=== PATIENT | male | born 1955 | race Caucasian/White ===

== ENCOUNTER → 2017-08-04 | Outpatient (CLI) | payer OTHER ==
--- NOTE | 2017-08-04 17:39 | MR ---
EXAMINATION TYPE: MR hip RT wo con DATE OF EXAM: 08/04/2017 COMPARISON: CT 10/25/2015 HISTORY: History prostate cancer with hip pain. TECHNIQUE: Multiplanar, multisequence images were acquired. A large FOV for pelvic/bilateral hip imag ing was used to obtain coronal spin-echo T1 and T2 STIR sequences and axial spin-echo T1 and fat-supp ressed T2 weighted sequences. Small [id number] ipsilateral right hip sequences included oblique sa gittal fat-suppressed proton density imaging and coronal fat-suppressed T2-weighted imaging. FINDINGS: The prior CT shows multifocal sclerotic bone lesions, likely treated/healed metastatic foci . On the present study there is [id number] end-stage osteoarthritis changes associated with mild late ral subluxation of the femoral head with respect to the acetabulum and there is associated marginal o steophytosis. There is prominent subchondral marrow edema involving the weightbearing surface of the femoral head and, to a lesser extent, the superior acetabulum. The femoral head marrow T2 hyperintens e edema involves approximately 75% of the articulating surface, and this is associated with heterogen eous subchondral T2 hyperintense serpentine lines, yet the right femoral head remains rounded and pre dominantly intact. The contralateral left hip and visualized skeletal structures are otherwise unremarkable. The soft tissues are unremarkable. IMPRESSION: [id number] OSTEOARTHRITIS, WITH OSTEONECROSIS SUSPECTED.
== END | disposition home or self-care (01) ==
LOC: RADMRIMAIN 16:12
PROVIDERS: ATTEND Internal Medicine Hematology & Oncology
DX: C61 Malignant neoplasm of prostate (principal); M16.11 Unilateral primary osteoarthritis, right hip

== ENCOUNTER → 2017-08-25 | Outpatient (CLI) | payer OTHER ==
--- NOTE | 2017-08-25 17:32 | CT ---
EXAMINATION TYPE: CT chest wo con DATE OF EXAM: 08/25/2017 COMPARISON: 04/05/2016 HISTORY: Abnormal cxr. CT DLP: 471.4 mGycm. Automated Exposure Control for Dose Reduction was Utilized. TECHNIQUE: CT scan of the thorax is performed without IV contrast. FINDINGS: There is a mild reticular infiltrate at the inferior right pulmonary hilum. There is similar reticula r infiltrate posterior to the left pulmonary hilum in the superior segment left lower lobe. There is no evidence of a pulmonary mass. There is a 2.5 cm cyst in the right lobe of the liver. There is no p leural effusion. There is no pericardial effusion. There is no mediastinal adenopathy. There are no h ilar masses. IMPRESSION: There are chronic bilateral perihilar posterior reticular infiltrates that are improved c ompared to old CT scan. no evidence of any new pulmonary density. There is clearing of minimal nodul ar subpleural infiltrate at the lung bases compared to old CT scan.
== END | disposition home or self-care (01) ==
LOC: RADCTMAIN 16:53
PROVIDERS: ATTEND Nurse Practitioner Adult Health
DX: R91.8 Other nonspecific abnormal finding of lung field (principal)
CPT/HCPCS: 71250

== ENCOUNTER → 2018-01-26 | Outpatient (CLI) | payer OTHER ==
--- NOTE | 2018-01-26 15:53 | XR ---
EXAMINATION TYPE: XR chest 2V DATE OF EXAM: 01/26/2018 COMPARISON: Correlation CT 08/25/2017 HISTORY: 63 year-old male right hip pain, preoperative assessment TECHNIQUE: Frontal and lateral views FINDINGS: Heart normal size. Aorta and pulmonary vasculature within normal limits. There is very subtle nodular ity peripheral right upper and midlung likely summation artifact given the lack of any findings on th e patient's recent 08/25/2014 CT. No consolidation or pleural effusion. IMPRESSION: No acute cardiopulmonary process.
== END | disposition home or self-care (01) ==
LOC: RADXRMAIN 14:39
PROVIDERS: ATTEND Nurse Practitioner Adult Health
DX: M25.551 Pain in right hip (principal); C61 Malignant neoplasm of prostate; G89.3 Neoplasm related pain (acute) (chronic); G62.0 Drug-induced polyneuropathy
CPT/HCPCS: 71046

== ENCOUNTER → 2018-04-17 | Outpatient (CLI) | payer OTHER ==
--- NOTE | 2018-04-18 02:28 | MR ---
EXAMINATION TYPE: MR lumbar spine wo/w con DATE OF EXAM: 04/17/2018 COMPARISON: None HISTORY: LBP, BLE radic x 1 year, hx prostate ca 2015. TECHNIQUE: Multiplanar, multisequence images of the lumbar spine were acquired utilizing 10 mL intravenous Gadav ist gadolinium contrast. The lumbar vertebra have normal alignment. There is slight narrowing of L5-S1 disc space. There is ab normal decreased signal in multiple areas of the lumbar spine on the T1 and T2-weighted images consis tent with osteosclerosis. There is no compression fracture. There is no lumbar paraspinal mass. The p osterior elements are intact. I see no lumbar spinal stenosis. The neural foramina are fairly well-ma intained. I see no pathologic enhancement. IMPRESSION: Numerous low signal lesions in the lumbar and sacral vertebral bodies consistent with osteoblastic me tastatic disease. This is also evident on the chest CT scan of 08/25/2017. No spinal stenosis. Small p osterior lumbar disc herniation at L5-S1 centrally without significant impingement on the neural [place] ents. No compression fracture.
== END | disposition home or self-care (01) ==
LOC: RADMRIMAIN 18:11
PROVIDERS: ATTEND Internal Medicine Hematology & Oncology
DX: M51.27 Other intervertebral disc displacement, lumbosacral region (principal); M89.9 Disorder of bone, unspecified; C61 Malignant neoplasm of prostate
CPT/HCPCS: 82565; 72158; 36415; A9581

== ENCOUNTER 2018-07-30 11:31 | Emergency (ER) | payer OTHER ==
[2018-07-30 11:43] VITALS: RESP 18; TEMP 98.5
--- NOTE | 2018-07-30 13:01 | XR ---
EXAMINATION TYPE: XR ankle complete RT DATE OF EXAM: 07/30/2018 CLINICAL HISTORY: Right ankle pain after a fall TECHNIQUE: Frontal, lateral and oblique images of the right ankle are obtained. COMPARISON: None. FINDINGS: There is no acute fracture/dislocation evident in the right ankle. Well-corticated osseou s fragments from sequela prior injury are seen in the region of the deltoid ligament distal to the me dial malleolus. The ankle mortise appears within normal limits. The overlying soft tissue appears un remarkable. IMPRESSION: There is no acute fracture or dislocation in the right ankle.
--- NOTE | 2018-07-30 13:04 | XR ---
EXAMINATION TYPE: XR Hip Complete RT DATE OF EXAM: 07/30/2018 CLINICAL HISTORY: Right hip pain after a fall TECHNIQUE: AP and frogleg views of the right hip are obtained. COMPARISON: None. FINDINGS: There is no acute fracture/dislocation evident in the right hip arthroplasty or surroundin g [place] bone. Somewhat patchy sclerosis is throughout the right inferior pubic ramus and ischium. T he overlying soft tissue appears unremarkable. IMPRESSION: Right hip arthroplasty appears in satisfactory alignment without immediate bone nor hardw are fracture within the right hip. There is somewhat patchy bone marrow within the right ischium and inferior pubic ramus that is nonspecific although correlation with PSA and bone scan could be utilize d for further evaluation.
--- NOTE | 2018-07-30 13:05 | XR ---
EXAMINATION TYPE: XR knee complete RT DATE OF EXAM: 07/30/2018 CLINICAL HISTORY: Right knee pain after a fall TECHNIQUE: Three views of the right knee are obtained. COMPARISON: None. FINDINGS: There is no acute fracture/dislocation evident in right knee. The there a mild marginal o steophytes are seen in the tricompartmental spaces. There is minimal medial compartment joint space n arrowing and tibial plateau sclerosis. No suprapatellar joint effusion is seen. Incidental noted fabe lla. The overlying soft tissue appears unremarkable. IMPRESSION: There is no acute fracture or dislocation in the right knee. Mild tricompartmental arthr opathy of the right knee.
--- NOTE | 2018-07-30 13:28 | ED ---
Fall HPI - General Chief Complaint: Fall Stated Complaint: Ankle injury Time Seen by Provider: 07/30/18 12:00 Source: patient, RN notes reviewed Mode of arrival: ambulatory Limitations: no limitations - History of Present Illness Initial Comments: 63-year-old male presented from for complaint of fall, right leg pain. Patient states he has a bad ankle and states that he fell on Friday in the ground is a continuation of pain to the right hip, knee and ankle region. Patient denies any head injury no loss conscious. Patient states that her prior hip replacement is concerned about this. Denies any abdominal pain including nausea vomiting diarrhea constipation. He does take Percocet daily but states the pain sometimes is just not controlled by this. - Related Data Home Medications Medication Instructions Recorded Confirmed Citracal 250mg + D 200 Units 1 tab PO DAILY 07/30/18 07/30/18 Cyclobenzaprine [Flexeril] 10 mg PO TID 07/30/18 07/30/18 Enalapril [Vasotec] 10 mg PO DAILY 07/30/18 07/30/18 Enzalutamide [Xtandi] 160 mg PO DAILY 07/30/18 07/30/18 Ibuprofen [Motrin] 800 mg PO TID PRN 07/30/18 07/30/18 oxyCODONE-APAP 10-325MG [Percocet 1 tab PO TID PRN 07/30/18 07/30/18 10-325 mg] Allergies Allergy/AdvReac Type Severity Reaction Status Date / Time No Known Allergies Allergy Verified 07/30/18 11:56 Review of Systems ROS Statement: Those systems with pertinent positive or pertinent negative responses have been documented in the HPI. ROS Other: All systems not noted in ROS Statement are negative. Past Medical History Past Medical History: Cancer, Hypertension Additional Past Medical History / Comment(s): stage IV prostate CA, to brain stem and spine History of Any Multi-Drug Resistant Organisms: None Reported Past Surgical History: Joint Replacement, Orthopedic Surgery Additional Past Surgical History / Comment(s): sinus surgery, L hand, R ankle, R knee, R h ip Past Psychological History: No Psychological Hx Reported Smoking Status: Never smoker Past Alcohol Use History: Occasional Past Drug Use History: None Reported General Exam Limitations: no limitations General appearance: alert, in no apparent distress Head exam: Present: atraumatic, normocephalic, normal inspection Neck exam: Present: normal inspection, full ROM. Absent: tenderness, meningismus, lymphadenopathy Respiratory exam: Present: normal lung sounds bilaterally. Absent: respiratory distress, wheezes, rales, rhonchi, stridor Cardiovascular Exam: Present: regular rate, normal rhythm, normal heart sounds. Absent: systolic murmur, diastolic murmur, rubs, gallop, clicks GI/Abdominal exam: Present: soft, normal bowel sounds. Absent: distended, tenderness, guarding, rebound, rigid Extremities exam: Present: other (Right hip full range of motion, minimal tenderness with palpation, no obvious deformity no ecchymosis, right knee full range of motion no laxity mild pain with valgus and there is some ecchymosis noted over the anterior surface., Right ankle tenderness to lateral malleoli region with mild swelling no ecchymosis negative for laxity, leg is neurovascularly intact no foot tenderness) Skin exam: Present: warm, dry, intact, normal color. Absent: rash Course Vital Signs 07/30/18 11:38 Temperature 98.5 F Pulse Rate 94 Respiratory 18 Rate Blood Pressure 182/110 O2 Sat by Pulse 98 Oximetry Medical Decision Making - Medical Decision Making 63-year-old male presented for fall right leg pain. X-rays are obtained no acute abnormality. Patient does have known prostate cancer with metastases to the bone and is seen on right hip x-ray. Patient will continue pain medication as directed at home and return for any worsening symptoms. Disposition Clinical Impression: Fall, Right hip pain, Knee sprain, Right ankle sprain Disposition: HOME SELF-CARE Condition: Stable Instructions: Ankle Sprain (ED), Knee Sprain (ED) Additional Instructions: Please return to the Emergency Department if symptoms worsen or any other concerns. Is patient prescribed a controlled substance at d/c from ED?: No Referrals: None,Stated [Primary Care Provider] - 1-2 days Time of Disposition: 13:28
[2018-07-30 13:42] VITALS: BP 151/111; PULSE 88
== END 2018-07-30 13:42 | disposition home or self-care (01) ==
LOC: EC 11:31
DX: S93.401A Sprain of unspecified ligament of right ankle, initial encounter (principal); S83.91XA Sprain of unspecified site of right knee, initial encounter; M25.551 Pain in right hip; I10 Essential (primary) hypertension; Z85.46 Personal history of malignant neoplasm of prostate; Z79.899 Other long term (current) drug therapy; X50.1XXA Overexertion from prolonged static or awkward postures, initial encounter; W19.XXXA Unspecified fall, initial encounter; Y93.89 Activity, other specified; Y92.89 Other specified places as the place of occurrence of the external cause
CPT/HCPCS: 73502; 99283

== ENCOUNTER → 2019-08-05 | Outpatient (CLI) | payer MEDICARE, OTHER ==
[2019-08-05 11:07] LABS: African American GFR (CKD) >90 (>60 ml/min/1.73 sqM); Blood Urea Nitrogen 15 mg/dL (9-20); Non-African American GFR(CKD) >90 (>60 ml/min/1.73 sqM)
--- NOTE | 2019-08-05 12:40 | CT ---
EXAMINATION TYPE: CT ChestAbdPelvis w con DATE OF EXAM: 08/05/2019 COMPARISON: 10/25/2015 HISTORY: Prostate CA CT DLP: 1287 mGycm CONTRAST: CT scan of the chest, abdomen and pelvis is performed with Oral Contrast and with IV Contrast, patien t injected with 100 mL of Isovue 300. CT Chest: LUNGS: The lungs are clear and free of infiltrate or atelectasis. No pulmonary nodule or mass is det ected. No pleural effusion or CT evidence of interstitial lung disease. MEDIASTINUM: Thoracic aorta is of normal caliber. The heart is not enlarged. No evidence for media stinal mass or adenopathy. HILAR STRUCTURES: No evidence for mass. No hilar adenopathy is appreciated. OTHER: No significant abnormality. CONTRAST CT ABDOMEN AND PELVIS FINDINGS: LIVER/GB: No calcified gallstones. Hepatic cystic changes are stable. Mild fatty liver. Biliary jaelyn e is of normal caliber. PANCREAS: No inflammation. No distinct mass. SPLEEN: No splenic enlargement. No lesion seen. ADRENALS: No nodule. No thickening. KIDNEYS/BLADDER: No hydronephrosis. No nephrolithiasis. No disctinct renal mass. BOWEL: Normal appendix. Normal bowel caliber. No inflammation. GENITAL ORGANS: No gross abnormality. LYMPH NODES: No greater than 1cm abdominal or pelvic lymph nodes are appreciated. AORTA: No significant abnormality. OSSEOUS STRUCTURES: Diffuse osseous sclerotic metastases are present. There is involvement of ribs an d scapula spinal column and pelvis. There is also sternal involvement. OTHER: No significant additional abnormality is seen. IMPRESSION: 1. Diffuse bony metastases noted. 2. Hepatic cystic change. 3. Mild fatty liver.
--- NOTE | 2019-08-05 15:05 | NM ---
EXAMINATION TYPE: NM bone scan whole body DATE OF EXAM: 08/05/2019 COMPARISON: CT same date HISTORY: Prostate carcinoma Delayed whole-body scanning was performed following the injection of 23.5 mCi Tc 99m MDP. Images acq uired 3 hours post injection. FINDINGS: 2 numerous to count foci of increased uptake are scattered throughout the skeleton which correlates w ith patient's abnormal CT findings of sclerosis within the skeleton to include the proximal upper and lower extremities, pelvis, spine, ribs and sternum. Photopenic defect at the proximal right hip cons istent with post arthroplasty change. IMPRESSION: Metastatic prostate carcinoma
== END | disposition home or self-care (01) ==
LOC: RADNMMAIN 10:24
PROVIDERS: ATTEND Internal Medicine Hematology & Oncology
DX: K76.0 Fatty (change of) liver, not elsewhere classified (principal); K76.89 Other specified diseases of liver; C79.51 Secondary malignant neoplasm of bone; C61 Malignant neoplasm of prostate
CPT/HCPCS: 82565; 84520; 71260; 74177; 36415; 78306; A9503; Q9967

== ENCOUNTER → 2020-02-15 | Outpatient (CLI) | payer MEDICARE, OTHER ==
--- NOTE | 2020-02-16 07:22 | MR ---
EXAMINATION TYPE: MR brain wo/w con DATE OF EXAM: 02/15/2020 COMPARISON: NONE HISTORY: Malignant neoplasm of prostate TECHNIQUE: Multiplanar, multisequence images of the brain and brainstem is performed without and with IV contras t, utilizing 10.5 mL intravenous Gadavist . FINDINGS: Diffusion weighted images demonstrate no evidence of a recent infarct or other diffusion ab normality. There is no worrisome extra-axial fluid collection. Mild diffuse ventricular and sulcal p rominence. Some scattered foci of T2 hyperintensity are seen throughout the white matter bilaterally. Approximately 20-25 small scattered lesions are seen. Midline structures demonstrate normal morphology. The craniocervical junction appears within normal limits. Post contrast images demonstrate no abnormal enhancement or suspicious enhancing intraparenc hymal masses. There is 1.4 cm mucous retention cyst or polyp in the posterior inferior left maxillary sinus otherwise paranasal sinuses are clear. The globes are intact bilaterally. IMPRESSION: 1. No suspicious enhancing mass identified to suggest metastatic disease to the brain. 2. Background mild diffuse cerebral atrophy and mild to moderate chronic small vessel ischemic change is noted.
== END | disposition home or self-care (01) ==
LOC: RADMRIMAIN 16:29
PROVIDERS: ATTEND Internal Medicine Hematology & Oncology
DX: G31.1 Senile degeneration of brain, not elsewhere classified (principal); I67.82 Cerebral ischemia; C61 Malignant neoplasm of prostate
CPT/HCPCS: 70553; A9585

== ENCOUNTER 2020-07-08 16:56 | Inpatient (IN) | payer MEDICARE, OTHER ==
[2020-07-08] MEDS ORDERED: ACETAMINOPHEN TAB 500 MG TAB PO STA (17:18)
--- NOTE | 2020-07-08 17:44 | ED ---
General Adult HPI - General Chief complaint: Fall Stated complaint: fever Time Seen by Provider: 07/08/20 17:18 Source: EMS Mode of arrival: EMS - History of Present Illness Initial comments: Dictation was produced using [employer] dictation software. please excuse any grammatical, word or spelling errors. This patient was cared for during a federal and state declared state of emergency secondary to Covid 19 Chief Complaint: 65-year-old male presents with presyncope History of Present Illness: Is a 65-year-old male with past medical history of prostate cancer. Patient states that since this morning he's been feeling faint. Patient states that he's been feeling so faint that he fell down. Denies any loss of consciousness. Patient states that his head on the wall presents to take any anticoagulation medications. Patient has history of prostate cancer. He states he's part of a drug trial retakes experimental medications. Patient denies any pain complaints. He denies any cough sore throat, nasal congestion, rhinorrhea. No dysuria or urinary symptoms. He denies any constitutional symptoms. The ROS documented in this emergency department record has been reviewed and confirmed by me. Those systems with pertinent positive or negative responses have been documented in the HPI. All other systems are other negative and/or noncontributory. PHYSICAL EXAM: General Impression: Alert and oriented x3, not in acute distress, lethargic HEENT: Normocephalic atraumatic, extra-ocular movements intact, pupils equal and reactive to light bilaterally, mucous membranes moist. Cardiovascular: Heart regular rate and rhythm Chest: Able to complete full sentences, no retractions, no tachypnea Abdomen: abdomen soft, non-tender, non-distended, no organomegaly Musculoskeletal: Pulses present and equal in all extremities, no peripheral edema Motor: no focal deficits noted Neurological: CN II-XII grossly intact, no focal motor or sensory deficits noted Skin: Intact with no visualized rashes Psych: Normal affect and mood ED course: 65-year-old male presents today with lightheadedness and presyncope. Signs upon arrival shows temperature 104, heart rate of 118, 92% on room air, rest of vital signs within acceptable limits. EKG interpretation: Ventricular rate 116, sinus tachycardia,. Interval 146, QRS 80, QTc 433. No IA prolongation, no QTC prolongation, no ST or T-wave changes noted. Overall, this EKG is unremarkable Laboratory evaluation obtained. No leukocytosis. Hemoglobin 7.9. Cardiac panel is unremarkable. Metabolic panel shows potassium 2.9, rest of labs are within acceptable limits. Urinalysis shows trace protein no infection. Influenza coronavirus are negative. Chest x-ray shows multifocal pneumonia. At this point is unclear if patient has a serous bacterial illness however he does have radiographically evidence and was mildly hypoxic. There is concern for pneumonia. Patient given broad-spectrum antibiotics. Case is discussed with Dr. Pritchett who is willing to accept patients care. Patient not showing any signs of severe sepsis at this time. Urinalysis was discussed with Jimena, patient's daughter who is agreeable with disposition. - Related Data Home Medications Medication Instructions Recorded Confirmed Citracal 250mg + D 200 Units 1 tab PO DAILY 07/30/18 07/30/18 Cyclobenzaprine [Flexeril] 10 mg PO TID 07/30/18 07/30/18 Enalapril [Vasotec] 10 mg PO DAILY 07/30/18 07/30/18 Enzalutamide [Xtandi] 160 mg PO DAILY 07/30/18 07/30/18 Ibuprofen [Motrin] 800 mg PO TID PRN 07/30/18 07/30/18 oxyCODONE-APAP 10-325MG [Percocet 1 tab PO TID PRN 07/30/18 07/30/18 10-325 mg] Allergies Allergy/AdvReac Type Severity Reaction Status Date / Time No Known Allergies Allergy Verified 07/08/20 17:07 Review of Systems ROS Statement: Those systems with pertinent positive or pertinent negative responses have been documented in the HPI. ROS Other: All systems not noted in ROS Statement are negative. Past Medical History Past Medical History: Cancer, Hypertension Additional Past Medical History / Comment(s): stage IV prostate CA, to brain stem and spine History of Any Multi-Drug Resistant Organisms: None Reported Past Surgical History: Joint Replacement, Orthopedic Surgery Additional Past Surgical History / Comment(s): sinus surgery, L hand, R ankle, R knee, R h ip Past Psychological History: No Psychological Hx Reported Smoking Status: Never smoker Past Alcohol Use History: Occasional Past Drug Use History: None Reported Course Vital Signs 07/08/20 07/08/20 17:02 18:07 Temperature 104 F H 101.4 F H Pulse Rate 118 H 105 H Respiratory 18 18 Rate Blood Pressure 167/98 158/86 O2 Sat by Pulse 92 L 98 Oximetry Medical Decision Making - Lab Data Result diagrams: 07/08/20 17:23 07/08/20 17:23 Lab Results 07/08/20 07/08/20 07/08/20 Range/Units 17:23 17:23 17:23 WBC 5.8 (3.8-10.6) k/uL RBC 2.62 L (4.30-5.90) m/uL Hgb 7.9 L (13.0-17.5) gm/dL Hct 24.2 L (39.0-53.0) % MCV 92.4 (80.0-100.0) fL MCH 30.3 (25.0-35.0) pg MCHC 32.8 (31.0-37.0) g/dL RDW 16.8 H (11.5-15.5) % Plt Count 199 (150-450) k/uL MPV 9.1 Neutrophils % Not Reportable Neutrophils % (Manual) 57 % Band Neuts % (Manual) 7 % Lymphocytes % Not Reportable Lymphocytes % (Manual) 25 % Monocytes % Not Reportable Monocytes % (Manual) 4 % Eosinophils % Not Reportable Eosinophils % (Manual) 3 % Basophils % Not Reportable Basophils % (Manual) 1 % Metamyelocytes % 4 % Myelocytes % 1 % Neutrophils # Not Reportable Neutrophils # (Manual) 3.70 (1.3-7.7) k/uL Lymphocytes # Not Reportable Lymphocytes # (Manual) 1.45 (1.0-4.8) k/uL Monocytes # Not Reportable Monocytes # (Manual) 0.23 (0-1.0) k/uL Eosinophils # Not Reportable Eosinophils # (Manual) 0.17 (0-0.7) k/uL Basophils # Not Reportable Basophils # (Manual) 0.06 (0-0.2) k/uL Metamyelocytes # (Man) 0.23 H (0) k/uL Myelocytes # (Manual) 0.06 H (0) k/uL Nucleated RBCs 4 H (0-0) /100 WBC Manual Slide Review Performed Polychromasia Present Anisocytosis Slight PT 11.1 (9.0-12.0) sec INR 1.1 (<1.2) APTT 24.6 (22.0-30.0) sec Sodium 140 (137-145) mmol/L Potassium 2.9 L (3.5-5.1) mmol/L Chloride 102 (98-107) mmol/L Carbon Dioxide 34 H (22-30) mmol/L Anion Gap 4 mmol/L BUN 13 (9-20) mg/dL Creatinine 0.99 (0.66-1.25) mg/dL Est GFR (CKD-EPI)AfAm >90 (>60 ml/min/1.73 sqM) Est GFR (CKD-EPI)NonAf 79 (>60 ml/min/1.73 sqM) Glucose 136 H (74-99) mg/dL Plasma Lactic Acid Thor (0.7-2.0) mmol/L Calcium 10.8 H (8.4-10.2) mg/dL Total Bilirubin 0.7 (0.2-1.3) mg/dL AST 61 H (17-59) U/L ALT 10 (4-49) U/L Alkaline Phosphatase 382 H (38-126) U/L Total Protein 6.1 L (6.3-8.2) g/dL Albumin 3.3 L (3.5-5.0) g/dL Urine Color Urine Appearance (Clear) Urine pH (5.0-8.0) Ur Specific [place] (1.001-1.035) Urine Protein (Negative) Urine Glucose (UA) (Negative) Urine Ketones (Negative) Urine Blood (Negative) Urine Nitrite (Negative) Urine Bilirubin (Negative) Urine Urobilinogen (<2.0) mg/dL Ur Leukocyte Esterase (Negative) Coronavirus (PCR) (Not Detectd) Influenza Type A RNA (Not Detectd) Influenza Type B (PCR) (Not Detectd) 07/08/20 07/08/20 07/08/20 Range/Units 17:23 17:39 17:42 WBC (3.8-10.6) k/uL RBC (4.30-5.90) m/uL Hgb (13.0-17.5) gm/dL Hct (39.0-53.0) % MCV (80.0-100.0) fL MCH (25.0-35.0) pg MCHC (31.0-37.0) g/dL RDW (11.5-15.5) % Plt Count (150-450) k/uL MPV Neutrophils % Neutrophils % (Manual) % Band Neuts % (Manual) % Lymphocytes % Lymphocytes % (Manual) % Monocytes % Monocytes % (Manual) % Eosinophils % Eosinophils % (Manual) % Basophils % Basophils % (Manual) % Metamyelocytes % % Myelocytes % % Neutrophils # Neutrophils # (Manual) (1.3-7.7) k/uL Lymphocytes # Lymphocytes # (Manual) (1.0-4.8) k/uL Monocytes # Monocytes # (Manual) (0-1.0) k/uL Eosinophils # Eosinophils # (Manual) (0-0.7) k/uL Basophils # Basophils # (Manual) (0-0.2) k/uL Metamyelocytes # (Man) (0) k/uL Myelocytes # (Manual) (0) k/uL Nucleated RBCs (0-0) /100 WBC Manual Slide Review Polychromasia Anisocytosis PT (9.0-12.0) sec INR (<1.2) APTT (22.0-30.0) sec Sodium (137-145) mmol/L Potassium (3.5-5.1) mmol/L Chloride (98-107) mmol/L Carbon Dioxide (22-30) mmol/L Anion Gap mmol/L BUN (9-20) mg/dL Creatinine (0.66-1.25) mg/dL Est GFR (CKD-EPI)AfAm (>60 ml/min/1.73 sqM) Est GFR (CKD-EPI)NonAf (>60 ml/min/1.73 sqM) Glucose (74-99) mg/dL Plasma Lactic Acid Thor 1.1 (0.7-2.0) mmol/L Calcium (8.4-10.2) mg/dL Total Bilirubin (0.2-1.3) mg/dL AST (17-59) U/L ALT (4-49) U/L Alkaline Phosphatase (38-126) U/L Total Protein (6.3-8.2) g/dL Albumin (3.5-5.0) g/dL Urine Color Yellow Urine Appearance Clear (Clear) Urine pH 6.0 (5.0-8.0) Ur Specific [place] 1.014 (1.001-1.035) Urine Protein Trace H (Negative) Urine Glucose (UA) Negative (Negative) Urine Ketones Negative (Negative) Urine Blood Negative (Negative) Urine Nitrite Negative (Negative) Urine Bilirubin Negative (Negative) Urine Urobilinogen <2.0 (<2.0) mg/dL Ur Leukocyte Esterase Negative (Negative) Coronavirus (PCR) Not Detected (Not Detectd) Influenza Type A RNA Not Detected (Not Detectd) Influenza Type B (PCR) Not Detected (Not Detectd) Disposition Clinical Impression: Pneumonia Disposition: ADMITTED IP TO THIS HOSP Condition: Fair Referrals: None,Stated [Primary Care Provider] - 1-2 days Decision Time: 19:14
[2020-07-08 17:48] LABS: ALT 10 U/L (4-49); AST 61 U/L (17-59); African American GFR (CKD) >90 (>60 ml/min/1.73 sqM); Albumin 3.3 g/dL (3.5-5.0); Alkaline Phosphatase 382 U/L (38-126); Anion Gap 4 mmol/L; Blood Urea Nitrogen 13 mg/dL (9-20); Calcium 10.8 mg/dL (8.4-10.2); Carbon Dioxide 34 mmol/L (22-30); Chloride 102 mmol/L (98-107); Glucose 136 mg/dL (74-99); INR 1.1 (<1.2); Non-African American GFR(CKD) 79 (>60 ml/min/1.73 sqM); Partial Thromboplastin Time 24.6 sec (22.0-30.0); Potassium 2.9 mmol/L (3.5-5.1); Prothrombin Time 11.1 sec (9.0-12.0); Sodium 140 mmol/L (137-145); Total Bilirubin 0.7 mg/dL (0.2-1.3); Total Protein 6.1 g/dL (6.3-8.2)
[2020-07-08 17:55] LABS: Anisocytosis Slight; HCT 24.2 % (39.0-53.0); HGB 7.9 gm/dL (13.0-17.5); MCH 30.3 pg (25.0-35.0); MCHC 32.8 g/dL (31.0-37.0); MCV 92.4 fL (80.0-100.0); Mean Platelet Volume 9.1; Platelet Count 199 k/uL (150-450); RBC 2.62 m/uL (4.30-5.90); RDW 16.8 % (11.5-15.5)
[2020-07-08 17:57] LABS: Appearance,Urine Clear (Clear); Bilirubin,Urine Negative (Negative); Blood,Urine Negative (Negative); Color,Urine Yellow; Glucose,Urine (UA) Negative (Negative); Ketones,Urine Negative (Negative); Leukocyte Esterase,Urine Negative (Negative); Nitrite,Urine Negative (Negative); Protein,Urine Trace (Negative); Specific Gravity,Urine 1.014 (1.001-1.035); Urobilinogen,Urine <2.0 mg/dL (<2.0)
[2020-07-08] MEDS: SODIUM CHLORIDE 0.9% 500 ML 500 ML IV SCH ×2 (18:12→19:03)
--- NOTE | 2020-07-08 18:12 | XR ---
EXAMINATION TYPE: XR chest 1V portable DATE OF EXAM: 07/08/2020 COMPARISON: 01/26/2018 HISTORY: Fever TECHNIQUE: FINDINGS: There is some patchy infiltrate left lower lobe. There is mild blunting left costophrenic a ngle. There is probably a 1 cm nodular infiltrate in the right midlung. Heart size is normal. There i s no heart failure. There are no hilar masses. Mediastinum is normal. IMPRESSION: There is a new mild left lower lobe pneumonia and left pleural effusion compared to old e xam. Small infiltrate right midlung. There is no heart failure.
[2020-07-08 18:25] LABS: SARS-CoV-2 RNA Rapid Abbott Not Detected (Not Detectd)
[2020-07-08 18:39] LABS: Band Neutrophils % 7 %; Basophils # (M) 0.06 k/uL (0-0.2); Eosinophils # (M) 0.17 k/uL (0-0.7); Lymphocytes # (M) 1.45 k/uL (1.0-4.8); Metamyelocytes # (M) 0.23 k/uL (0); Metamyelocytes % 4 %; Monocytes # (M) 0.23 k/uL (0-1.0); Myelocytes # (M) 0.06 k/uL (0); Myelocytes % 1 %; Neutrophils % (M) 57 %; Nucleated Red Blood Cells 4 /100 WBC (0-0); Polychromasia Present; Total Cells Counted 200; WBC 5.8 k/uL (3.8-10.6)
[2020-07-08] MEDS ORDERED: VANCOMYCIN IV PER PHARMACY 1 EACH MISC MISCELLANE PRN (18:52)
[2020-07-08] MEDS ORDERED: PIPERACILLIN-TAZOBACTAM 3.375 GM in SODIUM CHLORIDE 0.9% 100 ML IVPB STA (18:53)
[2020-07-08] MEDS: POTASSIUM CHLORIDE 20 MEQ in WATER FOR INJECTION 1 100ML.BAG IVPB SCH ×2 (19:03→21:29)
[2020-07-08] MEDS ORDERED: NALOXONE 0.4 MG/ML 1 ML VIAL IV PRN (19:14)
[2020-07-08] MEDS ORDERED: VANCOMYCIN 2,000 MG in SODIUM CHLORIDE 0.9% 500 ML 500 ML IVPB ONE (19:30)
[2020-07-08] MEDS ORDERED: DOCUSATE 100 MG CAP PO PRN (21:22)
[2020-07-08] MEDS ORDERED: PANTOPRAZOLE 40 MG TABLET PO PRN (21:22)
[2020-07-08] MEDS ORDERED: IBUPROFEN 800 MG TAB PO PRN (21:22)
--- NOTE | 2020-07-08 23:10 | P.HPIM ---
History of Present Illness H&P Date: 07/08/20 Chief Complaint: falling , generalized weakness 65 year old male with stage 4 prostate cancer patient comes in due to sudden feeling of generalized weakness, near syncope, an d feeling fatigued. he is in a drug trial to treat his prostate cancer with mets to the bone. he finished 8 cycles, and after each he has specific instructions to take motrin and tylenol, which this time he missed yesterday, and had a busy day playing with his grandson sledding, and shoveling snow. this morning he woke up feeling very tired, he otherwise denies any URI symptoms, denies any SOB or chest pain , denies any diarrhea or GI changes, denies any urinary changes, denies any rashes , leg pain (other than baseline neuropathy) , denies any changes in taste or smell sensation in the ED, he was found to have chronic anemia , low K, and CXR showed areas suspicious for infilterates (vs possible lung mets this will need follow up as OP). patient was also found to be febrile , tested negative to flu and COVID 19 , he was started on broad spectrum antibiotics and blood cultures taken Review of Systems Pertinent positives as noted in HPI. All other systems were reviewed and are negative Past Medical History Past Medical History: Cancer, Hypertension Additional Past Medical History / Comment(s): stage IV prostate CA, to brain stem and spine History of Any Multi-Drug Resistant Organisms: None Reported Past Surgical History: Joint Replacement, Orthopedic Surgery Additional Past Surgical History / Comment(s): sinus surgery, L hand, R ankle, R knee, R h ip Past Psychological History: No Psychological Hx Reported Smoking Status: Never smoker Past Alcohol Use History: Occasional Past Drug Use History: None Reported - Past Family History family Family Medical History: No Reported History Medications and Allergies Home Medications Medication Instructions Recorded Confirmed Type Ibuprofen [Motrin] 800 mg PO TID PRN 07/30/18 07/08/20 History Acetaminophen Tab [Tylenol] 650 mg PO Q6H PRN 07/08/20 07/08/20 History Docusate [Colace] 100 mg PO HS PRN 07/08/20 07/08/20 History Ferrous Sulfate [Feosol] 325 mg PO DAILY 07/08/20 07/08/20 History Gabapentin 300 mg PO TID 07/08/20 07/08/20 History Omeprazole 40 mg PO DAILY PRN 07/08/20 07/08/20 History Potassium Chloride ER [K-Dur 20] 20 meq PO DAILY 07/08/20 07/08/20 History SUMAtriptan SUCCINATE [Imitrex] 25 mg PO BID PRN 07/08/20 07/08/20 History oxyCODONE HCL [oxyCODONE HCL (IR)] 15 mg PO Q4H 07/08/20 07/08/20 History Allergies Allergy/AdvReac Type Severity Reaction Status Date / Time No Known Allergies Allergy Verified 07/08/20 19:30 Physical Exam Vitals: Vital Signs Temp Pulse Resp BP Pulse Ox 07/08/20 18:07 101.4 F H 105 H 18 158/86 98 07/08/20 17:02 104 F H 118 H 18 167/98 92 L Intake and Output 07/08/20 07/08/20 07/08/20 06:59 14:59 22:59 Other: Weight 95.254 kg Constitutional: No acute distress, conversant, pleasant Eyes: Anicteric sclerae, moist conjunctiva, Pupils equal round reactive to light ENMT: NC/AT Oropharynx clear, no erythema, or exudates Neck: Supple, FROM, no masses, or JVD No carotid bruits No thyromegaly Lungs: Clear to auscultation Clear to percussion Normal respiratory effort, no accessory muscle use Cardiovascular: Heart regular in rate and rhythm, No murmurs, gallops, or rubs No peripheral edema Abdominal: Soft Nontender, no guarding, rebound or rigidity Abdomen moving with respiration Normoactive bowel sounds No hepatomegaly, No splenomegaly No palpable mass No abdominal wall hernia noted Skin: Normal temperature, tone, texture, turgor No induration No subcutaneous nodules No rash, lesions No ulcers Extremities: No digital cyanosis No clubbing Pedal pulses intact and symmetrical Radial pulses intact and symmetrical No calf tenderness Psychiatric: Alert and oriented to person, place and time Appropriate affect fair judgement Neuro Muscles Strength 5/5 in all 4 extremities Sensation to light touch grossly present throughout Cranial nerves II-XII grossly intact No focal sensory deficits Lymphatics: no palpable cervical or supraclavicular , or inguinal lymph nodes Results CBC & Chem 7: 07/08/20 17:23 07/08/20 17:23 Labs: Abnormal Lab Results - Last 24 Hours (Table) 07/08/20 07/08/20 07/08/20 Range/Units 17:23 17:23 17:42 RBC 2.62 L (4.30-5.90) m/uL Hgb 7.9 L (13.0-17.5) gm/dL Hct 24.2 L (39.0-53.0) % RDW 16.8 H (11.5-15.5) % Metamyelocytes # (Man) 0.23 H (0) k/uL Myelocytes # (Manual) 0.06 H (0) k/uL Nucleated RBCs 4 H (0-0) /100 WBC Potassium 2.9 L (3.5-5.1) mmol/L Carbon Dioxide 34 H (22-30) mmol/L Glucose 136 H (74-99) mg/dL Calcium 10.8 H (8.4-10.2) mg/dL AST 61 H (17-59) U/L Alkaline Phosphatase 382 H (38-126) U/L Total Protein 6.1 L (6.3-8.2) g/dL Albumin 3.3 L (3.5-5.0) g/dL Urine Protein Trace H (Negative) Assessment and Plan Assessment: febrile with generalized weakness workup for infectious source stage 4 prostate cancer hypokalemia chronic anemia plan supportive care follow up cultures empiric antibiotics with vanco and azithro follow up CXR 4-6 weeks after discharge , to rule out lung mets continue with motrin and tylenol per his clinical trial IVF hydration resume home opiates for back pain gabapentine for neuropathy replace K , check Mg CODE STATUS:full code DVT prophylaxis: hepairn sc tid Discussed with: Patient, ER Anticipated length of stay < than [address]: home A total of 75 minutes was spent on the care of this complex patient more than 50% of the time was spent in counseling and care coordination.
[2020-07-08] MEDS: SODIUM CHLORIDE 0.9% 1,000 ML IV SCH (23:43)
[2020-07-08] MEDS: HEPARIN SODIUM,PORCINE 5,000 UNIT/ML 1 ML VIAL SQ SCH (23:44)
[2020-07-09] MEDS: SODIUM CHLORIDE 0.9% 1,000 ML IV SCH ×3 (05:17→22:51)
[2020-07-09] MEDS: ACETAMINOPHEN TAB 325 MG TAB PO PRN ×2 (06:20→19:51)
[2020-07-09 07:09] LABS: Anisocytosis Slight; Basophils % (A) 0 %; Eosinophils # (A) 0.1 k/uL (0-0.7); Eosinophils % (A) 3 %; Hypochromasia Slight; Lymphocytes # (A) 0.7 k/uL (1.0-4.8); Lymphocytes % (A) 18 %; MCHC 31.7 g/dL (31.0-37.0); MCV 94.8 fL (80.0-100.0); Mean Platelet Volume 8.5; Monocytes # (A) 0.3 k/uL (0-1.0); Monocytes % (A) 9 %; Neutrophils # (A) 2.5 k/uL (1.3-7.7); Neutrophils % (A) 66 %; Platelet Count 137 k/uL (150-450); RBC 2.07 m/uL (4.30-5.90); RDW 16.5 % (11.5-15.5); WBC 3.7 k/uL (3.8-10.6)
[2020-07-09 07:14] LABS: HCT 19.6 % (39.0-53.0); HGB 6.2 gm/dL (13.0-17.5)
[2020-07-09] MEDS ORDERED: VANCOMYCIN 1,750 MG in SODIUM CHLORIDE 0.9% 500 ML 500 ML IVPB SCH (08:00)
[2020-07-09] MEDS: AZITHROMYCIN 500 MG TAB PO SCH (08:10)
[2020-07-09] MEDS: HEPARIN SODIUM,PORCINE 5,000 UNIT/ML 1 ML VIAL SQ SCH (08:11)
[2020-07-09] MEDS ORDERED: GABAPENTIN 300 MG CAP PO SCH (09:00)
[2020-07-09] MEDS ORDERED: POTASSIUM CHLORIDE ER 20 MEQ TAB.ER PO SCH (09:00)
[2020-07-09 09:48] LABS: African American GFR (CKD) 107.9 (60.0-200.0); Albumin 3.2 g/dL (3.80-4.90); Albumin/Globulin Ratio 2.13 (1.60-3.17); Anion Gap 4.9 mmol/L (4.00-12.00); BUN/Creat Ratio 16.25 Ratio (12.00-20.00); Calcium 9.4 mg/dL (8.7-10.3); Carbon Dioxide 32.1 mmol/L (21.6-31.8); Globulin 1.5 g/dL (1.6-3.3); Magnesium 1.6 mg/dL (1.5-2.4); Non-African American GFR(CKD) 93.1 (60.0-200.0); Potassium 3.6 mmol/L (3.5-5.5); Total Bilirubin 0.4 mg/dL (0.3-1.2); Total Protein 4.7 g/dL (6.2-8.2)
[2020-07-09 11:34] LABS: Anisocytosis Slight; HCT 20.1 % (39.0-53.0); Hypochromasia Slight; MCH 31.6 pg (25.0-35.0); MCHC 33.3 g/dL (31.0-37.0); MCV 94.7 fL (80.0-100.0); Mean Platelet Volume 8.1; Platelet Count 136 k/uL (150-450); RBC 2.12 m/uL (4.30-5.90); RDW 16.4 % (11.5-15.5); WBC 4.3 k/uL (3.8-10.6)
[2020-07-09 11:42] LABS: HGB 6.7 gm/dL (13.0-17.5)
[2020-07-09 11:46] LABS: Reticulocyte % 2.3 % (0.5-2.0)
--- NOTE | 2020-07-09 12:26 | P.CONS ---
History of Present Illness - Reason for Consult Consult date: 07/09/20 Prostate cancer Requesting physician: Pinky Santillan - Chief Complaint Faint feeling and fall - History of Present Illness Mr. Downs is a very pleasant 65-year-old gentleman comorbidities including long-standing prostate cancer, status post multiple lines of treatment, currently on a clinical trial with T cells and Keytruda through [facility], here for feeling faint. He had his last T-cell treatment on Friday and felt well afterwards. He continues to have several more Keytruda treatments left. He subsequently felt very faint to the point that he fell and ended up in the ER where workup revealed a left lower lobe infiltrate on chest x-ray. He was admitted and started on antibiotics for pneumonia. He also had anemia, hemoglobin 7.9, decreased to 6.7 today. Overall he does feel better however. Rest of his workup was unremarkable. We were called regarding his history of metastatic prostate cancer. Oncologic history: This is a very nice patient who presented with worsening neck pain,he is known to have chronic neck and back pain from multiple injuries in the past,however,his neck pain progressed which led to XR then MRI to cervical spine on 09/18/2015 w/o contrast which reported heniated disc,then on 10/05/2015 repeat MRI of cervical spine with contrast revealed extradural soft tissue mass at T3 in addition to suspicious lesions in cervical and thoracic spine. On 10/12/2015,MRI of thoracic spine confirmed the soft tissue mass at T3 in addition to multiple other lesions. On 10/13/2015,bone scan revealed diffuse bone metastasis. He is known to have elevated PSA,it went up to 5.25 on 12/05/2010 (was 2.7 on 07/19/2008),then 4.92 on 07/11/2011 and 6.61 on 12/11/2012,7.350 on 08/31/2013. He was evaluated by Dr Lilly in 2013,and found to have a nodule at his prostate apex,transrectal ultrasound and biopsy was recommended but he declined it wi thout any further follow up. On 10/25/2015,PSA was 660. CT scan of chest/abdomen/pelvis done on 10/25/2015 revealed diffuse osseous metastasis,no visceral disease. On 10/31/2015,prostate biopsy was positive for adenocarcinoma Deep of 8(4+4) 8/12 cores. He started casodex on 10/26/2015. He started palliative radiation to his cervical spine on 11/03/2015 and completed on 11/16/2015. On 11/20/2015,he started leupron every 3 months and xgeva every 4 weeks. Casodex was discontinued end of . He was given recommendation for initial chemotherapy with LHRH agonist,he was referrred to [facility],he was given the option of LHRH agonist+xtandi as part of clinical trial,he initially went on it,took xtandi for 2 days and stopped it and decided to get off the study. On 12/20/2015,PSA was 1.7. On 12/28/2015,he started taxotere every 3 weeks. On 02/27/2016,he decided to stop Leupron because it made him feel very tired,impotence. On 03/09/2016 was less than 0.1. He completed 6 cycles on 04/16/2016. On 04/05/2016,CT of chest done because of cough revealed bilateral pneumonitis. On 04/24/2016,PSA was less than 0.1 On 06/19/2016,PSA was less than 0.1. On 07/23/2016,PSA was 0.2 On 09/07/2016,PSA was 0.7 On 10/10/2016,PSA was 1.7 On 01/22/2017,PSA was 10.2. On 04/22/2017,PSA was 35.9 On 06/03/2017,PSA was 52.9 He agreed to go a casodex,again,declined leupron,his PSA was down to 25,then he held it and went back up to 34,. 12/22/17-Pt here today for pain managment discussion, he feels like he "got run over by a train", he takes the norco 4 times a day, ibuprofen PRN and flexeril at bedtime with fair to poor pain control, he has had XRT to spine, he states the area is "on fire", his right hip is very painful, gives out at times and he is considering orthopedic intervention. He has been on and off treatments for quite sometime, he states that he has been on casodex for about 9 months, he states he is going to go onto Xtandi and LHRH in the near future waiting for insurance-there is no order for the same, I reviwed that it is likely xgeva, he isn't going to take xgeva until he has need his ortho. 02/11/18-Pt here for his norco refill. He is s/p total right hip replacement. He has not consistently been treated for prostate cancer (takes oral casodex most of the time, refused lupron and xgeva), no he is going to proceed with xgeva and maybe lupron in 2 weeks. He is healing well from surgery, no other c/o r/t malignancy or casodex today. 03/23/2018: His PSA was 249 in January/2018.He finally agreed to go on leupron,which was started on 02/26/2018,he had once and now declining to have it anymore and he does not want xtandi either and stopped casodex,he continues to have neuroapthy,numbness in both feet,he has worsening back pain,not controlled with norco,worsening fatigue 06/09/2018: He has been compliant with xtandi and leupron since March/2018,tolerating treatment well,he feels better,his PSA is down to 29.2,his back and joints pain is under control 07/20/2018: He has been very compliant with xtandi,leupron and xgeva. He feels tired but better,chronic joints and back pain controlled with percocet as needed,,his PSA has significantly declined,his BP is elevated but stated he has not been taking his enalapril 10/19/2018: He is taking xtandi daily,compliant with the leupron and xgeva,he has some muscle cramps,hot flashes,has his chronic back pain,controlled with percocet as needed,he is relatively active.His last PSA in 07/2018 was down 11.2 01/27/2019: He has his chronic generalized bone aches,some muscle cramps,he also has numbness and pain in his feet,he is relatively active,he gained weight,has hot flashes,his PSA on 12/30/2018 was 16.2 05/04/2019: He feels tired,generalized bone pain,he missed leupron injection last month,he continues with xtandi,uses percocet as needed for pain,about 3-4 times/day,also on motrin,on neurontin for his neuropathy,has some hot flashes. 07/27/2019: PSA in April/2019 was 43. He feels tired,generalized bone pain,he continues with xtandi,uses percocet as needed for pain,about 3-4 times/day,also on motrin,on neurontin for his neuropathy,has some hot flashes. 08/17/2019: he had repeat CT scan of chest/abdomen/pelvis and bone scan on 08/05/2019 which revealed diffuse osseous mets,no visceral disease,his PSA was up to 81.7 He feels tired,generalized musculoskeletal pain,controlled with current pain meds regimen,has hot flashes and continues to have neuropathy,which is stable,he remains relatively active. 09/03/2019: he was referred to [facility].a phase II trial () of pembrolizumab with anti- CD3 x anti HER2 bispecific antibodies armed activated T cells in metastatic castrate resistent prostate cancer. He feels tired,generalized musculoskeletal pain,controlled with current pain meds regimen,has hot flashes and continues to have neuropathy,which is stable,he remains relatively active. 11/12/2019:audio visual: he feels tired,generalized musculoskeletal pain and legs weakness. he is still unsure about proceeding with clinical trial at [facility],he has an Appt on 11/22/2019,if he decided not to pursue it,then,I would highly consider taxanes chemotherapy. He also complains of right jaw pain and sinus congestion,I am concerned about osteonecrosis of jaw,he could not see a dentist due to coburn,will re prescribe Abx and hold xgeva for now. His last PSA was up to 239.6. His disease is progressing,I highly recommended that he will make a decision soon in regard to his treatment:clinical trials vs taxotere. Time spent 30 mionutes. 12/13/2019: recent CT scan and bone scan done at [facility] revealed significant progression of osseous lesions and his PSA was significantly elevated over 300. He feels tired,has his chronic back,hip pain and neuropathy,at this time,there is no plan for clinical trial and he would like to start chemotherapy. Due to concern about osteonecrosis of his jaw,xgeva was held and he has not seen a dentist yet. 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 04/14/2020: He is currently on clinical trial at [facility],under DR Choco akbar. He feels tired,generalized bone pain,04/22,not controlled with percocet,we discussed adding oxycontin,he agreed,he tried neurontin before and did not help him.He continues to take motrin as needed 05/15/20-Next week he gets his 1st keytruda, pending T cell return for infusion, it will be given twice a week. He is supposed to get eliguard next week-pending note from clinical trial team to proceed. He has pain, less fluctuation in the intensity but, still persists, worse when he exerts himself. No other c/o. 06/23/2020: he feels tired,currently on clinical trial at [facility] with T cell and keytruda,he has his last T cell injection next week and 8 more keytruda treatment. His generalized musculoskeletal pain is less,taking less narcotics,continues to have his chronic peripheral neuropathy,his anemic today Review of Systems All systems: negative Constitutional: Reports as per HPI Past Medical History Past Medical History: Cancer, Hypertension Additional Past Medical History / Comment(s): stage IV prostate CA, to brain stem and spine History of Any Multi-Drug Resistant Organisms: None Reported Past Surgical History: Joint Replacement, Orthopedic Surgery Additional Past Surgical History / Comment(s): sinus surgery, L hand, R ankle, R knee, R h ip Past Anesthesia/Blood Transfusion Reactions: No Reported Reaction Past Psychological History: No Psychological Hx Reported Smoking Status: Never smoker Past Alcohol Use History: Occasional Past Drug Use History: None Reported - Past Family History family Family Medical History: No Reported History Medications and Allergies Home Medications Medication Instructions Recorded Confirmed Type Ibuprofen [Motrin] 800 mg PO TID PRN 07/30/18 07/08/20 History Acetaminophen Tab [Tylenol] 650 mg PO Q6H PRN 07/08/20 07/08/20 History Docusate [Colace] 100 mg PO HS PRN 07/08/20 07/08/20 History Ferrous Sulfate [Feosol] 325 mg PO DAILY 07/08/20 07/08/20 History Gabapentin 300 mg PO TID 07/08/20 07/08/20 History Omeprazole 40 mg PO DAILY PRN 07/08/20 07/08/20 History Potassium Chloride ER [K-Dur 20] 20 meq PO DAILY 07/08/20 07/08/20 History SUMAtriptan SUCCINATE [Imitrex] 25 mg PO BID PRN 07/08/20 07/08/20 History oxyCODONE HCL [oxyCODONE HCL (IR)] 15 mg PO Q4H 07/08/20 07/08/20 History Allergies Allergy/AdvReac Type Severity Reaction Status Date / Time No Known Allergies Allergy Verified 07/08/20 19:30 Physical Exam Vitals: Vital Signs Temp Pulse Pulse Resp BP BP Pulse Ox 07/09/20 05:57 97.9 F 66 16 122/66 100 07/09/20 02:30 98.3 F 80 16 130/80 98 07/08/20 20:51 99.1 F 94 16 125/75 98 07/08/20 20:30 100.1 F H 93 16 147/91 97 07/08/20 19:39 100.6 F H 97 16 167/99 100 07/08/20 18:07 101.4 F H 105 H 18 158/86 98 07/08/20 17:02 104 F H 118 H 18 167/98 92 L Intake and Output 07/08/20 07/09/20 07/09/20 22:59 06:59 14:59 Output Total 700 Balance -700 Output: Urine 700 Other: # Voids 2 Weight 95.254 kg Gen.: No acute distress. HEENT: He does have conjunctival pallor. No scleral icterus. Mucosa moist. Neck: Supple. Lungs: No respiratory distress. On NC. Heart: Regular rate. Abdomen: Soft. MSK: Appropriate strength in all 4 extremities. Neuro: Alert and oriented 3. Skin: No jaundice. Psych: Appropriate affect. Results CBC & Chem 7: 07/09/20 11:23 07/09/20 06:34 Labs: Abnormal Lab Results - Last 24 Hours (Table) 07/08/20 07/08/20 07/08/20 Range/Units 17:23 17:23 17:23 WBC (3.8-10.6) k/uL RBC 2.62 L (4.30-5.90) m/uL Hgb 7.9 L (13.0-17.5) gm/dL Hct 24.2 L (39.0-53.0) % RDW 16.8 H (11.5-15.5) % Plt Count (150-450) k/uL Lymphocytes # (1.0-4.8) k/uL Metamyelocytes # (Man) 0.23 H (0) k/uL Myelocytes # (Manual) 0.06 H (0) k/uL Nucleated RBCs 4 H (0-0) /100 WBC Potassium 2.9 L (3.5-5.1) mmol/L Carbon Dioxide 34 H (22-30) mmol/L Glucose 136 H (74-99) mg/dL Calcium 10.8 H (8.4-10.2) mg/dL AST 61 H (17-59) U/L ALT (10-49) U/L Alkaline Phosphatase 382 H (38-126) U/L Total Protein 6.1 L (6.3-8.2) g/dL Albumin 3.3 L (3.5-5.0) g/dL Globulin (1.6-3.3) g/dL Procalcitonin 0.11 H (0.02-0.09) ng/mL Urine Protein (Negative) Crossmatch 07/08/20 07/09/20 07/09/20 Range/Units 17:42 06:34 06:34 WBC 3.7 L (3.8-10.6) k/uL RBC 2.07 L (4.30-5.90) m/uL Hgb 6.2 L* D (13.0-17.5) gm/dL Hct 19.6 L* (39.0-53.0) % RDW 16.5 H (11.5-15.5) % Plt Count 137 L (150-450) k/uL Lymphocytes # 0.7 L (1.0-4.8) k/uL Metamyelocytes # (Man) (0) k/uL Myelocytes # (Manual) (0) k/uL Nucleated RBCs (0-0) /100 WBC Potassium (3.5-5.1) mmol/L Carbon Dioxide 32.1 H (22-30) mmol/L Glucose 114 H (74-99) mg/dL Calcium (8.4-10.2) mg/dL AST (17-59) U/L ALT 9 L (10-49) U/L Alkaline Phosphatase 338 H (38-126) U/L Total Protein 4.7 L (6.3-8.2) g/dL Albumin 3.20 L (3.5-5.0) g/dL Globulin 1.5 L (1.6-3.3) g/dL Procalcitonin (0.02-0.09) ng/mL Urine Protein Trace H (Negative) Crossmatch 07/09/20 Range/Units 08:32 WBC (3.8-10.6) k/uL RBC (4.30-5.90) m/uL Hgb (13.0-17.5) gm/dL Hct (39.0-53.0) % RDW (11.5-15.5) % Plt Count (150-450) k/uL Lymphocytes # (1.0-4.8) k/uL Metamyelocytes # (Man) (0) k/uL Myelocytes # (Manual) (0) k/uL Nucleated RBCs (0-0) /100 WBC Potassium (3.5-5.1) mmol/L Carbon Dioxide (22-30) mmol/L Glucose (74-99) mg/dL Calcium (8.4-10.2) mg/dL AST (17-59) U/L ALT (10-49) U/L Alkaline Phosphatase (38-126) U/L Total Protein (6.3-8.2) g/dL Albumin (3.5-5.0) g/dL Globulin (1.6-3.3) g/dL Procalcitonin (0.02-0.09) ng/mL Urine Protein (Negative) Crossmatch See Detail Microbiology - Last 24 Hours (Table) 07/08/20 17:42 Group A Strep Throat Culture - Preliminary Throat Chest x-ray: report reviewed Assessment and Plan Assessment: 1. Pneumonia 2. Prostate cancer 3. Pancytopenia Plan: Mr. Downs is a very pleasant 65 yo male with history of metastatic prostate cancer on a clinical trial who is here for feeling faint and falling. Workup revealed a left lower lung infiltrate consistent with pneumonia as well as anemia, normocytic. He was admitted and started on antibiotics and currently repeat CBC reveals pancytopenia. As for his prostate cancer, we'll hold catheter directed therapy for now until his infection improves. As worse pancytopenia likely due to his prostate cancer/treatment as well as antibiotics and acute illness. Supportive transfusion for hemoglobin less than 7 or platelets less than 15 or bleeding. Rule out other contributing etiology such as of also some bleeding and vitamin d eficiencies. Discussed with patient is agreeable to the plan. All of his questions were answered.
--- NOTE | 2020-07-09 12:56 | P.PN ---
Subjective Progress Note Date: 07/09/20 Principal diagnosis: CC: Fatigue and lightheadedness found to have fever and anemia Patient states that this morning he is feeling much better. He states that his fevers have resolved. This morning patient's CBC showed pancytopenia. Patient denies any overt signs of bleeding. Objective - Vital Signs Vital signs: Vital Signs Temp 97.8 F 07/09/20 12:45 Pulse 74 07/09/20 12:45 Resp 18 07/09/20 12:45 BP 146/87 07/09/20 12:45 Pulse Ox 95 07/09/20 12:45 Intake & Output 07/08/20 07/09/20 07/09/20 18:59 06:59 18:59 Intake Total 0 Output Total 700 Balance -700 Weight 95.254 kg 95.254 kg Intake: Blood Product 0 Rc As-1 Unit 0 [id number] Output: Urine 700 Other: Voiding Method Urinal # Voids 2 - Exam General examination - Alert and Oriented 3 in NAD Heart - + S1S2 no murmurs Lungs - Clear to auscultation Abdomen soft NT ND +ve BS Extremities - No edema HISTOLOGIST - Moving all 4 extremities spontaneously Psych - Calm and cooperative - Labs CBC & Chem 7: 07/09/20 11:23 07/09/20 06:34 Labs: Abnormal Lab Results - Last 24 Hours (Table) 07/08/20 07/08/20 07/08/20 Range/Units 17:23 17:23 17:23 WBC (3.8-10.6) k/uL RBC 2.62 L (4.30-5.90) m/uL Hgb 7.9 L (13.0-17.5) gm/dL Hct 24.2 L (39.0-53.0) % RDW 16.8 H (11.5-15.5) % Plt Count (150-450) k/uL Lymphocytes # (1.0-4.8) k/uL Metamyelocytes # (Man) 0.23 H (0) k/uL Myelocytes # (Manual) 0.06 H (0) k/uL Nucleated RBCs 4 H (0-0) /100 WBC Retic Count (0.5-2.0) % Potassium 2.9 L (3.5-5.1) mmol/L Carbon Dioxide 34 H (22-30) mmol/L Glucose 136 H (74-99) mg/dL Calcium 10.8 H (8.4-10.2) mg/dL AST 61 H (17-59) U/L ALT (10-49) U/L Alkaline Phosphatase 382 H (38-126) U/L Total Protein 6.1 L (6.3-8.2) g/dL Albumin 3.3 L (3.5-5.0) g/dL Globulin (1.6-3.3) g/dL Procalcitonin 0.11 H (0.02-0.09) ng/mL Urine Protein (Negative) Crossmatch 07/08/20 07/09/20 07/09/20 Range/Units 17:42 06:34 06:34 WBC 3.7 L (3.8-10.6) k/uL RBC 2.07 L (4.30-5.90) m/uL Hgb 6.2 L* D (13.0-17.5) gm/dL Hct 19.6 L* (39.0-53.0) % RDW 16.5 H (11.5-15.5) % Plt Count 137 L (150-450) k/uL Lymphocytes # 0.7 L (1.0-4.8) k/uL Metamyelocytes # (Man) (0) k/uL Myelocytes # (Manual) (0) k/uL Nucleated RBCs (0-0) /100 WBC Retic Count (0.5-2.0) % Potassium (3.5-5.1) mmol/L Carbon Dioxide 32.1 H (22-30) mmol/L Glucose 114 H (74-99) mg/dL Calcium (8.4-10.2) mg/dL AST (17-59) U/L ALT 9 L (10-49) U/L Alkaline Phosphatase 338 H (38-126) U/L Total Protein 4.7 L (6.3-8.2) g/dL Albumin 3.20 L (3.5-5.0) g/dL Globulin 1.5 L (1.6-3.3) g/dL Procalcitonin (0.02-0.09) ng/mL Urine Protein Trace H (Negative) Crossmatch 12/07/09/20 07/09/20 Range/Units 08:32 11:23 11:23 WBC (3.8-10.6) k/uL RBC 2.12 L (4.30-5.90) m/uL Hgb 6.7 L* (13.0-17.5) gm/dL Hct 20.1 L (39.0-53.0) % RDW 16.4 H (11.5-15.5) % Plt Count 136 L (150-450) k/uL Lymphocytes # (1.0-4.8) k/uL Metamyelocytes # (Man) (0) k/uL Myelocytes # (Manual) (0) k/uL Nucleated RBCs (0-0) /100 WBC Retic Count 2.3 H (0.5-2.0) % Potassium (3.5-5.1) mmol/L Carbon Dioxide (22-30) mmol/L Glucose (74-99) mg/dL Calcium (8.4-10.2) mg/dL AST (17-59) U/L ALT (10-49) U/L Alkaline Phosphatase (38-126) U/L Total Protein (6.3-8.2) g/dL Albumin (3.5-5.0) g/dL Globulin (1.6-3.3) g/dL Procalcitonin (0.02-0.09) ng/mL Urine Protein (Negative) Crossmatch See Detail Microbiology - Last 24 Hours (Table) 07/08/20 17:42 Group A Strep Throat Culture - Preliminary Throat Assessment and Plan Assessment: #febrile with generalized weakness -This is likely due to his therapy that he is receiving at [facility]. Patient was told that after he receives his treatment he should take Tylenol and ibuprofen around the clock otherwise he will have high-grade fever. Patient states that after his last therapy he did not take Tylenol and ibuprofen as instructed. -Patient chest x-ray also shows consolidation in the left lung so cannot rule out pneumonia versus new mass -We'll prophylactically start patient on azithromycin Zosyn and vancomycin -Consult ID to rule out other infectious etiology. -Patient has not had any fever since last night 2030 -Patient is already feeling better and would like to go home -Follow blood cultures -We'll transfuse 1 unit of PRBC for hemoglobin of 6.8 #Pancytopenia -Patient's repeat CBC showed pancytopenia again this is likely due to patient's therapy that he is receiving at [facility] for his prostate cancer. Patient states that in the past he has received blood transfusions after his therapy. -We'll consult GI to rule out possible GI bleed -Check iron panel and stool occult -Hold anticoagulation and ibuprofen #stage 4 prostate cancer -Oncology on board #hypokalemia -Replete as needed Full code DVT prophylaxis: SCDs
[2020-07-09] MEDS: PIPERACILLIN-TAZOBACTAM 3.375 GM in SODIUM CHLORIDE 0.9% 100 ML IVPB SCH ×2 (15:38→22:49)
[2020-07-09] MEDS: lisinopriL 20 MG TAB PO SCH (15:38)
[2020-07-09] MEDS: GABAPENTIN 300 MG CAP PO SCH ×2 (15:38→22:49)
[2020-07-09 16:20] LABS: Folate, Serum 9.7 ng/mL
[2020-07-09 16:32] LABS: % Iron Saturation 13.49 (15.00-50.00); Ferritin 685.2 ng/mL (22.0-322.0)
[2020-07-09 17:05] LABS: Anisocytosis Slight; HCT 22.7 % (39.0-53.0); HGB 7.6 gm/dL (13.0-17.5); Hypochromasia Slight; MCH 31.2 pg (25.0-35.0); MCHC 33.5 g/dL (31.0-37.0); MCV 93.3 fL (80.0-100.0); Platelet Count 130 k/uL (150-450); RBC 2.43 m/uL (4.30-5.90); RDW 16.6 % (11.5-15.5); WBC 4.6 k/uL (3.8-10.6)
--- NOTE | 2020-07-09 19:47 | CONS ---
CONSULTATION DATE OF SERVICE: July 09, 2020. REASON FOR CONSULTATION: Severe symptomatic anemia. HISTORY OF PRESENT ILLNESS: The patient is a 65-year-old pleasant white male with history of metastatic prostate cancer, was currently on a clinical trial with [facility]-cell and [facility] He apparently had his last infusion Friday and he was feeling well. Yesterday however he started feeling weak and tired and came to the emergency room and was noted to have some infiltrate on the chest x-ray and presently on broad-spectrum antibiotics. He was also noted to have a hemoglobin of 7.6, which dropped to 6.7 today and hence we are consulted in regard to this issue. The patient states that he had a similar episode that happened a month ago and received a unit of PRBC transfusion. He was told this was related to his chemotherapy. He denies any abdominal pain. No nausea, no vomiting. No rectal bleeding or melena. No prior history of peptic ulcer disease or recent NSAID use. PAST MEDICAL HISTORY: Significant for metastatic prostate cancer, undergoing chemotherapy thru a clinical trial; history of hypertension, gastroesophageal reflux disease. MEDICATIONS: Medications at home include Vasotec, acetaminophen, potassium chloride, omeprazole, Motrin p.r.n., iron sulfate, Colace, Tylenol, Imitrex. SOCIAL HISTORY: No smoking. No alcohol use. FAMILY HISTORY: Unremarkable. PAST SURGICAL HISTORY: Left hand surgery, right ankle surgery and right knee surgery. SOCIAL HISTORY: No smoking. No alcohol use. REVIEW OF SYSTEMS: CARDIOPULMONARY: No chest pain, no shortness of breath. no dysuria or hematuria. MUSCULOSKELETAL unremarkable. Skin unremarkable. Endocrine unremarkable. Psychiatric unremarkable. NEUROLOGY: Unremarkable. ENT/VISION: Unremarkable. CONSTITUTIONAL: No recent weight loss. No fever, chills, night sweats. PHYSICAL EXAMINATION: He appears comfortable. No apparent distress. Vital signs stable. Blood pressure is 150/92, pulse 84, temperature 98.7. HEENT examination unremarkable. Conjunctivae pink. Sclerae anicteric. Oral cavity no lesions. Neck no JVD or lymph node enlargement. Chest was clear to auscultation. HEART: Regular rate and rhythm. ABDOMEN: Soft. Bowel sounds are positive. No organomegaly. Extremities no pedal edema. Skin no rashes. Neuro: He is alert and oriented x3. No focal deficits. LABS: From yesterday WBC 5.8, hemoglobin 7.9, platelets 199. Today hemoglobin is 6.7, WBC 4.3, platelets are 136. BUN and creatinine are within normal limits. AST and ALT are 26 and 9 respectively; alkaline phosphatase 338. Serum iron is 29, TIBC is 215, iron saturation 13% and ferritin is 685. IMPRESSION: 1. Normocytic normochromic anemia with clinically no evidence of active bleeding. Iron indices not consistent with iron deficiency anemia. Most likely anemia related to ongoing chemotherapy for metastatic prostate cancer. 2. Metastatic prostate cancer. Oncology is following the patient closely. The patient undergoing a clinical [facility] at the present time [facility] The last infusion was 5 days ago. RECOMMENDATIONS: 1. Agree with PRBC transfusion. 2. No indication for any endoscopic intervention at the present time. 3. Monitor labs closely. 4. Can continue current medications and we will follow with you closely. Thank you for this consultation. MMODL / IJN: [id number] /
--- NOTE | 2020-07-10 00:01 | CONS ---
CONSULTATION DATE OF SERVICE: 07/09/2020. REASON FOR CONSULTATION: Fever. HISTORY OF PRESENT ILLNESS: The patient is a 65-year-old male with a past medical history significant for metastatic prostate cancer in this patient who has been on multiple lines of treatment and is currently on clinical trial with and Keytruda from [facility]. The last treatment was on Friday. The patient mentioned he felt great after his treatment and apparently may have overdone it on [place] as he was playing with the kids in the snow. Patient felt very faint yesterday to the point that he fell and apparently did not loose any consciousness. The patient denies having any headache or URI symptoms. Denies having any chest pain. Some shortness of breath. He did have a minimal cough with occasional sputum production. Did not mention any fever at home. However, on arrival to the ER, the patient did have fever 104 degrees Fahrenheit. The patient did have mild hypoxemia and he was noticed to have a normal white count. The patient did have a negative UA. [place] and influenza PCR came back negative. The patient did have a chest x-ray with new mild left lower lobe pneumonia and left pleural effusion. The patient was started on vancomycin and Zosyn. Infectious Disease was consulted for further management of antibiotic therapy. The patient denies any abdominal pain, no diarrhea, and did not have any urine symptoms at this point. REVIEW OF SYSTEMS: Positive points have been mentioned in HPI. Rest of systems are negative. PAST MEDICAL HISTORY: Significant for metastatic prostate cancer on clinical trial, hypertension. PAST SURGICAL HISTORY: Right ankle, right knee and right hip surgery as well sinus surgery. SOCIAL HISTORY: No history of smoking. Occasionally drinks. No drug use. FAMILY HISTORY: No pertinent findings noticed. ALLERGIES: No known drug allergies. MEDICATIONS: The patient is currently on Zithromax, Tylenol, Colace, Neurontin, Zestril, Narcan, Protonix, Zosyn and vancomycin. PHYSICAL EXAMINATION: Blood pressure 172/97, pulse of 93, temperature 98.5. He is 95% on room air. General description is an elderly male up in the bed in no distress. No tachypnea or accessory muscles of respiration use. HEENT: Shows pallor. No scleral icterus. Oral mucous membranes dry. No pharyngeal erythema or thrush. Neck: Trachea central. No thyromegaly. Lungs unlabored breathing with decreased breath sounds in the base, with no wheeze. Heart S1, S2. Regular rate and rhythm. Abdomen soft. No tenderness. No guarding. No rigidity. Extremities: No edema of the feet. Skin examination: No rash or mass palpable. Neurological: Patient is awake, alert, oriented x3. Mood and affect normal. LABS: Hemoglobin 10.7, white count 4.6. BUN of 13, creatinine 0.8. Chest x-ray report mentioned above. DIAGNOSTIC IMPRESSION AND PLAN: The patient admitted to the hospital in this patient who did have a fever, lymphopenia. Source is likely pneumonia with concern for possible community-acquired. Underlying gram-negative pneumonia not entirely excluded in this patient currently this patient currently on the clinical trial with T-cell and Keytruda. PLAN: 1. We will try to obtain sputum for Gram stain and culture. 2. Continue with Zosyn. However discontinue vancomycin. 3. We will follow on clinical condition and culture to further adjust medication if needed. Thank you for this consultation. We will follow this patient along with you. MMODL / IJN: [id number] /
[2020-07-10] MEDS: ACETAMINOPHEN TAB 325 MG TAB PO PRN ×2 (02:51→11:43)
[2020-07-10 06:53] LABS: Anisocytosis Slight; Basophils % (A) 1 %; Eosinophils # (A) 0.2 k/uL (0-0.7); Eosinophils % (A) 5 %; HGB 7.4 gm/dL (13.0-17.5); Lymphocytes # (A) 0.8 k/uL (1.0-4.8); Lymphocytes % (A) 17 %; MCH 29.5 pg (25.0-35.0); MCHC 32.3 g/dL (31.0-37.0); MCV 91.5 fL (80.0-100.0); Mean Platelet Volume 8.6; Monocytes # (A) 0.4 k/uL (0-1.0); Monocytes % (A) 9 %; Neutrophils # (A) 2.8 k/uL (1.3-7.7); Neutrophils % (A) 65 %; Platelet Count 153 k/uL (150-450); Poikilocytosis Slight; RBC 2.52 m/uL (4.30-5.90); RDW 17.3 % (11.5-15.5); WBC 4.4 k/uL (3.8-10.6)
[2020-07-10] MEDS: CYANOCOBALAMIN 500 MCG TAB PO SCH (07:43)
[2020-07-10] MEDS: PIPERACILLIN-TAZOBACTAM 3.375 GM in SODIUM CHLORIDE 0.9% 100 ML IVPB SCH ×3 (07:43→23:55)
[2020-07-10] MEDS: AZITHROMYCIN 500 MG TAB PO SCH (07:44)
[2020-07-10] MEDS: GABAPENTIN 300 MG CAP PO SCH ×3 (07:44→20:16)
[2020-07-10] MEDS: lisinopriL 20 MG TAB PO SCH (07:44)
[2020-07-10 09:52] LABS: African American GFR (CKD) 107.9 (60.0-200.0); Albumin 3.1 g/dL (3.80-4.90); Albumin/Globulin Ratio 1.94 (1.60-3.17); Anion Gap 5.5 mmol/L (4.00-12.00); BUN/Creat Ratio 13.75 Ratio (12.00-20.00); C Reactive Protein 18.2 mg/dL (0.0-0.8); Calcium 9.5 mg/dL (8.7-10.3); Carbon Dioxide 28.5 mmol/L (21.6-31.8); Globulin 1.6 g/dL (1.6-3.3); Non-African American GFR(CKD) 93.1 (60.0-200.0); Potassium 3.3 mmol/L (3.5-5.5); Total Bilirubin 0.4 mg/dL (0.3-1.2); Total Protein 4.7 g/dL (6.2-8.2)
[2020-07-10 09:56] LABS: Reticulocyte % 1.9 % (0.5-2.0)
--- NOTE | 2020-07-10 12:33 | P.PN ---
Subjective Progress Note Date: 07/10/20 Principal diagnosis: prostate cancer and anemia Objective - Vital Signs Vital signs: Vital Signs Temp 98.1 F 07/10/20 08:00 Pulse 91 07/10/20 08:44 Resp 16 07/10/20 08:44 BP 154/80 07/10/20 08:00 Pulse Ox 93 L 07/10/20 08:00 Intake & Output 07/09/20 07/10/20 07/10/20 18:59 06:59 18:59 Intake Total 310 Output Total 700 100 Balance -390 -100 Intake: Blood Product 310 Rc As-1 Unit 310 [id number] Output: Urine 700 100 Other: Voiding Method Urinal Urinal Urinal # Voids 4 3 - Exam Gen.: No acute distress. HEENT: He does have conjunctival pallor. No scleral icterus. Mucosa moist. Neck: Supple. Lungs: No respiratory distress. On NC. Heart: Regular rate. Abdomen: Soft. MSK: Appropriate strength in all 4 extremities. Neuro: Alert and oriented 3. Skin: No jaundice. Psych: Appropriate affect. - Labs CBC & Chem 7: 07/11/20 06:30 07/10/20 06:15 Labs: Abnormal Lab Results - Last 24 Hours (Table) 07/09/20 07/09/20 07/09/20 Range/Units 06:34 06:34 08:32 RBC (4.30-5.90) m/uL Hgb (13.0-17.5) gm/dL Hct (39.0-53.0) % RDW (11.5-15.5) % Plt Count (150-450) k/uL Lymphocytes # (1.0-4.8) k/uL Haptoglobin 352.0 H (31.2-198.0) mg/dL Potassium (3.5-5.5) mmol/L Chloride (96-109) mmol/L Iron 29 L (65-175) ug/dL TIBC 215 L (228-460) ug/dL % Saturation 13.49 L (15.00-50.00) Ferritin 685.2 H (22.0-322.0) ng/mL ALT (10-49) U/L Alkaline Phosphatase (41-126) U/L Lactate Dehydrogenase 333 H (120-246) U/L C-Reactive Protein (0.0-0.8) mg/dL Total Protein (6.2-8.2) g/dL Albumin (3.80-4.90) g/dL Procalcitonin (0.02-0.09) ng/mL Crossmatch See Detail 07/09/20 07/10/20 07/10/20 Range/Units 16:45 06:15 06:15 RBC 2.43 L 2.52 L (4.30-5.90) m/uL Hgb 7.6 L 7.4 L (13.0-17.5) gm/dL Hct 22.7 L 23.0 L (39.0-53.0) % RDW 16.6 H 17.3 H (11.5-15.5) % Plt Count 130 L (150-450) k/uL Lymphocytes # 0.8 L (1.0-4.8) k/uL Haptoglobin (31.2-198.0) mg/dL Potassium (3.5-5.5) mmol/L Chloride (96-109) mmol/L Iron (65-175) ug/dL TIBC (228-460) ug/dL % Saturation (15.00-50.00) Ferritin (22.0-322.0) ng/mL ALT (10-49) U/L Alkaline Phosphatase (41-126) U/L Lactate Dehydrogenase (120-246) U/L C-Reactive Protein (0.0-0.8) mg/dL Total Protein (6.2-8.2) g/dL Albumin (3.80-4.90) g/dL Procalcitonin 0.19 H (0.02-0.09) ng/mL Crossmatch 07/10/20 Range/Units 06:15 RBC (4.30-5.90) m/uL Hgb (13.0-17.5) gm/dL Hct (39.0-53.0) % RDW (11.5-15.5) % Plt Count (150-450) k/uL Lymphocytes # (1.0-4.8) k/uL Haptoglobin (31.2-198.0) mg/dL Potassium 3.3 L (3.5-5.5) mmol/L Chloride 110 H (96-109) mmol/L Iron (65-175) ug/dL TIBC (228-460) ug/dL % Saturation (15.00-50.00) Ferritin (22.0-322.0) ng/mL ALT 8 L (10-49) U/L Alkaline Phosphatase 301 H (41-126) U/L Lactate Dehydrogenase (120-246) U/L C-Reactive Protein 18.2 H (0.0-0.8) mg/dL Total Protein 4.7 L (6.2-8.2) g/dL Albumin 3.10 L (3.80-4.90) g/dL Procalcitonin (0.02-0.09) ng/mL Crossmatch Microbiology - Last 24 Hours (Table) 07/08/20 17:42 Group A Strep Throat Culture - Final Throat 07/08/20 19:10 Blood Culture - Preliminary Blood No Growth after 24 hours 07/08/20 17:23 Blood Culture - Preliminary Blood No Growth after 24 hours Assessment and Plan Plan: Chest x-ray: report reviewed Assessment and Plan Assessment: 1. Pneumonia: - ID is following 2. Prostate cancer: - Current trial enrollment with T-cell and immune therapy 3. Normocytic Anemia: - Unknown etiology - Possible relation to therapy although not currently receiving chemotherapy, with immune therapy and T cell therapy will further evaluate for hemolysis, immune related effects (TSH, Adrenal insufficiency). If s/s GI related effects i maging +/- further examination with endoscopy. - GI is following, no current plan for endoscopic evaluation at this time. - Continue supportive transfusions less than 7
[2020-07-10] MEDS ORDERED: KETOROLAC 15 MG/ML 1 ML VIAL IVP STA (14:47)
--- NOTE | 2020-07-10 16:23 | P.PN ---
Subjective Progress Note Date: 07/10/20 Principal diagnosis: Normocytic anemia The patient is seen lying in bed denying any signs or symptoms of GI bleeding. He is tolerating diet. No abdominal pain. Objective - Vital Signs Vital signs: Vital Signs Temp 98.1 F 07/10/20 08:00 Pulse 91 07/10/20 08:44 Resp 16 07/10/20 08:44 BP 154/80 07/10/20 08:00 Pulse Ox 93 L 07/10/20 08:00 Intake & Output 07/09/20 07/10/20 07/10/20 18:59 06:59 18:59 Intake Total 310 Output Total 700 100 Balance -390 -100 Intake: Blood Product 310 Rc As-1 Unit 310 [id number] Output: Urine 700 100 Other: Voiding Method Urinal Urinal Urinal # Voids 4 3 - Exam On physical examination, patient appears comfortable in no apparent distress. HEAD: Normocephalic, atraumatic. EYES: No scleral icterus. No conjunctival injection. MOUTH: No lesions, tongue midline. NECK: Trachea midline, no gross abnormalities. ABDOMEN: Soft, nontender to palpation. Bowel sounds are positive. No organomegaly. No guarding or rigidity. EXTREMITIES: No pedal edema. SKIN: No rashes, no jaundice. NEUROLOGIC: Alert and oriented x3. No focal deficits. - Labs CBC & Chem 7: 07/10/20 06:15 07/10/20 06:15 Labs: Abnormal Lab Results - Last 24 Hours (Table) 07/09/20 07/09/20 07/09/20 Range/Units 06:34 06:34 08:32 RBC (4.30-5.90) m/uL Hgb (13.0-17.5) gm/dL Hct (39.0-53.0) % RDW (11.5-15.5) % Plt Count (150-450) k/uL Lymphocytes # (1.0-4.8) k/uL Haptoglobin 352.0 H (31.2-198.0) mg/dL Potassium (3.5-5.5) mmol/L Chloride (96-109) mmol/L Iron 29 L (65-175) ug/dL TIBC 215 L (228-460) ug/dL % Saturation 13.49 L (15.00-50.00) Ferritin 685.2 H (22.0-322.0) ng/mL ALT (10-49) U/L Alkaline Phosphatase (41-126) U/L Lactate Dehydrogenase 333 H (120-246) U/L C-Reactive Protein (0.0-0.8) mg/dL Total Protein (6.2-8.2) g/dL Albumin (3.80-4.90) g/dL Procalcitonin (0.02-0.09) ng/mL Crossmatch See Detail 07/09/20 07/10/20 07/10/20 Range/Units 16:45 06:15 06:15 RBC 2.43 L 2.52 L (4.30-5.90) m/uL Hgb 7.6 L 7.4 L (13.0-17.5) gm/dL Hct 22.7 L 23.0 L (39.0-53.0) % RDW 16.6 H 17.3 H (11.5-15.5) % Plt Count 130 L (150-450) k/uL Lymphocytes # 0.8 L (1.0-4.8) k/uL Haptoglobin (31.2-198.0) mg/dL Potassium (3.5-5.5) mmol/L Chloride (96-109) mmol/L Iron (65-175) ug/dL TIBC (228-460) ug/dL % Saturation (15.00-50.00) Ferritin (22.0-322.0) ng/mL ALT (10-49) U/L Alkaline Phosphatase (41-126) U/L Lactate Dehydrogenase (120-246) U/L C-Reactive Protein (0.0-0.8) mg/dL Total Protein (6.2-8.2) g/dL Albumin (3.80-4.90) g/dL Procalcitonin 0.19 H (0.02-0.09) ng/mL Crossmatch 07/10/20 Range/Units 06:15 RBC (4.30-5.90) m/uL Hgb (13.0-17.5) gm/dL Hct (39.0-53.0) % RDW (11.5-15.5) % Plt Count (150-450) k/uL Lymphocytes # (1.0-4.8) k/uL Haptoglobin (31.2-198.0) mg/dL Potassium 3.3 L (3.5-5.5) mmol/L Chloride 110 H (96-109) mmol/L Iron (65-175) ug/dL TIBC (228-460) ug/dL % Saturation (15.00-50.00) Ferritin (22.0-322.0) ng/mL ALT 8 L (10-49) U/L Alkaline Phosphatase 301 H (41-126) U/L Lactate Dehydrogenase (120-246) U/L C-Reactive Protein 18.2 H (0.0-0.8) mg/dL Total Protein 4.7 L (6.2-8.2) g/dL Albumin 3.10 L (3.80-4.90) g/dL Procalcitonin (0.02-0.09) ng/mL Crossmatch Microbiology - Last 24 Hours (Table) 07/08/20 17:42 Group A Strep Throat Culture - Final Throat 07/08/20 19:10 Blood Culture - Preliminary Blood No Growth after 24 hours 07/08/20 17:23 Blood Culture - Preliminary Blood No Growth after 24 hours Assessment and Plan (1) Normocytic normochromic anemia Narrative/Plan: 65-year-old male with medical history significant for metastatic prostate cancer currently being followed by the oncology service. Patient noted to have a normocytic normochromic anemia. He denies any signs or symptoms of GI bleeding with normal iron indices. Most likely related to underlying metastatic prostate cancer and chemotherapy. Current Visit: Yes Status: Acute Code(s): D64.9 - ANEMIA, UNSPECIFIED SNOMED Code(s): 54391624 Plan: Supportive care Okay for diet as tolerated Continue to monitor hemoglobin and hematocrit and transfuse as needed Oncology service following the patient No plans for Endoscopic evaluation at this time Infectious disease following the patient for treatment of possible pneumonia Thank you for allowing us to participate in the care of the patient, GI service will stand by, please call us back with any questions or concerns
--- NOTE | 2020-07-10 17:44 | P.PN ---
Subjective Progress Note Date: 07/10/20 Patient was seen and examined at the bedside on 07/10. The patient noted feeling somewhat better. Objective - Vital Signs Vital signs: Vital Signs Temp 98.4 F 07/10/20 14:00 Pulse 95 07/10/20 14:00 Resp 16 07/10/20 14:00 BP 148/86 07/10/20 14:00 Pulse Ox 94 L 07/10/20 14:00 Intake & Output 07/09/20 07/10/20 07/10/20 18:59 06:59 18:59 Intake Total 310 Output Total 700 100 Balance -390 -100 Intake: Blood Product 310 Rc As-1 Unit 310 [id number] Output: Urine 700 100 Other: Voiding Method Urinal Urinal Urinal # Voids 4 3 - Exam General: Non-toxic, in no acute distress, appears stated age HEENT: NC/AT, anicteric sclerae, moist conjunctiva, no lid-lag, PERRLA Cardiovascular: S1/S2 wnl, no murmurs, rubs, or gallops Lungs: Clear to auscultation, normal respiratory effort, no accessory muscle use Abdominal: Soft, non-tender, non-distended, no guarding, rebound, or rigidity Skin: Warm, dry Extremities: No edema or contractures Psychiatric: Alert and oriented to person, place and time, appropriate affect Neuro: CN II-XII grossly intact, Strength 5/5 in all 4 extremities, Speech intact, Sensation to light touch grossly intact throughout - Labs CBC & Chem 7: 07/10/20 06:15 07/10/20 06:15 Labs: Abnormal Lab Results - Last 24 Hours (Table) 07/09/20 07/10/20 07/10/20 Range/Units 06:34 06:15 06:15 RBC 2.52 L (4.30-5.90) m/uL Hgb 7.4 L (13.0-17.5) gm/dL Hct 23.0 L (39.0-53.0) % RDW 17.3 H (11.5-15.5) % Lymphocytes # 0.8 L (1.0-4.8) k/uL Haptoglobin 352.0 H (31.2-198.0) mg/dL Potassium (3.5-5.5) mmol/L Chloride (96-109) mmol/L ALT (10-49) U/L Alkaline Phosphatase (41-126) U/L C-Reactive Protein (0.0-0.8) mg/dL Total Protein (6.2-8.2) g/dL Albumin (3.80-4.90) g/dL Procalcitonin 0.19 H (0.02-0.09) ng/mL 07/10/20 Range/Units 06:15 RBC (4.30-5.90) m/uL Hgb (13.0-17.5) gm/dL Hct (39.0-53.0) % RDW (11.5-15.5) % Lymphocytes # (1.0-4.8) k/uL Haptoglobin (31.2-198.0) mg/dL Potassium 3.3 L (3.5-5.5) mmol/L Chloride 110 H (96-109) mmol/L ALT 8 L (10-49) U/L Alkaline Phosphatase 301 H (41-126) U/L C-Reactive Protein 18.2 H (0.0-0.8) mg/dL Total Protein 4.7 L (6.2-8.2) g/dL Albumin 3.10 L (3.80-4.90) g/dL Procalcitonin (0.02-0.09) ng/mL Microbiology - Last 24 Hours (Table) 07/08/20 17:42 Group A Strep Throat Culture - Final Throat 07/08/20 19:10 Blood Culture - Preliminary Blood No Growth after 24 hours 07/08/20 17:23 Blood Culture - Preliminary Blood No Growth after 24 hours Assessment and Plan Plan: Fever, suspected community acquired pneumonia; in setting of active chemotherapy treatment -Continue with Zosyn and azithromycin -Follow cultures -Infectious disease following Normocytic anemia -GI recommendations appreciated. No plans for endoscopic ideation at this time. -Suspected secondary to chemotherapeutic treatments -Continue to monitor CBC for now Stage IV prostate cancer with metastases to bone -Oncology following Hypokalemia -Replace and monitor DVT prophylaxis -Lovenox Discussed with: Patient Anticipated discharge date: in am Anticipated discharge place: home A total of 35 minutes was spent on the care of this complex patient more than 50% of the time was spent in counseling and care coordination.
[2020-07-10] MEDS: POTASSIUM CHLORIDE ER 20 MEQ TAB.ER PO SCH ×2 (20:15→22:10)
--- NOTE | 2020-07-10 23:27 | PN ---
PROGRESS NOTE DATE OF SERVICE: 07/10/2020 REASON FOR FOLLOWUP: Pneumonia. INTERVAL HISTORY: The patient's overall fever pattern has improved. The patient is feeling better, breathing comfortably. The patient denies having any chest pain or shortness of breath. He did have a cough, bringing up some sputum. No nausea, no vomiting, no abdominal pain or diarrhea. PHYSICAL EXAMINATION: Blood pressure 165/85 with a pulse of 91, temperature 98.8. He is 94% on room air. General description is an elderly male up in the bed in no distress. RESPIRATORY SYSTEM: Unlabored breathing with decreased intensity of breath sounds. No wheeze. HEART: S1, S2. Regular rate and rhythm. ABDOMEN: Soft. No tenderness. LABS: Hemoglobin 7.4, white count 4.4. Sputum culture is currently pending. Blood culture so far negative. DIAGNOSTIC IMPRESSION AND PLAN: The patient admitted to hospital with sepsis with likely pneumonia in this patient who did have metastatic prostate cancer on T-cell therapy. Patient to continue with Zosyn, to which the patient's fever has responded, while waiting for the culture to finalize and continue supportive care. MMODL / IJN: [id number] /
[2020-07-11] MEDS ORDERED: KETOROLAC 15 MG/ML 1 ML VIAL IVP STA (03:11)
[2020-07-11] MEDS: SODIUM CHLORIDE 0.9% 1,000 ML IV SCH ×2 (03:12→03:13)
[2020-07-11] MEDS: GABAPENTIN 300 MG CAP PO SCH (07:35)
[2020-07-11] MEDS: CYANOCOBALAMIN 500 MCG TAB PO SCH (07:35)
[2020-07-11] MEDS: lisinopriL 20 MG TAB PO SCH (07:35)
[2020-07-11] MEDS: PIPERACILLIN-TAZOBACTAM 3.375 GM in SODIUM CHLORIDE 0.9% 100 ML IVPB SCH (07:36)
[2020-07-11] MEDS: ACETAMINOPHEN TAB 325 MG TAB PO PRN (07:36)
[2020-07-11] MEDS: AZITHROMYCIN 500 MG TAB PO SCH (07:36)
[2020-07-11 08:01] LABS: Anisocytosis Slight; HCT 21.2 % (39.0-53.0); Hypochromasia Slight; MCH 29.8 pg (25.0-35.0); MCHC 31.8 g/dL (31.0-37.0); MCV 93.7 fL (80.0-100.0); Mean Platelet Volume 10.1; Platelet Count 137 k/uL (150-450); RBC 2.26 m/uL (4.30-5.90); RDW 17.1 % (11.5-15.5)
[2020-07-11 08:21] LABS: HGB 6.7 gm/dL (13.0-17.5)
[2020-07-11] MEDS ORDERED: ENOXAPARIN 40 MG/0.4 ML SYRINGE SQ SCH (09:00)
[2020-07-11] MEDS ORDERED: bisacodyL 10 MG SUPP RECTAL STA (10:06)
[2020-07-11 10:57] LABS: African American GFR (CKD) 107.9 (60.0-200.0); Anion Gap 5.4 mmol/L (4.00-12.00); BUN/Creat Ratio 16.25 Ratio (12.00-20.00); Calcium 9.3 mg/dL (8.7-10.3); Carbon Dioxide 28.6 mmol/L (21.6-31.8); Non-African American GFR(CKD) 93.1 (60.0-200.0); Potassium 3.5 mmol/L (3.5-5.5)
[2020-07-11 11:59] LABS: Albumin 3.1 g/dL (3.80-4.90); Magnesium 1.5 mg/dL (1.5-2.4); Total Bilirubin 0.5 mg/dL (0.3-1.2); Total Protein 4.7 g/dL (6.2-8.2)
[2020-07-11 12:19] VITALS: BP 178/104; PULSE 94; RESP 18; TEMP 98.9
--- NOTE | 2020-07-11 12:43 | P.PN ---
Subjective Progress Note Date: 07/11/20 Principal diagnosis: prostate cancer and anemia Hemoglobin 6.7 today, transfusion ordered. Objective - Vital Signs Vital signs: Vital Signs Temp 98.9 F 07/11/20 12:18 Pulse 94 07/11/20 12:18 Resp 18 07/11/20 12:18 BP 178/104 07/11/20 12:18 Pulse Ox 96 07/11/20 12:18 Intake & Output 07/10/20 07/11/20 07/11/20 18:59 06:59 18:59 Intake Total 310 Output Total 100 Balance -100 310 Intake: Blood Product 310 Rc As-1 Unit 310 [id number] Output: Urine 100 Other: Voiding Method Urinal Urinal # Voids 3 - Exam Gen.: No acute distress. HEENT: He does have conjunctival pallor. No scleral icterus. Mucosa moist. Neck: Supple. Lungs: No respiratory distress. On NC. Heart: Regular rate. Abdomen: Soft. MSK: Appropriate strength in all 4 extremities. Neuro: Alert and oriented 3. Skin: No jaundice. Psych: Appropriate affect. - Labs CBC & Chem 7: 07/11/20 06:30 07/11/20 06:30 Labs: Abnormal Lab Results - Last 24 Hours (Table) 07/09/20 07/11/20 07/11/20 Range/Units 08:32 06:30 06:30 RBC 2.26 L (4.30-5.90) m/uL Hgb 6.7 L* (13.0-17.5) gm/dL Hct 21.2 L (39.0-53.0) % RDW 17.1 H (11.5-15.5) % Plt Count 137 L (150-450) k/uL Alkaline Phosphatase 274 H (41-126) U/L Total Protein 4.7 L (6.2-8.2) g/dL Albumin 3.10 L (3.80-4.90) g/dL Crossmatch See Detail Microbiology - Last 24 Hours (Table) 07/10/20 13:46 Gram Stain - Preliminary Sputum Sputum Culture - Preliminary 07/08/20 19:10 Blood Culture - Preliminary Blood No Growth after 48 hours 07/08/20 17:23 Blood Culture - Preliminary Blood No Growth after 48 hours 07/08/20 17:42 Group A Strep Throat Culture - Final Throat Assessment and Plan Plan: Chest x-ray: report reviewed Assessment and Plan Assessment: 1. Pneumonia: - ID is following 2. Prostate cancer: - Current trial enrollment with T-cell and immune therapy 3. Normocytic Anemia: - Unknown etiology - Possible relation to therapy although not currently receiving chemotherapy, with immune therapy and T cell therapy will further evaluate for hemolysis, immu ne related effects (TSH, Adrenal insufficiency). If s/s GI related effects imaging +/- further examination with endoscopy. - GI is following, no current plan for endoscopic evaluation at this time. - Continue supportive transfusions less than 7, transfusion today Discussed with primary team, plan for discharge and close cbc monitoring as outpatient Physician attest: I have completed the full history and physical and agree with above dictation, dictated as a scribe.
--- NOTE | 2020-07-11 12:55 | P.DS ---
Providers Date of admission: 07/08/20 19:15 Expected date of discharge: 07/11/20 Attending physician: Pinky Santillan DO Consults: 07/08/20 19:15 Consult Physician Routine Consulting Provider: Shavonne Yancey Consult Reason/Comments: cancer patient Do you want consulting provider notified?: Yes 07/09/20 07:23 Consult Physician Urgent Consulting Provider: Arianne Solis Consult Reason/Comments: Anemia, possible GI bleed Do you want consulting provider notified?: Yes 07/09/20 07:25 Consult Physician Urgent Consulting Provider: Luis Marie Consult Reason/Comments: Fever unknown source Do you want consulting provider notified?: Yes Primary care physician: Stated None Hospital Course: 1. Community Acquired Pneumonia 2. Normocytic Anemia 3. Metastatic Prostate Cancer to the Bone 65 year old man with metastatic prostate cancer to the bone presented with syncopal episode as well as with fever with suspected CAP. Also noted to have low hemoglobin requiring blood transfusion. GI was consulted and had no plans for endoscopic evaluation as the low hemoglobin was thought secondary to chemo/immunotherapy side effect. Pt did improve with blood transfusion and antibiotics, but on day of discharge was again noted to have a drop down to 6.7 of hemoglobin. He was transused an additional 1U PRBCs and discharged with levofloxacin for total 7 day course. Pt was asked and given prescription to follow up 3x/week for CBC count to ensure no additional need for PRBC transfusions. He will follow up with PCP and oncology as outpatient. I spent 40 minutes preparing this discharge. Assessment: Gen: awake, alert HEENT: normocephalic, atraumatic, good hearing acuity, moist mucous membranes Resp: good air exchange, breathing comfortably with no accessory muscle use, clear to auscultation bilaterally CVS: good distal perfusion x 4,, regular rate and rhythm without murmurs GI: soft, NTTP, ND : no SPT, no CVAT, mcgrath catheter not present MSK: no pitting edema, no clubbing Neuro: non-focal, moving all extremities Psych: cooperative, euthymic mood Patient Condition at Discharge: Good Plan - Discharge Summary New Discharge Prescriptions: New Levofloxacin [Levaquin] 750 mg PO DAILY #4 tab Cyanocobalamin [Vitamin B-12] 1,000 mcg PO DAILY #30 tab Continue Ibuprofen [Motrin] 800 mg PO TID PRN PRN Reason: Pain SUMAtriptan SUCCINATE [Imitrex] 25 mg PO BID PRN PRN Reason: Migraine Headache Ferrous Sulfate [Iron (65 MG Elemental)] 325 mg PO DAILY Acetaminophen Tab [Tylenol] 650 mg PO Q6H PRN PRN Reason: Pain oxyCODONE HCL [oxyCODONE HCL (IR)] 15 mg PO Q4H Potassium Chloride ER [K-Dur 20] 20 meq PO DAILY Omeprazole 40 mg PO DAILY PRN PRN Reason: Heartburn Docusate [Colace] 100 mg PO HS PRN PRN Reason: Constipation Gabapentin 300 mg PO TID Enalapril Maleate [Vasotec] 10 mg PO DAILY Discharge Medication List Ibuprofen [Motrin] 800 mg PO TID PRN 07/30/18 [History] Acetaminophen Tab [Tylenol] 650 mg PO Q6H PRN 07/08/20 [History] Docusate [Colace] 100 mg PO HS PRN 07/08/20 [History] Ferrous Sulfate [Iron (65 MG Elemental)] 325 mg PO DAILY 07/08/20 [History] Gabapentin 300 mg PO TID 07/08/20 [History] Omeprazole 40 mg PO DAILY PRN 07/08/20 [History] Potassium Chloride ER [K-Dur 20] 20 meq PO DAILY 07/08/20 [History] SUMAtriptan SUCCINATE [Imitrex] 25 mg PO BID PRN 07/08/20 [History] oxyCODONE HCL [oxyCODONE HCL (IR)] 15 mg PO Q4H 07/08/20 [History] Enalapril Maleate [Vasotec] 10 mg PO DAILY 07/09/20 [History] Cyanocobalamin [Vitamin B-12] 1,000 mcg PO DAILY #30 tab 07/11/20 [Rx] Levofloxacin [Levaquin] 750 mg PO DAILY #4 tab 07/11/20 [Rx] Follow up Appointment(s)/Referral(s): None,Stated [Primary Care Provider] - 1-2 days Activity/Diet/Wound Care/Special Instructions: You will need blood checks 3 times per week for 2 weeks to ensure no additional blood transfusions are required.
--- NOTE | 2020-07-11 14:14 | PN ---
PROGRESS NOTE DATE OF SERVICE: 07/11/2020 REASON FOR FOLLOWUP: Pneumonia. INTERVAL HISTORY: The patient is currently afebrile. The patient is breathing comfortably. Denies having any chest pain or shortness of breath. Minimal cough. No nausea, no vomiting. No abdominal pain or diarrhea and is anxious to go home. PHYSICAL EXAMINATION: Blood pressure 154/90 with a pulse of 86, temperature 98.4 General description is an elderly male up in the bed in no distress. RESPIRATORY SYSTEM: Unlabored breathing with decreased intensity of breath sounds. No wheeze. HEART: S1, S2. Regular rate and rhythm. ABDOMEN: Soft, no tenderness. LABS: Hemoglobin 6.7, white count 4.0, BUN of 13, creatinine 0.8. DIAGNOSTIC IMPRESSION AND PLAN: Patient admitted to the hospital with fever with component of pneumonia in this patient with overall improvement on Zosyn. He is insisting on going home. Do not want to wait for the cultures. May consider Levaquin 750 daily for 7 days and close outpatient followup. MMODL / IJN: [id number] /
== END 2020-07-11 14:27 | disposition home or self-care (01) | DRG 193 ==
LOC: EC 16:56 → 4SSUR 19:15
PROVIDERS: ADMIT Internal Medicine; ATTEND Internal Medicine
PROC: 30233N1 Transfusion of Nonautologous Red Blood Cells into Peripheral Vein, Percutaneous Approach (ICD-10-PCS; principal; 2020-07-09)
DX: J18.8 Other pneumonia, unspecified organism (principal); D61.810 Antineoplastic chemotherapy induced pancytopenia; C79.51 Secondary malignant neoplasm of bone; J91.8 Pleural effusion in other conditions classified elsewhere; M87.9 Osteonecrosis, unspecified; R09.02 Hypoxemia; C61 Malignant neoplasm of prostate; E87.6 Hypokalemia; G62.9 Polyneuropathy, unspecified; I10 Essential (primary) hypertension; N52.9 Male erectile dysfunction, unspecified; T45.1X5A Adverse effect of antineoplastic and immunosuppressive drugs, initial encounter; Z20.828 Contact with and (suspected) exposure to other viral communicable diseases; Z91.81 History of falling; Z79.899 Other long term (current) drug therapy; Z96.641 Presence of right artificial hip joint; Z79.891 Long term (current) use of opiate analgesic
CPT/HCPCS: 36415; 71045; 80048; 80053; 81003; 82040; 82247; 82310; 82533; 82607; 82728; 82746; 83010; 83540; 83550; 83605; 83615; 83735; 83921; 84075; 84145; 84155; 84443; 84450; 84460; 85025; 85027; 85045; 85610; 85730; 86140; 86850; 86900; 86901; 86920; 87040; 87070; 87081; 87205; 87449; 87502; 87635; 93005; 94760; 96365; 96368; 99285

== ENCOUNTER 2020-07-25 14:06 | Inpatient (IN) | payer MEDICARE, OTHER ==
[2020-07-25] MEDS ORDERED: ACETAMINOPHEN TAB 500 MG TAB PO STA (14:57)
[2020-07-25] MEDS ORDERED: SODIUM CHLORIDE 0.9% 1,000 ML IV STA ×2 (14:58)
--- NOTE | 2020-07-25 15:01 | ED ---
General Adult HPI - General Chief complaint: Weakness Stated complaint: Weakness Time Seen by Provider: 07/25/20 14:31 Source: patient, family, EMS, RN notes reviewed Mode of arrival: EMS Limitations: altered mental status, physical limitation - History of Present Illness Initial comments: Patient is a pleasant 65-year-old male presenting to the emergency Department with with complaints of generalized weakness. Patient has stage IV prostate cancer and is on treatment for this with karmanos. No isolated area of weakness. Patient has had increased symptoms significantly today. Decreased appetite. Patient does feel dry and dehydrated. No abdominal pain. No dysuria or hematuria. No cough or dyspnea. - Related Data Home Medications Medication Instructions Recorded Confirmed Ibuprofen [Motrin] 800 mg PO TID PRN 07/30/18 07/25/20 Acetaminophen Tab [Tylenol] 650 mg PO Q6H PRN 07/08/20 07/25/20 Docusate [Colace] 100 mg PO HS PRN 07/08/20 07/25/20 Ferrous Sulfate [Iron (65 MG 325 mg PO DAILY 07/08/20 07/25/20 Elemental)] Gabapentin 300 mg PO TID PRN 07/08/20 07/25/20 Omeprazole 40 mg PO DAILY PRN 07/08/20 07/25/20 Potassium Chloride ER [K-Dur 20] 20 meq PO DAILY 07/08/20 07/25/20 SUMAtriptan SUCCINATE [Imitrex] 25 mg PO BID PRN 07/08/20 07/25/20 oxyCODONE HCL [oxyCODONE HCL (IR)] 15 mg PO Q4H PRN 07/08/20 07/25/20 Enalapril Maleate [Vasotec] 10 mg PO DAILY 07/09/20 07/25/20 Cyclobenzaprine [Flexeril] 10 mg PO TID PRN 07/25/20 07/25/20 oxyCODONE ER [OxyCONTIN] 15 mg PO BID PRN 07/25/20 07/25/20 Previous Rx's Medication Instructions Recorded Cyanocobalamin [Vitamin B-12] 1,000 mcg PO DAILY #30 tab 07/11/20 Allergies Allergy/AdvReac Type Severity Reaction Status Date / Time No Known Allergies Allergy Verified 07/25/20 14:26 Review of Systems ROS Statement: Those systems with pertinent positive or pertinent negative responses have been documented in the HPI. ROS Other: All systems not noted in ROS Statement are negative. Constitutional: Reports: fever, chills, weakness Eyes: Denies: eye pain ENT: Denies: ear pain Respiratory: Denies: cough, dyspnea Cardiovascular: Denies: chest pain Endocrine: Denies: fatigue Gastrointestinal: Denies: abdominal pain Genitourinary: Denies: dysuria Musculoskeletal: Denies: back pain Skin: Denies: rash Neurological: Reports: as per HPI Past Medical History Past Medical History: Cancer, Hypertension Additional Past Medical History / Comment(s): stage IV prostate CA, to brain stem and spine History of Any Multi-Drug Resistant Organisms: None Reported Past Surgical History: Joint Replacement, Orthopedic Surgery Additional Past Surgical History / Comment(s): sinus surgery, L hand, R ankle, R knee, R h ip Past Anesthesia/Blood Transfusion Reactions: No Reported Reaction Past Psychological History: No Psychological Hx Reported Smoking Status: Former smoker Past Alcohol Use History: Occasional Past Drug Use History: None Reported - Past Family History family Family Medical History: No Reported History General Exam Limitations: altered mental status, physical limitation General appearance: alert Head exam: Present: atraumatic, normocephalic Eye exam: Present: normal appearance, PERRL. Absent: scleral icterus ENT exam: Present: mucous membranes dry Neck exam: Present: normal inspection Respiratory exam: Present: normal lung sounds bilaterally Cardiovascular Exam: Present: tachycardia GI/Abdominal exam: Present: soft. Absent: tenderness Extremities exam: Present: normal inspection Neurological exam: Present: alert, CN II-XII intact. Absent: motor sensory deficit Expanded Neurological exam: Present: protecting the airway Patient oriented to: Present: person Motor strength exam: RUE: 5, LUE: 5, RLE: 5, LLE: 5 Eye Response: (4) open spontaneously Motor Response: (6) obeys commands Verbal Response: (4) confused conversation Psychiatric exam: Present: normal affect, normal mood Skin exam: Absent: rash Course Vital Signs 07/25/20 07/25/20 07/25/20 14:19 15:16 16:31 Temperature 101 F H 100.7 F H Pulse Rate 126 H 117 H 105 H Respiratory 18 18 18 Rate Blood Pressure 160/113 191/111 175/101 O2 Sat by Pulse 96 97 97 Oximetry - Reevaluation(s) Reevaluation #1: 07/25/20 17:32 Patient does meet sepsis criteria diagnosed at 1730. Blood culture and lactic acid ordered. IV antibiotic's will be ordered. EKG Findings - EKG Comments: EKG Findings:: Sinus tachycardia 121. PVC present. PA 136. QRS 86. QT 318. QTC 451. Normal axis. Inferior Q waves. No acute ST change. Medical Decision Making - Medical Decision Making Patient reevaluated. Patient and family updated on results and plan. Case was discussed in detail with Dr. jaffe, who will admit covering for hospital call. Dr. Yancey will be placed on consult. - Lab Data Result diagrams: 07/25/20 14:48 07/25/20 14:48 Lab Results 07/25/20 07/25/20 07/25/20 Range/Units 14:48 14:48 14:48 WBC 6.9 (3.8-10.6) k/uL RBC 3.60 L (4.30-5.90) m/uL Hgb 10.6 L D (13.0-17.5) gm/dL Hct 32.3 L (39.0-53.0) % MCV 89.5 (80.0-100.0) fL MCH 29.4 (25.0-35.0) pg MCHC 32.8 (31.0-37.0) g/dL RDW 17.2 H (11.5-15.5) % Plt Count 211 (150-450) k/uL MPV 8.7 Neutrophils % 67 % Lymphocytes % 16 % Monocytes % 9 % Eosinophils % 5 % Basophils % 1 % Neutrophils # 4.7 (1.3-7.7) k/uL Lymphocytes # 1.1 (1.0-4.8) k/uL Monocytes # 0.6 (0-1.0) k/uL Eosinophils # 0.3 (0-0.7) k/uL Basophils # 0.1 (0-0.2) k/uL Anisocytosis Slight PT 11.9 (9.0-12.0) sec INR 1.1 (<1.2) APTT 20.0 L (22.0-30.0) sec D-Dimer 18.17 H (<0.60) mg/L FEU Sodium 140 (137-145) mmol/L Potassium 3.8 (3.5-5.1) mmol/L Chloride 101 (98-107) mmol/L Carbon Dioxide 31 H (22-30) mmol/L Anion Gap 8 mmol/L BUN 15 (9-20) mg/dL Creatinine 1.12 (0.66-1.25) mg/dL Est GFR (CKD-EPI)AfAm 79 (>60 ml/min/1.73 sqM) Est GFR (CKD-EPI)NonAf 68 (>60 ml/min/1.73 sqM) Glucose 125 H (74-99) mg/dL Plasma Lactic Acid Thor (0.7-2.0) mmol/L Calcium 10.7 H (8.4-10.2) mg/dL Magnesium 2.0 (1.6-2.3) mg/dL Total Bilirubin 1.1 (0.2-1.3) mg/dL AST 93 H (17-59) U/L ALT 9 (4-49) U/L Alkaline Phosphatase 516 H (38-126) U/L C-Reactive Protein 189.9 H (<10.0) mg/L Total Protein 6.6 (6.3-8.2) g/dL Albumin 3.6 (3.5-5.0) g/dL Urine Color Urine Appearance (Clear) Urine pH (5.0-8.0) Ur Specific [place] (1.001-1.035) Urine Protein (Negative) Urine Glucose (UA) (Negative) Urine Ketones (Negative) Urine Blood (Negative) Urine Nitrite (Negative) Urine Bilirubin (Negative) Urine Urobilinogen (<2.0) mg/dL Ur Leukocyte Esterase (Negative) Urine RBC (0-5) /hpf Urine WBC (0-5) /hpf Amorphous Sediment (None) /hpf Urine Bacteria (None) /hpf Urine Mucus (None) /hpf Coronavirus (PCR) (Not Detectd) 07/25/20 07/25/20 07/25/20 Range/Units 14:48 15:12 15:13 WBC (3.8-10.6) k/uL RBC (4.30-5.90) m/uL Hgb (13.0-17.5) gm/dL Hct (39.0-53.0) % MCV (80.0-100.0) fL MCH (25.0-35.0) pg MCHC (31.0-37.0) g/dL RDW (11.5-15.5) % Plt Count (150-450) k/uL MPV Neutrophils % % Lymphocytes % % Monocytes % % Eosinophils % % Basophils % % Neutrophils # (1.3-7.7) k/uL Lymphocytes # (1.0-4.8) k/uL Monocytes # (0-1.0) k/uL Eosinophils # (0-0.7) k/uL Basophils # (0-0.2) k/uL Anisocytosis PT (9.0-12.0) sec INR (<1.2) APTT (22.0-30.0) sec D-Dimer (<0.60) mg/L FEU Sodium (137-145) mmol/L Potassium (3.5-5.1) mmol/L Chloride (98-107) mmol/L Carbon Dioxide (22-30) mmol/L Anion Gap mmol/L BUN (9-20) mg/dL Creatinine (0.66-1.25) mg/dL Est GFR (CKD-EPI)AfAm (>60 ml/min/1.73 sqM) Est GFR (CKD-EPI)NonAf (>60 ml/min/1.73 sqM) Glucose (74-99) mg/dL Plasma Lactic Acid Thor 1.0 (0.7-2.0) mmol/L Calcium (8.4-10.2) mg/dL Magnesium (1.6-2.3) mg/dL Total Bilirubin (0.2-1.3) mg/dL AST (17-59) U/L ALT (4-49) U/L Alkaline Phosphatase (38-126) U/L C-Reactive Protein (<10.0) mg/L Total Protein (6.3-8.2) g/dL Albumin (3.5-5.0) g/dL Urine Color Yellow Urine Appearance Cloudy (Clear) Urine pH 7.0 (5.0-8.0) Ur Specific [place] 1.010 (1.001-1.035) Urine Protein Trace H (Negative) Urine Glucose (UA) Negative (Negative) Urine Ketones Negative (Negative) Urine Blood Negative (Negative) Urine Nitrite Negative (Negative) Urine Bilirubin Negative (Negative) Urine Urobilinogen <2.0 (<2.0) mg/dL Ur Leukocyte Esterase Negative (Negative) Urine RBC 1 (0-5) /hpf Urine WBC 4 (0-5) /hpf Amorphous Sediment Few H (None) /hpf Urine Bacteria Rare H (None) /hpf Urine Mucus Rare H (None) /hpf Coronavirus (PCR) Not Detected (Not Detectd) - Radiology Data Radiology results: image reviewed (Chest x-ray questions pneumonia) Critical Care Time Critical Care Time: Yes Total Critical Care Time: 31 Disposition Clinical Impression: Sepsis, Pneumonia Disposition: ADMITTED IP TO THIS HOSP Condition: Serious Is patient prescribed a controlled substance at d/c from ED?: No Referrals: None,Stated [Primary Care Provider] - 1-2 days Decision Time: 17:32
[2020-07-25 15:07] LABS: Albumin 3.6 g/dL (3.5-5.0); Calcium 10.7 mg/dL (8.4-10.2); Potassium 3.8 mmol/L (3.5-5.1); Total Bilirubin 1.1 mg/dL (0.2-1.3); Total Protein 6.6 g/dL (6.3-8.2)
[2020-07-25 15:18] LABS: C Reactive Protein 189.9 mg/L (<10.0)
[2020-07-25 15:23] LABS: Anisocytosis Slight; Basophils # (A) 0.1 k/uL (0-0.2); Basophils % (A) 1 %; Eosinophils # (A) 0.3 k/uL (0-0.7); Eosinophils % (A) 5 %; HCT 32.3 % (39.0-53.0); Lymphocytes # (A) 1.1 k/uL (1.0-4.8); Lymphocytes % (A) 16 %; MCH 29.4 pg (25.0-35.0); MCHC 32.8 g/dL (31.0-37.0); MCV 89.5 fL (80.0-100.0); Mean Platelet Volume 8.7; Monocytes # (A) 0.6 k/uL (0-1.0); Monocytes % (A) 9 %; Neutrophils # (A) 4.7 k/uL (1.3-7.7); Neutrophils % (A) 67 %; Platelet Count 211 k/uL (150-450); RDW 17.2 % (11.5-15.5); WBC 6.9 k/uL (3.8-10.6)
[2020-07-25 15:24] LABS: HGB 10.6 gm/dL (13.0-17.5)
--- NOTE | 2020-07-25 15:32 | XR ---
EXAMINATION TYPE: XR chest 1V portable DATE OF EXAM: 07/25/2020 Comparison: 07/08/2020 Clinical History: 65-year-old male Suspected COVID-19 pneumonia Findings: Heart upper limits of normal in size. Aorta within normal limits. There is some mild patchy periphera l opacity likely related to overlying soft tissue. Diffuse sclerosis of the osseous structures in gnhia ping with patient's known diffuse osseous metastatic disease. Patchy retrocardiac opacity is noted. Impression: 1. Patchy retrocardiac atelectasis versus infiltrate. 2. Known diffuse osteoblastic metastases.
[2020-07-25 15:36] LABS: INR 1.1 (<1.2); Prothrombin Time 11.9 sec (9.0-12.0)
[2020-07-25] MEDS ORDERED: HYDROmorphone 0.5 MG/0.5 ML SYRINGE IVP STA (15:36)
[2020-07-25 15:44] LABS: D-Dimer 18.17 mg/L FEU (<0.60)
[2020-07-25 16:22] LABS: Amorphous Sediment,Urine Few /hpf; Appearance,Urine Cloudy (Clear); Bacteria,Urine Rare /hpf; Bilirubin,Urine Negative (Negative); Blood,Urine Negative (Negative); Color,Urine Yellow; Glucose,Urine (UA) Negative (Negative); Ketones,Urine Negative (Negative); Leukocyte Esterase,Urine Negative (Negative); Mucus,Urine Rare /hpf; Nitrite,Urine Negative (Negative); Protein,Urine Trace (Negative); RBC,Urine 1 /hpf (0-5); Urobilinogen,Urine <2.0 mg/dL (<2.0); WBC,Urine 4 /hpf (0-5)
[2020-07-25] MEDS ORDERED: PNEUMONIA PROTOCOL UTILIZED 1 EACH MISC PO PRN (17:32)
[2020-07-25] MEDS ORDERED: AZITHROMYCIN 500 MG in SODIUM CHLORIDE 0.9% 250 ML IVPB STA (17:32)
[2020-07-25] MEDS ORDERED: CEFEPIME 2 GM in SODIUM CHLORIDE 0.9% 100 ML IVPB STA (17:32)
[2020-07-25] MEDS ORDERED: lisinopriL 10 MG TAB PO STA (17:35)
[2020-07-25] MEDS ORDERED: CYCLOBENZAPRINE 10 MG TAB PO PRN (18:23)
[2020-07-25] MEDS ORDERED: SUMAtriptan succinate 25 MG TAB PO PRN (18:23)
[2020-07-25] MEDS ORDERED: DOCUSATE 100 MG CAP PO PRN (18:23)
--- NOTE | 2020-07-25 18:26 | CT ---
EXAMINATION TYPE: CT angio chest DATE OF EXAM: 07/25/2020 6:10 PM COMPARISON: 08/05/2019. Same-day radiograph. HISTORY: dyspnea, eleveated d-dimer CT DLP: 424.6 mGycm Automated exposure control for dose reduction was used. CONTRAST: CTA scan of the thorax is performed with IV Contrast, patient injected with 100 mL of Isovue 370, pul monary embolism protocol. MIP images are created and reviewed. FINDINGS: LUNGS: There are small bilateral pleural effusions with adjacent atelectasis. No pneumothorax suspici ous nodules. MEDIASTINUM: There is satisfactory enhancement of the pulmonary artery and its branches, there is no CT evidence for pulmonary embolism. There are no greater than 1 cm hilar or mediastinal lymph nodes. Small pericardial effusion is seen. OTHER: Unchanged multiple low attenuating hepatic foci, with the largest measuring 2.1 cm. Unchanged diffuse sclerotic changes of the axial and appendicular skeleton, involving the ribs, spine, sternum , shoulder and humeri. IMPRESSION: NO ACUTE PE. BILATERAL SMALL PLEURAL EFFUSIONS WITH ADJACENT ATELECTASIS. SMALL PERICARDIAL EFFUSION. REDEMONSTRATED DIFFUSE OSSEOUS METASTATIC DISEASE. STABLE HEPATIC CYSTIC CHANGE.
[2020-07-25] MEDS: SODIUM CHLORIDE 0.9% 1,000 ML IV SCH (18:46)
[2020-07-25] MEDS ORDERED: hydrALAZINE HCL 25 MG TAB PO PRN (22:30)
[2020-07-25] MEDS: HYDROmorphone 0.5 MG/0.5 ML SYRINGE IVP PRN (23:21)
[2020-07-26] MEDS ORDERED: GABAPENTIN 300 MG CAP PO PRN (00:05)
[2020-07-26] MEDS: CEFEPIME 2 GM in SODIUM CHLORIDE 0.9% 100 ML IVPB SCH ×3 (02:09→19:21)
[2020-07-26] MEDS: SODIUM CHLORIDE 0.9% 1,000 ML IV SCH ×2 (02:12→18:05)
[2020-07-26] MEDS: HYDROmorphone 0.5 MG/0.5 ML SYRINGE IVP PRN ×5 (02:22→21:20)
[2020-07-26] MEDS: ACETAMINOPHEN TAB 325 MG TAB PO PRN ×2 (03:12→12:25)
[2020-07-26 06:52] LABS: Anisocytosis Slight; Basophils # (A) 0.1 k/uL (0-0.2); Basophils % (A) 1 %; Eosinophils # (A) 0.2 k/uL (0-0.7); Eosinophils % (A) 2 %; HCT 28.9 % (39.0-53.0); HGB 9.6 gm/dL (13.0-17.5); Hypochromasia Slight; Lymphocytes # (A) 0.8 k/uL (1.0-4.8); Lymphocytes % (A) 12 %; MCH 29.9 pg (25.0-35.0); MCHC 33.1 g/dL (31.0-37.0); MCV 90.1 fL (80.0-100.0); Mean Platelet Volume 8.2; Monocytes # (A) 0.6 k/uL (0-1.0); Monocytes % (A) 9 %; Neutrophils # (A) 5.2 k/uL (1.3-7.7); Neutrophils % (A) 73 %; Platelet Count 189 k/uL (150-450); RBC 3.21 m/uL (4.30-5.90); RDW 16.7 % (11.5-15.5)
--- NOTE | 2020-07-26 07:42 | XR ---
EXAMINATION TYPE: XR chest 1V portable DATE OF EXAM: 07/26/2020 Comparison: 07/25/2020 Clinical History: 65-year-old male pneumonia Findings: Heart upper limits of normal in size. Patchy retrocardiac and left basilar opacity has increased. Pat dilip peripheral right mid to lower lung opacity has increased. No sizable effusion. Diffuse osteoscler osis redemonstrated. Impression: 1. Slight increasing retrocardiac and left basilar opacity, likely small effusion with adjacent atele ctasis and/or consolidation. 2. Some patchy density at the peripheral right mid to lower lung also appears slightly increased comp ared to prior exam and could represent an area of developing infiltrate. Attention on follow-up. 3. Known diffuse sclerotic bony metastases.
[2020-07-26] MEDS: FERROUS SULFATE 325 MG TAB PO SCH (08:27)
[2020-07-26] MEDS: lisinopriL 20 MG TAB PO SCH (08:27)
[2020-07-26] MEDS: CYANOCOBALAMIN 500 MCG TAB PO SCH (08:28)
[2020-07-26 10:21] LABS: African American GFR (CKD) 90.5 (60.0-200.0); Anion Gap 13.6 mmol/L (4.00-12.00); Carbon Dioxide 29.4 mmol/L (21.6-31.8); Non-African American GFR(CKD) 78.1 (60.0-200.0); Potassium 3.1 mmol/L (3.5-5.5)
[2020-07-26] MEDS: oxyCODONE ER 15 MG TAB.ER.12H PO SCH ×2 (10:28→20:43)
[2020-07-26] MEDS ORDERED: Potassium Replacement Protocol 1 EACH MISC MISCELLANE PRN (10:35)
--- NOTE | 2020-07-26 10:35 | P.CONS ---
History of Present Illness - Reason for Consult Consult date: 07/26/20 sepsis, Onc care Requesting physician: Rogerio Mckenzie - Chief Complaint fever - History of Present Illness Mr. Downs is a 65 yo male pt known to the practice. He has long-standing prostate cancer Hx, status post multiple lines of treatment, currently on a clinical trial with T cells and Keytruda [facility]. He had his last T- cell treatment late 07/02. He is admitted shortly after that for weakness, fatigue and pneumonia. He has several rincon treated treatments left, he has not had any treatment since his last admit. He e several more Keytruda treatments left. He is currently admitted with complaints of right jaw pain, he thinks he may have a toothache or an ear infection, states he had a fever and vomiting 1. Chest x-ray and CT of the chest were performed, possibly some persistent pneumonia. D-dimer was significantly elevated as well as CRP. He denies chills or riders, ear pain, sore throat, tooth pain, neck swelling, new or unusual cough, sputum production, chest pain, abdominal pain or cramping, bowel or bladder complaints, swelling, bleeding or rashes. Oncologic history: Please refer to medical consult dated 07/09/24 for malignancy history. Again, patient has had no further treatments for cancer since that admission. Review of Systems 14 point review of systems is negative except as stated in HPI Past Medical History Past Medical History: Cancer, Hypertension Additional Past Medical History / Comment(s): stage IV prostate CA, to brain gregory m and spine History of Any Multi-Drug Resistant Organisms: None Reported Past Surgical History: Joint Replacement, Orthopedic Surgery Additional Past Surgical History / Comment(s): sinus surgery, L hand, R ankle, R knee, R h ip Past Anesthesia/Blood Transfusion Reactions: No Reported Reaction Past Psychological History: No Psychological Hx Reported Smoking Status: Former smoker Past Alcohol Use History: Occasional Past Drug Use History: None Reported - Past Family History family Family Medical History: No Reported History Medications and Allergies Home Medications Medication Instructions Recorded Confirmed Type Ibuprofen [Motrin] 800 mg PO TID PRN 07/30/18 07/25/20 History Acetaminophen Tab [Tylenol] 650 mg PO Q6H PRN 07/08/20 07/25/20 History Docusate [Colace] 100 mg PO HS PRN 07/08/20 07/25/20 History Ferrous Sulfate [Iron (65 MG 325 mg PO DAILY 07/08/20 07/25/20 History Elemental)] Gabapentin 300 mg PO TID PRN 07/08/20 07/25/20 History Omeprazole 40 mg PO DAILY PRN 07/08/20 07/25/20 History Potassium Chloride ER [K-Dur 20] 20 meq PO DAILY 07/08/20 07/25/20 History SUMAtriptan SUCCINATE [Imitrex] 25 mg PO BID PRN 07/08/20 07/25/20 History oxyCODONE HCL [oxyCODONE HCL (IR)] 15 mg PO Q4H PRN 07/08/20 07/25/20 History Enalapril Maleate [Vasotec] 10 mg PO DAILY 07/09/20 07/25/20 History Cyanocobalamin [Vitamin B-12] 1,000 mcg PO DAILY #30 tab 07/11/20 07/25/20 Rx Cyclobenzaprine [Flexeril] 10 mg PO TID PRN 07/25/20 07/25/20 History oxyCODONE ER [OxyCONTIN] 15 mg PO BID PRN 07/25/20 07/25/20 History Allergies Allergy/AdvReac Type Severity Reaction Status Date / Time No Known Allergies Allergy Verified 07/25/20 14:26 Physical Exam Vitals: Vital Signs Temp Pulse Pulse Resp BP BP BP 07/26/20 08:40 110 H 16 07/26/20 04:15 99.4 F 110 H 18 177/94 07/26/20 03:00 102.5 F H 129 H 18 191/92 07/26/20 02:15 98.9 F 122 H 18 194/102 07/25/20 20:00 98.9 F 98 16 183/91 07/25/20 18:44 98 18 176/99 07/25/20 18:21 99 18 174/104 07/25/20 17:31 98.7 F 111 H 18 173/105 07/25/20 16:31 100.7 F H 105 H 18 175/101 07/25/20 15:16 117 H 18 191/111 07/25/20 14:19 101 F H 126 H 18 160/113 Pulse Ox 07/26/20 08:40 01/13/21 04:15 92 L 07/26/20 03:00 96 07/26/20 02:15 94 L 07/25/20 20:00 95 07/25/20 18:44 94 L 07/25/20 18:21 96 07/25/20 17:31 96 07/25/20 16:31 97 07/25/20 15:16 97 07/25/20 14:19 96 Intake and Output 07/25/20 07/26/20 07/26/20 22:59 06:59 14:59 Intake Total 1095 Balance 1095 Intake: Intake, IV Titration 1095 Amount Azithromycin 500 mg In 250 Sodium Chloride 0.9% 250 ml @ 250 mls/hr IVPB Q24H [facility] Rx#:[id number] Cefepime 2 gm In Sodium 100 Chloride 0.9% 100 ml @ 25 mls/hr IVPB Q8H [facility] Rx#: [id number] Sodium Chloride 0.9% 1, 520 000 ml @ 130 mls/hr IV . [id number] [facility] Rx#:[id number] Sodium Chloride 0.9% 1, 225 000 ml @ 75 mls/hr IV . [id number] [facility] Rx#:[id number] Other: Voiding Method Toilet Urinal Weight 94.801 kg - Constitutional General appearance: cooperative, no acute distress, obese - EENT No pain with palpation of the teeth or gums on the right side of the jaw. There is pain anterior to the a right tragus, maybe some mild swelling, no lymphadenopathy Eyes: anicteric sclerae, EOMI, poor dentition ENT: hearing grossly normal, normal oropharynx - Neck Neck: no lymphadenopathy - Respiratory Respiratory: bilateral: CTA - Cardiovascular Rhythm: regular Heart sounds: normal: S1, S2 Abnormal Heart Sounds: no systolic murmur, no diastolic murmur, no rub, no S3 Gallop, no S4 Gallop, no click, no other leg Peripheral Edema: bilateral: None - Gastrointestinal General gastrointestinal: no absent bowel sounds, no decreased bowel sounds, no distended, no hepatomegaly, no hyperactive bowel sounds, normal bowel sounds, no organomegaly, no rigid, no scaphoid, soft, no splenomegaly, no tenderness, no umbilical hernia, no ventral hernia - Integumentary Integumentary: pale - Neurologic Neurologic: CNII-XII intact - Musculoskeletal Musculoskeletal: generalized weakness, strength equal bilaterally - Psychiatric Psychiatric: A&O x's 3, appropriate affect, intact judgment & insight Results CBC & Chem 7: 07/26/20 06:23 07/26/20 06:23 Labs: Abnormal Lab Results - Last 24 Hours (Table) 07/25/20 07/25/20 07/25/20 Range/Units 14:48 14:48 14:48 RBC 3.60 L (4.30-5.90) m/uL Hgb 10.6 L D (13.0-17.5) gm/dL Hct 32.3 L (39.0-53.0) % RDW 17.2 H (11.5-15.5) % Lymphocytes # (1.0-4.8) k/uL APTT 20.0 L (22.0-30.0) sec D-Dimer 18.17 H (<0.60) mg/L FEU Carbon Dioxide 31 H (22-30) mmol/L Glucose 125 H (74-99) mg/dL Calcium 10.7 H (8.4-10.2) mg/dL Ferritin 2397.0 H (22.0-322.0) ng/mL AST 93 H (17-59) U/L Alkaline Phosphatase 516 H (38-126) U/L C-Reactive Protein 189.9 H (<10.0) mg/L Procalcitonin (0.02-0.09) ng/mL Urine Protein (Negative) Amorphous Sediment (None) /hpf Urine Bacteria (None) /hpf Urine Mucus (None) /hpf 07/25/20 07/25/20 07/26/20 Range/Units 14:48 15:12 06:23 RBC 3.21 L (4.30-5.90) m/uL Hgb 9.6 L (13.0-17.5) gm/dL Hct 28.9 L (39.0-53.0) % RDW 16.7 H (11.5-15.5) % Lymphocytes # 0.8 L (1.0-4.8) k/uL APTT (22.0-30.0) sec D-Dimer (<0.60) mg/L FEU Carbon Dioxide (22-30) mmol/L Glucose (74-99) mg/dL Calcium (8.4-10.2) mg/dL Ferritin (22.0-322.0) ng/mL AST (17-59) U/L Alkaline Phosphatase (38-126) U/L C-Reactive Protein (<10.0) mg/L Procalcitonin 0.19 H (0.02-0.09) ng/mL Urine Protein Trace H (Negative) Amorphous Sediment Few H (None) /hpf Urine Bacteria Rare H (None) /hpf Urine Mucus Rare H (None) /hpf Chest x-ray: report reviewed CT scan - chest: report reviewed Assessment and Plan (1) Sepsis Narrative/Plan: Martínez cultures pending. Empiric antibiotics. Recent pneumonia. Inflammatory markers elevated. CTA was negative for PE. May be in elevated secondary to recent treatment with T cells. Current Visit: Yes Status: Acute Priority: High Code(s): A41.9 - SEPSIS, UNSPECIFIED ORGANISM SNOMED Code(s): 15398386 (2) Jaw pain Narrative/Plan: CT of the facial bones ordered. Patient has his home pain meds ordered. Current Visit: Yes Status: Acute Priority: Medium Code(s): R68.84 - JAW PAIN SNOMED Code(s): 977642887 (3) Prostate cancer metastatic to bone Narrative/Plan: Patient has not had any treatment for his cancer since his last hospitalization. He is due to continue in the near future. We'll plan for the same outpatient Current Visit: No Status: Chronic Priority: Medium Code(s): C61 - MALIGNANT NEOPLASM OF PROSTATE; C79.51 - SECONDARY MALIGNANT NEOPLASM OF BONE SNOMED Code(s): 473734942 Plan: Doctor attests: I performed a history and physical examination of this patient, developed impression and plan of care. Discussed with dictator. I agree with dictators note, documented as a scribe.
--- NOTE | 2020-07-26 10:41 | P.HPIM ---
History of Present Illness H&P Date: 07/25/20 Chief Complaint: Generalized weakness Patient is a 65-year-old male with a known history of stage IV prostate cancer with metastases to brain and spine, hypertension, previous history of smoking presents to ER with complaints of generalized weakness and shortness of breath. Patient has not been eating well. No episodes of nausea vomiting or diarrhea. Denied any abdominal pain. Patient does take pain medications with oxycodone SR and ER. Patient became afebrile today and also having increased weakness which made him to come to ER. Denied any sick contacts. No recent travel. Patient is somewhat poor historian. Denied any complaints of dysuria or hematuria. No hematemesis or melena. Chest x-ray showed patchy retrocardiac atelectasis versus infiltrate. Known diffuse osteoblastic metastasis. CT angiogram showed no acute PE bilateral small pleural effusions with adjacent atelectasis. Small pericardial effusion. The demonstrated diffuse osseous metastatic disease. Stable hepatic cysts change. On admission T-max was 101 and heart rate 126 and pulse ox was 96% on 2 L oxygen with another cannula. EKG showed sinus tachycardia with occasional PVCs. Laboratory data showed d-dimer is 18.17, lactic acid 1.0, calcium 10.7, ferritin 2397, AST 9389 alk phos 516, CRP 189 Pro calcitonin level is 0.19 Coronary risks rapid PCR is not detected. Influenza A and B PCR not detected. UA negative for infection. Review of Systems Constitutional: Patient does have fever. No chills. . Generalized weakness and weight loss. Abdomen: Patient denied nausea vomiting and diarrhea and abdominal pain. Cardiovascular: Patient denies any chest pain or short of breath no palpitations. Respiratory: Denied any cough or sputum production.. Patient does have shortness of breath Neurologic: Patient denied any numbness or tingling headache. Musculoskeletal: Patient denies any complaints of joint swelling or deformity. Complete review of systems could not be obtained from the patient. Past Medical History Past Medical History: Cancer, Hypertension Additional Past Medical History / Comment(s): stage IV prostate CA, to brain stem and spine History of Any Multi-Drug Resistant Organisms: None Reported Past Surgical History: Joint Replacement, Orthopedic Surgery Additional Past Surgical History / Comment(s): sinus surgery, L hand, R ankle, R knee, R h ip Past Anesthesia/Blood Transfusion Reactions: No Reported Reaction Past Psychological History: No Psychological Hx Reported Smoking Status: Former smoker Past Alcohol Use History: Occasional Past Drug Use History: None Reported - Past Family History family Family Medical History: No Reported History Medications and Allergies Home Medications Medication Instructions Recorded Confirmed Type Ibuprofen [Motrin] 800 mg PO TID PRN 07/30/18 07/25/20 History Acetaminophen Tab [Tylenol] 650 mg PO Q6H PRN 07/08/20 07/25/20 History Docusate [Colace] 100 mg PO HS PRN 07/08/20 07/25/20 History Ferrous Sulfate [Iron (65 MG 325 mg PO DAILY 07/08/20 07/25/20 History Elemental)] Gabapentin 300 mg PO TID PRN 07/08/20 07/25/20 History Omeprazole 40 mg PO DAILY PRN 07/08/20 07/25/20 History Potassium Chloride ER [K-Dur 20] 20 meq PO DAILY 07/08/20 07/25/20 History SUMAtriptan SUCCINATE [Imitrex] 25 mg PO BID PRN 07/08/20 07/25/20 History oxyCODONE HCL [oxyCODONE HCL (IR)] 15 mg PO Q4H PRN 07/08/20 07/25/20 History Enalapril Maleate [Vasotec] 10 mg PO DAILY 07/09/20 07/25/20 History Cyanocobalamin [Vitamin B-12] 1,000 mcg PO DAILY #30 tab 07/11/20 07/25/20 Rx Cyclobenzaprine [Flexeril] 10 mg PO TID PRN 07/25/20 07/25/20 History oxyCODONE ER [OxyCONTIN] 15 mg PO BID PRN 07/25/20 07/25/20 History Allergies Allergy/AdvReac Type Severity Reaction Status Date / Time No Known Allergies Allergy Verified 07/25/20 14:26 Physical Exam Vitals: Vital Signs Temp Pulse Pulse Resp BP BP Pulse Ox 07/25/20 20:00 98.9 F 98 16 183/91 95 07/25/20 18:44 98 18 176/99 94 L 07/25/20 18:21 99 18 174/104 96 07/25/20 17:31 98.7 F 111 H 18 173/105 96 07/25/20 16:31 100.7 F H 105 H 18 175/101 97 07/25/20 15:16 117 H 18 191/111 97 07/25/20 14:19 101 F H 126 H 18 160/113 96 Intake and Output 07/25/20 07/25/20 07/26/20 14:59 22:59 06:59 Other: Weight 94.801 kg PHYSICAL EXAMINATION: Patient is lying in the bed comfortably, no acute distress, awake alert and oriented.. HEENT: Normocephalic. Neck is supple. Pupils reactive. Nostrils clear. Oral cavity is moist. Ears reveal no drainage. Neck reveals no JVD, carotid bruits, or thyromegaly. CHEST EXAMINATION: Trachea is central. Symmetrical expansion. Bilateral coarse breath sounds. No wheezing.. CARDIAC: Normal S1, S2 with no gallops. No murmurs ABDOMEN: Soft. Bowel sounds normal. No organomegaly. No abdominal bruits. Extremities: reveal no edema. No clubbing or cyanosis Neurologically awake, alert, oriented 1-2 with well-coordinated movements. No focal deficits noted Skin: No rash or skin lesions. Psychiatric: Coperative. Could not be assessed completely. Musculoskeletal: No joint swelling or deformity. Normal range of motion. Results CBC & Chem 7: 07/26/20 06:23 07/26/20 06:23 Labs: Abnormal Lab Results - Last 24 Hours (Table) 07/25/20 07/25/20 07/25/20 Range/Units 14:48 14:48 14:48 RBC 3.60 L (4.30-5.90) m/uL Hgb 10.6 L D (13.0-17.5) gm/dL Hct 32.3 L (39.0-53.0) % RDW 17.2 H (11.5-15.5) % APTT 20.0 L (22.0-30.0) sec D-Dimer 18.17 H (<0.60) mg/L FEU Carbon Dioxide 31 H (22-30) mmol/L Glucose 125 H (74-99) mg/dL Calcium 10.7 H (8.4-10.2) mg/dL AST 93 H (17-59) U/L Alkaline Phosphatase 516 H (38-126) U/L C-Reactive Protein 189.9 H (<10.0) mg/L Urine Protein (Negative) Amorphous Sediment (None) /hpf Urine Bacteria (None) /hpf Urine Mucus (None) /hpf 07/25/20 Range/Units 15:12 RBC (4.30-5.90) m/uL Hgb (13.0-17.5) gm/dL Hct (39.0-53.0) % RDW (11.5-15.5) % APTT (22.0-30.0) sec D-Dimer (<0.60) mg/L FEU Carbon Dioxide (22-30) mmol/L Glucose (74-99) mg/dL Calcium (8.4-10.2) mg/dL AST (17-59) U/L Alkaline Phosphatase (38-126) U/L C-Reactive Protein (<10.0) mg/L Urine Protein Trace H (Negative) Amorphous Sediment Few H (None) /hpf Urine Bacteria Rare H (None) /hpf Urine Mucus Rare H (None) /hpf Thrombosis Risk Factor Assmnt - DVT/VTE Prophylaxis DVT/VTE Prophylaxis: Pharmacologic Prophylaxis ordered Assessment and Plan Assessment: Acute left lower lobe pneumonia Sepsis secondary to pneumonia. Suspected covid 19 Viral infection. Rapid PCR negative. Elevated inflammatory markers. Stage IV prostate cancer with metastases to brain and spine and skeletal system. Generalized weakness and dehydration Normocytic anemia Elevated d-dimer level with no evidence of pulmonary embolism on CTA DVT prophylaxis with Lovenox subcu Plan: Patient will be continued on IV hydration and oxygen supplementation. Continue with broad-spectrum antibiotics. Patient was given a dose of cefepime and azithromycin. Covid PCR is negative but patient does have elevated inflammatory markers. Continue to follow closely.. Oncology and pulmonary will be consulted. Prognosis poor at this time. Discussed with his at bedside in detail. Time with Patient: Greater than 30
[2020-07-26] MEDS: POTASSIUM CHLORIDE ER 20 MEQ TAB.ER PO SCH ×4 (11:06→19:22)
[2020-07-26] MEDS: ENOXAPARIN 40 MG/0.4 ML SYRINGE SQ SCH (11:07)
--- NOTE | 2020-07-26 11:29 | CT ---
EXAMINATION TYPE: CT facial bones w con DATE OF EXAM: 07/26/2020 COMPARISON: MRI brain February 15, 2020 HISTORY: Rt facial pain CT DLP: 802.3 mGycm Automated exposure control for dose reduction was used. CONTRAST: CT scan of the facial bones is performed with IV Contrast, patient injected with 100 mL of Isovue 300 . TECHNIQUE: CT scan of the facial bones is performed with IV contrast, axial images are obtained, lópez nal reformatted images are also reviewed. FINDINGS: Nasal bones remain intact. Orbital floors and saunders are intact. The globes are intact bilat erally. Intraconal fat is preserved bilaterally. Zygomatic arches are intact bilaterally. Pterygoid p lates are intact bilaterally. Mild to moderate mucosal thickening involving the right frontal sinus. Mild mucosal thickening involv ing the superior anterior ethmoid sinuses. Moderate mucosal thickening involving the right sphenoid s inus, mild mucosal thickening involving left sphenoid sinus which is larger in caliber. Mild mucosal thickening involving the bilateral maxillary sinuses with small mucous retention cyst or polyp audit mgr ior inferior left maxillary sinus redemonstrated. No suspicious enhancement or enhancing masses with particular attention to the right facial region. N o suspicious focal fluid collection. Parotid and submandibular glands are symmetric and felt within n ormal limits. Visualized portion of the carotid structures and carotid bulbs show no significant foca l stenosis. IMPRESSION: Chronic paranasal sinus disease more prominent from prior MRI. No acute findings are evid ent to account for patient's symptoms.
--- NOTE | 2020-07-26 15:32 | P.CNPUL ---
History of Present Illness Consult date: 07/26/20 Requesting physician: Shavonne Yancey Reason for consult: abnormal CXR/CT, other Chief complaint: Weakness History of present illness: 65-year-old male who was brought into the emergency room on July 25, at 1406, complaining of mental status changes, and weakness. The patient apparently has advanced prostate cancer, and doesn't have a primary care physician. He states that the only doctor that he sees is Dr. Yancey. His complaints included primarily weakness. His appetite is poor. He has not been drinking much in the way of fluids and feels dehydrated. He denied any nausea, vomiting, or diarrhea. He also denies any pulmonary complaints including shortness of breath, chest tightness, cough, chest congestion, wheezing, shortness of breath, or phlegm production. He denies any genitourinary complaints. We were asked to see him for possible pneumonia. The chest x-ray my opinion is very underwhelming for pneumonia. More importantly, the patient does not have any pneumonic symptoms. The patient denies any chest congestion, cough, wheezing, shortness of breath, phlegm production, etc. He does have a fever. The patient's major complaint in addition to weakness includes pain on the right side of his face. He states, that he is scheduled for an MRI. He feels like something is wrong in that area of his body. On room air, his saturation is 96%. His T-max is 102.5. Review of Systems REVIEW OF SYSTEMS: CONSTITUTIONAL: Weakness. NEUROLOGIC: [ Negative.] HEENT: Right facial discomfort. CARDIAC: [Negative.] PULMONARY: He currently denies any pulmonary issues including shortness of breath, chest tightness, chest congestion, cough, phlegm production, etc. GI: [Negative.] : Advanced prostate cancer. RHEUMATOLOGIC: [ Negative.] IMMUNOLOGIC: [ Negative.] ENDOCRINE: [Negative. ] DERMATOLOGIC: [Negative.] Past Medical History Past Medical History: Cancer, Hypertension Additional Past Medical History / Comment(s): stage IV prostate CA, to brain stem and spine History of Any Multi-Drug Resistant Organisms: None Reported Past Surgical History: Joint Replacement, Orthopedic Surgery Additional Past Surgical History / Comment(s): sinus surgery, L hand, R ankle, R knee, R h ip Past Anesthesia/Blood Transfusion Reactions: No Reported Reaction Past Psychological History: No Psychological Hx Reported Smoking Status: Former smoker Past Alcohol Use History: Occasional Past Drug Use History: None Reported - Past Family History family Family Medical History: No Reported History Medications and Allergies Home Medications Medication Instructions Recorded Confirmed Type Ibuprofen [Motrin] 800 mg PO TID PRN 07/30/18 07/25/20 History Acetaminophen Tab [Tylenol] 650 mg PO Q6H PRN 07/08/20 07/25/20 History Docusate [Colace] 100 mg PO HS PRN 07/08/20 07/25/20 History Ferrous Sulfate [Iron (65 MG 325 mg PO DAILY 07/08/20 07/25/20 History Elemental)] Gabapentin 300 mg PO TID PRN 07/08/20 07/25/20 History Omeprazole 40 mg PO DAILY PRN 07/08/20 07/25/20 History Potassium Chloride ER [K-Dur 20] 20 meq PO DAILY 07/08/20 07/25/20 History SUMAtriptan SUCCINATE [Imitrex] 25 mg PO BID PRN 07/08/20 07/25/20 History oxyCODONE HCL [oxyCODONE HCL (IR)] 15 mg PO Q4H PRN 07/08/20 07/25/20 History Enalapril Maleate [Vasotec] 10 mg PO DAILY 07/09/20 07/25/20 History Cyanocobalamin [Vitamin B-12] 1,000 mcg PO DAILY #30 tab 07/11/20 07/25/20 Rx Cyclobenzaprine [Flexeril] 10 mg PO TID PRN 07/25/20 07/25/20 History oxyCODONE ER [OxyCONTIN] 15 mg PO BID PRN 07/25/20 07/25/20 History Allergies Allergy/AdvReac Type Severity Reaction Status Date / Time No Known Allergies Allergy Verified 07/25/20 14:26 Physical Exam Osteopathic Statement: *. No significant issues noted on an osteopathic structural exam other than those noted in the History and Physical/Consult. Vitals: Vital Signs Temp Pulse Pulse Resp BP BP BP 07/26/20 15:11 98.6 F 07/26/20 11:00 100.3 F H 104 H 19 169/86 07/26/20 08:40 110 H 16 07/26/20 04:15 99.4 F 110 H 18 177/94 07/26/20 03:00 102.5 F H 129 H 18 191/92 07/26/20 02:15 98.9 F 122 H 18 194/102 07/25/20 20:00 98.9 F 98 16 183/91 07/25/20 18:44 98 18 176/99 07/25/20 18:21 99 18 174/104 07/25/20 17:31 98.7 F 111 H 18 173/105 07/25/20 16:31 100.7 F H 105 H 18 175/101 Pulse Ox 07/26/20 15:11 07/26/20 11:00 95 07/26/20 08:40 07/26/20 04:15 92 L 07/26/20 03:00 96 07/26/20 02:15 94 L 07/25/20 20:00 95 07/25/20 18:44 94 L 07/25/20 18:21 96 07/25/20 17:31 96 07/25/20 16:31 97 Intake and Output 07/26/20 07/26/20 07/26/20 06:59 14:59 22:59 Intake Total 1095 260 Output Total 400 Balance 1095 -140 Intake: Intake, IV Titration 1095 Amount Azithromycin 500 mg In 250 Sodium Chloride 0.9% 250 ml @ 250 mls/hr IVPB Q24H [facility] Rx#:[id number] Cefepime 2 gm In Sodium 100 Chloride 0.9% 100 ml @ 25 mls/hr IVPB Q8H [facility] Rx#: [id number] Sodium Chloride 0.9% 1, 520 000 ml @ 130 mls/hr IV . Q7H42M [facility] Rx#:[id number] Sodium Chloride 0.9% 1, 225 000 ml @ 75 mls/hr IV . [id number] [facility] Rx#:[id number] Oral 260 Output: Urine 400 No acute distress, oriented 3. Patient is not wearing any supplemental oxygen. HEENT examination is grossly unremarkable. Mucous membranes are moist. No oral lesions. Cheeks are flushed. He rubs the right side of his face because it appears to be causing him difficulty/pain. Neck supple. Full range of motion. No adenopathy thyromegaly or neck vein distention. Cardiovascular examination reveals regular rhythm rate. S1-S2 normal. No S3 or S4. No discernible murmur noted. Heart rate about 104 bpm. Lungs reveal clear breath sounds. Her sounds are equal bilaterally. No adventitious lung sounds including wheezes rhonchi or crackles. Abdomen soft bowel sounds are heard. No masses or tenderness. Extremities are intact. No cyanosis clubbing or edema. Skin is without rash or lesion. Neurologic examination is brief but nonfocal. Results - Laboratory Findings CBC and BMP: 07/26/20 06:23 07/26/20 06:23 PT/INR, D-dimer PT 11.9 sec (9.0-12.0) 07/25/20 14:48 INR 1.1 (<1.2) 07/25/20 14:48 D-Dimer 18.17 mg/L FEU (<0.60) H 07/25/20 14:48 Abnormal lab findings: Abnormal Labs 07/25/20 07/25/20 07/25/20 14:48 14:48 14:48 RBC 3.60 L Hgb 10.6 L D Hct 32.3 L RDW 17.2 H Lymphocytes # APTT 20.0 L D-Dimer 18.17 H Potassium Carbon Dioxide 31 H Anion Gap Glucose 125 H Calcium 10.7 H Ferritin 2397.0 H AST 93 H Alkaline Phosphatase 516 H C-Reactive Protein 189.9 H Procalcitonin Urine Protein Amorphous Sediment Urine Bacteria Urine Mucus 07/25/20 07/25/20 07/26/20 14:48 15:12 06:23 RBC 3.21 L Hgb 9.6 L Hct 28.9 L RDW 16.7 H Lymphocytes # 0.8 L APTT D-Dimer Potassium Carbon Dioxide Anion Gap Glucose Calcium Ferritin AST Alkaline Phosphatase C-Reactive Protein Procalcitonin 0.19 H Urine Protein Trace H Amorphous Sediment Few H Urine Bacteria Rare H Urine Mucus Rare H 07/26/20 06:23 RBC Hgb Hct RDW Lymphocytes # APTT D-Dimer Potassium 3.1 L Carbon Dioxide Anion Gap 13.60 H Glucose 124 H Calcium Ferritin AST Alkaline Phosphatase C-Reactive Protein Procalcitonin Urine Protein Amorphous Sediment Urine Bacteria Urine Mucus Assessment and Plan Assessment: Fever, of unclear etiology. The patient appears not to have pneumonia in my opinion as he is devoid of all pulmonary complaints. Advanced/stage IV prostate cancer, with skeletal, spine, and brain metastasis. Right sided facial pain, of unclear etiology. Weakness, likely secondary to advanced prostate cancer, as well as possible underlying infection. History of hypertension. Anemia of chronic disease. Elevated D dimer, without evidence of pulmonary embolism on CT angiogram. Hypokalemia. Negative results for COVID 19 testing. Plan: Plan dated 07/26/2020. Currently, the patient's on azithromycin, and cefepime, for suspected pneumonia. It does not appear to our team that the patient has pneumonia. He lacks all pneumonic symptoms in his chest x-rays and CAT scans are unimpressive. In addition, there was no evidence of pulmonary embolism on CT angiogram. His major complaint in addition to weakness, has pain in the right side of his face. CT of the face did not reveal any significant pathology. We will continue to follow. May be a source of infection will become more evident over the next 24- 48 hours. I don't disagree with antibiotics at this time although I'm not sure exactly what we are treating. Prognosis is guarded given his advanced prostate cancer. Time with Patient: Greater than 30
[2020-07-26] MEDS ORDERED: ONDANSETRON 4 MG/2 ML VIAL IVP PRN (15:47)
[2020-07-26] MEDS ORDERED: AZITHROMYCIN 500 MG in SODIUM CHLORIDE 0.9% 250 ML IVPB SCH (18:00)
[2020-07-27] MEDS: CEFEPIME 2 GM in SODIUM CHLORIDE 0.9% 100 ML IVPB SCH ×2 (02:54→11:31)
[2020-07-27] MEDS: HYDROmorphone 0.5 MG/0.5 ML SYRINGE IVP PRN (06:22)
[2020-07-27] MEDS: oxyCODONE ER 15 MG TAB.ER.12H PO SCH (07:51)
[2020-07-27] MEDS: FERROUS SULFATE 325 MG TAB PO SCH (08:59)
[2020-07-27] MEDS: CYANOCOBALAMIN 500 MCG TAB PO SCH (08:59)
[2020-07-27] MEDS: lisinopriL 20 MG TAB PO SCH (08:59)
[2020-07-27] MEDS: ENOXAPARIN 40 MG/0.4 ML SYRINGE SQ SCH (08:59)
--- NOTE | 2020-07-27 11:09 | P.PN ---
Subjective Progress Note Date: 07/26/20 Principal diagnosis: Fever and generalized weakness Possible pneumonia Patient is a 65-year-old male with a known history of stage IV prostate cancer with metastases to brain and spine, hypertension, previous history of smoking presents to ER with complaints of generalized weakness and shortness of breath. Patient has not been eating well. No episodes of nausea vomiting or diarrhea. Denied any abdominal pain. Patient does take pain medications with oxycodone SR and ER. Patient became afebrile today and also having increased weakness which made him to come to ER. Denied any sick contacts. No recent travel. Patient is somewhat poor historian. Denied any complaints of dysuria or hematuria. No hematemesis or melena. Chest x-ray showed patchy retrocardiac atelectasis versus infiltrate. Known diffuse osteoblastic metastasis. CT angiogram showed no acute PE bilateral small pleural effusions with adjacent atelectasis. Small pericardial effusion. The demonstrated diffuse osseous metastatic disease. Stable hepatic cysts change. On admission T-max was 101 and heart rate 126 and pulse ox was 96% on 2 L oxygen with another cannula. EKG showed sinus tachycardia with occasional PVCs. Laboratory data showed d-dimer is 18.17, lactic acid 1.0, calcium 10.7, ferritin 2397, AST 9389 alk phos 516, CRP 189 Pro calcitonin level is 0.19 Coronary risks rapid PCR is not detected. Influenza A and B PCR not detected. UA negative for infection. 07/26/2020 Patient says the more awake and oriented today. Still feels very weak. Otherwise patient is also febrile with T-max 102.5 and also tachycardic. Continued on a brick antibiotics for possible pneumonia. Pulmonary was consulted. Covid PCR was re sent. Cultures have been negative. Patient is on 4 L oxygen with via nasal cannula. Otherwise patient is tolerating oral diet. Continued on IV hydration and pain management and bowel regimen. Current medications reviewed. Objective - Vital Signs Vital signs: Vital Signs Temp 99.1 F 07/26/20 17:00 Pulse 102 H 07/26/20 17:00 Resp 17 07/26/20 17:00 BP 181/92 07/26/20 17:00 Pulse Ox 97 07/26/20 17:00 Intake & Output 07/25/20 07/26/20 07/26/20 18:59 06:59 18:59 Intake Total 1095 260 Output Total 1200 Balance 1095 -940 Weight 94.801 kg Intake: Intake, IV Titration 1095 Amount Azithromycin 500 mg In 250 Sodium Chloride 0.9% 250 ml @ 250 mls/hr IVPB Q24H [facility] Rx#:[id number] Cefepime 2 gm In Sodium 100 Chloride 0.9% 100 ml @ 25 mls/hr IVPB Q8H [facility] Rx#: [id number] Sodium Chloride 0.9% 1, 520 000 ml @ 130 mls/hr IV . Q7H42M [facility] Rx#:[id number] Sodium Chloride 0.9% 1, 225 000 ml @ 75 mls/hr IV . [id number] [facility] Rx#:[id number] Oral 260 Output: Urine 1200 Other: Voiding Method Toilet Urinal - Exam PHYSICAL EXAMINATION: Patient is lying in the bed comfortably, no acute distress, awake alert and oriented.. HEENT: Normocephalic. Neck is supple. Pupils reactive. Nostrils clear. Oral cavity is moist. Ears reveal no drainage. Neck reveals no JVD, carotid bruits, or thyromegaly. CHEST EXAMINATION: Trachea is central. Symmetrical expansion. Bilateral coarse breath sounds. No wheezing.. CARDIAC: Normal S1, S2 with no gallops. No murmurs ABDOMEN: Soft. Bowel sounds normal. No organomegaly. No abdominal bruits. Extremities: reveal no edema. No clubbing or cyanosis Neurologically awake, alert, oriented 1-2 with well-coordinated movements. No focal deficits noted Skin: No rash or skin lesions. Psychiatric: Coperative. Could not be assessed completely. Musculoskeletal: No joint swelling or deformity. Normal range of motion. - Labs CBC & Chem 7: 07/26/20 06:23 07/26/20 20:21 Labs: Abnormal Lab Results - Last 24 Hours (Table) 07/25/20 07/25/20 07/26/20 Range/Units 14:48 14:48 06:23 RBC 3.21 L (4.30-5.90) m/uL Hgb 9.6 L (13.0-17.5) gm/dL Hct 28.9 L (39.0-53.0) % RDW 16.7 H (11.5-15.5) % Lymphocytes # 0.8 L (1.0-4.8) k/uL Potassium (3.5-5.5) mmol/L Anion Gap (4.00-12.00) mmol/L Glucose (70-110) mg/dL Ferritin 2397.0 H (22.0-322.0) ng/mL Procalcitonin 0.19 H (0.02-0.09) ng/mL 07/26/20 07/26/20 Range/Units 06:23 15:01 RBC (4.30-5.90) m/uL Hgb (13.0-17.5) gm/dL Hct (39.0-53.0) % RDW (11.5-15.5) % Lymphocytes # (1.0-4.8) k/uL Potassium 3.1 L 3.4 L (3.5-5.5) mmol/L Anion Gap 13.60 H (4.00-12.00) mmol/L Glucose 124 H (70-110) mg/dL Ferritin (22.0-322.0) ng/mL Procalcitonin (0.02-0.09) ng/mL Microbiology - Last 24 Hours (Table) 07/25/20 15:37 Blood Culture - Preliminary Blood No Growth after 24 hours 07/25/20 15:37 Blood Culture - Preliminary Blood No Growth after 24 hours Assessment and Plan Assessment: Fever and generalized weakness. Possible Acute left lower lobe pneumonia Sepsis secondary to pneumonia. Suspected covid 19 Viral infection. Rapid PCR negative. Elevated inflammatory markers. Stage IV prostate cancer with metastases to brain and spine and skeletal system. Generalized weakness and dehydration Normocytic anemia Elevated d-dimer level with no evidence of pulmonary embolism on CTA DVT prophylaxis with Lovenox subcu Plan: Patient will be continued on IV hydration and oxygen supplementation. Continue with broad-spectrum antibiotics. Patient was given a dose of cefepime and azithromycin. Covid PCR is negative but patient does have elevated inflammatory markers. Continue to follow closely.. Oncology and pulmonary will be consulted. Prognosis poor at this time. Discussed with his at bedside in detail. Time with Patient: Greater than 30
[2020-07-27] MEDS: SODIUM CHLORIDE 0.9% 1,000 ML IV SCH ×2 (11:31→16:29)
--- NOTE | 2020-07-27 12:04 | P.PN ---
Subjective Progress Note Date: 07/27/20 Principal diagnosis: prostate cancer, fever In follow-up today patient had 100.3 Fahrenheit fever yesterday late morning, none since, the pain in his jaw is a little bit better, CT of his face did not show any significant pathology for his symptoms. Objective - Vital Signs Vital signs: Vital Signs Temp 97.8 F 07/27/20 10:15 Pulse 109 H 07/27/20 10:15 Resp 16 07/27/20 10:15 BP 149/98 07/27/20 10:15 Pulse Ox 97 07/27/20 10:15 Intake & Output 07/26/20 07/27/20 07/27/20 18:59 06:59 18:59 Intake Total 260 590 Output Total 1200 Balance -940 590 Intake: Oral 260 590 Output: Urine 1200 Other: Voiding Method Toilet Urinal Urinal # Voids 100 2 - Constitutional General appearance: Present: average body habitus, cooperative, no acute distress - EENT Eyes: Present: anicteric sclerae, EOMI ENT: Present: hearing grossly normal - Respiratory Respiratory: bilateral: CTA - Cardiovascular Heart sounds: normal: S1, S2 - Gastrointestinal General gastrointestinal: Present: normal bowel sounds, soft - Integumentary Integumentary: Present: pale - Neurologic Neurologic: Present: CNII-XII intact - Musculoskeletal Musculoskeletal: Present: generalized weakness, strength equal bilaterally - Psychiatric Psychiatric: Present: A&O x's 3, appropriate affect, intact judgment & insight - Labs CBC & Chem 7: 07/26/20 06:23 07/26/20 20:21 Labs: Abnormal Lab Results - Last 24 Hours (Table) 07/26/20 Range/Units 15:01 Potassium 3.4 L (3.5-5.1) mmol/L Microbiology - Last 24 Hours (Table) 07/25/20 15:37 Blood Culture - Preliminary Blood No Growth after 24 hours 07/25/20 15:37 Blood Culture - Preliminary Blood No Growth after 24 hours - Imaging and Cardiology CT of the facial bones report reviewed Assessment and Plan (1) Sepsis Narrative/Plan: Martínez cultures negative at 24 hours, he continues on empiric antibiotics. Recent pneumonia. Inflammatory markers elevated. CTA was negative for PE. Maybe elevated secondary to recent treatment with T cells. Current Visit: Yes Status: Acute Priority: High Code(s): A41.9 - SEPSIS, UNSPECIFIED ORGANISM SNOMED Code(s): 58256611 (2) Jaw pain Narrative/Plan: CT of the facial bones did not show any acute pathology. Patient's pain is a little bit better today after receiving antibiotics and getting his home pain medications straightened around Current Visit: Yes Status: Acute Priority: Medium Code(s): R68.84 - JAW PAIN SNOMED Code(s): 245790514 (3) Prostate cancer metastatic to bone Narrative/Plan: Patient has not had any treatment for his cancer since his last hospitalization. He is due to continue in the near future. We'll plan for the same outpatient. Follow-up appointment with Dr. Yancey is in the discharge plan. Current Visit: No Status: Chronic Priority: Medium Code(s): C61 - MALIGNANT NEOPLASM OF PROSTATE; C79.51 - SECONDARY MALIGNANT NEOPLASM OF BONE SNOMED Code(s): 095958861
[2020-07-27 16:25] VITALS: BP 181/99; PULSE 114; RESP 18; TEMP 98.6
--- NOTE | 2020-07-27 17:31 | P.PN ---
Subjective Progress Note Date: 07/27/20 Principal diagnosis: Fever, of unknown etiology 65-year-old male who was brought into the emergency room on July 25, at 1406, complaining of mental status changes, and weakness. The patient apparently has advanced prostate cancer, and doesn't have a primary care physician. He states that the only doctor that he sees is Dr. Yancey. His complaints included primarily weakness. His appetite is poor. He has not been drinking much in the way of fluids and feels dehydrated. He denied any nausea, vomiting, or diarrhea. He also denies any pulmonary complaints including shortness of breath, chest tightness, cough, chest congestion, wheezing, shortness of breath, or phlegm production. He denies any genitourinary complaints. We were asked to see him for possible pneumonia. The chest x-ray my opinion is very underwhelming for pneumonia. More importantly, the patient does not have any pneumonic symptoms. The patient denies any chest congestion, cough, wheezing, shortness of breath, phlegm production, etc. He does have a fever. The patient's major complaint in addition to weakness includes pain on the right side of his face. He states, that he is scheduled for an MRI. He feels like something is wrong in that area of his body. On room air, his saturation is 96%. His T-max is 102.5. On 07/27/2020 patient seen in follow-up on medical floor, he is calm and comfortable, in no acute distress, his been afebrile for last 24 hours, vital signs are stable, room air pulse ox is 94-97%, denies any shortness of breath, no cough or congestion, no complaints of chest pain. No hemoptysis. No acute events overnight, no abdominal pain, no nausea vomiting or diarrhea. His urinalysis did not show any evidence of infection, there was no clear evidence of pneumonia on the chest x-ray over CTA chest. Blood cultures have been negative. Patient was on empiric antibiotics in the form of cefepime and azithromycin, is on prophylactic doses of Lovenox. Doing well, would like to go home today. Influenza screen was negative, COVID 19 PCR was negative 2 Objective - Vital Signs Vital signs: Vital Signs Temp 98.6 F 07/27/20 15:48 Pulse 114 H 01/14/21 15:48 Resp 18 07/27/20 15:48 BP 181/99 07/27/20 15:48 Pulse Ox 94 L 07/27/20 15:48 Intake & Output 07/26/20 07/27/20 07/27/20 18:59 06:59 18:59 Intake Total 260 590 500 Output Total 1200 Balance -940 590 500 Intake: Oral 260 590 500 Output: Urine 1200 Other: Voiding Method Toilet Urinal Urinal # Voids 100 2 - Exam GENERAL EXAM: Alert, very pleasant, 65-year-old white male, on room air, with pulse ox of 94% comfortable in no apparent distress. HEAD: Normocephalic/atraumatic. EYES: Normal reaction of pupils, equal size. Conjunctiva pink, sclera white. NOSE: Clear with pink turbinates. THROAT: No erythema or exudates. NECK: No masses, no JVD, no thyroid enlargement, no adenopathy. CHEST: No chest wall deformity. Symmetrical expansion. LUNGS: Equal air entry with no crackles, wheeze, rhonchi or dullness. CVS: Regular rate and rhythm, normal S1 and S2, no gallops, no murmurs, no rubs ABDOMEN: Soft, nontender. No hepatosplenomegaly, normal bowel sounds, no guarding or rigidity. EXTREMITIES: No clubbing, no edema, no cyanosis, 2+ pulses and upper and lower extremities. MUSCULOSKELETAL: Muscle strength and tone normal. SPINE: No scoliosis or deformity SKIN: No rashes CENTRAL NERVOUS SYSTEM: Alert and oriented -3. No focal deficits, tone is normal in all 4 extremities. PSYCHIATRIC: Alert and oriented -3. Appropriate affect. Intact judgment and insight. - Labs CBC & Chem 7: 07/26/20 06:23 07/26/20 20:21 Labs: Microbiology - Last 24 Hours (Table) 07/25/20 15:37 Blood Culture - Preliminary Blood No Growth after 24 hours 07/25/20 15:37 Blood Culture - Preliminary Blood No Growth after 24 hours Assessment and Plan Plan: Assessment: Fever, of unclear etiology. The patient appears not to have pneumonia in my opinion as he is devoid of all pulmonary complaints. Advanced/stage IV prostate cancer, with skeletal, spine, and brain metastasis. Right sided facial pain, of unclear etiology. Weakness, likely secondary to advanced prostate cancer, as well as possible underlying infection. History of hypertension. Anemia of chronic disease. Elevated D dimer, without evidence of pulmonary embolism on CT angiogram. Hypokalemia. Negative results for COVID 19 testing. Plan: Patient has been stable, no fever, no chills, no cough, no significant pulmonary symptoms. COVID 19 PCR was negative 2, influenza screen was negative, as no clear evidence of pneumonia on chest x-ray or the CT chest, CT of the face did not reveal any significant pathology. UA without clear evidence of infection. Clinically patient has improved, vitals stable, he can be considered for disc harge home today on no antibiotics I performed a history & physical examination of the patient and discussed their management with my nurse practitioner, Avani Hernandez. I reviewed the nurse practitioner's note and agree with the documented findings and plan of care. Lung sounds are positive for diminished breath sounds. The findings and the impression was discussed with the patient. I attest to the documentation by the nurse practitioner. Time with Patient: Less than 30
[2020-07-27] MEDS ORDERED: AZITHROMYCIN 500 MG TAB PO SCH (18:00)
--- NOTE | 2020-08-02 13:26 | CDI ---
Documentation Clarification Form Date: 08/02/2020 12:25:00 PM From: Shirley Rao Phone: If you have a question about this query, please contact Tameka Mendenhall, Fruit Sorter at [phone] between 8am and 5pm. Admit Date: 07/25/2020 05:32:00 PM Patient Name: Carlos Downs Visit Number: [id number] Discharge Date: 07/27/2020 05:29:00 PM ATTENTION: The Clinical Documentation Specialists (CDI) and [facility] Coding Staff appreciate your assistance in clarifying documentation. Please respond to the clarification below the line at the bottom and electronically sign. The CDI & [facility] Coding staff will review the response and follow-up if needed. Please note: Queries are made part of the Legal Health Record. If you have any questions, please contact the author of this message via ITS. Dr. Irene Bernstein Conflicting documentation has been found in the medical record: Per pulmonary patient has fever of unclear etiology. The patient appears not to have pneumonia in my opinion. CXR underwhelming for pneumonia. H and P and your PN. pneumonia and sepsis. Please clarify if patient sepsis and pneumonia were ruled out or if patient had sepsis and pneumonia. History/Risk Factors: fever, Stage IV prostate CA Clinical Indicators: fever Treatment: antibiotics In your opinion, what is the most clinically appropriate diagnosis for this patient? Pneumonia and sepsis ruled out fever of unknown origin Sepsis and pneumonia Pneumonia Other explanation of clinical findings Unable to determine (no explanation for clinical findings) Pneumonia and sepsis ruled out fever of unknown origin MTDD
== END 2020-07-27 17:29 | disposition home or self-care (01) | DRG 864 ==
LOC: EC 14:06 → 6NMEDSUR 17:32
PROVIDERS: ADMIT Internal Medicine; ATTEND Internal Medicine
DX: R50.9 Fever, unspecified (principal); C79.31 Secondary malignant neoplasm of brain; C79.51 Secondary malignant neoplasm of bone; I31.3 Pericardial effusion (noninflammatory); C61 Malignant neoplasm of prostate; D63.8 Anemia in other chronic diseases classified elsewhere; E86.0 Dehydration; E87.6 Hypokalemia; I10 Essential (primary) hypertension; I49.3 Ventricular premature depolarization; K76.89 Other specified diseases of liver; Z20.822 Contact with and (suspected) exposure to COVID-19; Z79.899 Other long term (current) drug therapy; Z85.46 Personal history of malignant neoplasm of prostate; Z87.01 Personal history of pneumonia (recurrent); Z87.891 Personal history of nicotine dependence; K08.9 Disorder of teeth and supporting structures, unspecified; R68.84 Jaw pain; Z96.641 Presence of right artificial hip joint; Z96.651 Presence of right artificial knee joint; R79.1 Abnormal coagulation profile
CPT/HCPCS: 36415; 70487; 71045; 71275; 80048; 80053; 81001; 82728; 83605; 83735; 84132; 84145; 85025; 85379; 85610; 85730; 86140; 87040; 87502; 87635; 93005; 96361; 96365; 96375; 99291

== ENCOUNTER 2020-08-02 18:55 | Emergency (ER) | payer MEDICARE, OTHER ==
[2020-08-02 20:40] LABS: Anisocytosis Slight; Basophils # (A) 0.1 k/uL (0-0.2); Basophils % (A) 1 %; Eosinophils # (A) 0.3 k/uL (0-0.7); Eosinophils % (A) 5 %; HCT 27.5 % (39.0-53.0); Lymphocytes % (A) 15 %; MCH 28.6 pg (25.0-35.0); MCHC 32.6 g/dL (31.0-37.0); MCV 87.7 fL (80.0-100.0); Monocytes # (A) 0.5 k/uL (0-1.0); Monocytes % (A) 7 %; Neutrophils # (A) 4.5 k/uL (1.3-7.7); Neutrophils % (A) 70 %; Platelet Count 170 k/uL (150-450); Poikilocytosis Slight; RBC 3.14 m/uL (4.30-5.90); RDW 16.9 % (11.5-15.5); WBC 6.4 k/uL (3.8-10.6)
[2020-08-02 20:50] LABS: ALT 11 U/L (4-49); AST 63 U/L (17-59); African American GFR (CKD) >90 (>60 ml/min/1.73 sqM); Albumin 3.7 g/dL (3.5-5.0); Alkaline Phosphatase 336 U/L (38-126); Anion Gap 10 mmol/L; Blood Urea Nitrogen 14 mg/dL (9-20); Carbon Dioxide 30 mmol/L (22-30); Chloride 96 mmol/L (98-107); Glucose 122 mg/dL (74-99); Magnesium 2.1 mg/dL (1.6-2.3); Non-African American GFR(CKD) >90 (>60 ml/min/1.73 sqM); Sodium 136 mmol/L (137-145); Total Bilirubin 1.2 mg/dL (0.2-1.3)
[2020-08-02 20:53] LABS: Potassium 3.5 mmol/L (3.5-5.1)
--- NOTE | 2020-08-02 20:54 | ED ---
General Adult HPI - General Chief complaint: Recheck/Abnormal Lab/Rx Stated complaint: abn labs Time Seen by Provider: 08/02/20 19:15 Source: patient, RN notes reviewed, old records reviewed Mode of arrival: ambulatory Limitations: no limitations - History of Present Illness Initial comments: This is a 65-year-old male who presents to the emergency department with a past medical history significant for metastatic prostate cancer. Patient states he came in today because he was told his potassium was very low. Patient states he has been feeling weak. Patient denies shortness of breath. Patient denies any chest pain or palpitations. Patient denies any abdominal pain patient denies nausea vomiting diarrhea. Patient denies any lightheadedness or dizziness. Patient denies any headache or numbness or weakness. - Related Data Home Medications Medication Instructions Recorded Confirmed Ibuprofen [Motrin] 800 mg PO TID PRN 07/30/18 08/02/20 Acetaminophen Tab [Tylenol] 650 mg PO Q6H PRN 07/08/20 08/02/20 Docusate [Colace] 100 mg PO HS PRN 07/08/20 08/02/20 Ferrous Sulfate [Iron (65 MG 325 mg PO DAILY 07/08/20 08/02/20 Elemental)] Gabapentin 300 mg PO TID PRN 07/08/20 08/02/20 Omeprazole 40 mg PO DAILY PRN 07/08/20 08/02/20 Potassium Chloride ER [K-Dur 20] 20 meq PO DAILY 07/08/20 08/02/20 SUMAtriptan SUCCINATE [Imitrex] 25 mg PO BID PRN 07/08/20 08/02/20 oxyCODONE HCL [oxyCODONE HCL (IR)] 15 mg PO Q4H PRN 07/08/20 08/02/20 Enalapril Maleate [Vasotec] 10 mg PO DAILY 07/09/20 08/02/20 Cyclobenzaprine [Flexeril] 10 mg PO TID PRN 07/25/20 08/02/20 oxyCODONE ER [OxyCONTIN] 15 mg PO BID PRN 07/25/20 08/02/20 Previous Rx's Medication Instructions Recorded Cyanocobalamin [Vitamin B-12] 1,000 mcg PO DAILY #30 tab 07/11/20 Potassium Chloride ER [K-Dur 20] 20 meq PO BID #5 tab 08/02/20 Allergies Allergy/AdvReac Type Severity Reaction Status Date / Time morphine AdvReac Unknown Verified 08/02/20 21:05 Review of Systems ROS Statement: Those systems with pertinent positive or pertinent negative responses have been documented in the HPI. ROS Other: All systems not noted in ROS Statement are negative. Past Medical History Past Medical History: Cancer, Hypertension Additional Past Medical History / Comment(s): stage IV prostate CA, to brain stem and spine History of Any Multi-Drug Resistant Organisms: None Reported Past Surgical History: Joint Replacement, Orthopedic Surgery Additional Past Surgical History / Comment(s): sinus surgery, L hand, R ankle, R knee, R h ip Past Anesthesia/Blood Transfusion Reactions: No Reported Reaction Past Psychological History: No Psychological Hx Reported Smoking Status: Former smoker Past Alcohol Use History: Occasional Past Drug Use History: None Reported - Past Family History family Family Medical History: No Reported History General Exam - General Exam Comments Initial Comments: GENERAL: Patient is well-developed and well-nourished. Patient is nontoxic and well- hydrated and is in mild distress. ENT: Neck is soft and supple. No significant lymphadenopathy is noted. Oropharynx is clear. Moist mucous membranes. Neck has full range of motion without eliciting any pain EYES: The sclera were anicteric and conjunctiva were pink and moist. Extraocular movements were intact and pupils were equal round and reactive to light. Eyelids were unremarkable. PULMONARY: Unlabored respirations. Good breath sounds bilaterally. No audible rales rhonchi or wheezing was noted. CARDIOVASCULAR: There is a regular rate and rhythm without any murmurs gallops or rubs. ABDOMEN: Soft and nontender with normal bowel sounds. SKIN: Skin is clear with no lesions or rashes and otherwise unremarkable. NEUROLOGIC: Patient is alert and oriented x3. Cranial nerves II through XII are grossly in tact. Motor and sensory are also intact. Normal speech, volume and content. Symmetrical smile. Cerebellar exam grossly intact. MUSCULOSKELETAL: Normal extremities with adequate strength and full range of motion. LYMPHATICS: No significant lymphadenopathy is noted PSYCHIATRIC: Normal psychiatric evaluation. Limitations: no limitations Course Vital Signs 08/02/20 08/02/20 19:13 21:05 Temperature 97.4 F L Pulse Rate 108 H 96 Respiratory 16 18 Rate Blood Pressure 184/96 170/97 O2 Sat by Pulse 97 100 Oximetry Medical Decision Making - Medical Decision Making EKG shows normal sinus rhythm at 90 bpm ME interval is 146 dresses 92 QT interval 362 QTC is 464. Patient's EKG shows no ST segment elevation or depression. Patient's potassium was initially 3.5 but slightly hemolyzed and repeated it was 3.1 with no hemolysis. I gave the patient 40 of Jennifer Dur by mouth and will send the patient home on oral potassium replacement. Patient states she will call her oncologist tomorrow for follow-up - Lab Data Result diagrams: 08/02/20 20:17 08/02/20 21:02 Lab Results 08/02/20 08/02/20 08/02/20 Range/Units 20:17 20:17 21:02 WBC 6.4 (3.8-10.6) k/uL RBC 3.14 L (4.30-5.90) m/uL Hgb 9.0 L (13.0-17.5) gm/dL Hct 27.5 L (39.0-53.0) % MCV 87.7 (80.0-100.0) fL MCH 28.6 (25.0-35.0) pg MCHC 32.6 (31.0-37.0) g/dL RDW 16.9 H (11.5-15.5) % Plt Count 170 (150-450) k/uL MPV 9.0 Neutrophils % 70 % Lymphocytes % 15 % Monocytes % 7 % Eosinophils % 5 % Basophils % 1 % Neutrophils # 4.5 (1.3-7.7) k/uL Lymphocytes # 1.0 (1.0-4.8) k/uL Monocytes # 0.5 (0-1.0) k/uL Eosinophils # 0.3 (0-0.7) k/uL Basophils # 0.1 (0-0.2) k/uL Poikilocytosis Slight Anisocytosis Slight Sodium 136 L (137-145) mmol/L Potassium 3.5 3.1 L (3.5-5.1) mmol/L Chloride 96 L (98-107) mmol/L Carbon Dioxide 30 (22-30) mmol/L Anion Gap 10 mmol/L BUN 14 (9-20) mg/dL Creatinine 0.71 (0.66-1.25) mg/dL Est GFR (CKD-EPI)AfAm >90 (>60 ml/min/1.73 sqM) Est GFR (CKD-EPI)NonAf >90 (>60 ml/min/1.73 sqM) Glucose 122 H (74-99) mg/dL Calcium 10.0 (8.4-10.2) mg/dL Magnesium 2.1 (1.6-2.3) mg/dL Total Bilirubin 1.2 (0.2-1.3) mg/dL AST 63 H (17-59) U/L ALT 11 (4-49) U/L Alkaline Phosphatase 336 H (38-126) U/L Total Protein 7.0 (6.3-8.2) g/dL Albumin 3.7 (3.5-5.0) g/dL Disposition Clinical Impression: Hypokalemia Disposition: HOME SELF-CARE Condition: Good Instructions (If sedation given, give patient instructions): Hypokalemia (ED) Prescriptions: Potassium Chloride ER [K-Dur 20] 20 meq PO BID #5 tab Is patient prescribed a controlled substance at d/c from ED?: No Referrals: None,Stated [Primary Care Provider] - 1-2 days Time of Disposition: 21:44
[2020-08-02 21:15] VITALS: RESP 18
[2020-08-02] MEDS ORDERED: POTASSIUM CHLORIDE ER 20 MEQ TAB.ER PO STA (21:43)
[2020-08-02 22:16] VITALS: BP 168/99; PULSE 99; TEMP 98.3
== END 2020-08-02 22:16 | disposition home or self-care (01) ==
LOC: EC 18:55
DX: E87.6 Hypokalemia (principal); I10 Essential (primary) hypertension; Z79.899 Other long term (current) drug therapy; Z87.891 Personal history of nicotine dependence; Z88.5 Allergy status to narcotic agent; Z85.46 Personal history of malignant neoplasm of prostate
CPT/HCPCS: 36415; 80053; 83735; 84132; 85025; 93005; 99285

== ENCOUNTER → 2020-08-14 | Outpatient (CLI) | payer MEDICARE, OTHER ==
--- NOTE | 2020-08-14 13:50 | MR ---
EXAMINATION TYPE: MR brain wo/w con DATE OF EXAM: 08/14/2020 COMPARISON: MRI brain February 15, 2020 HISTORY: Falling, Hx of prostate cancer TECHNIQUE: Multiplanar, multisequence images of the brain and brainstem is performed without and with IV contras t, utilizing 8.5 mL intravenous Gadavist . FINDINGS: Diffusion weighted images demonstrate no evidence of a recent infarct or other diffusion ab normality. There is no worrisome new extra-axial fluid collection. Stable mild ventricular and sulca l prominence. Scattered foci of T2 hyperintensity are again seen throughout the white matter. Roughly 20 scattered lesions again seen. Midline structures demonstrate normal morphology. The craniocervical junction appears within normal limits. Post contrast images demonstrate slightly more prominent linear dural enhancement bilaterall y. No suspicious nodularity or focal pleural thickening is noted. No new enhancing masses are present . There is no significant increased fluid signal bilateral mastoid air cells The dural venous sinuses remain patent. Tiny mucous retention cyst or polyp in the inferior left maxillary sinus redemonstrat ed otherwise The visualized sinuses remain clear and the globes are intact bilaterally. IMPRESSION: New Significant increased fluid signal bilateral mastoid air cells worrisome for acute mastoiditis, correlate clinically.
== END | disposition home or self-care (01) ==
LOC: RADMRIMAIN 12:46
PROVIDERS: ATTEND Internal Medicine Hematology & Oncology
DX: H70.003 Acute mastoiditis without complications, bilateral (principal); C61 Malignant neoplasm of prostate
CPT/HCPCS: 70553; A9585

== ENCOUNTER → 2020-08-22 | Outpatient (CLI) | payer MEDICARE, OTHER ==
[2020-08-22 07:07] LABS: African American GFR (CKD) >90 (>60 ml/min/1.73 sqM); Blood Urea Nitrogen 22 mg/dL (9-20); Non-African American GFR(CKD) >90 (>60 ml/min/1.73 sqM)
--- NOTE | 2020-08-22 09:48 | CT ---
EXAMINATION TYPE: CT ChestAbdPelvis w con DATE OF EXAM: 08/22/2020 COMPARISON: CT chest 07/25/2020, chest abdomen pelvis 08/05/2019 HISTORY: prostate CA with bone mets CT DLP: 1000.4 mGycm Automated exposure control for dose reduction was used. CONTRAST: CT scan of the chest, abdomen and pelvis is performed with Oral Contrast and with IV Contrast, patien t injected with 100 mL of Isovue 300. FINDINGS: LUNGS: The lungs are grossly clear, there is no concerning parenchymal mass or nodule identified. T here is no pleural effusion or pneumothorax seen. The tracheobronchial tree is patent. MEDIASTINUM: There are no greater than 1 cm hilar or mediastinal lymph nodes. No pericardial effusi on is seen. AORTA: No significant abnormality is seen. OTHER: No additional significant abnormality is seen. LIVER/GB: No significant interval change is appreciated. PANCREAS: No significant abnormality is seen. SPLEEN: No significant abnormality is seen. ADRENALS: No significant abnormality is seen. KIDNEYS: No significant abnormality is seen. REPRODUCTIVE ORGANS: Prostate calcifications present. BOWEL: No significant abnormality is seen. FREE AIR: No Free Air visible. ASCITES: None seen. RETROPERITONEAL ADENOPATHY: No retroperitoneal adenopathy is seen. LYMPH NODES: No greater than 1 cm abdominal or pelvic lymph nodes are appreciated. URINARY BLADDER: No significant abnormality is seen. PELVIC ADENOPATHY: None visualized. OSSEOUS STRUCTURES: Diffuse sclerotic metastasis has progressed from one year prior, humeral head sh ows near complete sclerosis on today's exam, progression in thoracic vertebral body and sternal scler osis as compared to prior. IMPRESSION: There has been some progression in osseous metastatic disease since CT of 08/05/2019
--- NOTE | 2020-08-22 13:57 | NM ---
EXAMINATION TYPE: NM bone scan whole body DATE OF EXAM: 08/22/2020 COMPARISON: Prior nuclear medicine bone scan August 05, 2019. Same day whole body CT HISTORY: Prostate cancer. Delayed whole-body scanning was performed following the injection of 24.0 mCi Tc 99m MDP. Images acq uired 3 hours post injection. FINDINGS: There is SuperScan type appearance with diffuse multifocal uptake throughout the calvarium along with the entire spine and bilateral ribs along with upper and lower extremities including pelvis. Lucency from right hip prosthesis redemonstrated. More prominent uptakes from recent bone scan. Nonvisualize d excretion correlates with SuperScan type appearance. IMPRESSION: As above. Diffuse osseous sclerotic metastatic disease correlates with same day CT. Inter aaron progression from prior bone scan.
== END | disposition home or self-care (01) ==
LOC: RADNMMAIN 06:04
PROVIDERS: ATTEND Internal Medicine Hematology & Oncology
DX: C61 Malignant neoplasm of prostate (principal); C79.51 Secondary malignant neoplasm of bone; Z96.641 Presence of right artificial hip joint
CPT/HCPCS: 82565; 84520; 71260; 74177; 36415; 78306; A9503; Q9967

== ENCOUNTER 2020-09-04 19:53 | Inpatient (IN) | payer MEDICARE, OTHER ==
[2020-09-04] MEDS ORDERED: ACETAMINOPHEN TAB 325 MG TAB PO STA (20:22)
[2020-09-04] MEDS ORDERED: HYDROmorphone 1 MG/ML 1 ML SYRINGE IVP STA ×2 (20:23→21:38)
[2020-09-04] MEDS ORDERED: ONDANSETRON 4 MG/2 ML VIAL IVP STA (20:23)
[2020-09-04] MEDS: SODIUM CHLORIDE 0.9% 1,000 ML IV SCH (21:05)
[2020-09-04 21:18] LABS: Anisocytosis Slight; HCT 25.8 % (39.0-53.0); HGB 8.8 gm/dL (13.0-17.5); MCH 29.9 pg (25.0-35.0); MCHC 33.9 g/dL (31.0-37.0); MCV 88.2 fL (80.0-100.0); Mean Platelet Volume 7.8; Platelet Count 165 k/uL (150-450); RBC 2.93 m/uL (4.30-5.90); RDW 16.2 % (11.5-15.5); WBC 5.5 k/uL (3.8-10.6)
--- NOTE | 2020-09-04 21:19 | XR ---
EXAMINATION TYPE: XR chest 1V portable DATE OF EXAM: 09/04/2020 COMPARISON: 07/26/2020 and prior. HISTORY: Fever. History of prostate cancer. TECHNIQUE: Single frontal view of the chest is obtained. FINDINGS: There is no focal air space opacity, pleural effusion, or pneumothorax seen. The cardiac silhouette size is within normal limits. There is demonstration of diffuse sclerotic changes of the v isualized axial and appendicular skeleton, consistent with known metastatic disease. IMPRESSION: No acute cardiopulmonary abnormality. Diffuse osseous metastatic disease.
[2020-09-04 21:28] LABS: ALT 19 U/L (4-49); AST 69 U/L (17-59); African American GFR (CKD) >90 (>60 ml/min/1.73 sqM); Albumin 3.2 g/dL (3.5-5.0); Alkaline Phosphatase 459 U/L (38-126); Anion Gap 10 mmol/L; Band Neutrophils % 6 %; Blood Urea Nitrogen 14 mg/dL (9-20); Calcium 9.3 mg/dL (8.4-10.2); Carbon Dioxide 31 mmol/L (22-30); Chloride 89 mmol/L (98-107); Glucose 132 mg/dL (74-99); Lymphocytes # (M) 0.61 k/uL (1.0-4.8); Monocytes # (M) 0.28 k/uL (0-1.0); Myelocytes # (M) 0.06 k/uL (0); Myelocytes % 1 %; Neutrophils % (M) 77 %; Non-African American GFR(CKD) >90 (>60 ml/min/1.73 sqM); Nucleated Red Blood Cells 0 /100 WBC (0-0); Potassium 3.8 mmol/L (3.5-5.1); Sodium 130 mmol/L (137-145); Total Bilirubin 1.1 mg/dL (0.2-1.3); Total Cells Counted 100; Total Protein 6.2 g/dL (6.3-8.2)
[2020-09-04 21:30] LABS: INR 1.2 (<1.2); Partial Thromboplastin Time 28.6 sec (22.0-30.0); Prothrombin Time 12.6 sec (9.0-12.0)
[2020-09-04 21:39] LABS: Appearance,Urine Clear (Clear); Bilirubin,Urine Negative (Negative); Blood,Urine Negative (Negative); Color,Urine Yellow; Glucose,Urine (UA) Negative (Negative); Ketones,Urine Negative (Negative); Leukocyte Esterase,Urine Negative (Negative); Mucus,Urine Moderate /hpf; Nitrite,Urine Negative (Negative); Protein,Urine 1+ (Negative); Specific Gravity,Urine 1.023 (1.001-1.035); WBC,Urine 1 /hpf (0-5)
[2020-09-04] MEDS ORDERED: NALOXONE 0.4 MG/ML 1 ML VIAL IV PRN (22:34)
[2020-09-04] MEDS ORDERED: ONDANSETRON 4 MG/2 ML VIAL IVP PRN (22:34)
[2020-09-04] MEDS ORDERED: ACETAMINOPHEN TAB 325 MG TAB PO PRN (22:34)
[2020-09-04] MEDS ORDERED: LORazepam 2 MG/ML INJ IV PRN (22:35)
--- NOTE | 2020-09-04 22:40 | ED ---
General Adult HPI - General Chief complaint: Back Pain/Injury Stated complaint: pain Time Seen by Provider: 09/04/20 20:14 Source: patient, EMS Mode of arrival: EMS Limitations: no limitations - History of Present Illness Initial comments: 65-year-old male patient presents to the emergency department today for evaluation of increased back and shoulder pain. Patient states pain is pretty much generalized. He has a history of metastatic prostate cancer. They are not currently doing any chemotherapy or treatment. Patient states that he is taking 30 mg twice daily extended release OxyContin with 15 mg every 4 hours immediate release OxyContin which is not helping. Patient states he is unable to sleep. States his appetite is decreased due to the pain. Patient is febrile upon arrival, he was not aware of any fevers. Denies any cough, congestion, sore throat, diarrhea, or abdominal pain. Denies any rash. Denies any wounds. Patient denies any recent shortness of breath, chest pain, nausea, vomiting, constipation, back pain, numbness, tingling, dizziness, weakness, hematuria, dysuria, urinary urgency, urinary frequency, headache, visual changes, or any other complaints. - Related Data Home Medications Medication Instructions Recorded Confirmed Ibuprofen [Motrin] 800 mg PO TID PRN 07/30/18 08/30/20 Acetaminophen Tab [Tylenol] 650 mg PO Q6H PRN 07/08/20 08/30/20 Docusate [Colace] 100 mg PO HS PRN 07/08/20 08/30/20 Ferrous Sulfate [Iron (65 MG 325 mg PO DAILY 07/08/20 08/30/20 Elemental)] Gabapentin 300 mg PO TID PRN 07/08/20 08/30/20 Omeprazole 40 mg PO DAILY PRN 07/08/20 08/30/20 Potassium Chloride ER [K-Dur 20] 20 meq PO DAILY 07/08/20 08/30/20 SUMAtriptan SUCCINATE [Imitrex] 25 mg PO BID PRN 07/08/20 08/30/20 oxyCODONE HCL [oxyCODONE HCL (IR)] 15 mg PO Q4H PRN 07/08/20 08/30/20 Enalapril Maleate [Vasotec] 10 mg PO DAILY 07/09/20 08/30/20 Cyclobenzaprine [Flexeril] 10 mg PO TID PRN 07/25/20 08/30/20 oxyCODONE ER [OxyCONTIN] 15 mg PO BID PRN 07/25/20 08/30/20 Previous Rx's Medication Instructions Recorded Cyanocobalamin [Vitamin B-12] 1,000 mcg PO DAILY #30 tab 07/11/20 Potassium Chloride ER [K-Dur 20] 20 meq PO BID #5 tab 08/02/20 Allergies Allergy/AdvReac Type Severity Reaction Status Date / Time morphine AdvReac Unknown Verified 08/30/20 10:36 Review of Systems ROS Statement: Those systems with pertinent positive or pertinent negative responses have been documented in the HPI. ROS Other: All systems not noted in ROS Statement are negative. Past Medical History Past Medical History: Cancer, Hypertension Additional Past Medical History / Comment(s): stage IV prostate CA, to brain stem and spine History of Any Multi-Drug Resistant Organisms: None Reported Past Surgical History: Joint Replacement, Orthopedic Surgery Additional Past Surgical History / Comment(s): sinus surgery, L hand, R ankle, R knee, R h ip Past Anesthesia/Blood Transfusion Reactions: No Reported Reaction Past Psychological History: No Psychological Hx Reported Smoking Status: Former smoker - Past Family History family Family Medical History: No Reported History General Exam Limitations: no limitations General appearance: alert, in no apparent distress, other (This is a well- developed, well-nourished adult male patient who is in mild distress related to pain. Vital signs upon presentation are temperature 100.3F, pulse 125, respirations 18, blood pressure 180/84, pulse ox 97% on room air.) Respiratory exam: Present: normal lung sounds bilaterally. Absent: respiratory distress, wheezes, rales, rhonchi, stridor Cardiovascular Exam: Present: normal rhythm, tachycardia, normal heart sounds. Absent: systolic murmur, diastolic murmur, rubs, gallop, clicks GI/Abdominal exam: Present: soft, normal bowel sounds. Absent: distended, tenderness, guarding, rebound, rigid Neurological exam: Present: alert, oriented X3, CN II-XII intact Psychiatric exam: Present: normal affect, normal mood Skin exam: Present: warm, dry, intact, normal color. Absent: rash Course Vital Signs 09/04/20 09/04/20 19:54 22:02 Temperature 100.3 F H 98.9 F Pulse Rate 125 H 118 H Respiratory 18 18 Rate Blood Pressure 180/84 140/91 O2 Sat by Pulse 97 97 Oximetry Medical Decision Making - Medical Decision Making 65-year-old male patient presenting to the emergency department today for evaluation of generalized pain mostly in his back and shoulders related to metastatic prostate cancer. Patient is on home medications not currently helping. He did have elevated temperature at 100.3 upon arrival. Labs reveal normal white blood cell count. Decreased hemoglobin 8.8 is stable for the patient. Patient was given Tylenol and Dilaudid. He has had have repeat doses of Dilaudid due to his pain. I did discuss the case with on-call oncologist Dr. Antonio who agrees to admission. Advises to increase his oxycontin to 60mg daily and agrees with Dilaudid q2 hours. Patient and are requesting consult to hospice, this has been added. Case discussed with my attending Dr. Lux. - Lab Data Result diagrams: 09/04/20 20:56 09/04/20 20:56 Lab Results 09/04/20 09/04/20 09/04/20 Range/Units 20:56 20:56 20:56 WBC 5.5 (3.8-10.6) k/uL RBC 2.93 L (4.30-5.90) m/uL Hgb 8.8 L (13.0-17.5) gm/dL Hct 25.8 L (39.0-53.0) % MCV 88.2 (80.0-100.0) fL MCH 29.9 (25.0-35.0) pg MCHC 33.9 (31.0-37.0) g/dL RDW 16.2 H (11.5-15.5) % Plt Count 165 (150-450) k/uL MPV 7.8 Neutrophils % (Manual) 77 % Band Neuts % (Manual) 6 % Lymphocytes % (Manual) 11 % Monocytes % (Manual) 5 % Myelocytes % 1 % Neutrophils # (Manual) 4.50 (1.3-7.7) k/uL Lymphocytes # (Manual) 0.61 L (1.0-4.8) k/uL Monocytes # (Manual) 0.28 (0-1.0) k/uL Myelocytes # (Manual) 0.06 H (0) k/uL Nucleated RBCs 0 (0-0) /100 WBC Manual Slide Review Performed Anisocytosis Slight PT 12.6 H (9.0-12.0) sec INR 1.2 H (<1.2) APTT 28.6 (22.0-30.0) sec Sodium 130 L (137-145) mmol/L Potassium 3.8 (3.5-5.1) mmol/L Chloride 89 L (98-107) mmol/L Carbon Dioxide 31 H (22-30) mmol/L Anion Gap 10 mmol/L BUN 14 (9-20) mg/dL Creatinine 0.55 L (0.66-1.25) mg/dL Est GFR (CKD-EPI)AfAm >90 (>60 ml/min/1.73 sqM) Est GFR (CKD-EPI)NonAf >90 (>60 ml/min/1.73 sqM) Glucose 132 H (74-99) mg/dL Plasma Lactic Acid Thor (0.7-2.0) mmol/L Calcium 9.3 (8.4-10.2) mg/dL Total Bilirubin 1.1 (0.2-1.3) mg/dL AST 69 H (17-59) U/L ALT 19 (4-49) U/L Alkaline Phosphatase 459 H (38-126) U/L Total Protein 6.2 L (6.3-8.2) g/dL Albumin 3.2 L (3.5-5.0) g/dL Urine Color Urine Appearance (Clear) Urine pH (5.0-8.0) Ur Specific [place] (1.001-1.035) Urine Protein (Negative) Urine Glucose (UA) (Negative) Urine Ketones (Negative) Urine Blood (Negative) Urine Nitrite (Negative) Urine Bilirubin (Negative) Urine Urobilinogen (<2.0) mg/dL Ur Leukocyte Esterase (Negative) Urine WBC (0-5) /hpf Urine Mucus (None) /hpf 09/04/20 09/04/20 Range/Units 20:56 21:27 WBC (3.8-10.6) k/uL RBC (4.30-5.90) m/uL Hgb (13.0-17.5) gm/dL Hct (39.0-53.0) % MCV (80.0-100.0) fL MCH (25.0-35.0) pg MCHC (31.0-37.0) g/dL RDW (11.5-15.5) % Plt Count (150-450) k/uL MPV Neutrophils % (Manual) % Band Neuts % (Manual) % Lymphocytes % (Manual) % Monocytes % (Manual) % Myelocytes % % Neutrophils # (Manual) (1.3-7.7) k/uL Lymphocytes # (Manual) (1.0-4.8) k/uL Monocytes # (Manual) (0-1.0) k/uL Myelocytes # (Manual) (0) k/uL Nucleated RBCs (0-0) /100 WBC Manual Slide Review Anisocytosis PT (9.0-12.0) sec INR (<1.2) APTT (22.0-30.0) sec Sodium (137-145) mmol/L Potassium (3.5-5.1) mmol/L Chloride (98-107) mmol/L Carbon Dioxide (22-30) mmol/L Anion Gap mmol/L BUN (9-20) mg/dL Creatinine (0.66-1.25) mg/dL Est GFR (CKD-EPI)AfAm (>60 ml/min/1.73 sqM) Est GFR (CKD-EPI)NonAf (>60 ml/min/1.73 sqM) Glucose (74-99) mg/dL Plasma Lactic Acid Thor 1.0 (0.7-2.0) mmol/L Calcium (8.4-10.2) mg/dL Total Bilirubin (0.2-1.3) mg/dL AST (17-59) U/L ALT (4-49) U/L Alkaline Phosphatase (38-126) U/L Total Protein (6.3-8.2) g/dL Albumin (3.5-5.0) g/dL Urine Color Yellow Urine Appearance Clear (Clear) Urine pH 6.0 (5.0-8.0) Ur Specific [place] 1.023 (1.001-1.035) Urine Protein 1+ H (Negative) Urine Glucose (UA) Negative (Negative) Urine Ketones Negative (Negative) Urine Blood Negative (Negative) Urine Nitrite Negative (Negative) Urine Bilirubin Negative (Negative) Urine Urobilinogen 4.0 (<2.0) mg/dL Ur Leukocyte Esterase Negative (Negative) Urine WBC 1 (0-5) /hpf Urine Mucus Moderate H (None) /hpf Disposition Clinical Impression: Intractable pain, Metastatic malignant neoplasm to prostate Disposition: ADMITTED IP TO THIS HOSP Condition: Serious Referrals: None,Stated [Primary Care Provider] - 1-2 days Decision to Admit Reason: Admit from EC Decision Date: 09/04/20 Decision Time: 22:40
[2020-09-04] MEDS: SODIUM CHLORIDE 0.9% 500 ML 500 ML IV SCH ×2 (23:03→23:09)
[2020-09-04] MEDS: HYDROmorphone 1 MG/ML 1 ML SYRINGE IVP PRN (23:41)
[2020-09-05] MEDS: HYDROmorphone 1 MG/ML 1 ML SYRINGE IVP PRN ×7 (05:12→20:26)
[2020-09-05] MEDS ORDERED: oxyCODONE ER 20 MG TAB.ER.12H PO SCH ×2 (09:00→16:00)
[2020-09-05] MEDS ORDERED: ENALAPRILAT 1.25 MG/ML 1 ML VIAL IVP PRN (10:54)
[2020-09-05] MEDS: lisinopriL 10 MG TAB PO SCH (12:19)
--- NOTE | 2020-09-05 13:36 | P.HPIM ---
History of Present Illness H&P Date: 09/05/20 Chief Complaint: Neoplastic related intractable pain Mr. Downs is a 65 yo male patyient of primary oncologist Dr. Yancey who well known to the practice. He has long-standing prostate cancer Hx, status post multiple lines of treatment, most recently completed a clinical trial with T cells and Keytruda through [facility] in June 2020. He had his last T-cell treatment late 07/02. Since his treatment he has been more pain, weakness, and overall decreased in quality of life. He was admitted early July with decreased Hemoglobin, supportive care provided. He is on ER oxycontin and IR oxycodone at home without relief at his current dosage. This has been adjusted as he is now re-admitted with complaints of increased pain. His most recent CT scans and nuclear bone scan does reveal progressive disease within his bones. From December of 2019 to April of 2020 his PSA had doubled in 900s. No recent TM to date. On admission patient has expressed the want for comfort measures only and hospice care. Therefore hospice has been consulted and he hopes to go home with hospice after his pain is more controlled. Review of Systems All systems: negative Constitutional: Reports as per HPI Past Medical History Past Medical History: Cancer, Hypertension, Pneumonia Additional Past Medical History / Comment(s): Pt recently admitted to [facility] on07/03 with fever/generalized weakness/SIRS/suspected covid 19 with negative rapid PCR/increased inflammatory markers, normocytic anemia/transfusion. 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 History of Any Multi-Drug Resistant Organisms: None Reported Past Surgical History: Joint Replacement, Orthopedic Surgery Additional Past Surgical History / Comment(s): Prostate biopsy, L hand nail gun injury with repair, R ankle fractures with surgery, R total hip arthroplasty, sinus surgery. Past Anesthesia/Blood Transfusion Reactions: No Reported Reaction Additional Past Anesthesia/Blood Transfusion Reaction / Comment(s): Pt has received blood in past without reaction. Past Psychological History: No Psychological Hx Reported Additional Psychological History / Comment(s): Pt resides with his exspouse and they are raising their 10 yr old grandson. Pt uses no assistive device but does own a walker. Pt no longer drives, his exspouse drives and is his caregiver. Pt is interested in hospice. Smoking Status: Former smoker Past Alcohol Use History: Occasional Additional Past Alcohol Use History / Comment(s): Pt started smoking in 1971 and quit in 1994. He states he drank heavily in the past but has not drank in the past 6 months. Past Drug Use History: None Reported - Past Family History Father Family Medical History: No Reported History Additional Family Medical History / Comment(s): Father is 90yrs old. Mother Additional Family Medical History / Comment(s): Mother had multiple medical problems, pt prefers not to discuss at this time. family Family Medical History: No Reported History Medications and Allergies Home Medications Medication Instructions Recorded Confirmed Type oxyCODONE HCL [oxyCODONE HCL (IR)] 15 mg PO Q4H PRN 07/08/20 09/04/20 History Enalapril Maleate [Vasotec] 10 mg PO DAILY 07/09/20 09/04/20 History oxyCODONE HCL [OxyCONTIN] 30 mg PO Q12H PRN 09/04/20 09/04/20 History Allergies Allergy/AdvReac Type Severity Reaction Status Date / Time morphine AdvReac Unknown Verified 08/30/20 10:36 Physical Exam Vitals: Vital Signs Temp Pulse Resp BP Pulse Ox 09/05/20 07:29 121 H 18 154/102 100 09/05/20 05:09 99.6 F 112 H 16 181/92 96 09/04/20 23:16 105 H 18 153/97 94 L 09/04/20 22:02 98.9 F 118 H 18 140/91 97 09/04/20 19:54 100.3 F H 125 H 18 180/84 97 Intake and Output 09/04/20 09/05/20 09/05/20 22:59 06:59 14:59 Other: Weight 74.843 kg - Constitutional General appearance: Present: average body habitus, cooperative, no acute distress - EENT Eyes: Present: anicteric sclerae, EOMI ENT: Present: hearing grossly normal - Respiratory Respiratory: bilateral: CTA - Cardiovascular Heart sounds: normal: S1, S2 - Gastrointestinal General gastrointestinal: Present: normal bowel sounds, soft - Integumentary Integumentary: Present: pale - Neurologic Neurologic: Present: CNII-XII intact - Musculoskeletal Musculoskeletal: Present: generalized weakness, strength equal bilaterally - Psychiatric Psychiatric: Present: A&O x's 3, appropriate affect, intact judgment & insight Results CBC & Chem 7: 09/04/20 20:56 09/04/20 20:56 Labs: Abnormal Lab Results - Last 24 Hours (Table) 09/04/20 09/04/20 09/04/20 Range/Units 20:56 20:56 20:56 RBC 2.93 L (4.30-5.90) m/uL Hgb 8.8 L (13.0-17.5) gm/dL Hct 25.8 L (39.0-53.0) % RDW 16.2 H (11.5-15.5) % Lymphocytes # (Manual) 0.61 L (1.0-4.8) k/uL Myelocytes # (Manual) 0.06 H (0) k/uL PT 12.6 H (9.0-12.0) sec INR 1.2 H (<1.2) Sodium 130 L (137-145) mmol/L Chloride 89 L (98-107) mmol/L Carbon Dioxide 31 H (22-30) mmol/L Creatinine 0.55 L (0.66-1.25) mg/dL Glucose 132 H (74-99) mg/dL AST 69 H (17-59) U/L Alkaline Phosphatase 459 H (38-126) U/L Total Protein 6.2 L (6.3-8.2) g/dL Albumin 3.2 L (3.5-5.0) g/dL Urine Protein (Negative) Urine Mucus (None) /hpf 09/04/20 Range/Units 21:27 RBC (4.30-5.90) m/uL Hgb (13.0-17.5) gm/dL Hct (39.0-53.0) % RDW (11.5-15.5) % Lymphocytes # (Manual) (1.0-4.8) k/uL Myelocytes # (Manual) (0) k/uL PT (9.0-12.0) sec INR (<1.2) Sodium (137-145) mmol/L Chloride (98-107) mmol/L Carbon Dioxide (22-30) mmol/L Creatinine (0.66-1.25) mg/dL Glucose (74-99) mg/dL AST (17-59) U/L Alkaline Phosphatase (38-126) U/L Total Protein (6.3-8.2) g/dL Albumin (3.5-5.0) g/dL Urine Protein 1+ H (Negative) Urine Mucus Moderate H (None) /hpf Thrombosis Risk Factor Assmnt - DVT/VTE Prophylaxis DVT/VTE Prophylaxis: Pharmacologic Prophylaxis ordered Assessment and Plan (1) Chronic pain due to neoplasm Current Visit: Yes Status: Acute Code(s): G89.3 - NEOPLASM RELATED PAIN (ACUTE) (CHRONIC) SNOMED Code(s): 55900719012749 (2) Intractable pain Current Visit: Yes Status: Acute Code(s): R52 - PAIN, UNSPECIFIED SNOMED Code(s): 01051694 (3) Metastatic malignant neoplasm to prostate Current Visit: Yes Status: Acute Code(s): C79.82 - SECONDARY MALIGNANT NEOPLASM OF GENITAL ORGANS SNOMED Code(s): 76542313 Plan: Continue on Comfort Measures and goals of care Quality of Life. Increase Long Acting Oxycontin (both dose and frequency) Increased PO oxycodone IV dilaudid prn Bowel Regimen Hospice Consult Patient expresses the want to have a DNR on file Physician attest: I have completed the full history and physical and agree with above dictation, dictated as a scribe.
[2020-09-05] MEDS: SODIUM CHLORIDE 0.9% 1,000 ML IV SCH (14:29)
[2020-09-05] MEDS: IBUPROFEN 600 MG TAB PO SCH ×2 (15:36→23:08)
[2020-09-05] MEDS ORDERED: oxyCODONE ER 15 MG TAB.ER.12H PO SCH (16:00)
[2020-09-05 16:09] VITALS: BMI 23.6
[2020-09-05] MEDS: SENNOSIDES-DOCUSATE SODIUM 1 EACH TAB PO SCH (20:24)
[2020-09-06] MEDS: HYDROmorphone 1 MG/ML 1 ML SYRINGE IVP PRN ×5 (06:12→20:48)
[2020-09-06] MEDS: IBUPROFEN 600 MG TAB PO SCH ×3 (08:14→20:42)
[2020-09-06] MEDS: SENNOSIDES-DOCUSATE SODIUM 1 EACH TAB PO SCH ×2 (08:15→20:42)
[2020-09-06] MEDS: lisinopriL 10 MG TAB PO SCH (08:15)
[2020-09-06 12:58] LABS: Anisocytosis Slight; HCT 28.1 % (39.0-53.0); Hypochromasia Slight; MCH 28.7 pg (25.0-35.0); MCHC 31.8 g/dL (31.0-37.0); Mean Platelet Volume 8.2; Platelet Count 170 k/uL (150-450); RBC 3.12 m/uL (4.30-5.90); RDW 16.4 % (11.5-15.5)
[2020-09-06 13:00] LABS: ALT 18 U/L (4-49); AST 51 U/L (17-59); African American GFR (CKD) >90 (>60 ml/min/1.73 sqM); Albumin 3.2 g/dL (3.5-5.0); Albumin/Globulin Ratio 1.1; Alkaline Phosphatase 473 U/L (38-126); Anion Gap 12 mmol/L; Blood Urea Nitrogen 16 mg/dL (9-20); Carbon Dioxide 29 mmol/L (22-30); Chloride 95 mmol/L (98-107); Globulin 2.9 g/dL; Glucose 122 mg/dL (74-99); Non-African American GFR(CKD) >90 (>60 ml/min/1.73 sqM); Potassium 3.5 mmol/L (3.5-5.1); Sodium 136 mmol/L (137-145); Total Bilirubin 0.7 mg/dL (0.2-1.3); Total Protein 6.1 g/dL (6.3-8.2)
[2020-09-06 13:21] LABS: Band Neutrophils % 3 %; Eosinophils # (M) 0.05 k/uL (0-0.7); Metamyelocytes # (M) 0.15 k/uL (0); Metamyelocytes % 3 %; Monocytes # (M) 0.65 k/uL (0-1.0); Myelocytes % 4 %; Neutrophils % (M) 62 %; Nucleated Red Blood Cells 0 /100 WBC (0-0); Total Cells Counted 200
[2020-09-06 13:22] LABS: Poikilocytosis (M) Present; Rouleaux Present
[2020-09-06] MEDS ORDERED: HYDROmorphone 2 MG TAB PO STA (13:31)
[2020-09-06] MEDS ORDERED: LORazepam 1 MG TAB PO PRN (14:01)
--- NOTE | 2020-09-06 14:05 | P.PN ---
Subjective Progress Note Date: 09/06/20 Principal diagnosis: Intractable Pain, progressive bone metastasis. Patient seen on 5th floor, at bedside. He states he does not wish to follow through with hospice care, as he was so uncomfortable with his pain he spoke that he wanted hospice on admission as he felt that was the only way to be able to control this. Objective - Vital Signs Vital signs: Vital Signs Temp 97.8 F 09/06/20 12:07 Pulse 97 09/06/20 12:07 Resp 17 09/06/20 12:07 BP 124/79 09/06/20 12:07 Pulse Ox 95 09/06/20 12:07 Intake & Output 09/05/20 09/06/20 09/06/20 18:59 06:59 18:59 Weight 74.843 kg Other: Voiding Method Toilet Toilet # Voids 2 4 - Labs CBC & Chem 7: 09/06/20 12:25 09/06/20 12:25 Labs: Abnormal Lab Results - Last 24 Hours (Table) 09/06/20 09/06/20 Range/Units 12:25 12:25 RBC 3.12 L (4.30-5.90) m/uL Hgb 9.0 L (13.0-17.5) gm/dL Hct 28.1 L (39.0-53.0) % RDW 16.4 H (11.5-15.5) % Lymphocytes # (Manual) 0.80 L (1.0-4.8) k/uL Metamyelocytes # (Man) 0.15 H (0) k/uL Myelocytes # (Manual) 0.20 H (0) k/uL Sodium 136 L (137-145) mmol/L Chloride 95 L (98-107) mmol/L Creatinine 0.54 L (0.66-1.25) mg/dL Glucose 122 H (74-99) mg/dL Alkaline Phosphatase 473 H (38-126) U/L Total Protein 6.1 L (6.3-8.2) g/dL Albumin 3.2 L (3.5-5.0) g/dL Microbiology - Last 24 Hours (Table) 09/04/20 20:56 Blood Culture - Preliminary Blood No Growth after 24 hours Assessment and Plan (1) Chronic pain due to neoplasm Current Visit: Yes Status: Acute Code(s): G89.3 - NEOPLASM RELATED PAIN (ACUTE) (CHRONIC) SNOMED Code(s): 91056665988002 (2) Intractable pain Current Visit: Yes Status: Acute Code(s): R52 - PAIN, UNSPECIFIED SNOMED Code(s): 74582059 (3) Metastatic malignant neoplasm to prostate Current Visit: Yes Status: Acute Code(s): C79.82 - SECONDARY MALIGNANT NEOPLASM OF GENITAL ORGANS SNOMED Code(s): 36641888 Plan: Continue on Comfort Measures and goals of care Quality of Life. Fentanyl patch Increased PO oxycodone IV dilaudid prn Bowel Regimen Patient has refused hospice care but long discussion related to treatment options being minimal. Discussed with primary oncologist for option of compassionate use keytruda. Marinol to increase appetite continued trial of correct PO pain regimen May need to increase Fentanyl patch Patient expresses the want to have a DNR on file \ Plan home with palliaitive care Mastoiditis on last MRI brain and dizzyness and headaches - Will reassess with CT without contrast if still present will treat antibiotics Discussed with multiple medical team members and patient greater than 1.[address] Bowers to millerate for options of palliative radiation Low dose Pred 10mg bid and PPI for comfort
[2020-09-06] MEDS: predniSONE 10 MG TAB PO SCH ×2 (14:43→20:44)
[2020-09-06] MEDS: PANTOPRAZOLE 40 MG TABLET PO SCH (14:43)
--- NOTE | 2020-09-06 15:37 | CT ---
EXAMINATION TYPE: CT brain wo con DATE OF EXAM: 09/06/2020 COMPARISON: 08/14/2020 HISTORY: abnormal MRI CT DLP: 1121 mGycm Automated exposure control for dose reduction was used. FINDINGS: There is generalized degenerative change of the greater frontal lobe component. No midline shift or m ass effect. No acute hemorrhage. Changes of chronic sinusitis noted. Changes of mild mastoiditis note d bilaterally. Small focal area of low attenuation involving the basal ganglia could represent a raúl te lacunar infarct. No acute hemorrhage. Craniocervical junction maintained. Sella turcica has a norm al appearance. IMPRESSION: MILD GENERALIZED DEGENERATIVE CHANGE WITH NO ACUTE HEMORRHAGE OR MASS EFFECT. BILATERAL MILD MASTOIDI TIS.
[2020-09-06] MEDS: polyethylene glycoL 3350 17 GM POWD.PACK PO SCH (20:44)
[2020-09-07] MEDS: PANTOPRAZOLE 40 MG TABLET PO SCH (08:55)
[2020-09-07] MEDS: SENNOSIDES-DOCUSATE SODIUM 1 EACH TAB PO SCH (08:55)
[2020-09-07] MEDS: polyethylene glycoL 3350 17 GM POWD.PACK PO SCH (08:56)
[2020-09-07] MEDS: predniSONE 10 MG TAB PO SCH (08:56)
[2020-09-07] MEDS: IBUPROFEN 600 MG TAB PO SCH (08:56)
[2020-09-07] MEDS: lisinopriL 10 MG TAB PO SCH (08:56)
--- NOTE | 2020-09-07 09:21 | P.CONS ---
History of Present Illness - Reason for Consult Consult date: 09/06/20 bone pain - metastatic disease Requesting physician: Felicia Leal - Chief Complaint uncontrolled pain - History of Present Illness The patient is a 65-year-old male with a history of metastatic adenocarcinoma the prostate diagnosed with bone metastasis in October 2015. He had radiotherapy to the cervical spine in October 2015, and went on to have treatment with Taxotere, Lupron and Xtandi, Cabazitaxel and most recently was undergoing clinical trial with T-cell treatment and immunotherapy at [facility]. He unfortunately now presents with disease progression, and has had significant increased pain over the past few weeks. The patient reports that he finished a clinical trial in June where he was getting T-cell treatments and immunotherapy. Unfortunately he developed significant anemia, and was removed from the study. He was seen in follow-up with Dr. Yancey, and repeat imaging was ordered on August 22. His bone scan was consistent with SuperScan, and his CT scan of the chest, abdomen and pelvis revealed progression of his known osseous disease without any clear evidence of visceral disease. At this time, the patient reports that he continues to have difficulty with severe pain in the bilateral shoulders and along the superior aspect of the sc apula. He states that the right may be slightly worse than the left. He also has significant pain in the bilateral lower extremities spanning from the hip to the knee. During his hospitalization, he has had his pain management changed and is now on a fentanyl patch and Oxycodone. He states he is slightly more comfortable. He recently met with hospice, but is preferring at this time to be discharged home with palliative care. Review of Systems Constitutional: Denies chills, Denies fatigue Eyes: denies blurred vision Ears, nose, mouth and throat: Denies epistaxis, Denies headache Cardiovascular: Denies chest pain Respiratory: Denies congestion, Denies cough Gastrointestinal: Denies BRBPR Genitourinary: Denies flank pain Musculoskeletal: bilateral: hip pain, shoulder pain Integumentary: Denies rash Neurological: Denies aphasia, Denies confusion Psychiatric: Denies anxiety Past Medical History Past Medical History: Cancer, Hypertension, Pneumonia Additional Past Medical History / Comment(s): Pt recently admitted to [facility] on07/25/20 with fever/generalized weakness/SIRS/suspected covid 19 with negative rapid PCR/increased inflammatory markers, normocytic anemia/transfusion. 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 History of Any Multi-Drug Resistant Organisms: None Reported Past Surgical History: Joint Replacement, Orthopedic Surgery Additional Past Surgical History / Comment(s): Prostate biopsy, L hand nail gun injury with repair, R ankle fractures with surgery, R total hip arthroplasty, sinus surgery. Past Anesthesia/Blood Transfusion Reactions: No Reported Reaction Additional Past Anesthesia/Blood Transfusion Reaction / Comm: Pt has received blood in past without reaction. Past Psychological History: No Psychological Hx Reported Additional Psychological History / Comment(s): Pt resides with his exspouse and they are raising their 10 yr old grandson. Pt uses no assistive device but does own a walker. Pt no longer drives, his exspouse drives and is his caregiver. Pt is interested in hospice. Smoking Status: Former smoker Past Alcohol Use History: Occasional Additional Past Alcohol Use History / Comment(s): Pt started smoking in 1971 and quit in 1994. He states he drank heavily in the past but has not drank in the past 6 months. Past Drug Use History: None Reported - Past Family History Father Family Medical History: No Reported History Additional Family Medical History / Comment(s): Father is 90yrs old. Mother Additional Family Medical History / Comment(s): Mother had multiple medical problems, pt prefers not to discuss at this time. family Family Medical History: No Reported History Medications and Allergies Home Medications Medication Instructions Recorded Confirmed Type oxyCODONE HCL [oxyCODONE HCL (IR)] 15 mg PO Q4H PRN 07/08/20 09/04/20 History Enalapril Maleate [Vasotec] 10 mg PO DAILY 07/09/20 09/04/20 History oxyCODONE HCL [OxyCONTIN] 30 mg PO Q12H PRN 09/04/20 09/04/20 History Allergies Allergy/AdvReac Type Severity Reaction Status Date / Time morphine AdvReac Unknown Verified 08/30/20 10:36 Physical Exam Vitals: Vital Signs Temp Pulse Resp BP Pulse Ox 09/07/20 05:00 97.3 F L 95 16 136/87 96 09/06/20 21:00 98.3 F 107 H 16 110/74 97 09/06/20 12:07 97.8 F 97 17 124/79 95 Intake and Output 09/06/20 09/07/20 09/07/20 22:59 06:59 14:59 Intake Total 590 Balance 590 Intake: Oral 590 Other: Voiding Method Toilet # Voids 1 1 - Constitutional General appearance: no acute distress - EENT Eyes: EOMI, PERRLA ENT: hearing grossly normal - Neck Neck: no lymphadenopathy - Respiratory Respiratory: bilateral: CTA - Cardiovascular Rhythm: regular - Gastrointestinal General gastrointestinal: no distended, no tenderness - Integumentary Integumentary: no calor, no cellulitis - Neurologic Neurologic: CNII-XII intact - Musculoskeletal Musculoskeletal: generalized weakness - Psychiatric Psychiatric: A&O x's 3, appropriate affect Results CBC & Chem 7: 09/06/20 12:25 09/06/20 12:25 Labs: Abnormal Lab Results - Last 24 Hours (Table) 09/06/20 09/06/20 Range/Units 12:25 12:25 RBC 3.12 L (4.30-5.90) m/uL Hgb 9.0 L (13.0-17.5) gm/dL Hct 28.1 L (39.0-53.0) % RDW 16.4 H (11.5-15.5) % Lymphocytes # (Manual) 0.80 L (1.0-4.8) k/uL Metamyelocytes # (Man) 0.15 H (0) k/uL Myelocytes # (Manual) 0.20 H (0) k/uL Sodium 136 L (137-145) mmol/L Chloride 95 L (98-107) mmol/L Creatinine 0.54 L (0.66-1.25) mg/dL Glucose 122 H (74-99) mg/dL Alkaline Phosphatase 473 H (38-126) U/L Total Protein 6.1 L (6.3-8.2) g/dL Albumin 3.2 L (3.5-5.0) g/dL Microbiology - Last 24 Hours (Table) 09/04/20 20:56 Blood Culture - Preliminary Blood No Growth after [address] scan - abdomen: report reviewed, image reviewed CT scan - chest: report reviewed, image reviewed CT scan - pelvis: report reviewed, image reviewed Assessment and Plan Assessment: The patient is a 65-year-old male with a history of metastatic adenocarcinoma the prostate diagnosed with bone metastasis in October 2015. He had radiotherapy to the cervical spine in October 2015, and went on to have treatment with Taxo abe, Lupron and Xtandi, Cabazitaxel and most recently was undergoing clinical trial with T-cell treatment and immunotherapy at [facility]. He unfortunately now presents with disease progression, and has had significant increased pain over the past few weeks. Plan: 1. Bone pain: As detailed above, the patient has had recent progression of his prostate cancer with significant bone involvement. He was admitted to the hospital at 10 out of 10 pain, and this seems to be improving and coming under better control. As the patient is having relatively focal pain in the bilateral shoulders and bilateral hip/femur areas, I discussed with the patient this could be targeted with palliative radiation. I explained to the patient would recommend single fraction radiotherapy to these areas, and that it did not expect significant toxicity from this treatment. I explained that he may have some fatigue, mild skin irritation, and low risk of long-term toxicity. I d iscussed with the patient we could have him undergo CT simulation while inpatient, and as he is planning for discharge tomorrow he could have his radiation completed as an outpatient. 2. Metastatic prostate cancer: As detailed above, the patient has exhausted the majority of his available treatment lines of therapy. According to medical oncology, he may be considered for continued Keytruda under compassionate care. He is planning for discharge with palliative care at this time. 60 minutes were spent with the patient and the majority of the time was spent discussing recommendations. Time with Patient: Greater than 30
[2020-09-07 11:46] VITALS: BP 123/79; PULSE 98; RESP 17; TEMP 97.9
--- NOTE | 2020-09-07 15:19 | P.DS ---
Providers Date of admission: 09/04/20 23:23 Expected date of discharge: 09/07/20 Attending physician: Rolando Antonio Consults: 09/06/20 14:00 Consult Physician Stat Consulting Provider: Arpan Bowers Consult Reason/Comments: palliaitive radiaiton to back - metastatic prostate cancer Do you want consulting provider notified?: Yes Primary care physician: Stated None - Discharge Diagnosis(es) (1) Chronic pain due to neoplasm Current Visit: Yes Status: Acute (2) Intractable pain Current Visit: Yes Status: Acute (3) Metastatic malignant neoplasm to prostate Current Visit: Yes Status: Acute Hospital Course: Patient admitted with progressive prostate cancer which was creating intolerable pain in bones. During hospitalization many things were discussed including realistic goals of care, prioritized goals of care, quality of life measures, adjustments to medications to control pain related to progressive cancer, antibiotics for noted mastoiditis on MRI and repeated on CT brain, home goals, dietary goals, physical goals, and anxiety depression management. Radiation oncology plan for pallaiative options and pain management Opioid long acting and short with aggressive bowel regimen Lets talk about narcotic is on file in office and maps pulled in office. Assessment: Smiling today Alert and oriented PERRL NAD Lungs CTA HR RRR Abdomen soft non-distended No edema Patient Condition at Discharge: Fair Plan - Discharge Summary Discharge Rx Participant: No New Discharge Prescriptions: New LORazepam [Ativan] 1 mg PO Q6HR PRN #90 tab PRN Reason: Anxiety Cefuroxime Axetil [Ceftin] 500 mg PO BID 1 Days #20 tab fentaNYL 50MCG/HR PATCH [Duragesic 50MCG/HR] 1 patch TRANSDERM Q72H 30 Days patch dronabinoL [Marinol] 5 mg PO AC-BID #60 cap polyethylene glycoL 3350 [Miralax] 17 gm PO BID #60 powd.pack Ibuprofen [Motrin] 600 mg PO TID #90 tab predniSONE 10 mg PO BID #20 tab Pantoprazole [Protonix] 40 mg PO AC-BRKFST #30 tablet.dr Sin-Docusate Sodium [Senokot-S] 2 each PO BID #120 tab Acetaminophen Tab [Tylenol] 650 mg PO Q6HR PRN tab PRN Reason: Mild Pain Or Fever > 100.5 lisinopriL [Zestril] 10 mg PO DAILY tab Continue Enalapril Maleate [Vasotec] 10 mg PO DAILY Changed oxyCODONE HCL [oxyCODONE HCL (IR)] 30 mg PO Q4H PRN #120 tab PRN Reason: Pain Discontinued oxyCODONE HCL [OxyCONTIN] 30 mg PO Q12H PRN PRN Reason: Pain Discharge Medication List Enalapril Maleate [Vasotec] 10 mg PO DAILY 07/09/20 [History] Acetaminophen Tab [Tylenol] 650 mg PO Q6HR PRN tab 09/07/20 [Rx] Cefuroxime Axetil [Ceftin] 500 mg PO BID 1 Days #20 tab 09/07/20 [Rx] Ibuprofen [Motrin] 600 mg PO TID #90 tab 09/07/20 [Rx] LORazepam [Ativan] 1 mg PO Q6HR PRN #90 tab 09/07/20 [Rx] Pantoprazole [Protonix] 40 mg PO AC-BRKFST #30 tablet. 09/07/20 [Rx] Sennosides-Docusate Sodium [Senokot-S] 2 each PO BID #120 tab 09/07/20 [Rx] dronabinoL [Marinol] 5 mg PO AC-BID #60 cap 09/07/20 [Rx] fentaNYL 50MCG/HR PATCH [Duragesic 50MCG/HR] 1 patch TRANSDERM Q72H 30 Days patch 09/07/20 [Rx] lisinopriL [Zestril] 10 mg PO DAILY tab 09/07/20 [Rx] oxyCODONE HCL [oxyCODONE HCL (IR)] 30 mg PO Q4H PRN #120 tab 09/07/20 [Rx] polyethylene glycoL 3350 [Miralax] 17 gm PO BID #60 powd.pack 09/07/20 [Rx] predniSONE 10 mg PO BID #20 tab 09/07/20 [Rx] Follow up Appointment(s)/Referral(s): [facility], [NON-STAFF] - 1 Week None,Stated [Primary Care Provider] - 1-2 days Shavonne Yancey MD [STAFF PHYSICIAN] - 09/20/20 1:15 pm Discharge Disposition: HOME WITH HOME HEALTH SERVICES Care Plan Goals (MU): Quality of life Pain control Increasing performance status Bowel Regimen Home with Palliative care with Physical and occupational therapy.
== END 2020-09-07 16:00 | disposition home health service (06) | DRG 948 ==
LOC: EC 19:53 → 5NMEDONC 23:23 → 1SOBS 09-05 08:30 → 5NMEDONC 09-05 15:13
PROVIDERS: ADMIT Internal Medicine Hematology & Oncology; ATTEND Internal Medicine Hematology & Oncology
DX: G89.3 Neoplasm related pain (acute) (chronic) (principal); C79.51 Secondary malignant neoplasm of bone; C79.31 Secondary malignant neoplasm of brain; C61 Malignant neoplasm of prostate; F41.8 Other specified anxiety disorders; H70.90 Unspecified mastoiditis, unspecified ear; I10 Essential (primary) hypertension; Z51.5 Encounter for palliative care; Z66 Do not resuscitate; Z87.891 Personal history of nicotine dependence; Z96.641 Presence of right artificial hip joint; Z20.822 Contact with and (suspected) exposure to COVID-19; Z87.01 Personal history of pneumonia (recurrent); Z88.5 Allergy status to narcotic agent; Z79.899 Other long term (current) drug therapy
CPT/HCPCS: 36415; 70450; 71045; 77290; 77334; 80053; 81001; 83605; 84153; 85025; 85610; 85730; 87040; 87635; 96374; 96375; 96376; 99285

== ENCOUNTER 2020-09-10 16:51 | Inpatient (IN) | payer MEDICARE, OTHER ==
[2020-09-10] MEDS ORDERED: ACETAMINOPHEN TAB 500 MG TAB PO STA (17:18)
[2020-09-10] MEDS ORDERED: HYDROmorphone 1 MG/ML 1 ML SYRINGE IVP STA ×2 (17:20→17:38)
[2020-09-10] MEDS ORDERED: SODIUM CHLORIDE 0.9% 1,000 ML IV STA (17:21)
--- NOTE | 2020-09-10 17:45 | ED ---
General Adult HPI - General Chief complaint: Weakness Stated complaint: ams/weak/pain Time Seen by Provider: 09/10/20 17:08 Source: patient Mode of arrival: wheelchair Limitations: no limitations - History of Present Illness Initial comments: Dictation was produced using [employer] dictation software. please excuse any grammatical, word or spelling errors. This patient was cared for during a federal and state declared state of emergency secondary to Covid 19 Chief Complaint: 65-year-old male with past medical history of metastatic pros rivers cancer, on palliative care presents with agitation History of Present Illness: 65-year-old male who presents to the emergency Department with his ex-. Patient unable to provide history of present illness at this time. Patient was recently admitted to the hospital where he was admitted for severe pain secondary to neoplastic related intractable pain. 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 As been treated with chemotherapy last year. Speech extremities been having worsening pain. Recently admitted for intractable pain. He did get a hospice consult. They attempted home palliative care however ex- who takes care of him since that he's been having pain exacerbations at home. Ex- decided to bring him back to the emergency department. Patient became very agitated today. ex- reports that she is likely from difficult to manage pain. She reports that she makes all the decisions. He does have children however they live outside of the city. The ROS documented in this emergency department record has been reviewed and confirmed by me. Those systems with pertinent positive or negative responses have been documented in the HPI. All other systems are other negative and/or noncontributory. PHYSICAL EXAM: General Impression: acute distress secondary to pain HEENT: Normocephalic atraumatic, extra-ocular movements intact, pupils equal and reactive to light bilaterally, mucous membranes moist. Cardiovascular: Heart regular rate and rhythm Chest: Able to complete full sentences, no retractions, no tachypnea Abdomen: abdomen soft, non-tender, non-distended, no organomegaly Musculoskeletal: Pulses present and equal in all extremities, no peripheral edema Motor: no focal deficits noted Neurological: CN II-XII grossly intact, no focal motor or sensory deficits noted Skin: Intact with no visualized rashes Psych: Normal affect and mood ED course: 65-year-old male presents with agitation. Signs upon arrival shows central 100.8, heart rate of 122 blood pressure 80/60. Repeat vitals 1 patient was placed in the room 4 shows blood pressure 153/97, 26 respiratory rate rest of vital signs within acceptable limits. Patient appears uncomfortable. Chart review was performed. Patient extensive history of intractable pain. Recently admitted to the hospital where he was inpatient for 3 days. During that hospital stay due to was ordered and hospice was consulted. Goals of care were discussed with ex- she request that patient be comfortable. She does agree to infectious workup given that patient has low-grade pyrexia. Laboratory evaluation obtained. CBC unremarkable. Metabolic panel shows lactic acidosis 3.2. Rest of metabolic panel is unremarkable. Urinalysis is negative. Chest x-ray is not acute. Patient given analgesia and benzodiazepines with significantly improved condition. Case is discussed with Felicia Leal who is on the oncology service who agrees with disposition. Hematology/oncology group will be consulted. Patient will be admitted to [facility]. Patient reevaluated at 7:55 PM. He appears to be much more calm. Patient be admitted for intractable pain. EKG interpretation: Ventricular rate 139, sinus tachycardia,. 174, QRS 80, QTC 429. No [place] prolongation, no QTC prolongation, no ST or T-wave changes noted. EKG compared to 08/02/2020 showing no changes. Overall, this EKG is unremarkable - Related Data Home Medications Medication Instructions Recorded Confirmed Enalapril Maleate [Vasotec] 10 mg PO DAILY 07/09/20 09/10/20 LORazepam [Ativan] 1 mg PO Q6H PRN 09/10/20 09/10/20 Sennosides-Docusate Sodium 2 tab PO BID 09/10/20 09/10/20 [Senokot-S] Previous Rx's Medication Instructions Recorded Acetaminophen Tab [Tylenol] 650 mg PO Q6HR PRN tab 09/07/20 Cefuroxime Axetil [Ceftin] 500 mg PO BID 1 Days #20 tab 09/07/20 Ibuprofen [Motrin] 600 mg PO TID #90 tab 09/07/20 Pantoprazole [Protonix] 40 mg PO AC-BRKFST #30 tablet. 09/07/20 fentaNYL 50MCG/HR PATCH [Duragesic 1 patch TRANSDERM Q72H 30 Days 09/07/20 50MCG/HR] patch lisinopriL [Zestril] 10 mg PO DAILY tab 09/07/20 oxyCODONE HCL [oxyCODONE HCL (IR)] 30 mg PO Q4H PRN #120 tab 09/07/20 polyethylene glycoL 3350 [Miralax] 17 gm PO BID #60 powd.pack 09/07/20 Allergies Allergy/AdvReac Type Severity Reaction Status Date / Time morphine AdvReac Unknown Verified 09/10/20 18:43 Review of Systems ROS Statement: Those systems with pertinent positive or pertinent negative responses have been documented in the HPI. ROS Other: All systems not noted in ROS Statement are negative. Past Medical History Past Medical History: Cancer, Hypertension, Pneumonia Additional Past Medical History / Comment(s): Pt recently admitted to [facility] on07/25/20 with fever/generalized weakness/SIRS/suspected covid 19 with negative rapid PCR/increased inflammatory markers, normocytic anemia/transfusion. 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 History of Any Multi-Drug Resistant Organisms: None Reported Past Surgical History: Joint Replacement, Orthopedic Surgery Additional Past Surgical History / Comment(s): Prostate biopsy, L hand nail gun injury with repair, R ankle fractures with surgery, R total hip arthroplasty, sinus surgery. Past Anesthesia/Blood Transfusion Reactions: No Reported Reaction Additional Past Anesthesia/Blood Transfusion Reaction / Comment(s): Pt has received blood in past without reaction. Past Psychological History: No Psychological Hx Reported Smoking Status: Former smoker Past Alcohol Use History: Occasional Past Drug Use History: None Reported - Past Family History Father Family Medical History: No Reported History Additional Family Medical History / Comment(s): Father is 90yrs old. Mother Additional Family Medical History / Comment(s): Mother had multiple medical problems, pt prefers not to discuss at this time. family Family Medical History: No Reported History General Exam Limitations: no limitations Course Vital Signs 09/10/20 09/10/20 09/10/20 16:56 17:38 17:58 Temperature 100.8 F H Pulse Rate 122 H 68 125 H Pulse Rate [ National Sales Director ] Respiratory 22 26 H 16 Rate Blood Pressure 88/60 153/97 106/77 O2 Sat by Pulse 96 99 100 Oximetry 09/10/20 09/10/20 18:02 18:52 Temperature 98.9 F Pulse Rate 111 H Pulse Rate [ 135 H National Sales Director ] Respiratory 22 Rate Blood Pressure 125/78 O2 Sat by Pulse 98 Oximetry Medical Decision Making - Lab Data Result diagrams: 09/10/20 17:31 09/10/20 17:31 Lab Results 09/10/20 09/10/20 09/10/20 Range/Units 17:31 17:31 17:31 WBC 10.1 (3.8-10.6) k/uL RBC 3.02 L (4.30-5.90) m/uL Hgb 8.8 L (13.0-17.5) gm/dL Hct 26.6 L (39.0-53.0) % MCV 88.1 (80.0-100.0) fL MCH 29.1 (25.0-35.0) pg MCHC 33.0 (31.0-37.0) g/dL RDW 16.7 H (11.5-15.5) % Plt Count 218 (150-450) k/uL MPV 8.3 Neutrophils % (Manual) 53 % Band Neuts % (Manual) 8 % Lymphocytes % (Manual) 23 % Monocytes % (Manual) 6 % Eosinophils % (Manual) 1 % Metamyelocytes % 4 % Myelocytes % 7 % Neutrophils # (Manual) 6.10 (1.3-7.7) k/uL Lymphocytes # (Manual) 2.32 (1.0-4.8) k/uL Monocytes # (Manual) 0.61 (0-1.0) k/uL Eosinophils # (Manual) 0.10 (0-0.7) k/uL Metamyelocytes # (Man) 0.40 H (0) k/uL Myelocytes # (Manual) 0.71 H (0) k/uL Nucleated RBCs 2 H (0-0) /100 WBC Manual Slide Review Performed Polychromasia Present Poikilocytosis Slight Anisocytosis Slight Sodium 137 (137-145) mmol/L Potassium 3.9 (3.5-5.1) mmol/L Chloride 96 L (98-107) mmol/L Carbon Dioxide 28 (22-30) mmol/L Anion Gap 13 mmol/L BUN 16 (9-20) mg/dL Creatinine 0.63 L (0.66-1.25) mg/dL Est GFR (CKD-EPI)AfAm >90 (>60 ml/min/1.73 sqM) Est GFR (CKD-EPI)NonAf >90 (>60 ml/min/1.73 sqM) Glucose 124 H (74-99) mg/dL Plasma Lactic Acid Thor (0.7-2.0) mmol/L Calcium 8.9 (8.4-10.2) mg/dL Urine Color Yellow Urine Appearance Clear (Clear) Urine pH 8.5 H (5.0-8.0) Ur Specific Stebbins 1.019 (1.001-1.035) Urine Protein 1+ H (Negative) Urine Glucose (UA) Negative (Negative) Urine Ketones Negative (Negative) Urine Blood Negative (Negative) Urine Nitrite Negative (Negative) Urine Bilirubin Negative (Negative) Urine Urobilinogen 3.0 (<2.0) mg/dL Ur Leukocyte Esterase Negative (Negative) Urine RBC 1 (0-5) /hpf Urine WBC 1 (0-5) /hpf Ur Squamous Epith Cells <1 (0-4) /hpf Urine Mucus Rare H (None) /hpf 09/10/20 Range/Units 17:31 WBC (3.8-10.6) k/uL RBC (4.30-5.90) m/uL Hgb (13.0-17.5) gm/dL Hct (39.0-53.0) % MCV (80.0-100.0) fL MCH (25.0-35.0) pg MCHC (31.0-37.0) g/dL RDW (11.5-15.5) % Plt Count (150-450) k/uL MPV Neutrophils % (Manual) % Band Neuts % (Manual) % Lymphocytes % (Manual) % Monocytes % (Manual) % Eosinophils % (Manual) % Metamyelocytes % % Myelocytes % % Neutrophils # (Manual) (1.3-7.7) k/uL Lymphocytes # (Manual) (1.0-4.8) k/uL Monocytes # (Manual) (0-1.0) k/uL Eosinophils # (Manual) (0-0.7) k/uL Metamyelocytes # (Man) (0) k/uL Myelocytes # (Manual) (0) k/uL Nucleated RBCs (0-0) /100 WBC Manual Slide Review Polychromasia Poikilocytosis Anisocytosis Sodium (137-145) mmol/L Potassium (3.5-5.1) mmol/L Chloride (98-107) mmol/L Carbon Dioxide (22-30) mmol/L Anion Gap mmol/L BUN (9-20) mg/dL Creatinine (0.66-1.25) mg/dL Est GFR (CKD-EPI)AfAm (>60 ml/min/1.73 sqM) Est GFR (CKD-EPI)NonAf (>60 ml/min/1.73 sqM) Glucose (74-99) mg/dL Plasma Lactic Acid Thor 3.2 H* (0.7-2.0) mmol/L Calcium (8.4-10.2) mg/dL Urine Color Urine Appearance (Clear) Urine pH (5.0-8.0) Ur Specific Stebbins (1.001-1.035) Urine Protein (Negative) Urine Glucose (UA) (Negative) Urine Ketones (Negative) Urine Blood (Negative) Urine Nitrite (Negative) Urine Bilirubin (Negative) Urine Urobilinogen (<2.0) mg/dL Ur Leukocyte Esterase (Negative) Urine RBC (0-5) /hpf Urine WBC (0-5) /hpf Ur Squamous Epith Cells (0-4) /hpf Urine Mucus (None) /hpf Disposition Clinical Impression: Intractable pain, Metastatic cancer Disposition: ADMITTED IP TO THIS [facility] Condition: Fair Referrals: None,Stated [Primary Care Provider] - 1-2 days Decision Time: 19:56
[2020-09-10] MEDS ORDERED: LORazepam 2 MG/ML INJ IV STA (17:50)
[2020-09-10 17:51] LABS: Appearance,Urine Clear (Clear); Bilirubin,Urine Negative (Negative); Blood,Urine Negative (Negative); Color,Urine Yellow; Glucose,Urine (UA) Negative (Negative); Ketones,Urine Negative (Negative); Leukocyte Esterase,Urine Negative (Negative); Mucus,Urine Rare /hpf; Nitrite,Urine Negative (Negative); PH, Urine 8.5 (5.0-8.0); Protein,Urine 1+ (Negative); RBC,Urine 1 /hpf (0-5); Specific Gravity,Urine 1.019 (1.001-1.035); Squamous Epithelial Cell,Urine <1 /hpf (0-4); WBC,Urine 1 /hpf (0-5)
[2020-09-10 17:58] LABS: African American GFR (CKD) >90 (>60 ml/min/1.73 sqM); Anion Gap 13 mmol/L; Blood Urea Nitrogen 16 mg/dL (9-20); Calcium 8.9 mg/dL (8.4-10.2); Carbon Dioxide 28 mmol/L (22-30); Chloride 96 mmol/L (98-107); Glucose 124 mg/dL (74-99); Non-African American GFR(CKD) >90 (>60 ml/min/1.73 sqM); Potassium 3.9 mmol/L (3.5-5.1); Sodium 137 mmol/L (137-145)
[2020-09-10 18:07] LABS: Anisocytosis Slight; HCT 26.6 % (39.0-53.0); HGB 8.8 gm/dL (13.0-17.5); MCH 29.1 pg (25.0-35.0); MCV 88.1 fL (80.0-100.0); Mean Platelet Volume 8.3; Platelet Count 218 k/uL (150-450); Poikilocytosis Slight; RBC 3.02 m/uL (4.30-5.90); RDW 16.7 % (11.5-15.5)
--- NOTE | 2020-09-10 18:53 | XR ---
EXAMINATION TYPE: XR chest 1V portable DATE OF EXAM: 09/10/2020 COMPARISON: 09/04/2020 HISTORY: Prostate cancer. Fever. TECHNIQUE: Single view FINDINGS: Heart size is normal. There is no gross heart failure. There is slight coarsening of inters titial markings. There is no pulmonary consolidation. There is diffuse osteosclerosis in the bony tho rax. IMPRESSION: Slight coarsening of the lung markings. No pulmonary consolidation or heart failure. Oste oblastic metastatic disease. No change compared to recent exam.
[2020-09-10 19:13] LABS: Band Neutrophils % 8 %; Metamyelocytes % 4 %; Myelocytes % 7 %; Neutrophils % (M) 53 %; Nucleated Red Blood Cells 2 /100 WBC (0-0); Total Cells Counted 200
[2020-09-10 19:14] LABS: Lymphocytes # (M) 2.32 k/uL (1.0-4.8); Monocytes # (M) 0.61 k/uL (0-1.0); Myelocytes # (M) 0.71 k/uL (0); Polychromasia Present; WBC 10.1 k/uL (3.8-10.6)
[2020-09-10] MEDS ORDERED: NALOXONE 0.4 MG/ML 1 ML VIAL IV PRN (19:53)
[2020-09-10] MEDS ORDERED: ONDANSETRON 4 MG/2 ML VIAL IVP PRN (19:53)
[2020-09-10] MEDS ORDERED: LORazepam 2 MG/ML INJ IV PRN (19:54)
[2020-09-10] MEDS: HYDROmorphone 1 MG/ML 1 ML SYRINGE IVP PRN (20:49)
[2020-09-10] MEDS ORDERED: ACETAMINOPHEN TAB 325 MG TAB PO PRN (23:33)
--- NOTE | 2020-09-10 23:34 | P.HPIM ---
History of Present Illness H&P Date: 09/10/20 Patient is a 65-year-old male with a PMH of hypertension and long-standing metastatic prostate CA with history of multiple treatments following with Dr. Yancey who presented to the emergency room due to intractable pain. The patient was recently admitted to the hospital on 09/04/20 for similar complaints. His medications were adjusted and he was subsequently discharged home. The patient reports however that despite the use of his multiple narcotics that he continues to have severe diffuse bony pain. He reports pain in his shoulders, hips, legs, and feet. He otherwise denied additional complaints. He denied fever, chills, cough, nausea, vomiting, abdominal pain, chest pain, or shortness of breath. In the emergency room, a chest x-ray revealed osteoblastic metastatic disease but otherwise unremarkable. An EKG revealed sinus tachycardia at 139 bpm. laboratory evaluation revealed a lactic acid of 3.2 and hemoglobin 8.8 (at baseline). Review of Systems Pertinent positives and negatives as discussed in HPI, a complete review of systems was performed and all other systems are negative. Past Medical History Past Medical History: Cancer, Hypertension, Pneumonia Additional Past Medical History / Comment(s): Pt recently admitted to [facility] on07/25/20 with fever/generalized weakness/SIRS/suspected covid 19 with negative rapid PCR/increased inflammatory markers, normocytic anemia/transfusion. 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 History of Any Multi-Drug Resistant Organisms: None Reported Past Surgical History: Joint Replacement, Orthopedic Surgery Additional Past Surgical History / Comment(s): Prostate biopsy, L hand nail gun injury with repair, R ankle fractures with surgery, R total hip arthroplasty, sinus surgery. Past Anesthesia/Blood Transfusion Reactions: No Reported Reaction Additional Past Anesthesia/Blood Transfusion Reaction / Comment(s): Pt has received blood in past without reaction. Past Psychological History: No Psychological Hx Reported Smoking Status: Former smoker Past Alcohol Use History: Occasional Past Drug Use History: None Reported - Past Family History Father Family Medical History: No Reported History Additional Family Medical History / Comment(s): Father is 90yrs old. Mother Additional Family Medical History / Comment(s): Mother had multiple medical problems, pt prefers not to discuss at this time. family Family Medical History: No Reported History Medications and Allergies Home Medications Medication Instructions Recorded Confirmed Type Enalapril Maleate [Vasotec] 10 mg PO DAILY 07/09/20 09/10/20 History Acetaminophen Tab [Tylenol] 650 mg PO Q6HR PRN tab 09/07/20 09/10/20 Rx Cefuroxime Axetil [Ceftin] 500 mg PO BID 1 Days #20 tab 09/07/20 09/10/20 Rx Ibuprofen [Motrin] 600 mg PO TID #90 tab 09/07/20 09/10/20 Rx Pantoprazole [Protonix] 40 mg PO AC-BRKFST #30 tablet.dr 09/07/20 09/10/20 Rx fentaNYL 50MCG/HR PATCH [Duragesic 1 patch TRANSDERM Q72H 30 Days 09/07/20 Rx 50MCG/HR] patch lisinopriL [Zestril] 10 mg PO DAILY tab 09/07/20 09/10/20 Rx oxyCODONE HCL [oxyCODONE HCL (IR)] 30 mg PO Q4H PRN #120 tab 09/07/20 09/10/20 Rx polyethylene glycoL 3350 [Miralax] 17 gm PO BID #60 powd.pack 09/07/20 09/10/20 Rx LORazepam [Ativan] 1 mg PO Q6H PRN 09/10/20 09/10/20 History Sennosides-Docusate Sodium 2 tab PO BID 09/10/20 09/10/20 History [Senokot-S] Allergies Allergy/AdvReac Type Severity Reaction Status Date / Time morphine AdvReac Unknown Verified 09/10/20 18:43 Physical Exam Vitals: Vital Signs Temp Pulse Pulse Pulse Resp BP BP 09/10/20 22:00 98.3 F 111 H 16 145/85 09/10/20 20:00 70 18 129/85 09/10/20 18:52 98.9 F 111 H 22 125/78 09/10/20 18:02 135 H 09/10/20 17:58 125 H 16 106/77 09/10/20 17:38 68 26 H 153/97 09/10/20 16:56 100.8 F H 122 H 22 88/60 Pulse Ox 09/10/20 22:00 98 09/10/20 20:00 99 09/10/20 18:52 98 09/10/20 18:02 02/28/21 17:58 100 09/10/20 17:38 99 09/10/20 16:56 96 Intake and Output 09/10/20 09/10/20 09/10/20 06:59 14:59 22:59 Other: Weight 82.554 kg General: non toxic, in mild distress from pain, appears at stated age, normal weight Derm: no unusual rashes/lesions no unusual ecchymoses, warm, dry Head: atraumatic, normocephalic, symmetric Eyes: EOMI, no lid lag, anicteric sclera, pupils equal round reactive to light ENT: Nose and ears atraumatic, no thrush, no pharyngeal erythema Neck: No thyromegaly, no cervical lymphadenopathy, trachea midline, supple Mouth: no lip lesion, mucus membranes moist Cardiovascular: S1S2 reg, no murmur, positive posterior tibial pulse bilateral, no edema, capillary refill less than 2 seconds Lungs: CTA bilateral, no rhonchi, no rales , no accessory muscle use Abdominal: soft, nontender to palpation, no guarding, no appreciable organomegaly, normal bowel sounds Ext: no gross muscle atrophy, muscle strength 4 out of 5 in all 4 extremities grossly, no contractures, diffuse tenderness throughout multiple joints including shoulders, knees, hips Neuro: CN II-XI grossly intact, light touch intact all 4 extremities, finger to nose within normal limits, Psych: Alert, oriented, appropriate affect Results CBC & Chem 7: 09/10/20 17:31 09/10/20 17:31 Labs: Abnormal Lab Results - Last 24 Hours (Table) 09/10/20 09/10/20 09/10/20 Range/Units 17:31 17:31 17:31 RBC 3.02 L (4.30-5.90) m/uL Hgb 8.8 L (13.0-17.5) gm/dL Hct 26.6 L (39.0-53.0) % RDW 16.7 H (11.5-15.5) % Metamyelocytes # (Man) 0.40 H (0) k/uL Myelocytes # (Manual) 0.71 H (0) k/uL Nucleated RBCs 2 H (0-0) /100 WBC Chloride 96 L (98-107) mmol/L Creatinine 0.63 L (0.66-1.25) mg/dL Glucose 124 H (74-99) mg/dL Plasma Lactic Acid Thor (0.7-2.0) mmol/L Urine pH 8.5 H (5.0-8.0) Urine Protein 1+ H (Negative) Urine Mucus Rare H (None) /hpf 09/10/20 Range/Units 17:31 RBC (4.30-5.90) m/uL Hgb (13.0-17.5) gm/dL Hct (39.0-53.0) % RDW (11.5-15.5) % Metamyelocytes # (Man) (0) k/uL Myelocytes # (Manual) (0) k/uL Nucleated RBCs (0-0) /100 WBC Chloride (98-107) mmol/L Creatinine (0.66-1.25) mg/dL Glucose (74-99) mg/dL Plasma Lactic Acid Thor 3.2 H* (0.7-2.0) mmol/L Urine pH (5.0-8.0) Urine Protein (Negative) Urine Mucus (None) /hpf Assessment and Plan Plan: Intractable pain secondary to metastatic malignancy -Oncology consult -Continue with home opiates along with IV Dilaudid when necessary Lactic acidosis -Continue with IV fluids -Monitor to resolution Chronic conditions: Hypertension -Continue with home medications DVT prophylaxis -Lovenox The patient is admitted with an anticipated less than 2 midnight stay for evaluation of intractable pain CODE STATUS: No Code Discussed with: Patient Anticipated discharge date: 2-[address]: Home A total of 35 minutes was spent on the care of this complex patient more than 50% of the time was spent in counseling and care coordination.
[2020-09-11] MEDS: SODIUM CHLORIDE 0.9% 1,000 ML IV SCH ×2 (00:08→21:10)
[2020-09-11] MEDS: HYDROmorphone 1 MG/ML 1 ML SYRINGE IVP PRN ×4 (02:02→17:59)
[2020-09-11] MEDS: LORazepam 1 MG TAB PO PRN ×2 (07:23→21:12)
[2020-09-11] MEDS: PANTOPRAZOLE 40 MG TABLET PO SCH (07:40)
[2020-09-11] MEDS: ENOXAPARIN 40 MG/0.4 ML SYRINGE SQ SCH (09:03)
[2020-09-11] MEDS: SENNOSIDES-DOCUSATE SODIUM 1 EACH TAB PO SCH ×2 (09:03→21:03)
[2020-09-11] MEDS: lisinopriL 10 MG TAB PO SCH (09:03)
[2020-09-11] MEDS: polyethylene glycoL 3350 17 GM POWD.PACK PO SCH ×2 (09:03→21:04)
[2020-09-11] MEDS: IBUPROFEN 600 MG TAB PO SCH ×3 (09:03→21:02)
--- NOTE | 2020-09-11 10:23 | P.PN ---
Subjective Progress Note Date: 09/11/20 Patient was seen and evaluated by me today. He is complaining of severe pain mostly in his hip and shoulders. He is rating his pain as 10 out of 10. Objective - Vital Signs Vital signs: Vital Signs Temp 98.6 F 09/11/20 05:00 Pulse 113 H 09/11/20 05:00 Resp 16 09/11/20 05:00 BP 134/83 09/11/20 05:00 Pulse Ox 99 09/11/20 05:00 Intake & Output 09/10/20 09/11/20 09/11/20 18:59 06:59 18:59 Intake Total 1520 Balance 1520 Weight 82.554 kg 82.554 kg Intake: Oral 1520 Other: Voiding Method Toilet # Voids 1 - Exam General: The patient is awake and alert, in no distress Eye: there is normal conjunctiva bilaterally. Neck: The neck is supple, there is no JVD. Cardiovascular: Normal S1-S2, no S3-S4, no murmurs. Respiratory: Lungs clear to auscultation bilaterally Gastrointestinal: Abdomen is soft, nontender Musculoskeletal: There is no pedal edema. Neurological:. Speech is normal. Skin: Skin is warm and dry - Labs CBC & Chem 7: 09/10/20 17:31 09/10/20 17:31 Labs: Abnormal Lab Results - Last 24 Hours (Table) 09/10/20 09/10/20 09/10/20 Range/Units 17:31 17:31 17:31 RBC 3.02 L (4.30-5.90) m/uL Hgb 8.8 L (13.0-17.5) gm/dL Hct 26.6 L (39.0-53.0) % RDW 16.7 H (11.5-15.5) % Metamyelocytes # (Man) 0.40 H (0) k/uL Myelocytes # (Manual) 0.71 H (0) k/uL Nucleated RBCs 2 H (0-0) /100 WBC Chloride 96 L (98-107) mmol/L Creatinine 0.63 L (0.66-1.25) mg/dL Glucose 124 H (74-99) mg/dL Plasma Lactic Acid Thor (0.7-2.0) mmol/L Urine pH 8.5 H (5.0-8.0) Urine Protein 1+ H (Negative) Urine Mucus Rare H (None) /hpf 09/10/20 Range/Units 17:31 RBC (4.30-5.90) m/uL Hgb (13.0-17.5) gm/dL Hct (39.0-53.0) % RDW (11.5-15.5) % Metamyelocytes # (Man) (0) k/uL Myelocytes # (Manual) (0) k/uL Nucleated RBCs (0-0) /100 WBC Chloride (98-107) mmol/L Creatinine (0.66-1.25) mg/dL Glucose (74-99) mg/dL Plasma Lactic Acid Thor 3.2 H* (0.7-2.0) mmol/L Urine pH (5.0-8.0) Urine Protein (Negative) Urine Mucus (None) /hpf Assessment and Plan Assessment: This is a 65-year-old male with past medical history significant for metastatic prostate cancer who presented to the emergency room with uncontrolled pain. Patient was evaluated in the ER and currently admitted for further management of his medical problems noted below. 1. Intractable pain, secondary to metastatic bone disease. At home, patient is on a fentanyl patch 50 g per hour and oxycodone 30 mg every 4 hours as needed. This has not been controlling his pain. He is currently getting IV Dilaudid when necessary. I would change Tylenol and ibuprofen to scheduled every 8 hours. I would add Cymbalta 60 mg daily. Radiation oncology consulted for possible palliative radiation. 2. Metastatic adenocarcinoma of the prostate, managed by oncology. Status post multiple regimen. Oncology consulted, appreciate recommendation 3. Essential hypertension: Blood pressure well-controlled 4. DVT prophylaxis with subcu Lovenox 5. CODE STATUS: Patient is DO NOT RESUSCITATE/DO NOT INTUBATE. Discussed with admitting physician
[2020-09-11] MEDS: DULoxetine HCL 60 MG CAPSULE.DR PO SCH (10:54)
[2020-09-11] MEDS: ACETAMINOPHEN TAB 325 MG TAB PO SCH ×2 (10:54→15:55)
[2020-09-11] MEDS: ONDANSETRON 4 MG/2 ML VIAL IVP PRN ×2 (14:47→21:02)
--- NOTE | 2020-09-11 14:47 | P.CONS ---
History of Present Illness - Reason for Consult Consult date: 09/11/20 Metastatic progressive prostate and pain Requesting physician: Lily Swenson - Chief Complaint mental Status Changes - History of Present Illness Mr. Downs is a 65 yo male patyient of primary oncologist Dr. Yancey who well known to the practice. He has long-standing prostate cancer Hx, status post multiple lines of treatment, most recently completed a clinical trial with T cells and Keytruda through [facility] in June 2020. He had his last T-cell treatment late 07/02. Since his treatment he has been more pain, weakness, and overall decreased in quality of life. He was admitted early July with decreased Hemoglobin, supportive care provided. He is on ER oxycontin and IR oxycodone at home without relief at his current dosage. This has been adjusted as he is now re-admitted with complaints of increased pain. His most recent CT scans and nuclear bone scan does reveal progressive disease within his bones. From December of 2019 to April of 2020 his PSA had doubled in 900s. No recent TM to date. Recent admission for uncontrolled pain, adjustments made and patient overall improved. Although after discharge he was home he started to have slurring of words, tremors, then became lethargic and inapprpriately responding brought back to hospital. On arrival low grade fever, septic work-up pending. Review of Systems All systems: negative Constitutional: Reports as per HPI Past Medical History Past Medical History: Cancer, Hypertension, Pneumonia Additional Past Medical History / Comment(s): Pt recently admitted to [facility] on07/25/20 with fever/generalized weakness/SIRS/suspected covid 19 with negative rapid PCR/increased inflammatory markers, normocytic anemia/transfusion. 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 History of Any Multi-Drug Resistant Organisms: None Reported Past Surgical History: Joint Replacement, Orthopedic Surgery Additional Past Surgical History / Comment(s): Prostate biopsy, L hand nail gun injury with repair, R ankle fractures with surgery, R total hip arthroplasty, sinus surgery. Past Anesthesia/Blood Transfusion Reactions: No Reported Reaction Additional Past Anesthesia/Blood Transfusion Reaction / Comm: Pt has received blood in past without reaction. Past Psychological History: No Psychological Hx Reported Smoking Status: Former smoker Past Alcohol Use History: Occasional Past Drug Use History: None Reported - Past Family History Father Family Medical History: No Reported History Additional Family Medical History / Comment(s): Father is 90yrs old. Mother Additional Family Medical History / Comment(s): Mother had multiple medical problems, pt prefers not to discuss at this time. family Family Medical History: No Reported History Medications and Allergies Home Medications Medication Instructions Recorded Confirmed Type Enalapril Maleate [Vasotec] 10 mg PO DAILY 07/09/20 09/10/20 History Acetaminophen Tab [Tylenol] 650 mg PO Q6HR PRN tab 09/07/20 09/10/20 Rx Cefuroxime Axetil [Ceftin] 500 mg PO BID 1 Days #20 tab 09/07/20 09/10/20 Rx Ibuprofen [Motrin] 600 mg PO TID #90 tab 09/07/20 09/10/20 Rx Pantoprazole [Protonix] 40 mg PO AC-BRKFST #30 tablet. 09/07/20 09/10/20 Rx fentaNYL 50MCG/HR PATCH [Duragesic 1 patch TRANSDERM Q72H 30 Days 09/07/20 09/10/20 Rx 50MCG/HR] patch lisinopriL [Zestril] 10 mg PO DAILY tab 09/07/20 09/10/20 Rx oxyCODONE HCL [oxyCODONE HCL (IR)] 30 mg PO Q4H PRN #120 tab 09/07/20 09/10/20 Rx polyethylene glycoL 3350 [Miralax] 17 gm PO BID #60 powd.pack 09/07/20 09/10/20 Rx LORazepam [Ativan] 1 mg PO Q6H PRN 09/10/20 09/10/20 History Sennosides-Docusate Sodium 2 tab PO BID 09/10/20 09/10/20 History [Senokot-S] Allergies Allergy/AdvReac Type Severity Reaction Status Date / Time morphine AdvReac Unknown Verified 09/10/20 18:43 Physical Exam Vitals: Vital Signs Temp Pulse Pulse Pulse Resp BP BP 09/11/20 12:04 97.6 F 93 17 128/82 09/11/20 05:00 98.6 F 113 H 16 134/83 09/10/20 22:00 98.3 F 111 H 16 145/85 09/10/20 20:00 70 18 129/85 09/10/20 18:52 98.9 F 111 H 22 125/78 09/10/20 18:02 135 H 09/10/20 17:58 125 H 16 106/77 09/10/20 17:38 68 26 H 153/97 09/10/20 16:56 100.8 F H 122 H 22 88/60 Pulse Ox 09/11/20 12:04 98 09/11/20 05:00 99 09/10/20 22:00 98 09/10/20 20:00 99 09/10/20 18:52 98 09/10/20 18:02 09/10/20 17:58 100 09/10/20 17:38 99 09/10/20 16:56 96 Intake and Output 09/10/20 09/11/20 09/11/20 22:59 06:59 14:59 Intake Total 1520 Balance 1520 Intake: Oral 1520 Other: Voiding Method Toilet # Voids 1 Weight 82.554 kg - Constitutional General appearance: cooperative, no acute distress - EENT Eyes: EOMI ENT: hard of hearing, NA/AT - Neck Neck: normal ROM - Respiratory Respiratory: bilateral: CTA - Cardiovascular Rhythm: regular Heart sounds: normal: S1, S2 - Gastrointestinal General gastrointestinal: soft - Integumentary Integumentary: pale - Neurologic Neurologic: CNII-XII intact - Musculoskeletal Musculoskeletal: generalized weakness, strength equal bilaterally - Psychiatric Psychiatric: A&O x's 3, appropriate affect, intact judgment & insight Results CBC & Chem 7: 09/12/20 05:43 09/11/20 15:30 Labs: Abnormal Lab Results - Last 24 Hours (Table) 09/10/20 09/10/20 09/10/20 Range/Units 17:31 17:31 17:31 RBC 3.02 L (4.30-5.90) m/uL Hgb 8.8 L (13.0-17.5) gm/dL Hct 26.6 L (39.0-53.0) % RDW 16.7 H (11.5-15.5) % Metamyelocytes # (Man) 0.40 H (0) k/uL Myelocytes # (Manual) 0.71 H (0) k/uL Nucleated RBCs 2 H (0-0) /100 WBC Chloride 96 L (98-107) mmol/L Creatinine 0.63 L (0.66-1.25) mg/dL Glucose 124 H (74-99) mg/dL Plasma Lactic Acid Thor (0.7-2.0) mmol/L Urine pH 8.5 H (5.0-8.0) Urine Protein 1+ H (Negative) Urine Mucus Rare H (None) /hpf 09/10/20 Range/Units 17:31 RBC (4.30-5.90) m/uL Hgb (13.0-17.5) gm/dL Hct (39.0-53.0) % RDW (11.5-15.5) % Metamyelocytes # (Man) (0) k/uL Myelocytes # (Manual) (0) k/uL Nucleated RBCs (0-0) /100 WBC Chloride (98-107) mmol/L Creatinine (0.66-1.25) mg/dL Glucose (74-99) mg/dL Plasma Lactic Acid Thor 3.2 H* (0.7-2.0) mmol/L Urine pH (5.0-8.0) Urine Protein (Negative) Urine Mucus (None) /hpf Chest x-ray: report reviewed Assessment and Plan Plan: Chronic pain due to neoplasm Current Visit: Yes Status: Acute Code(s): G89.3 - NEOPLASM RELATED PAIN (ACUTE) (CHRONIC) SNOMED Code(s): 12591973241311 (2) Intractable pain Current Visit: Yes Status: Acute Code(s): R52 - PAIN, UNSPECIFIED SNOMED Code(s): 37448193 (3) Metastatic malignant neoplasm to prostate Current Visit: Yes Status: Acute Code(s): C79.82 - SECONDARY MALIGNANT NEOPLASM OF GENITAL ORGANS SNOMED Code(s): 57436031 Plan: Continue on Comfort Measures and goals of care Quality of Life. Fentanyl patch Evaluate PO breakthrough IV dilaudid prn Bowel Regimen Patient has refused hospice care but long discussion related to treatment options being minimal. Discussed with primary oncologist for option of compassionate use keytruda. Per patient and there has been question of metastatic disease to brain, therefore will recheck MRI. Dr. Bowers to initiate radiation while inpatient for palliaitive treatment of pain Physician attest: I have completed the full history and physical and agree with above dictation, dictated as a scribe.
[2020-09-11] MEDS: HYDROmorphone 2 MG TAB PO PRN ×2 (15:54→19:49)
[2020-09-12 00:28] LABS: HCT 22.5 % (39.6-50.0); HGB 6.9 g/dL (13.0-17.0); MCH 28.8 pg (27.0-32.0); MCHC 30.7 g/dL (32.0-37.0); MCV 93.8 fL (80.0-97.0); Platelet Count 131 X 10*3/uL (140-440); RDW 16.4 % (11.5-14.5); WBC 5.36 X 10*3/uL (4.50-10.00)
[2020-09-12 00:29] LABS: Basophils # (M) 0 X 10*3/uL (0.00-0.10); Eosinophils # (M) 0.21 X 10*3/uL (0.04-0.35); Lymphocytes # (M) 0.75 X 10*3/uL (0.90-5.00); Metamyelocytes % 3 % (0-0); Microcytosis (M) 2+; Monocytes # (M) 0.38 X 10*3/uL (0.20-1.00); Myelocytes % 4 % (0-0); Neutrophils # (M) 3.64 X 10*3/uL (2.00-8.90); Neutrophils % (M) 68 %
[2020-09-12] MEDS: ACETAMINOPHEN TAB 325 MG TAB PO SCH ×4 (01:21→23:57)
[2020-09-12] MEDS: HYDROmorphone 1 MG/ML 1 ML SYRINGE IVP PRN ×3 (01:23→14:00)
[2020-09-12 04:58] LABS: African American GFR (CKD) 121.4 (60.0-200.0); Albumin 3.4 g/dL (3.80-4.90); Albumin/Globulin Ratio 1.62 (1.60-3.17); Anion Gap 12.1 mmol/L (4.00-12.00); Calcium 8.4 mg/dL (8.7-10.3); Carbon Dioxide 27.9 mmol/L (21.6-31.8); Globulin 2.1 g/dL (1.6-3.3); Non-African American GFR(CKD) 104.8 (60.0-200.0); Potassium 3.7 mmol/L (3.5-5.5); Total Bilirubin 0.7 mg/dL (0.2-1.2); Total Protein 5.5 g/dL (6.2-8.2)
[2020-09-12 07:18] LABS: Anisocytosis Slight; HCT 27.9 % (39.0-53.0); HGB 8.8 gm/dL (13.0-17.5); Hypochromasia Slight; MCH 28.4 pg (25.0-35.0); MCHC 31.7 g/dL (31.0-37.0); MCV 89.5 fL (80.0-100.0); Mean Platelet Volume 8.8; Platelet Count 160 k/uL (150-450); Poikilocytosis Slight; RBC 3.11 m/uL (4.30-5.90); RDW 16.4 % (11.5-15.5)
[2020-09-12] MEDS: IBUPROFEN 600 MG TAB PO SCH ×3 (07:40→21:36)
[2020-09-12] MEDS: PANTOPRAZOLE 40 MG TABLET PO SCH (07:41)
[2020-09-12] MEDS: lisinopriL 10 MG TAB PO SCH (07:41)
[2020-09-12] MEDS: SENNOSIDES-DOCUSATE SODIUM 1 EACH TAB PO SCH ×2 (07:41→21:48)
[2020-09-12] MEDS: DULoxetine HCL 60 MG CAPSULE.DR PO SCH (07:41)
[2020-09-12] MEDS: polyethylene glycoL 3350 17 GM POWD.PACK PO SCH ×2 (07:41→20:45)
[2020-09-12] MEDS: ENOXAPARIN 40 MG/0.4 ML SYRINGE SQ SCH (07:41)
[2020-09-12] MEDS: CYANOCOBALAMIN 500 MCG TAB PO SCH (07:41)
[2020-09-12 07:54] LABS: Band Neutrophils % 6 %; Eosinophils # (M) 0.39 k/uL (0-0.7); Lymphocytes # (M) 0.88 k/uL (1.0-4.8); Metamyelocytes # (M) 0.28 k/uL (0); Metamyelocytes % 5 %; Monocytes # (M) 0.28 k/uL (0-1.0); Myelocytes # (M) 0.39 k/uL (0); Myelocytes % 7 %; Neutrophils % (M) 55 %; Nucleated Red Blood Cells 1 /100 WBC (0-0); Total Cells Counted 200; WBC 5.5 k/uL (3.8-10.6)
[2020-09-12] MEDS: HYDROmorphone 2 MG TAB PO PRN ×3 (09:26→20:43)
[2020-09-12] MEDS: LORazepam 1 MG TAB PO PRN ×2 (10:55→21:35)
[2020-09-12] MEDS: ONDANSETRON 4 MG/2 ML VIAL IVP PRN (10:59)
--- NOTE | 2020-09-12 13:44 | MR ---
EXAMINATION TYPE: MR brain wo cspine wo/w DATE OF EXAM: 09/12/2020 COMPARISON: None HISTORY: mental status assess for metastatic disease CONTRAST: Brain Performed utilizing 0 mL intravenous Gadavist gadolinium contrast. TECHNIQUE: Multiplanar, multiecho imaging on a 3.0 Jannet magnet is performed through the brain. Stud y is performed within 24 hours of arrival to the hospital. The craniovertebral junction is normal. The pituitary is normal. Diffusion-weighted imaging is performed. No abnormal hyperintensity is present to suggest an acute i ntracranial infarct or acute ischemic change. There are scattered punctate areas of hyperintensity on T2 and Inversion Recovery weighted sequences which are non-specific but can be related to microvascular ischemic changes. Ventricles and sulci are appropriate for the patient age. Fluid-filled mastoid air cells are present bilaterally. Correlate for bilateral mastoiditis. Mild muc osal thickening is present diffusely within the visualized paranasal sinuses. IMPRESSIONS: 1. Mild chronic appearing periventricular subcortical white matter changes most likely in the basis o f chronic white matter ischemic change. EXAMINATION TYPE: MR brain wo cspine wo/w DATE OF EXAM: 09/12/2020 COMPARISON: None HISTORY: mental status assess for metastatic disease CONTRAST: Performed utilizing 7.5 mL intravenous Gadavist gadolinium contrast. TECHNIQUE: Multiplanar multiecho imaging on a 3.0 Jannet magnet is performed through the cervical spin e. FINDINGS: The craniovertebral junction is normal. Vertebral body alignment is normal. C7-T1: No focal disc herniation or significant disc bulge is evident. No spinal canal stenosis or n eural foraminal stenosis is present. C6-7: Central endplate spurring is present with moderate anterior thecal sac compression. No cord con tact is evident. No spinal canal or neural foraminal stenosis is present.. C5-6: Mild right paracentral endplate spurring or disc bulge is present with mild anterior thecal sac compression. No spinal canal stenosis present. Bilateral foraminal narrowing from uncovertebral join t hypertrophy is present.. C4-5: Broad-based disc bulge has moderate anterior thecal sac compression. No cord contact or spinal canal stenosis is present. Uncovertebral joint hypertrophy contributing to bilateral severe foraminal stenosis.. C3-4: Mild disc bulge and anterior thecal sac flattening. Subligamentous disc extension may extend po sterior to C3. No AP spinal canal stenosis is present. Neural foramen are patent.. C2-3: No focal disc herniation or significant disc bulge is evident. No spinal canal stenosis or brandon ral foraminal stenosis is present. No suspicious enhancement is evident. IMPRESSIONS: 1. Large disc bulge and endplate spurring C6-7 with moderate anterior thecal sac compression without stenosis. 2. Milder broad-based disc bulging C4-5 with moderate anterior thecal sac flattening. No stenosis. 3. Mild disc bulge is present C3-4, C5-6. 4. Severe foraminal stenosis due to uncovertebral joint hypertrophy is greatest at the C3-4 level.
--- NOTE | 2020-09-12 16:16 | P.PN ---
Subjective Progress Note Date: 09/12/20 Patient is feeling slightly better today. He underwent radiation therapy this morning. Objective - Vital Signs Vital signs: Vital Signs Temp 97.8 F 09/12/20 13:33 Pulse 95 09/12/20 13:37 Resp 18 09/12/20 13:33 BP 120/77 09/12/20 13:33 Pulse Ox 95 09/12/20 13:33 Intake & Output 09/11/20 09/12/20 09/12/20 18:59 06:59 18:59 Intake Total 281 Balance 281 Intake: Blood Product 281 Rc Pheresis As-3 Unit 281 [id number] Other: Voiding Method Toilet Toilet Toilet # Voids 2 - Exam General: The patient is awake and alert, in no distress Eye: there is normal conjunctiva bilaterally. Neck: The neck is supple, there is no JVD. Cardiovascular: Normal S1-S2, no S3-S4, no murmurs. Respiratory: Lungs clear to auscultation bilaterally Gastrointestinal: Abdomen is soft, nontender Musculoskeletal: There is no pedal edema. Neurological:. Speech is normal. Skin: Skin is warm and dry - Labs CBC & Chem 7: 09/12/20 05:43 09/11/20 15:30 Labs: Abnormal Lab Results - Last 24 Hours (Table) 09/11/20 09/11/20 09/12/20 Range/Units 15:30 15:30 01:07 RBC 2.40 L (4.40-5.60) X 10*6/uL Hgb 6.9 L* (13.0-17.0) g/dL Hct 22.5 L (39.6-50.0) % MCHC 30.7 L (32.0-37.0) g/dL RDW 16.4 H (11.5-14.5) % Plt Count 131 L (140-440) X 10*3/uL Plt Count Comment DECREASED A Absolute Nucleated RBC 0.04 H (0.00-0.00) X 10*3/uL Metamyelocytes % 3 H (0-0) % Myelocytes % 4 H (0-0) % Lymphocytes # (Manual) 0.75 L (0.90-5.00) X 10*3/uL Metamyelocytes # (Man) (0) k/uL Myelocytes # (Manual) (0) k/uL Nucleated RBCs (0-0) /100 WBC NRBC/100 WBC Diff 0.7 H (0.0-0.0) /100 WBCS Anion Gap 12.10 H (4.00-12.00) mmol/L BUN/Creatinine Ratio 25.00 H (12.00-20.00) Ratio Calcium 8.4 L (8.7-10.3) mg/dL AST 46 H (14-35) U/L Alkaline Phosphatase 522 H (41-126) U/L Total Protein 5.5 L (6.2-8.2) g/dL Albumin 3.40 L (3.80-4.90) g/dL Crossmatch See Detail 09/12/20 Range/Units 05:43 RBC 3.11 L (4.40-5.60) X 10*6/uL Hgb 8.8 L (13.0-17.0) g/dL Hct 27.9 L (39.6-50.0) % MCHC (32.0-37.0) g/dL RDW 16.4 H (11.5-14.5) % Plt Count (140-440) X 10*3/uL Plt Count Comment Absolute Nucleated RBC (0.00-0.00) X 10*3/uL Metamyelocytes % (0-0) % Myelocytes % (0-0) % Lymphocytes # (Manual) 0.88 L (0.90-5.00) X 10*3/uL Metamyelocytes # (Man) 0.28 H (0) k/uL Myelocytes # (Manual) 0.39 H (0) k/uL Nucleated RBCs 1 H (0-0) /100 WBC NRBC/100 WBC Diff (0.0-0.0) /100 WBCS Anion Gap (4.00-12.00) mmol/L BUN/Creatinine Ratio (12.00-20.00) Ratio Calcium (8.7-10.3) mg/dL AST (14-35) U/L Alkaline Phosphatase (41-126) U/L Total Protein (6.2-8.2) g/dL Albumin (3.80-4.90) g/dL Crossmatch Microbiology - Last 24 Hours (Table) 09/10/20 17:44 Blood Culture - Preliminary Blood No Growth after 24 hours 09/10/20 17:40 Blood Culture - Preliminary Blood No Growth after 24 hours Assessment and Plan Assessment: This is a 65-year-old male with past medical history significant for metastatic prostate cancer who presented to the emergency room with uncontrolled pain. Patient was evaluated in the ER and currently admitted for further management of his medical problems noted below. 1. Intractable pain, secondary to metastatic bone disease. At home, patient is on a fentanyl patch 50 g per hour and oxycodone 30 mg every 4 hours as needed. This has not been controlling his pain. He is currently getting IV Dilaudid when necessary. I changed Tylenol and ibuprofen to scheduled every 8 hours. I added Cymbalta 60 mg daily. Patient was switched to oral Dilantin loaded as needed by oncology. Radiation oncology consulted for palliative radiation status post radiation treatment today.. 2. Metastatic adenocarcinoma of the prostate, managed by oncology. Status post multiple regimen. Oncology consulted, appreciate recommendation 3. Essential hypertension: Blood pressure well-controlled 4. DVT prophylaxis with subcu Lovenox 5. CODE STATUS: Patient is DO NOT RESUSCITATE/DO NOT INTUBATE. Discussed with admitting physician
[2020-09-12] MEDS: SODIUM CHLORIDE 0.9% 1,000 ML IV SCH (21:47)
--- NOTE | 2020-09-12 22:21 | P.PN ---
Subjective Progress Note Date: 09/12/20 Principal diagnosis: Mental Status Changes Review of MRI Cervical spine. Will ask ortho if palliative intervention for pain is available for disc buldge and stenosis. Attempted to assess pain with PO first and only use IV when absolutely needed, discussed in detail with RN day prior,although no PO breakthrough given was seen on MRI, therefore today the IV has been dc to closely evaluate how well breakthrough works. Objective - Vital Signs Vital signs: Vital Signs Temp 98.1 F 09/12/20 20:05 Pulse 60 09/12/20 20:05 Resp 16 09/12/20 20:05 BP 133/80 09/12/20 20:05 Pulse Ox 92 L 09/12/20 20:05 Intake & Output 09/12/20 09/12/20 09/13/20 06:59 18:59 06:59 Intake Total 281 Balance 281 Intake: Blood Product 281 Rc Pheresis As-3 Unit 281 [id number] Other: Voiding Method Toilet Toilet # Voids 2 - Exam - Constitutional General appearance: cooperative, no acute distress - EENT Eyes: EOMI ENT: hard of hearing, NA/AT - Neck Neck: normal ROM - Respiratory Respiratory: bilateral: CTA - Cardiovascular Rhythm: regular Heart sounds: normal: S1, S2 - Gastrointestinal General gastrointestinal: soft - Integumentary Integumentary: pale - Neurologic Neurologic: CNII-XII intact - Musculoskeletal Musculoskeletal: generalized weakness, strength equal bilaterally - Psychiatric Psychiatric: A&O x's 3, appropriate affect, intact judgment & insight - Labs CBC & Chem 7: 09/12/20 05:43 09/11/20 15:30 Labs: Abnormal Lab Results - Last 24 Hours (Table) 09/11/20 09/11/20 09/12/20 Range/Units 15:30 15:30 01:07 RBC 2.40 L (4.40-5.60) X 10*6/uL Hgb 6.9 L* (13.0-17.0) g/dL Hct 22.5 L (39.6-50.0) % MCHC 30.7 L (32.0-37.0) g/dL RDW 16.4 H (11.5-14.5) % Plt Count 131 L (140-440) X 10*3/uL Plt Count Comment DECREASED A Absolute Nucleated RBC 0.04 H (0.00-0.00) X 10*3/uL Metamyelocytes % 3 H (0-0) % Myelocytes % 4 H (0-0) % Lymphocytes # (Manual) 0.75 L (0.90-5.00) X 10*3/uL Metamyelocytes # (Man) (0) k/uL Myelocytes # (Manual) (0) k/uL Nucleated RBCs (0-0) /100 WBC NRBC/100 WBC Diff 0.7 H (0.0-0.0) /100 WBCS Anion Gap 12.10 H (4.00-12.00) mmol/L BUN/Creatinine Ratio 25.00 H (12.00-20.00) Ratio Calcium 8.4 L (8.7-10.3) mg/dL AST 46 H (14-35) U/L Alkaline Phosphatase 522 H (41-126) U/L Total Protein 5.5 L (6.2-8.2) g/dL Albumin 3.40 L (3.80-4.90) g/dL Crossmatch See Detail 09/12/20 Range/Units 05:43 RBC 3.11 L (4.40-5.60) X 10*6/uL Hgb 8.8 L (13.0-17.0) g/dL Hct 27.9 L (39.6-50.0) % MCHC (32.0-37.0) g/dL RDW 16.4 H (11.5-14.5) % Plt Count (140-440) X 10*3/uL Plt Count Comment Absolute Nucleated RBC (0.00-0.00) X 10*3/uL Metamyelocytes % (0-0) % Myelocytes % (0-0) % Lymphocytes # (Manual) 0.88 L (0.90-5.00) X 10*3/uL Metamyelocytes # (Man) 0.28 H (0) k/uL Myelocytes # (Manual) 0.39 H (0) k/uL Nucleated RBCs 1 H (0-0) /100 WBC NRBC/100 WBC Diff (0.0-0.0) /100 WBCS Anion Gap (4.00-12.00) mmol/L BUN/Creatinine Ratio (12.00-20.00) Ratio Calcium (8.7-10.3) mg/dL AST (14-35) U/L Alkaline Phosphatase (41-126) U/L Total Protein (6.2-8.2) g/dL Albumin (3.80-4.90) g/dL Crossmatch Microbiology - Last 24 Hours (Table) 09/10/20 17:44 Blood Culture - Preliminary Blood No Growth after 48 hours 09/10/20 17:40 Blood Culture - Preliminary Blood No Growth after 48 hours Assessment and Plan Plan: Chronic pain due to neoplasm Current Visit: Yes Status: Acute Code(s): G89.3 - NEOPLASM RELATED PAIN (ACUTE) (CHRONIC) SNOMED Code(s): 61389963367996 (2) Intractable pain Current Visit: Yes Status: Acute Code(s): R52 - PAIN, UNSPECIFIED SNOMED Code(s): 24549360 (3) Metastatic malignant neoplasm to prostate Current Visit: Yes Status: Acute Code(s): C79.82 - SECONDARY MALIGNANT NEOPLASM OF GENITAL ORGANS SNOMED Code(s): 55230780 Plan: Continue on Comfort Measures and goals of care Quality of Life. Fentanyl patch Evaluate PO breakthrough IV dilaudid prn Bowel Regimen Patient has refused hospice care but long discussion related to treatment options being minimal. Discussed with primary oncologist for option of compassionate use keytruda. Per patient and there has been question of metastatic disease to brain, therefore will recheck MRI. Dr. Bowers to initiate radiation while inpatient for palliaitive treatment of pain Review of MRI Cervical spine. Will ask ortho if palliative intervention for pain is available for disc buldge and stenosis. Evaluate pain on PO only.
[2020-09-13] MEDS: HYDROmorphone 2 MG TAB PO PRN ×3 (04:27→07:28)
[2020-09-13] MEDS: PANTOPRAZOLE 40 MG TABLET PO SCH (07:27)
[2020-09-13] MEDS: IBUPROFEN 600 MG TAB PO SCH ×3 (07:27→22:11)
[2020-09-13] MEDS: ACETAMINOPHEN TAB 325 MG TAB PO SCH ×2 (07:28→16:11)
[2020-09-13] MEDS: lisinopriL 10 MG TAB PO SCH (07:28)
[2020-09-13] MEDS: CYANOCOBALAMIN 500 MCG TAB PO SCH (07:28)
[2020-09-13] MEDS: SENNOSIDES-DOCUSATE SODIUM 1 EACH TAB PO SCH ×2 (07:28→22:11)
[2020-09-13] MEDS: polyethylene glycoL 3350 17 GM POWD.PACK PO SCH ×2 (07:30→23:57)
[2020-09-13] MEDS: ENOXAPARIN 40 MG/0.4 ML SYRINGE SQ SCH (07:30)
[2020-09-13] MEDS: DULoxetine HCL 60 MG CAPSULE.DR PO SCH (07:46)
[2020-09-13] MEDS: LORazepam 1 MG TAB PO PRN ×2 (08:01→16:11)
[2020-09-13 08:51] LABS: HCT 25.2 % (39.6-50.0); HGB 7.6 g/dL (13.0-17.0); MCH 28.4 pg (27.0-32.0); MCHC 30.2 g/dL (32.0-37.0); Mean Platelet Volume 10.9 fL (9.5-12.2); Platelet Count 136 X 10*3/uL (140-440); RBC 2.68 X 10*6/uL (4.40-5.60); RDW 16.6 % (11.5-14.5); WBC 6.09 X 10*3/uL (4.50-10.00)
[2020-09-13] MEDS ORDERED: HYDROmorphone 0.5 MG/0.5 ML SYRINGE IM PRN (10:42)
--- NOTE | 2020-09-13 11:02 | P.PN ---
Subjective Progress Note Date: 09/13/20 Principal diagnosis: Mental Status Changes Patient apparently has been worsening as far as pain, stated that he was up through the night and pain was excruciating. Objective - Vital Signs Vital signs: Vital Signs Temp 97.8 F 09/13/20 07:17 Pulse 100 09/13/20 07:17 Resp 18 09/13/20 07:17 BP 129/84 09/13/20 07:17 Pulse Ox 97 09/13/20 07:17 Intake & Output 09/12/20 09/13/20 09/13/20 18:59 06:59 18:59 Other: Voiding Method Toilet Toilet # Voids 2 1 - Exam - Constitutional General appearance: cooperative, no acute distress - EENT Eyes: EOMI ENT: hard of hearing, NA/AT - Neck Neck: normal ROM - Respiratory Respiratory: bilateral: CTA - Cardiovascular Rhythm: regular Heart sounds: normal: S1, S2 - Gastrointestinal General gastrointestinal: soft - Integumentary Integumentary: pale - Neurologic Neurologic: CNII-XII intact - Musculoskeletal Musculoskeletal: generalized weakness, strength equal bilaterally - Psychiatric Psychiatric: A&O x's 3, appropriate affect, intact judgment & insight - Labs CBC & Chem 7: 09/13/20 05:38 09/14/20 08:41 Labs: Abnormal Lab Results - Last 24 Hours (Table) 09/13/20 Range/Units 05:38 RBC 2.68 L (4.40-5.60) X 10*6/uL Hgb 7.6 L (13.0-17.0) g/dL Hct 25.2 L (39.6-50.0) % MCHC 30.2 L (32.0-37.0) g/dL RDW 16.6 H (11.5-14.5) % Plt Count 136 L (140-440) X 10*3/uL Absolute Nucleated RBC 0.04 H (0.00-0.00) X 10*3/uL NRBC/100 WBC Diff 0.7 H (0.0-0.0) /100 WBCS Microbiology - Last 24 Hours (Table) 09/10/20 17:44 Blood Culture - Preliminary Blood No Growth after 48 hours 09/10/20 17:40 Blood Culture - Preliminary Blood No Growth after 48 hours Assessment and Plan Plan: Chronic pain due to neoplasm Current Visit: Yes Status: Acute Code(s): G89.3 - NEOPLASM RELATED PAIN (ACUTE) (CHRONIC) SNOMED Code(s): 73610873726448 (2) Intractable pain Current Visit: Yes Status: Acute Code(s): R52 - PAIN, UNSPECIFIED SNOMED Code(s): 61122866 (3) Metastatic malignant neoplasm to prostate Current Visit: Yes Status: Acute Code(s): C79.82 - SECONDARY MALIGNANT NEOPLASM OF GENITAL ORGANS SNOMED Code(s): 44882593 Plan: Continue on Comfort Measures and goals of care Quality of Life. Incorporate PT/OT Continue radiation for pain management Will ask Pain management to assess for plexus block options Will ask ortho if any palliative measures are possible for pathology in cervical spine Increase Fentanyl 75 Continue ativan Will restart oxycodone Continue bowel regimen.
[2020-09-13] MEDS: HYDROmorphone 0.5 MG/0.5 ML SYRINGE IVP PRN ×2 (11:36→15:06)
[2020-09-13 11:45] LABS: African American GFR (CKD) 130.9 (60.0-200.0); Albumin 3.4 g/dL (3.80-4.90); Albumin/Globulin Ratio 1.62 (1.60-3.17); Anion Gap 14.1 mmol/L (4.00-12.00); Calcium 8.5 mg/dL (8.7-10.3); Carbon Dioxide 26.9 mmol/L (21.6-31.8); Globulin 2.1 g/dL (1.6-3.3); Non-African American GFR(CKD) 112.9 (60.0-200.0); Potassium 3.4 mmol/L (3.5-5.5); Total Bilirubin 0.5 mg/dL (0.2-1.2); Total Protein 5.5 g/dL (6.2-8.2)
[2020-09-13] MEDS ORDERED: DEXAMETHASONE SOD PHOSPHATE 4 MG/ML 1 ML VIAL IV STA (11:47)
[2020-09-13 12:03] LABS: Basophils # (M) 0.06 X 10*3/uL (0.00-0.10); Eosinophils # (M) 0.37 X 10*3/uL (0.04-0.35); Lymphocytes # (M) 0.43 X 10*3/uL (0.90-5.00); Metamyelocytes % 4 % (0-0); Microcytosis (M) 2+; Monocytes # (M) 0.18 X 10*3/uL (0.20-1.00); Myelocytes % 3 % (0-0); Neutrophils # (M) 4.63 X 10*3/uL (2.00-8.90); Neutrophils % (M) 76 %; Polychromasia 2+
[2020-09-13] MEDS ORDERED: KETOROLAC 15 MG/ML 1 ML VIAL IM PRN (12:19)
--- NOTE | 2020-09-13 12:19 | P.CNOR ---
History of Present Illness - [facility] Consult date: 09/13/20 Consult reason: other History of present illness: The patient is seen and examined at bedside. He is a pleasant 65-year-old male with a history of metastatic prostate cancer. Apparently he has been having severe pain diffusely in his neck his shoulders and his hips and his back. He has been having excruciating pain which has been difficult for further control. He denies any specific neurologic change. Denies any specific weakness in his upper or lower extremities. Denies any new changes in his bowel bladder function. Denies any specific injury. He says he is still able to get up and walk all reached a but he is discouraged because of his diffuse pain. He has been having treatment with oncology and radiation oncology. Interventional pain management has been counseled as well. Review of Systems He denies any new fevers chills overnight. He denies any change spell bladder function. Denies any weakness in his hands or fingers or feet and toes. He says he is able to move his arms and legs but he has pain with this globally. He is feeling like his majority of his pain is around his right hip. He is still able to move his hip well lift his legs up off the bed. He denies any numbness tingling. He denies any specific injury. He says the pain is constant and unrelenting. He does not have increased pain when he ambulates. Certain motions abiel his pain but it is not consistent. Past Medical History Past Medical History: Cancer, Hypertension, Pneumonia Additional Past Medical History / Comment(s): Pt recently admitted to [facility] on07/25/20 with fever/generalized weakness/SIRS/suspected covid 19 with negative rapid PCR/increased inflammatory markers, normocytic anemia/transfusion. 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 History of Any Multi-Drug Resistant Organisms: None Reported Past Surgical History: Joint Replacement, Orthopedic Surgery Additional Past Surgical History / Comment(s): Prostate biopsy, L hand nail gun injury with repair, R ankle fractures with surgery, R total hip arthroplasty, sinus surgery. Past Anesthesia/Blood Transfusion Reactions: No Reported Reaction Additional Past Anesthesia/Blood Transfusion Reaction / Comm: Pt has received blood in past without reaction. Past Psychological History: No Psychological Hx Reported Smoking Status: Former smoker Past Alcohol Use History: Occasional Past Drug Use History: None Reported - Past Family History Father Family Medical History: No Reported History Additional Family Medical History / Comment(s): Father is 90yrs old. Mother Additional Family Medical History / Comment(s): Mother had multiple medical problems, pt prefers not to discuss at this time. family Family Medical History: No Reported History Medications and Allergies Home Medications Medication Instructions Recorded Confirmed Type Enalapril Maleate [Vasotec] 10 mg PO DAILY 07/09/20 09/10/20 History Acetaminophen Tab [Tylenol] 650 mg PO Q6HR PRN tab 09/07/20 09/10/20 Rx Cefuroxime Axetil [Ceftin] 500 mg PO BID 1 Days #20 tab 09/07/20 09/10/20 Rx Ibuprofen [Motrin] 600 mg PO TID #90 tab 09/07/20 09/10/20 Rx Pantoprazole [Protonix] 40 mg PO AC-BRKFST #30 tablet. 09/07/20 09/10/20 Rx fentaNYL 50MCG/HR PATCH [Duragesic 1 patch TRANSDERM Q72H 30 Days 09/07/20 09/10/20 Rx 50MCG/HR] patch lisinopriL [Zestril] 10 mg PO DAILY tab 09/07/20 09/10/20 Rx oxyCODONE HCL [oxyCODONE HCL (IR)] 30 mg PO Q4H PRN #120 tab 09/07/20 09/10/20 Rx polyethylene glycoL 3350 [Miralax] 17 gm PO BID #60 powd.pack 09/07/20 09/10/20 Rx LORazepam [Ativan] 1 mg PO Q6H PRN 09/10/20 09/10/20 History Sennosides-Docusate Sodium 2 tab PO BID 09/10/20 09/10/20 History [Senokot-S] Allergies Allergy/AdvReac Type Severity Reaction Status Date / Time morphine AdvReac Unknown Verified 09/10/20 18:43 Physical Examination Osteopathic Statement: *. No significant issues noted on an osteopathic structural exam other than those noted in the History and Physical/Consult. - C Spine: dermatomal strength & reflexes bilateral Shoulder strength: flexion: 5/5 (At his upper extremities he has full active and passive range of motion of his bilateral shoulders elbows wrists and hands. He has good 5 out of 5 strength. There is no Alberto's. No hyperreflexia. His neck is nontender over the midline. He has global pain when he tries to move and roll over i) Shoulder strength: extension: 5/5 (Is not having specific point tenderness over his spine at the midline of his thoracic cervical and lumbar. His pelvis is stable to rock.) - L Spine: dermatomal strength & reflexes bilateral Strength: hip flexion: 5/5 (Bilateral legs do not have pain with internal and external rotation. He is able to lift his legs up off the bed independently with good strength. He has sustained dorsal flexion plantarflexion and EHL intact) Results - Labs Labs: Abnormal Lab Results - Last 24 Hours (Table) 09/13/20 09/13/20 Range/Units 05:38 05:38 RBC 2.68 L (4.40-5.60) X 10*6/uL Hgb 7.6 L (13.0-17.0) g/dL Hct 25.2 L (39.6-50.0) % MCHC 30.2 L (32.0-37.0) g/dL RDW 16.6 H (11.5-14.5) % Plt Count 136 L (140-440) X 10*3/uL Plt Count Comment DECREASED A Absolute Nucleated RBC 0.04 H (0.00-0.00) X 10*3/uL Metamyelocytes % 4 H (0-0) % Myelocytes % 3 H (0-0) % Lymphocytes # (Manual) 0.43 L (0.90-5.00) X 10*3/uL Monocytes # (Manual) 0.18 L (0.20-1.00) X 10*3/uL Eosinophils # (Manual) 0.37 H (0.04-0.35) X 10*3/uL NRBC/100 WBC Diff 0.7 H (0.0-0.0) /100 WBCS Potassium 3.4 L (3.5-5.5) mmol/L Anion Gap 14.10 H (4.00-12.00) mmol/L Creatinine 0.5 L (0.6-1.5) mg/dL BUN/Creatinine Ratio 28.00 H (12.00-20.00) Ratio Calcium 8.5 L (8.7-10.3) mg/dL Alkaline Phosphatase 512 H (41-126) U/L Total Protein 5.5 L (6.2-8.2) g/dL Albumin 3.40 L (3.80-4.90) g/dL Microbiology - Last 24 Hours (Table) 09/10/20 17:44 Blood Culture - Preliminary Blood No Growth after 48 hours 09/10/20 17:40 Blood Culture - Preliminary Blood No Growth after 48 hours H & H 09/10/20 09/11/20 09/12/20 Range/Units 17:31 15:30 05:43 Hgb 8.8 L 6.9 L* 8.8 L (13.0-17.5) gm/dL Hct 26.6 L 22.5 L 27.9 L (39.0-53.0) % 09/13/20 Range/Units 05:38 Hgb 7.6 L (13.0-17.5) gm/dL Hct 25.2 L (39.0-53.0) % Result Diagrams: 09/13/20 05:38 09/13/20 05:38 - Diagnostic results Cervical MRI with contrast: report reviewed (Increased uptake at C7 and T2 but this makes of less than 25% the bone. There is no mass extending to the spinal canal), image reviewed (Cervical spine MRI is reviewed as is his bone scan. The cervical spine psoas some degenerative changes at C5 6 C6 7 with some diffuse disc bulging. There is no specific central herniation. I do not see any obvious bony destruction. There is some signal at C7 and T2 that makeup less than 25% of t), other (His bone scan is reviewed. There is some diffuse in increased uptake at the bilateral femurs and tibias without large focal uptake. There is diffuse uptake through his spine without specific focal uptake) Assessment and Plan Assessment: Metastatic prostate cancer with bony metastasis diffusely Severe pain due to metastatic cancer No evidence of spinal cord injury or neurologic decline No evidence of specific focal bony uptake but multiple diffuse areas of bony uptake metastasis Plan: Metastatic prostate cancer with bony metastasis diffusely Severe pain due to metastatic cancer No evidence of spinal cord injury or neurologic decline No evidence of specific focal bony uptake but multiple diffuse areas of bony uptake metastasis I do not see a specific area on the bone scan or the MRIs to give good indication for surgical intervention. He does not seem to have impending pathologic fracture secondary see at this point. He has severe diffuse pain somewhat globally and I think that he should continue with conservative care with hematology oncology as well as with interventional pain management in radiation oncology to try to alleviate some of the symptoms. I agree with the medications that he has been receiving thus far. He may have some benefit with Toradol and we will order that for him. That can be continued by his primary service if they wish. We will follow peripherally as we do not have any specific surgical plans
[2020-09-13] MEDS ORDERED: diazePAM 2 MG TAB PO STA (12:37)
--- NOTE | 2020-09-13 14:46 | P.PAINCN ---
History of Present Illness - Reason for Consult Consult date: 09/13/20 - History of Present Illness This is a 65-year-old male with a long-standing history of prostate cancer with diffuse metastasis and failing multiple times of chemotherapy. He is presented as an inpatient due to increasing pain throughout his body. In terms of management at home he has been taking oxycodone 30 mg extended release twice a day as well as oxycodone 15 mg intermediate release every 4 hours. He is also on a fentanyl patch at 50 mics per hour. Currently an inpatient, he is taking oxycodone 30 mg every 4 hours, fentanyl patch 75 mics per hour, Cymbalta 60 mg a day, Motrin 600 mg 3 times a day, Tylenol 650 mg every 3 hours and Dilaudid 0.3 mg every 3 hours. We are being consulted for the consideration of any type of nerve block to help this patient Currently he describes his pain as a 9 out of 10. He says the pain is currently in his groin but that changes by the hour, commenting that his pain is mostly all over with no specific location. Pain is constant throughout the day and is described as sharp and stabbing. He noted some relief with his home regimen, however as an inpatient he feels like none of the medications are lasting long enough for providing any meaningful relief at this point. Patient denies adverse drug effects from medications. Patient also denies new- onset weakness, bowel/bladder incontinence, or any other signs or symptoms of cauda equina syndrome. There are no signs of acute intoxication, and no indications of medication diversion or overuse. In addition to above, 13-point review of systems is also negative for chest pain, shortness of breath, changes in vision, changes in hearing, new onset weakness, abdominal pain, diarrhea, extreme fatigue, malaise, fever, skin changes, homicidal or suicidal ideation, or bowel or bladder incontinence. Physical exam: Vital Signs: Reviewed in EMR GENERAL: tired appearing, in mild distress PSYCH: Mood and affect is appropriate. Awake, alert, and oriented SKIN: Skin color, texture, turgor normal, no rashes or lesions HEENT: Normocephalic, atraumatic. EOM intact CV: No pedal edema RESP: Respirations are unlabored, no audible wheezing GI: Abdomen non-distended MUSCULOSKELETAL: Bilateral upper and lower extremity strength is normal and symmetric. No atrophy or tone abnormalities are noted. Lumbar spine: Straight leg raising in the sitting position is negative for radicular pain. No pain to palpation over the lumbar spine and paraspinous muscles. Negative for pain with facet loading and back extension/rotation. ROM not checked, patient too tired to get out of bed Extremities: Peripheral joint ROM is full and pain free without obvious instability or laxity in all four extremities. No edema or skin discolorations noted. Gait: Patient did not walk for me but has said he has been able to walk. NEUR: Bilateral upper and lower extremity coordination and muscle stretch reflexes are physiologic and symmetric. Negative clonus. No loss of sensation is noted. Cranial nerves are grossly intact. Assessment: 1. Diffuse metastatic prostate cancer with uncontrolled pain Plan: - Unfortunately given the diffuse nature of this patient's pain there is no specific nerve block or plexus so we can block that would help with his pain significantly. At this point his pain control should be discuss with this heme- onc physicians as well as a discussion of goals of care with his family. - In regards to his medication regimen I have the following suggestions Oxycodone 30 mg ER BID. I think having an extended release with immediate release regimen will be more beneficial for him Oxycodone 15 mg IR Q4H PRN Continue fentanyl patch at 75 mcg/hr Continue cymbalta 60 mg QD Agree with orthopedics, Toradol 15 mg Q6H for 5 days max (discontinue motrin) Start gabapentin 300 mg TID I have spent 55 minutes chart reviewing, speaking with the patient, and discussing plan of care Past Medical History Past Medical History: Cancer, Hypertension, Pneumonia Additional Past Medical History / Comment(s): Pt recently admitted to [facility] on07/25/20 with fever/generalized weakness/SIRS/suspected covid 19 with negative rapid PCR/increased inflammatory markers, normocytic anemia/transfusion. 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 History of Any Multi-Drug Resistant Organisms: None Reported Past Surgical History: Joint Replacement, Orthopedic Surgery Additional Past Surgical History / Comment(s): Prostate biopsy, L hand nail gun injury with repair, R ankle fractures with surgery, R total hip arthroplasty, sinus surgery. Past Anesthesia/Blood Transfusion Reactions: No Reported Reaction Additional Past Anesthesia/Blood Transfusion Reaction / Comm: Pt has received blood in past without reaction. Past Psychological History: No Psychological Hx Reported Smoking Status: Former smoker Past Alcohol Use History: Occasional Past Drug Use History: None Reported - Past Family History Father Family Medical History: No Reported History Additional Family Medical History / Comment(s): Father is 90yrs old. Mother Additional Family Medical History / Comment(s): Mother had multiple medical problems, pt prefers not to discuss at this time. family Family Medical History: No Reported History Medications and Allergies Home Medications Medication Instructions Recorded Confirmed Type Enalapril Maleate [Vasotec] 10 mg PO DAILY 07/09/20 09/10/20 History Acetaminophen Tab [Tylenol] 650 mg PO Q6HR PRN tab 09/07/20 09/10/20 Rx Cefuroxime Axetil [Ceftin] 500 mg PO BID 1 Days #20 tab 09/07/20 09/10/20 Rx Ibuprofen [Motrin] 600 mg PO TID #90 tab 09/07/20 09/10/20 Rx Pantoprazole [Protonix] 40 mg PO AC-BRKFST #30 tablet.dr 09/07/20 09/10/20 Rx fentaNYL 50MCG/HR PATCH [Duragesic 1 patch TRANSDERM Q72H 30 Days 09/07/20 09/10/20 Rx 50MCG/HR] patch lisinopriL [Zestril] 10 mg PO DAILY tab 09/07/20 09/10/20 Rx oxyCODONE HCL [oxyCODONE HCL (IR)] 30 mg PO Q4H PRN #120 tab 09/07/20 09/10/20 Rx polyethylene glycoL 3350 [Miralax] 17 gm PO BID #60 powd.pack 09/07/20 09/10/20 Rx LORazepam [Ativan] 1 mg PO Q6H PRN 09/10/20 09/10/20 History Sennosides-Docusate Sodium 2 tab PO BID 09/10/20 09/10/20 History [Senokot-S] Allergies Allergy/AdvReac Type Severity Reaction Status Date / Time morphine AdvReac Unknown Verified 09/10/20 18:43 Physical Exam Vitals: Vital Signs Temp Pulse Resp BP Pulse Ox 09/13/20 11:50 97.4 F L 99 18 151/88 97 09/13/20 10:51 100 09/13/20 07:17 97.8 F 100 18 129/84 97 09/13/20 05:00 97.5 F L 90 16 132/80 97 09/12/20 20:05 98.1 F 60 16 133/80 92 L 09/12/20 13:37 95 09/12/20 13:33 97.8 F 95 18 120/77 95 Intake and Output 09/12/20 09/13/20 09/13/20 22:59 06:59 14:59 Other: Voiding Method Toilet Toilet # Voids 2 1 Results CBC & Chem 7: 09/13/20 05:38 09/13/20 05:38 Labs: Abnormal Lab Results - Last 24 Hours (Table) 09/13/20 09/13/20 Range/Units 05:38 05:38 RBC 2.68 L (4.40-5.60) X 10*6/uL Hgb 7.6 L (13.0-17.0) g/dL Hct 25.2 L (39.6-50.0) % MCHC 30.2 L (32.0-37.0) g/dL RDW 16.6 H (11.5-14.5) % Plt Count 136 L (140-440) X 10*3/uL Plt Count Comment DECREASED A Absolute Nucleated RBC 0.04 H (0.00-0.00) X 10*3/uL Metamyelocytes % 4 H (0-0) % Myelocytes % 3 H (0-0) % Lymphocytes # (Manual) 0.43 L (0.90-5.00) X 10*3/uL Monocytes # (Manual) 0.18 L (0.20-1.00) X 10*3/uL Eosinophils # (Manual) 0.37 H (0.04-0.35) X 10*3/uL NRBC/100 WBC Diff 0.7 H (0.0-0.0) /100 WBCS Potassium 3.4 L (3.5-5.5) mmol/L Anion Gap 14.10 H (4.00-12.00) mmol/L Creatinine 0.5 L (0.6-1.5) mg/dL BUN/Creatinine Ratio 28.00 H (12.00-20.00) Ratio Calcium 8.5 L (8.7-10.3) mg/dL Alkaline Phosphatase 512 H (41-126) U/L Total Protein 5.5 L (6.2-8.2) g/dL Albumin 3.40 L (3.80-4.90) g/dL Microbiology - Last 24 Hours (Table) 09/10/20 17:44 Blood Culture - Preliminary Blood No Growth after 48 hours 09/10/20 17:40 Blood Culture - Preliminary Blood No Growth after 48 hours PQRS Measure Charge Sheet PQRS Narrative: Smoking Status Never smoker Blood Pressure [Left Arm] 151/88 Blood Pressure 131/77 Pain Intensity [Generalized] 10 Pain Intensity 10 Pain Scale Used Numeric (1 - 10) Scale Used Numeric (1 - 10) Home Medications: Ambulatory Orders Enalapril Maleate [Vasotec] 10 mg PO DAILY 07/09/20 Acetaminophen Tab [Tylenol] 650 mg PO Q6HR PRN tab 09/07/20 Cefuroxime Axetil [Ceftin] 500 mg PO BID 1 Days #20 tab 09/07/20 Ibuprofen [Motrin] 600 mg PO TID #90 tab 09/07/20 Pantoprazole [Protonix] 40 mg PO AC-BRKFST #30 tablet. 09/07/20 fentaNYL 50MCG/HR PATCH [Duragesic 50MCG/HR] 1 patch TRANSDERM Q72H 30 Days patch 09/07/20 lisinopriL [Zestril] 10 mg PO DAILY tab 09/07/20 oxyCODONE HCL [oxyCODONE HCL (IR)] 30 mg PO Q4H PRN #120 tab 09/07/20 polyethylene glycoL 3350 [Miralax] 17 gm PO BID #60 powd.pack 09/07/20 LORazepam [Ativan] 1 mg PO Q6H PRN 09/10/20 Sennosides-Docusate Sodium [Senokot-S] 2 tab PO BID 09/10/20
[2020-09-13] MEDS ORDERED: KETOROLAC 15 MG/ML 1 ML VIAL IVP PRN (15:08)
--- NOTE | 2020-09-13 18:16 | P.PN ---
<Ancelmo Alexandra - Last Filed: 09/13/20 18:03> Subjective Progress Note Date: 09/13/20 Principal diagnosis: Intractable cancer pain Hospital course: Patient is a 65-year-old male with a past medical history of hypertension and prostate cancer with metastasis to bone. He presented to the emergency room with uncontrolled cancer pain. Patient admitted under our services secondary to intractable cancer pain. Physical exam: Patient was seen and fully evaluated at the bedside this morning. Patient reports pain remains uncontrolled. Patient was given a 1 time dose of Valium in addition to medication changes made by pain management. Patient reports pain in his neck, back, and legs. Patient reports pain 10 out of 10. General: non toxic, appears at stated age. Thin build. Patient appears in mild distress secondary to reports of uncontrolled pain. Derm: warm, dry Head: atraumatic, normocephalic, symmetric Eyes: EOMI, no lid lag, anicteric sclera Mouth: no lip lesion, mucus membranes moist Cardiovascular: S1S2 reg, no murmur, positive posterior tibial pulses bilat erally, cap refill less than 2 seconds. Lungs: Respirations even, regular, and unlabored on room air. Lungs CTA bilaterally. Abdominal: soft, nontender to palpation, no guarding, no appreciable orga nomegaly Ext: no gross muscle atrophy, no edema, no contractures Neuro: GCS 15. Speech clear. No focal neuro deficits noted. Psych: Alert, oriented, appropriate affect Plan of care: Intractable cancer pain secondary to prostate cancer with metastatic bone disease -Patient undergoing palliative radiation and multiple medication changes were added/changed including: -Fentanyl patch was increased to 75 mg. -Dilaudid 0.5 mg every 3 hours. -Toradol 15 mg every 6 hours. -Oxycodone 30 mg every 4 hours -Ativan 1 mg every 6 hours. -Pain management following, appreciate further recommendations. -Oncology following, appreciate further recommendations. -Orthopedic consult was placed regarding possible palliative measures regarding pathology and cervical spine, appreciate further recommendations . Hypertension -Monitor vital signs and continue daily medication management with lisinopril. CODE STATUS: DO NOT RESUSCITATE/DO NOT INTUBATE DVT prophylaxis: Lovenox Discussed with: Patient and RN Anticipated discharge date: Clinical course to determine Anticipated discharge place: Home A total of 45 minutes was spent on the care of this complex patient more than 50% of the time was spent in counseling and care coordination. Objective - Vital Signs Vital signs: Vital Signs Temp 97.4 F L 09/13/20 11:50 Pulse 99 09/13/20 11:50 Resp 18 09/13/20 11:50 BP 151/88 09/13/20 11:50 Pulse Ox 97 09/13/20 11:50 Intake & Output 09/12/20 09/13/20 09/13/20 18:59 06:59 18:59 Other: Voiding Method Toilet Toilet Toilet # Voids 2 1 - Labs CBC & Chem 7: 09/13/20 05:38 09/13/20 05:38 Labs: Abnormal Lab Results - Last 24 Hours (Table) 09/13/20 09/13/20 Range/Units 05:38 05:38 RBC 2.68 L (4.40-5.60) X 10*6/uL Hgb 7.6 L (13.0-17.0) g/dL Hct 25.2 L (39.6-50.0) % MCHC 30.2 L (32.0-37.0) g/dL RDW 16.6 H (11.5-14.5) % Plt Count 136 L (140-440) X 10*3/uL Plt Count Comment DECREASED A Absolute Nucleated RBC 0.04 H (0.00-0.00) X 10*3/uL Metamyelocytes % 4 H (0-0) % Myelocytes % 3 H (0-0) % Lymphocytes # (Manual) 0.43 L (0.90-5.00) X 10*3/uL Monocytes # (Manual) 0.18 L (0.20-1.00) X 10*3/uL Eosinophils # (Manual) 0.37 H (0.04-0.35) X 10*3/uL NRBC/100 WBC Diff 0.7 H (0.0-0.0) /100 WBCS Potassium 3.4 L (3.5-5.5) mmol/L Anion Gap 14.10 H (4.00-12.00) mmol/L Creatinine 0.5 L (0.6-1.5) mg/dL BUN/Creatinine Ratio 28.00 H (12.00-20.00) Ratio Calcium 8.5 L (8.7-10.3) mg/dL Alkaline Phosphatase 512 H (41-126) U/L Total Protein 5.5 L (6.2-8.2) g/dL Albumin 3.40 L (3.80-4.90) g/dL Microbiology - Last 24 Hours (Table) 09/10/20 17:44 Blood Culture - Preliminary Blood No Growth after 48 hours 09/10/20 17:40 Blood Culture - Preliminary Blood No Growth after 48 hours <Pinky Santillan A - Last Filed: 09/14/20 06:07> Objective - Vital Signs Vital signs: Vital Signs Temp 97.5 F L 09/14/20 04:15 Pulse 92 09/14/20 04:15 Resp 18 09/14/20 04:15 BP 130/74 09/14/20 04:15 Pulse Ox 98 09/14/20 04:15 Intake & Output 09/13/20 09/13/20 09/14/20 06:59 18:59 06:59 Intake Total 800 Balance 800 Intake: Oral 800 Other: Voiding Method Toilet Toilet Toilet # Voids 1 3 - Labs CBC & Chem 7: 09/13/20 05:38 09/13/20 05:38 Labs: Abnormal Lab Results - Last 24 Hours (Table) 09/13/20 09/13/20 Range/Units 05:38 05:38 RBC 2.68 L (4.40-5.60) X 10*6/uL Hgb 7.6 L (13.0-17.0) g/dL Hct 25.2 L (39.6-50.0) % MCHC 30.2 L (32.0-37.0) g/dL RDW 16.6 H (11.5-14.5) % Plt Count 136 L (140-440) X 10*3/uL Plt Count Comment DECREASED A Absolute Nucleated RBC 0.04 H (0.00-0.00) X 10*3/uL Metamyelocytes % 4 H (0-0) % Myelocytes % 3 H (0-0) % Lymphocytes # (Manual) 0.43 L (0.90-5.00) X 10*3/uL Monocytes # (Manual) 0.18 L (0.20-1.00) X 10*3/uL Eosinophils # (Manual) 0.37 H (0.04-0.35) X 10*3/uL NRBC/100 WBC Diff 0.7 H (0.0-0.0) /100 WBCS Potassium 3.4 L (3.5-5.5) mmol/L Anion Gap 14.10 H (4.00-12.00) mmol/L Creatinine 0.5 L (0.6-1.5) mg/dL BUN/Creatinine Ratio 28.00 H (12.00-20.00) Ratio Calcium 8.5 L (8.7-10.3) mg/dL Alkaline Phosphatase 512 H (41-126) U/L Total Protein 5.5 L (6.2-8.2) g/dL Albumin 3.40 L (3.80-4.90) g/dL Microbiology - Last 24 Hours (Table) 09/10/20 17:44 Blood Culture - Preliminary Blood No Growth after 72 hours 09/10/20 17:40 Blood Culture - Preliminary Blood No Growth after 72 hours Assessment and Plan Assessment: Patient seen and examined independently. Patient was also seen by Ancelmo Alexandra NP and case was discussed. I am in agreement with subjective, physical exam, assessment and plan as written above and amended below. Patient seen and examined on 09/13 at approximately 12:30. He reports that his back pain is currently well controlled. He feels as though there is a spasming in his groin. He states he has had this in the past. We discussed that he is already on significant pain medications and if we can by mouth additional medications or muscle relaxers this could lead to over sedation and possibly impaired breathing. He states at this point in time his pain is significant enough that he would prefer that over his current level of pain. General: non toxic, moderate distress secondary to pain appears at stated age Derm: warm, dry Head: atraumatic, normocephalic, symmetric Eyes: EOMI, no lid lag, anicteric sclera Mouth: no lip lesion, mucus membranes moist Cardiovascular: S1S2 reg, no murmur, positive posterior tibial pulse bilateral, Lungs: Decreased breath sounds bilateral, no rhonchi, no rales , no accessory muscle use Psych: Alert, oriented, appropriate affect Intractable cancer pain secondary to prostate cancer with bony metastases -Trial of Valium 1 secondary to muscle spasms - updated at bedside Anemia, chronic -Appears to be near baseline -Follow CBC Thrombocytopenia -Mild -Follow CBC Prostate cancer -Management per oncology services
[2020-09-14] MEDS: ACETAMINOPHEN TAB 325 MG TAB PO SCH ×3 (00:07→16:02)
[2020-09-14] MEDS: SODIUM CHLORIDE 0.9% 1,000 ML IV SCH ×2 (04:43→19:23)
[2020-09-14] MEDS: MEGESTROL 400 MG/10 ML CUP PO SCH (08:54)
[2020-09-14] MEDS: DULoxetine HCL 60 MG CAPSULE.DR PO SCH (08:55)
[2020-09-14] MEDS: IBUPROFEN 600 MG TAB PO SCH (08:55)
[2020-09-14] MEDS: lisinopriL 10 MG TAB PO SCH (08:55)
[2020-09-14] MEDS: SENNOSIDES-DOCUSATE SODIUM 1 EACH TAB PO SCH ×2 (08:55→19:18)
[2020-09-14] MEDS: CYANOCOBALAMIN 500 MCG TAB PO SCH (08:55)
[2020-09-14] MEDS: polyethylene glycoL 3350 17 GM POWD.PACK PO SCH ×2 (08:56→19:23)
[2020-09-14] MEDS: PANTOPRAZOLE 40 MG TABLET PO SCH (08:56)
[2020-09-14] MEDS: ENOXAPARIN 40 MG/0.4 ML SYRINGE SQ SCH (08:56)
[2020-09-14 09:13] LABS: African American GFR (CKD) >90 (>60 ml/min/1.73 sqM); Anion Gap 8 mmol/L; Blood Urea Nitrogen 16 mg/dL (9-20); Calcium 8.7 mg/dL (8.4-10.2); Carbon Dioxide 32 mmol/L (22-30); Chloride 98 mmol/L (98-107); Glucose 92 mg/dL (74-99); Magnesium 2.1 mg/dL (1.6-2.3); Non-African American GFR(CKD) >90 (>60 ml/min/1.73 sqM); Potassium 3.3 mmol/L (3.5-5.1); Sodium 138 mmol/L (137-145)
--- NOTE | 2020-09-14 11:01 | P.PN ---
Subjective Progress Note Date: 09/14/20 Principal diagnosis: bone pain 2/2 prostate malignancy The patient was evaluated on the afternoon of September 13. He states that he had a bad night and has been having increased pain. He states particular areas of discomfort include the bilateral hips. He did undergo a palliative course of radiation to the bilateral shoulders on September 12. He had no difficulty with this therapy, but has not noticed any changes since the treatment occurred. Objective - Vital Signs Vital signs: Vital Signs Temp 97.5 F L 09/14/20 04:15 Pulse 92 09/14/20 04:15 Resp 18 09/14/20 04:15 BP 130/74 09/14/20 04:15 Pulse Ox 98 09/14/20 04:15 Intake & Output 09/13/20 09/14/20 09/14/20 18:59 06:59 18:59 Intake Total 800 Balance 800 Intake: Oral 800 Other: Voiding Method Toilet Toilet # Voids 3 2 - Constitutional General appearance: Present: no acute distress - EENT Eyes: Present: EOMI, PERRLA ENT: Present: hearing grossly normal - Neck Neck: Absent: lymphadenopathy - Respiratory Respiratory: bilateral: CTA - Cardiovascular Rhythm: regular - Gastrointestinal General gastrointestinal: Absent: tenderness - Integumentary Integumentary: Absent: calor, cellulitis - Neurologic Neurologic: Present: CNII-XII intact - Psychiatric Psychiatric: Present: A&O x's 3, appropriate affect - Labs CBC & Chem 7: 09/13/20 05:38 09/14/20 08:41 Labs: Abnormal Lab Results - Last 24 Hours (Table) 09/13/20 09/13/20 09/14/20 Range/Units 05:38 05:38 08:41 Plt Count Comment DECREASED A Metamyelocytes % 4 H (0-0) % Myelocytes % 3 H (0-0) % Lymphocytes # (Manual) 0.43 L (0.90-5.00) X 10*3/uL Monocytes # (Manual) 0.18 L (0.20-1.00) X 10*3/uL Eosinophils # (Manual) 0.37 H (0.04-0.35) X 10*3/uL Potassium 3.4 L 3.3 L (3.5-5.5) mmol/L Carbon Dioxide 32 H (22-30) mmol/L Anion Gap 14.10 H (4.00-12.00) mmol/L Creatinine 0.5 L 0.61 L (0.6-1.5) mg/dL BUN/Creatinine Ratio 28.00 H (12.00-20.00) Ratio Calcium 8.5 L (8.7-10.3) mg/dL Alkaline Phosphatase 512 H (41-126) U/L Total Protein 5.5 L (6.2-8.2) g/dL Albumin 3.40 L (3.80-4.90) g/dL Microbiology - Last 24 Hours (Table) 09/10/20 17:44 Blood Culture - Preliminary Blood No Growth after 72 hours 09/10/20 17:40 Blood Culture - Preliminary Blood No Growth after 72 hours Assessment and Plan Assessment: The patient is a 65-year-old male with a history of metastatic adenocarcinoma the prostate status post multiple prior lines of therapy. He presents secondary to intractable pain , with noted areas of pain including the bilateral shoulders, hips and femurs. Plan: 1. Skeletal metastases: As detailed above, the patient had treatment to both shoulders delivered on September 12. He has now had planning and we'll deliver radiation to the bilateral hips and proximal femurs on September 14. We are only planning single fraction radiotherapy for these areas so he will finish the same day. I explained to the patient and his that the effect of radiotherapy may take several days. They expressed understanding. Continue to work on optimizing pain regimen, appreciate pain management input. Time with Patient: Less than 30
[2020-09-14] MEDS: LORazepam 1 MG TAB PO PRN ×2 (13:48→19:18)
--- NOTE | 2020-09-14 14:15 | P.PN ---
Subjective Progress Note Date: 09/14/20 Principal diagnosis: Mental Status Changes Patient had a better morning, Muscle relaxer, increase in fentanyl and switch back to oxycodone appears to have helped. Would like patient to utilize IV dilaudid as last resort to accurately assess pain and working intervention. Methadone is also a very helpful medication in these situations with intolerable pain control. I do not see pain management have addressed this, consider asking pain mangement to re-evaluate for option of methadone. I did discuss with pain management and we will further adjust medication plan. At this time he is very high anxiety and pain, Oxycodone and Dilaudid given although no relief as of yet. Discussed with and need to allow time for medication to work. Will need EKG prior to initiation of methadone, however patient is too anxious at this time will need to await him calming prior to obtaining EKG. Objective - Vital Signs Vital signs: Vital Signs Temp 97.7 F 09/14/20 12:47 Pulse 95 09/14/20 12:47 Resp 16 09/14/20 12:47 BP 129/80 09/14/20 12:47 Pulse Ox 96 09/14/20 12:47 Intake & Output 09/13/20 09/14/20 09/14/20 18:59 06:59 18:59 Intake Total 800 Balance 800 Intake: Oral 800 Other: Voiding Method Toilet Toilet Toilet # Voids 3 2 - Exam - Constitutional General appearance: cooperative, no acute distress - EENT Eyes: EOMI ENT: hard of hearing, NA/AT - Neck Neck: normal ROM - Respiratory Respiratory: bilateral: CTA - Cardiovascular Rhythm: regular Heart sounds: normal: S1, S2 - Gastrointestinal General gastrointestinal: soft - Integumentary Integumentary: pale - Neurologic Neurologic: CNII-XII intact - Musculoskeletal Musculoskeletal: generalized weakness, strength equal bilaterally - Psychiatric Psychiatric: A&O x's 3, appropriate affect, intact judgment & insight - Labs CBC & Chem 7: 09/13/20 05:38 09/14/20 08:41 Labs: Abnormal Lab Results - Last 24 Hours (Table) 09/14/20 Range/Units 08:41 Potassium 3.3 L (3.5-5.1) mmol/L Carbon Dioxide 32 H (22-30) mmol/L Creatinine 0.61 L (0.66-1.25) mg/dL Microbiology - Last 24 Hours (Table) 09/10/20 17:44 Blood Culture - Preliminary Blood No Growth after 72 hours 09/10/20 17:40 Blood Culture - Preliminary Blood No Growth after 72 hours Assessment and Plan Plan: Chronic pain due to neoplasm Current Visit: Yes Status: Acute Code(s): G89.3 - NEOPLASM RELATED PAIN (ACUTE) (CHRONIC) SNOMED Code(s): 63650527997774 (2) Intractable pain Current Visit: Yes Status: Acute Code(s): R52 - PAIN, UNSPECIFIED SNOMED Code(s): 19232481 (3) Metastatic malignant neoplasm to prostate Current Visit: Yes Status: Acute Code(s): C79.82 - SECONDARY MALIGNANT NEOPLASM OF GENITAL ORGANS SNOMED Code(s): 13034573 Plan: Continue on Comfort Measures and goals of care Quality of Life. Incorporate PT/OT Continue radiation for pain management Block is not an option at this time through Pain management, will inquire about epidural pain pump in am. We did discuss the transition to methadone and at this time the plan will be: Start methadone 10mg po TID Stop Fentanyl and Robaxin and IVP dilaudid for now Ok to continue others Can increase by 5mg TID every 7 days Greater than 45 minutes with consulting physicians, patient and today discussing plan for pain management
[2020-09-14] MEDS: HYDROmorphone 0.5 MG/0.5 ML SYRINGE IVP PRN ×3 (14:45→21:03)
[2020-09-14] MEDS ORDERED: HYDROmorphone 1 MG/ML 1 ML SYRINGE IVP STA (15:03)
[2020-09-14] MEDS: diazePAM 2 MG TAB PO PRN ×2 (15:19→21:03)
[2020-09-14] MEDS: GABAPENTIN 300 MG CAP PO SCH ×2 (16:01→22:14)
[2020-09-14] MEDS: KETOROLAC 15 MG/ML 1 ML VIAL IVP SCH (16:57)
[2020-09-14] MEDS: methocarbamoL 500 MG TAB PO SCH ×2 (17:12→22:13)
[2020-09-14] MEDS ORDERED: dexAMETHasone 4 MG TAB PO STA (17:54)
--- NOTE | 2020-09-14 18:06 | P.PN ---
<Ancelmo Alexandra - Last Filed: 09/14/20 18:02> Subjective Progress Note Date: 09/14/20 Principal diagnosis: Intractable cancer pain Hospital course: Patient is a 65-year-old male with a past medical history of hypertension and prostate cancer with metastasis to bone. He presented to the emergency room with uncontrolled cancer pain. Patient admitted under our services secondary to intractable cancer pain. Physical exam: Patient was seen and fully evaluated at the bedside this morning. Patient reports pain remains but has significantly improved with medication changes. He is scheduled to go for palliative radiation today at 11:30. Patient reports pain in his neck, back, and legs is currently rated 5-6 out of 10 from previous 10 out of 10. Patient denies any other complaints at this time. He was able to eat breakfast. Denies headache, lightheadedness, dizziness, changes in his vision or hearing, chest pain or palpitations, shortness of breath, abdominal pain, nausea or vomiting. General: non toxic, Appears at stated age. Thin build. No signs of acute di stress. Derm: warm, dry Head: atraumatic, normocephalic, symmetric Eyes: EOMI, no lid lag, anicteric sclera Mouth: no lip lesion, mucus membranes moist Cardiovascular: S1S2 reg, no murmur, positive posterior tibial pulses bilaterally, cap refill less than 2 seconds. Lungs: Respirations even, regular, and unlabored on room air. Lungs CTA bilaterally. Abdominal: Soft, nontender to palpation, no guarding, no appreciable organomegaly Ext: Full range of motion to upper and lower extremities. No gross muscle atrophy, no edema, no contractures Neuro: GCS 15. Speech clear. No focal neuro deficits noted. Psych: Alert, oriented, appropriate affect Plan of care: Intractable cancer pain secondary to prostate cancer with metastatic bone disease -Patient undergoing palliative radiation and multiple medication changes were recently made by pain management including: -Fentanyl patch was increased to 75 mg. -Dilaudid 0.5 mg every 3 hours. -Toradol 15 mg every 6 hours. -Oxycodone 30 mg every 4 hours -Ativan 1 mg every 6 hours. -Pain management following, appreciate further recommendations. -Oncology following, appreciate further recommendations. -Orthopedic following, appreciate further recommendations. -Continue with symptomatic care and pain management. Hypertension -Monitor vital signs and continue daily medication management with lisinopril. CODE STATUS: DO NOT RESUSCITATE/DO NOT INTUBATE DVT prophylaxis: Lovenox Discussed with: Patient and RN Anticipated discharge date: Clinical course to determine, possibly tomorrow if pain remains controlled. Anticipated discharge place: Home A total of 45 minutes was spent on the care of this complex patient more than 50% of the time was spent in counseling and care coordination. Objective - Vital Signs Vital signs: Vital Signs Temp 97.5 F L 09/14/20 04:15 Pulse 92 09/14/20 04:15 Resp 18 09/14/20 04:15 BP 130/74 09/14/20 04:15 Pulse Ox 98 09/14/20 04:15 Intake & Output 09/13/20 09/14/20 09/14/20 18:59 06:59 18:59 Intake Total 800 Balance 800 Intake: Oral 800 Other: Voiding Method Toilet Toilet Toilet # Voids 3 2 - Labs CBC & Chem 7: 09/13/20 05:38 09/14/20 08:41 Labs: Abnormal Lab Results - Last 24 Hours (Table) 09/14/20 Range/Units 08:41 Potassium 3.3 L (3.5-5.1) mmol/L Carbon Dioxide 32 H (22-30) mmol/L Creatinine 0.61 L (0.66-1.25) mg/dL Microbiology - Last 24 Hours (Table) 09/10/20 17:44 Blood Culture - Preliminary Blood No Growth after 72 hours 09/10/20 17:40 Blood Culture - Preliminary Blood No Growth after 72 hours <Pinky Santillan - Last Filed: 09/14/20 19:24> Objective - Vital Signs Vital signs: Vital Signs Temp 97.7 F 09/14/20 12:47 Pulse 95 09/14/20 12:47 Resp 16 09/14/20 12:47 BP 129/80 09/14/20 12:47 Pulse Ox 96 09/14/20 12:47 Intake & Output 09/14/20 09/14/20 09/15/20 06:59 18:59 06:59 Intake Total 600 Balance 600 Intake: Oral 600 Other: Voiding Method Toilet Toilet # Voids 2 2 - Labs CBC & Chem 7: 09/13/20 05:38 09/14/20 08:41 Labs: Abnormal Lab Results - Last 24 Hours (Table) 09/14/20 Range/Units 08:41 Potassium 3.3 L (3.5-5.1) mmol/L Carbon Dioxide 32 H (22-30) mmol/L Creatinine 0.61 L (0.66-1.25) mg/dL Microbiology - Last 24 Hours (Table) 09/10/20 17:44 Blood Culture - Preliminary Blood No Growth after 72 hours 09/10/20 17:40 Blood Culture - Preliminary Blood No Growth after 72 hours Assessment and Plan Assessment: Patient seen and examined independently. Patient was also seen by Ancelmo Alexandra NP and case was discussed. I am in agreement with subjective, physical exam, assessment and plan as written above and amended below. Pain is currently well controlled. Wants to be discharged until morning. We discussed that he needs to be off IV narcotics prior to discharge. General: non toxic, no distress, appears at stated age Derm: warm, dry Head: atraumatic, normocephalic, symmetric Eyes: EOMI, no lid lag, anicteric sclera Mouth: no lip lesion, mucus membranes moist Cardiovascular: S1S2 reg, no murmur, positive posterior tibial pulse bilateral, Lungs: CTA bilateral, no rhonchi, no rales , no accessory muscle use Abdominal: soft, nontender to palpation, no guarding, no appreciable organomegaly Ext: no gross muscle atrophy, no edema, no contractures Psych: Alert, oriented, appropriate affect
[2020-09-15] MEDS: KETOROLAC 15 MG/ML 1 ML VIAL IVP SCH ×5 (00:08→20:46)
[2020-09-15] MEDS: ACETAMINOPHEN TAB 325 MG TAB PO SCH ×3 (00:09→15:12)
[2020-09-15] MEDS: LORazepam 1 MG TAB PO PRN ×2 (02:51→09:22)
[2020-09-15] MEDS: HYDROmorphone 0.5 MG/0.5 ML SYRINGE IVP PRN ×2 (03:48→08:12)
[2020-09-15 05:30] LABS: Anisocytosis Slight; HCT 29.5 % (39.0-53.0); HGB 9.1 gm/dL (13.0-17.5); Hypochromasia Moderate; MCH 29.4 pg (25.0-35.0); MCHC 30.9 g/dL (31.0-37.0); Mean Platelet Volume 10.1; Platelet Count 169 k/uL (150-450); RDW 16.2 % (11.5-15.5); WBC 6.1 k/uL (3.8-10.6)
[2020-09-15 06:36] LABS: MCV 95.2 fL (80.0-100.0)
[2020-09-15 07:08] LABS: Band Neutrophils % 14 %; Eosinophils # (M) 0.06 k/uL (0-0.7); Lymphocytes # (M) 1.83 k/uL (1.0-4.8); Metamyelocytes # (M) 0.18 k/uL (0); Metamyelocytes % 3 %; Monocytes # (M) 0.18 k/uL (0-1.0); Myelocytes # (M) 0.06 k/uL (0); Myelocytes % 1 %; Neutrophils % (M) 50 %; Nucleated Red Blood Cells 0 /100 WBC (0-0); Total Cells Counted 200
[2020-09-15 07:13] LABS: Large Platelets Present
[2020-09-15 07:14] LABS: Poikilocytosis (M) Present
[2020-09-15 07:15] LABS: Polychromasia Present
[2020-09-15] MEDS: PANTOPRAZOLE 40 MG TABLET PO SCH (07:48)
[2020-09-15] MEDS: CYANOCOBALAMIN 500 MCG TAB PO SCH (07:50)
[2020-09-15] MEDS: GABAPENTIN 300 MG CAP PO SCH (07:51)
[2020-09-15] MEDS: ENOXAPARIN 40 MG/0.4 ML SYRINGE SQ SCH (07:51)
[2020-09-15] MEDS: DULoxetine HCL 60 MG CAPSULE.DR PO SCH (07:51)
[2020-09-15] MEDS: lisinopriL 10 MG TAB PO SCH (07:51)
[2020-09-15] MEDS: MEGESTROL 400 MG/10 ML CUP PO SCH (07:52)
[2020-09-15] MEDS: polyethylene glycoL 3350 17 GM POWD.PACK PO SCH ×2 (07:52→20:47)
[2020-09-15] MEDS: methocarbamoL 500 MG TAB PO SCH ×4 (07:52→20:46)
[2020-09-15] MEDS: SENNOSIDES-DOCUSATE SODIUM 1 EACH TAB PO SCH ×2 (07:52→20:46)
[2020-09-15] MEDS ORDERED: HYDROmorphone 1 MG/ML 1 ML SYRINGE IVP STA ×2 (08:00→10:30)
[2020-09-15] MEDS ORDERED: POTASSIUM BICARBONATE/CIT AC 20 MEQ TABLET.EFF PO ONE (08:30)
--- NOTE | 2020-09-15 09:04 | P.PN ---
<Ancelmo Alexandra - Last Filed: 09/15/20 08:54> Subjective Progress Note Date: 09/15/20 Principal diagnosis: Intractable cancer pain Hospital course: Patient is a 65-year-old male with a past medical history of hypertension and prostate cancer with metastasis to bone. He presented to the emergency room with uncontrolled cancer pain. Patient admitted under our services secondary to intractable cancer pain. Physical exam: Patient was seen and fully evaluated at the bedside this morning. Patient reports pain has returned and is again 10/10 to his neck, back, and legs. He states last night was very rough and he was not able to get any sleep or relax secondary to this pain. Pt states that he had a discussion with MANNY Duarte with oncology and that they were planning on having him possibly started on Methadone. Awaiting further recommendations from oncology and pain managment. Pt continues to deny experiencing any lightheadedness, headache, chest pain, palpitations, shortness of breath, or experiencing any numbness/tingling/weakness in extremities. Vital signs reviewed and stable. General: non toxic, Appears at stated age. Thin build. Appears uncomfortable. Derm: warm, dry Head: atraumatic, normocephalic, symmetric Eyes: EOMI, no lid lag, anicteric sclera Mouth: no lip lesion, mucus membranes moist Cardiovascular: S1S2 reg, no murmur, positive posterior tibial pulses bilaterally, cap refill less than 2 seconds. Lungs: Respirations even, regular, and unlabored on room air. Lungs CTA bilaterally. Abdominal: Soft, nontender to palpation, no guarding, no appreciable organomegaly Ext: Full range of motion to upper and lower extremities. No gross muscle atrophy, no edema, no contractures Neuro: GCS 15. Speech clear. No focal neuro deficits noted. Psych: Alert, oriented, appropriate affect Plan of care: Intractable cancer pain secondary to prostate cancer with metastatic bone disease -Patient undergoing palliative radiation and multiple medication changes continue to be made in attempts at obtaining adequate pain control. Current pain management regimen consists of : -Fentanyl patch 75 mg. -Dilaudid 0.5 mg every 3 hours PRN for breakthrough pain. -Toradol 15 mg every 6 hours. -Oxycodone HCL 30 mg every 4 hours -Ativan 1 mg every 6 hours. -Robaxin 500 mg QID -Gabapentin 300 mg TID -Acetaminophen 650 mg q 8 hours. -Pain management following, appreciate further recommendations. -Oncology following, appreciate further recommendations. -Orthopedic following, appreciate further recommendations. -Continue with symptomatic care and pain management. Hypertension -Monitor vital signs and continue daily medication management with lisinopril. Hypokalemia -K+ 3.3, replaced. -Will continue to monitor with repeat a.m. labs and replace as needed. CODE STATUS: DO NOT RESUSCITATE/DO NOT INTUBATE DVT prophylaxis: Lovenox Discussed with: Patient and RN Anticipated discharge date: Clinical course to determine. Anticipated discharge place: Home A total of 45 minutes was spent on the care of this complex patient more than 50% of the time was spent in counseling and care coordination. Objective - Vital Signs Vital signs: Vital Signs Temp 97.6 F 09/15/20 04:17 Pulse 97 09/15/20 04:17 Resp 18 09/15/20 04:17 BP 152/95 09/15/20 04:17 Pulse Ox 95 09/15/20 04:17 Intake & Output 09/14/20 09/15/20 09/15/20 18:59 06:59 18:59 Intake Total 600 840 Output Total 400 Balance 600 440 Intake: Oral 600 840 Output: Urine 400 Other: Voiding Method Toilet Toilet Urinal # Voids 2 1 - Labs CBC & Chem 7: 09/14/20 08:43 09/14/20 08:41 Labs: Abnormal Lab Results - Last 24 Hours (Table) 09/14/20 09/14/20 Range/Units 08:41 08:43 RBC 3.10 L (4.30-5.90) m/uL Hgb 9.1 L (13.0-17.5) gm/dL Hct 29.5 L (39.0-53.0) % MCHC 30.9 L (31.0-37.0) g/dL RDW 16.2 H (11.5-15.5) % Metamyelocytes # (Man) 0.18 H (0) k/uL Myelocytes # (Manual) 0.06 H (0) k/uL Potassium 3.3 L (3.5-5.1) mmol/L Carbon Dioxide 32 H (22-30) mmol/L Creatinine 0.61 L (0.66-1.25) mg/dL Microbiology - Last 24 Hours (Table) 09/10/20 17:44 Blood Culture - Preliminary Blood No Growth after 96 hours 09/10/20 17:40 Blood Culture - Preliminary Blood No Growth after 96 hours <Pinky Santillan - Last Filed: 09/15/20 16:47> Objective - Vital Signs Vital signs: Vital Signs Temp 97.5 F L 09/15/20 12:26 Pulse 109 H 09/15/20 12:26 Resp 17 09/15/20 12:26 BP 165/97 09/15/20 12:26 Pulse Ox 98 09/15/20 12:26 Intake & Output 09/14/20 09/15/20 09/15/20 18:59 06:59 18:59 Intake Total 600 840 Output Total 400 Balance 600 440 Weight 82.554 kg Intake: Oral 600 840 Output: Urine 400 Other: Voiding Method Toilet Toilet Toilet Urinal Urinal # Voids 2 1 - Labs CBC & Chem 7: 09/14/20 08:43 09/14/20 08:41 Labs: Abnormal Lab Results - Last 24 Hours (Table) 09/14/20 Range/Units 08:43 RBC 3.10 L (4.30-5.90) m/uL Hgb 9.1 L (13.0-17.5) gm/dL Hct 29.5 L (39.0-53.0) % MCHC 30.9 L (31.0-37.0) g/dL RDW 16.2 H (11.5-15.5) % Metamyelocytes # (Man) 0.18 H (0) k/uL Myelocytes # (Manual) 0.06 H (0) k/uL Microbiology - Last 24 Hours (Table) 09/10/20 17:44 Blood Culture - Preliminary Blood No Growth after 96 hours 09/10/20 17:40 Blood Culture - Preliminary Blood No Growth after 96 hours Assessment and Plan Assessment: Patient seen and examined independently. Patient was also seen by Ancelmo Alexandra NP and case was discussed. I am in agreement with subjective, physical exam, assessment and plan as written above and amended below. Patient seen and examined at bedside. He continues to complain of pain is now his back again. He is asking once again for more medications for pain. We discussed that Felicia from oncology has been primarily managing his pain. I did increase his gabapentin from 300-400 3 times a day. General: non toxic, no distress, appears at stated age Derm: warm, dry Head: atraumatic, normocephalic, symmetric Eyes: EOMI, no lid lag, anicteric sclera Mouth: no lip lesion, mucus membranes moist Cardiovascular: S1S2 reg, no murmur, positive posterior tibial pulse bilateral, Lungs: CTA bilateral, no rhonchi, no rales , no accessory muscle use Psych: Alert, oriented, appropriate affect Increase gabapentin from 300 mg 3 times daily to 400 mg 3 times daily.
[2020-09-15] MEDS: dexAMETHasone 2 MG TAB PO SCH ×2 (09:22→20:47)
[2020-09-15] MEDS: ONDANSETRON 4 MG/2 ML VIAL IVP PRN (10:35)
--- NOTE | 2020-09-15 12:43 | P.PN ---
Subjective Progress Note Date: 09/15/20 Principal diagnosis: Mental Status Changes Awaiting EKG for QT interval read, unfortunately is greater than 450 therefore not candidate for methadone. Will increase fentanyl and attempt PRN dilaudid 8mg for breakthrough in place of IVP. He appears much more comfortable but when you ask he states his pain is "unbearable" and nothing is helping. We again discussed the option of Hospice care and he is hoping to get home and not make that decision during the active pain as he did this last admission. Goals again discussed and discussed with pain services. The amount of breakthrough he is requiring gives reason to increase fentanyl again. Will continue to attempt transition to pills for ability to discharge. His pain yesterday was bilateral thighs and hips today just hips. Objective - Vital Signs Vital signs: Vital Signs Temp 97.5 F L 09/15/20 12:26 Pulse 109 H 09/15/20 12:26 Resp 17 09/15/20 12:26 BP 165/97 09/15/20 12:26 Pulse Ox 98 09/15/20 12:26 Intake & Output 09/14/20 09/15/20 09/15/20 18:59 06:59 18:59 Intake Total 600 840 Output Total 400 Balance 600 440 Intake: Oral 600 840 Output: Urine 400 Other: Voiding Method Toilet Toilet Toilet Urinal Urinal # Voids 2 1 - Exam - Constitutional General appearance: cooperative, no acute distress - EENT Eyes: EOMI ENT: hard of hearing, NA/AT - Neck Neck: normal ROM - Respiratory Respiratory: bilateral: CTA - Cardiovascular Rhythm: regular Heart sounds: normal: S1, S2 - Gastrointestinal General gastrointestinal: soft - Integumentary Integumentary: pale - Neurologic Neurologic: CNII-XII intact - Musculoskeletal Musculoskeletal: generalized weakness, strength equal bilaterally - Psychiatric Psychiatric: A&O x's 3, appropriate affect, intact judgment & insight - Labs CBC & Chem 7: 09/14/20 08:43 09/14/20 08:41 Labs: Abnormal Lab Results - Last 24 Hours (Table) 09/14/20 Range/Units 08:43 RBC 3.10 L (4.30-5.90) m/uL Hgb 9.1 L (13.0-17.5) gm/dL Hct 29.5 L (39.0-53.0) % MCHC 30.9 L (31.0-37.0) g/dL RDW 16.2 H (11.5-15.5) % Metamyelocytes # (Man) 0.18 H (0) k/uL Myelocytes # (Manual) 0.06 H (0) k/uL Microbiology - Last 24 Hours (Table) 09/10/20 17:44 Blood Culture - Preliminary Blood No Growth after 96 hours 09/10/20 17:40 Blood Culture - Preliminary Blood No Growth after 96 hours Assessment and Plan Plan: Chronic pain due to neoplasm Current Visit: Yes Status: Acute Code(s): G89.3 - NEOPLASM RELATED PAIN (ACUTE) (CHRONIC) SNOMED Code(s): 93018880562189 (2) Intractable pain Current Visit: Yes Status: Acute Code(s): R52 - PAIN, UNSPECIFIED SNOMED Code(s): 18233788 (3) Metastatic malignant neoplasm to prostate Current Visit: Yes Status: Acute Code(s): C79.82 - SECONDARY MALIGNANT NEOPLASM OF GENITAL ORGANS SNOMED Code(s): 75885935 Plan: Continue on Comfort Measures and goals of care Quality of Life. Incorporate PT/OT Continue radiation for pain management Block is not an option at this time through Pain management, Epidural inquired Methadone is not recommended with QT interval greater than 450 Therefore will adjust medications to plan for discharge Fentanyl 100mcg Dilaudid 8mg q3prn PO instead of IV Dilaudid Oxycodone IR 30 q4 prn pain. Will continue on gabapentin, toradol at this time. Ativan to remain atc anxiety Patient understands risk of all above medications. His goals in the picture of metastatic progressive cancer is comfort and quality of life He is status post radiation therapy to bilateral hips and thighs Greater than 45 minutes with consulting physicians, patient and today discussing plan for pain management at bedside
[2020-09-15] MEDS ORDERED: HYDROmorphone 4 MG TABLET PO PRN (12:51)
[2020-09-15 12:56] VITALS: BMI 26.1
[2020-09-15] MEDS: HYDROmorphone 2 MG TAB PO PRN ×2 (13:26→20:47)
[2020-09-15] MEDS ORDERED: LORazepam 2 MG/ML INJ IV STA (14:14)
[2020-09-15] MEDS: GABAPENTIN 400 MG CAP PO SCH ×2 (18:02→20:46)
[2020-09-15] MEDS: SODIUM CHLORIDE 0.9% 1,000 ML IV SCH (20:38)
[2020-09-16] MEDS: ACETAMINOPHEN TAB 325 MG TAB PO SCH ×3 (02:47→16:12)
[2020-09-16] MEDS: KETOROLAC 15 MG/ML 1 ML VIAL IVP SCH ×2 (04:58→11:54)
[2020-09-16] MEDS: polyethylene glycoL 3350 17 GM POWD.PACK PO SCH ×3 (08:00→20:25)
[2020-09-16] MEDS: methocarbamoL 500 MG TAB PO SCH ×4 (08:00→20:26)
[2020-09-16] MEDS: MEGESTROL 400 MG/10 ML CUP PO SCH (08:00)
[2020-09-16] MEDS: ENOXAPARIN 40 MG/0.4 ML SYRINGE SQ SCH (08:01)
[2020-09-16] MEDS: SENNOSIDES-DOCUSATE SODIUM 1 EACH TAB PO SCH ×2 (08:01→20:25)
[2020-09-16] MEDS: lisinopriL 10 MG TAB PO SCH (08:01)
[2020-09-16] MEDS: CYANOCOBALAMIN 500 MCG TAB PO SCH (08:01)
[2020-09-16] MEDS: dexAMETHasone 2 MG TAB PO SCH ×2 (08:01→20:25)
[2020-09-16] MEDS: DULoxetine HCL 60 MG CAPSULE.DR PO SCH (08:01)
[2020-09-16] MEDS: PANTOPRAZOLE 40 MG TABLET PO SCH (08:01)
[2020-09-16] MEDS: GABAPENTIN 400 MG CAP PO SCH ×3 (08:01→20:25)
[2020-09-16 11:41] LABS: African American GFR (CKD) >90 (>60 ml/min/1.73 sqM); Anion Gap 15 mmol/L; Blood Urea Nitrogen 26 mg/dL (9-20); Calcium 8.7 mg/dL (8.4-10.2); Carbon Dioxide 24 mmol/L (22-30); Chloride 96 mmol/L (98-107); Glucose 116 mg/dL (74-99); Non-African American GFR(CKD) >90 (>60 ml/min/1.73 sqM); Potassium 4.7 mmol/L (3.5-5.1); Sodium 135 mmol/L (137-145)
--- NOTE | 2020-09-16 13:04 | P.PN ---
Subjective Progress Note Date: 09/16/20 The patient was sleeping comfortably at the time of exam. He was easily arousable. He states that he felt fairly comfortable at this time though he has been sleeping mostly. He denied any nausea or vomiting. He had a bowel movement yesterday. Objective - Vital Signs Vital signs: Vital Signs Temp 98.0 F 09/16/20 04:20 Pulse 100 09/16/20 04:20 Resp 18 09/16/20 04:20 BP 168/96 09/16/20 04:20 Pulse Ox 99 09/16/20 04:20 Intake & Output 09/15/20 09/16/20 09/16/20 18:59 06:59 18:59 Output Total 400 Balance -400 Weight 82.554 kg Output: Urine 400 Other: Voiding Method Toilet Toilet Urinal Urinal # Voids 1 2 2 - Constitutional General appearance: Present: no acute distress - EENT Eyes: Present: EOMI ENT: Present: hearing grossly normal, normal oropharynx - Respiratory Respiratory: bilateral: CTA - Cardiovascular Rhythm: regular Heart sounds: normal: S1, S2 - Gastrointestinal General gastrointestinal: Present: soft - Integumentary Integumentary: Present: normal - Neurologic Neurologic: Present: CNII-XII intact - Musculoskeletal Musculoskeletal Comment(s): Decreased range of motion in both shoulders Musculoskeletal: Present: generalized weakness - Psychiatric Psychiatric: Present: A&O x's 3, appropriate affect - Labs CBC & Chem 7: 09/14/20 08:43 09/16/20 09:23 Labs: Abnormal Lab Results - Last 24 Hours (Table) 09/16/20 Range/Units 09:23 Sodium 135 L (137-145) mmol/L Chloride 96 L (98-107) mmol/L BUN 26 H (9-20) mg/dL Creatinine 0.58 L (0.66-1.25) mg/dL Glucose 116 H (74-99) mg/dL Microbiology - Last 24 Hours (Table) 09/10/20 17:44 Blood Culture - Preliminary Blood No Growth after 120 hours 09/10/20 17:40 Blood Culture - Preliminary Blood No Growth after 120 hours Assessment and Plan (1) Intractable pain Narrative/Plan: The patient appears to be fairly comfortable on his current regimen. He states that he would like to be sleeping less ideally. I discussed with him that at this time are main purposes palliation of his symptoms specifically the pain. The doses required for optimal pain control in his situation are likely to have side effects. Fortunately he does not appear to have any major side effects such as severe constipation or respiratory depression so far. He was advised that increased sleeping time would be considered quite acceptable if he was able to have a good pain control. If patient remains at this level of comfort, it would be reasonable to discharge him on his current regimen of fentanyl, and oral Dilaudid. Current Visit: Yes Status: Acute Code(s): R52 - PAIN, UNSPECIFIED SNOMED Code(s): 35199908 (2) Metastatic cancer Narrative/Plan: It was again discussed with the patient, that at this time we do not have any remaining systemic options for treatment of his malignancy, with expectation of any significant clinical benefit. Therefore the main focus at this time is on palliation of symptoms. Case was discussed with radiation oncology as to whether there may be a possibility of patient benefiting from radioisotope treatment with [place] or strontium as an outpatient. As he has fairly extensive disease and multiple areas of pain, this treatment would have the potential of providing some significant improvement in his bone pain. Patient was advised that this can lead to significant bone marrow suppression and therefore preclude other systemic antineoplastic therapy such as chemotherapy. However since the patient does not have effective systemic, specific, anticancer therapies remaining, it would be reasonable to consider the radioisotope treatment for palliation. Radiation oncology will contact him as an outpatient to discuss this further. Current Visit: Yes Status: Acute Code(s): C79.9 - SECONDARY MALIGNANT NEOPLASM OF UNSPECIFIED SITE SNOMED Code(s): 220518431
--- NOTE | 2020-09-16 14:01 | P.PN ---
<Ancemlo Alexandra - Last Filed: 09/16/20 13:59> Subjective Progress Note Date: 09/16/20 Principal diagnosis: Intractable cancer pain Hospital course: Patient is a 65-year-old male with a past medical history of hypertension and prostate cancer with metastasis to bone. He presented to the emergency room with uncontrolled cancer pain. Patient admitted under our services secondary to intractable cancer pain. Physical exam: Patient was seen and fully evaluated at the bedside this morning. Patient reports pain has returned and rated 8 out of 10 at time of assessment to his neck, back, and legs. Many medication changes have been made. Patient currently being given his pain medications by RN. No further adjustments to medication regimen made at this time as we are awaiting further recommendations from oncology and pain managment. Pt continues to deny experiencing any lightheadedness, headache, chest pain, palpitations, shortness of breath, or experiencing any numbness/tingling/weakness in extremities. Vital signs reviewed and stable. General: non toxic, Appears at stated age. Thin build. Appears uncomfortable. Derm: warm, dry Head: atraumatic, normocephalic, symmetric Eyes: EOMI, no lid lag, anicteric sclera Mouth: no lip lesion, mucus membranes moist Cardiovascular: S1S2 reg, no murmur, positive posterior tibial pulses bilaterally, cap refill less than 2 seconds. Lungs: Respirations even, regular, and unlabored on room air. Lungs CTA bilaterally. Abdominal: Soft, nontender to palpation, no guarding, no appreciable organomegaly Ext: Full range of motion to upper and lower extremities. No gross muscle atrophy, no edema, no contractures Neuro: GCS 15. Speech clear. No focal neuro deficits noted. Psych: Alert, oriented, appropriate affect Plan of care: Intractable cancer pain secondary to prostate cancer with metastatic bone disease -Patient undergoing palliative radiation and multiple medication changes continue to be made in attempts at obtaining adequate pain control. Current pain management regimen consists of : -Fentanyl patch 75 mg. -Dilaudid 0.5 mg every 3 hours PRN for breakthrough pain. -Toradol 15 mg every 6 hours. -Oxycodone HCL 30 mg every 4 hours -Ativan 1 mg every 6 hours. -Robaxin 500 mg QID -Gabapentin 300 mg TID -Acetaminophen 650 mg q 8 hours. -Pain management following, appreciate further recommendations. -Oncology following, appreciate further recommendations. -Orthopedic following, appreciate further recommendations. -Continue with symptomatic care and pain management. Hypertension -Monitor vital signs and continue daily medication management with lisinopril. Hypokalemia, resolved CODE STATUS: DO NOT RESUSCITATE/DO NOT INTUBATE DVT prophylaxis: Lovenox Discussed with: Patient and RN Anticipated discharge date: Clinical course to determine. Anticipated discharge place: Home A total of 45 minutes was spent on the care of this complex patient more than 50% of the time was spent in counseling and care coordination. Objective - Vital Signs Vital signs: Vital Signs Temp 98.0 F 09/16/20 04:20 Pulse 100 09/16/20 04:20 Resp 18 09/16/20 04:20 BP 168/96 09/16/20 04:20 Pulse Ox 99 09/16/20 04:20 Intake & Output 09/15/20 09/16/20 09/16/20 18:59 06:59 18:59 Output Total 400 Balance -400 Weight 82.554 kg Output: Urine 400 Other: Voiding Method Toilet Toilet Urinal Urinal # Voids 1 2 2 - Labs CBC & Chem 7: 09/14/20 08:43 09/16/20 09:23 Labs: Microbiology - Last 24 Hours (Table) 09/10/20 17:44 Blood Culture - Preliminary Blood No Growth after 120 hours 09/10/20 17:40 Blood Culture - Preliminary Blood No Growth after 120 hours <Pinky Santillan - Last Filed: 09/16/20 16:19> Objective - Vital Signs Vital signs: Vital Signs Temp 97.6 F 09/16/20 13:27 Pulse 100 09/16/20 13:27 Resp 14 09/16/20 13:27 BP 105/71 09/16/20 13:27 Pulse Ox 91 L 09/16/20 13:27 Intake & Output 09/15/20 09/16/20 09/16/20 18:59 06:59 18:59 Output Total 400 Balance -400 Weight 82.554 kg Output: Urine 400 Other: Voiding Method Toilet Toilet Urinal Urinal # Voids 1 2 2 - Labs CBC & Chem 7: 09/14/20 08:43 09/16/20 09:23 Labs: Abnormal Lab Results - Last 24 Hours (Table) 09/16/20 Range/Units 09:23 Sodium 135 L (137-145) mmol/L Chloride 96 L (98-107) mmol/L BUN 26 H (9-20) mg/dL Creatinine 0.58 L (0.66-1.25) mg/dL Glucose 116 H (74-99) mg/dL Microbiology - Last 24 Hours (Table) 09/10/20 17:44 Blood Culture - Preliminary Blood No Growth after 120 hours 09/10/20 17:40 Blood Culture - Preliminary Blood No Growth after 120 hours Assessment and Plan Assessment: Patient seen and examined independently. Patient was also seen by Ancelmo Alexandra NP and case was discussed. I am in agreement with subjective, physical exam, assessment and plan as written above and amended below. He denies any pain but states he is very sleepy. He was able to stop waking him up. General: non toxic, no distress, appears at stated age Derm: warm, dry Head: atraumatic, normocephalic, symmetric Eyes: EOMI, no lid lag, anicteric sclera Mouth: no lip lesion, mucus membranes moist Cardiovascular: S1S2 reg, no murmur, positive posterior tibial pulse bilateral, Lungs: Decreased bs bilateral, no rhonchi, no rales , no accessory muscle use Psych: Lethargic, oriented, appropriate affect Case discussed with Dr. Shafer. Goal is to transition presented to oral Dilaudid and fentanyl for discharge home. We'll discontinue the oral OxyIR during his hospital stay, with goal of transitioning patient to home. IV Toradol and start oral Motrin.
[2020-09-16] MEDS ORDERED: HYDROmorphone 0.5 MG/0.5 ML SYRINGE IVP PRN (15:52)
[2020-09-16] MEDS: IBUPROFEN 600 MG TAB PO SCH ×2 (16:12→20:25)
[2020-09-16 17:17] LABS: HCT 35.2 % (39.6-50.0); HGB 10.4 g/dL (13.0-17.0); MCH 28.5 pg (27.0-32.0); MCHC 29.5 g/dL (32.0-37.0); MCV 96.4 fL (80.0-97.0); Mean Platelet Volume 11.8 fL (9.5-12.2); Platelet Count 174 X 10*3/uL (140-440); RBC 3.65 X 10*6/uL (4.40-5.60); RDW 16.4 % (11.5-14.5)
[2020-09-16] MEDS: HYDROmorphone 2 MG TAB PO PRN ×2 (18:28→21:29)
[2020-09-16] MEDS: LORazepam 1 MG TAB PO PRN (19:10)
[2020-09-17] MEDS: HYDROmorphone 2 MG TAB PO PRN ×4 (00:15→18:11)
[2020-09-17] MEDS: SODIUM CHLORIDE 0.9% 1,000 ML IV SCH ×2 (01:22→21:34)
[2020-09-17] MEDS: ACETAMINOPHEN TAB 325 MG TAB PO SCH ×3 (01:22→16:59)
[2020-09-17] MEDS: ENOXAPARIN 40 MG/0.4 ML SYRINGE SQ SCH (08:04)
[2020-09-17] MEDS: MEGESTROL 400 MG/10 ML CUP PO SCH (08:05)
[2020-09-17] MEDS: methocarbamoL 500 MG TAB PO SCH ×4 (08:05→21:34)
[2020-09-17] MEDS: CYANOCOBALAMIN 500 MCG TAB PO SCH (08:05)
[2020-09-17] MEDS: PANTOPRAZOLE 40 MG TABLET PO SCH (08:05)
[2020-09-17] MEDS: DULoxetine HCL 60 MG CAPSULE.DR PO SCH (08:05)
[2020-09-17] MEDS: IBUPROFEN 600 MG TAB PO SCH ×3 (08:06→21:34)
[2020-09-17] MEDS: SENNOSIDES-DOCUSATE SODIUM 1 EACH TAB PO SCH ×2 (08:06→21:34)
[2020-09-17] MEDS: dexAMETHasone 2 MG TAB PO SCH ×2 (08:06→21:34)
[2020-09-17] MEDS: lisinopriL 10 MG TAB PO SCH (08:06)
[2020-09-17] MEDS: GABAPENTIN 400 MG CAP PO SCH ×3 (08:06→21:33)
[2020-09-17] MEDS: polyethylene glycoL 3350 17 GM POWD.PACK PO SCH ×2 (08:07→21:34)
--- NOTE | 2020-09-17 11:26 | P.DS ---
<Ancelmo Alexandra - Last Filed: 09/17/20 11:12> Providers Expected date of discharge: 09/17/20 Hospital Course: Discharge Diagnosis: Intractable cancer pain secondary to prostate cancer with metastatic bone disease, controlled at this time Hypertension Hypokalemia, resolved Hospital Course: Patient is a 65-year-old male with a past medical history of hypertension and prostate cancer with metastasis to bone. He presented to the emergency room with uncontrolled cancer pain and was admitted under our services secondary to this intractable metastatic cancer pain. Patient was under care of our hospitalist team along with oncology, pain management, and store receiving specialist. Multiple changes were made to medication management prior to obtaining adequate pain control for patient. Patient being discharged home on Dilaudid 8 mg every 3 hours as needed for pain, Fentanyl 100 g per hour patch, duloxetine, dexamethasone, Megace, gabapentin, and methocarbamol. Patient scheduled to follow-up with oncologist this week. Physical exam: Patient was seen and fully evaluated at the bedside this morning. He reports that he has finally obtained pain control. Patient reports he continues to experience pain but states it elevates up to about a 6 out of 10 which is much better than previous 10 out of 10. Patient reports that he finally feels pain is controlled enough to go home. Patient was educated on importance of taking pain medication only exactly as prescribed and verbalized understanding. Patient's took prescriptions for pain medication home yesterday and was able to get these filled. Patient stable for discharge at this time denying any lightheadedness, headache, chest pain, palpitations, shortness of breath, or ex periencing any numbness/tingling/weakness in extremities. His current pain experienced in his neck/back/legs rated 2 out of 10 at this time. Vital signs reviewed and remained stable. General: non toxic, Appears at stated age. Thin build. Appears uncomfortable. Derm: warm, dry Head: atraumatic, normocephalic, symmetric Eyes: EOMI, no lid lag, anicteric sclera Mouth: no lip lesion, mucus membranes moist Cardiovascular: S1S2 reg, no murmur, positive posterior tibial pulses bilaterally, cap refill less than 2 seconds. Lungs: Respirations even, regular, and unlabored on room air. Lungs CTA b ilaterally. Abdominal: Soft, nontender to palpation, no guarding, no appreciable organomegaly Ext: Full range of motion to upper and lower extremities. No gross muscle atrophy, no edema, no contractures Neuro: GCS 15. Speech clear. No focal neuro deficits noted. Psych: Alert, oriented, appropriate affect A total of 45 minutes of time were spent preparing this complex discharge summary. Patient Condition at Discharge: Fair Plan - Discharge Summary Discharge Rx Participant: No New Discharge Prescriptions: New fentaNYL 100MCG/HR PATCH [Duragesic 100MCG/HR] 100 mcg TRANSDERM Q72H 3 Days #5 patch HYDROmorphone HCL [Dilaudid] 8 mg PO Q3HR PRN 10 Days #80 tab PRN Reason: Moderate To Severe Pain DULoxetine HCL [Cymbalta] 60 mg PO DAILY 30 Days #30 capsule. dexAMETHasone [Hexadrol] 2 mg PO BID 30 Days #60 tab Megestrol [Megace] 800 mg PO DAILY 30 Days #30 ml Gabapentin [Neurontin] 400 mg PO TID 30 Days #90 cap methocarbamoL [Robaxin] 500 mg PO QID 30 Days #120 tab Continue Enalapril Maleate [Vasotec] 10 mg PO DAILY polyethylene glycoL 3350 [Miralax] 17 gm PO BID #60 powd.pack Acetaminophen Tab [Tylenol] 650 mg PO Q6HR PRN tab PRN Reason: Mild Pain Or Fever > 100.5 lisinopriL [Zestril] 10 mg PO DAILY tab LORazepam [Ativan] 1 mg PO Q6H PRN PRN Reason: Anxiety Sennosides-Docusate Sodium [Senokot-S] 2 tab PO BID Ibuprofen [Motrin] 600 mg PO TID #90 tab Pantoprazole [Protonix] 40 mg PO AC-BRKFST 30 Days #30 tablet.dr Discontinued Cefuroxime Axetil [Ceftin] 500 mg PO BID 1 Days #20 tab fentaNYL 50MCG/HR PATCH [Duragesic 50MCG/HR] 1 patch TRANSDERM Q72H 30 Days patch oxyCODONE HCL [oxyCODONE HCL (IR)] 30 mg PO Q4H PRN #120 tab PRN Reason: Pain Discharge Medication List Enalapril Maleate [Vasotec] 10 mg PO DAILY 07/09/20 [History] Acetaminophen Tab [Tylenol] 650 mg PO Q6HR PRN tab 02/25/21 [Rx] lisinopriL [Zestril] 10 mg PO DAILY tab 09/07/20 [Rx] polyethylene glycoL 3350 [Miralax] 17 gm PO BID #60 powd.pack 09/07/20 [Rx] LORazepam [Ativan] 1 mg PO Q6H PRN 09/10/20 [History] Sennosides-Docusate Sodium [Senokot-S] 2 tab PO BID 09/10/20 [History] HYDROmorphone HCL [Dilaudid] 8 mg PO Q3HR PRN 10 Days #80 tab 09/16/20 [Rx] fentaNYL 100MCG/HR PATCH [Duragesic 100MCG/HR] 100 mcg TRANSDERM Q72H 3 Days #5 patch 09/16/20 [Rx] DULoxetine HCL [Cymbalta] 60 mg PO DAILY 30 Days #30 capsule. 09/17/20 [Rx] Gabapentin [Neurontin] 400 mg PO TID 30 Days #90 cap 09/17/20 [Rx] Ibuprofen [Motrin] 600 mg PO TID #90 tab 09/17/20 [Rx] Megestrol [Megace] 800 mg PO DAILY 30 Days #30 ml 09/17/20 [Rx] Pantoprazole [Protonix] 40 mg PO AC-BRKFST 30 Days #30 tablet. 09/17/20 [Rx] dexAMETHasone [Hexadrol] 2 mg PO BID 30 Days #60 tab 09/17/20 [Rx] methocarbamoL [Robaxin] 500 mg PO QID 30 Days #120 tab 09/17/20 [Rx] Follow up Appointment(s)/Referral(s): Ernesto Rod MD [STAFF PHYSICIAN] - 1-2 Days (office is closed at time of discharge, please call friday for appointment) [facility], [NON-STAFF] - 1 Week Arpan Bowers MD [STAFF PHYSICIAN] - 09/20/20 (Dr Bowers will call you on phone # [phone] between 3:30 and 5pm Sunday, September 20, 2020 for follow up appt) None,Stated [Primary Care Provider] - 1-2 days Patient Instructions/Handouts: Methocarbamol (By mouth), Fentanyl (Absorbed through the skin), Hydromorphone (By mouth), Gabapentin (By mouth), Megestrol Acetate (By mouth), Dexamethasone (By mouth), Pantoprazole (By mouth), Duloxetine (By mouth) Activity/Diet/Wound Care/Special Instructions: Activity: As tolerated Diet: Regular diet Add ensure 3x daily Special Instructions: Follow up as instructed. Please take medication as directed, do not take more than directed. If pain worsens and is no longer being adequately controlled, please follow up with your oncologist. Thank you for allowing us to participate in your care. Discharge Disposition: HOME WITH HOME HEALTH SERVICES <Pinky Santillan - Last Filed: 09/17/20 15:07> Providers Date of admission: 09/10/20 19:53 Attending physician: Lily Swenson MD Consults: 09/10/20 23:32 Consult Physician Routine Consulting Provider: Ernesto Rod Consult Reason/Comments: intractable pain Do you want consulting provider notified?: Yes 09/11/20 09:15 Consult Physician Routine Consulting Provider: Arpan Bowers Consult Reason/Comments: Neoplasm related pain Do you want consulting provider notified?: Yes 09/13/20 10:50 Consult Physician Routine Consulting Provider: Olvin Carmen Consult Reason/Comments: Assess for interventions to improve QOL and decr Pain - Cervical spine Do you want consulting provider notified?: Yes Primary care physician: Stated None Hospital Course: Patient seen and examined independently. Patient was also seen by Ancelmo Alexandra NP and case was discussed. I am in agreement with subjective, physical exam, assessment and plan as written above and amended below. Patient states that his pain is well controlled. He feels ready to go home. He is asking to be discharged. General: non toxic, no distress, appears at stated age Derm: warm, dry Head: atraumatic, normocephalic, symmetric Eyes: EOMI, no lid lag, anicteric sclera Mouth: no lip lesion, mucus membranes moist Cardiovascular: S1S2 reg, no murmur, positive posterior tibial pulse bilateral, Lungs: CTA bilateral, no rhonchi, no rales , no accessory muscle use Abdominal: soft, nontender to palpation, no guarding, no appreciable organomegaly Psych: Awake, alert, appears euphoric. Additional diagnoses: Fall- see separate Progress note for further details. We'll continue to monitor closely with requirements for high risk pain medications secondary to intractable pain associated with his prostatic malignancy. We'll monitor for the next 24 hours.
--- NOTE | 2020-09-17 12:23 | P.PN ---
Progress Note - Text Progress Note Date: 09/17/20 Received page to come to bedside to assess pt secondary to his reports of having a fall. Pt was reportedly found lying in bed and reported that he just had a fall when he was walking around in the room and became unsteady on his feet resulting in him falling and landing onto his right hip and arm. Pt denies having any dizziness or lightheadedness prior to this reported fall, stating he simply tripped and fell over his own two feet. Patient denies hitting his head or having any loss of consciousness. He reports he landed on his right side hitting his right arm/elbow and right hip. Patient states he was immediately able to get himself up and walk to bed. Patient denied having any injuries or pain from the fall. Upon assessment patient was alert and pleasantly oriented to person, place, time, and situation. He repeatedly denied having any pain or injuries resulting from the fall. Full-body assessment completed, no obvious injuries, redness, bruising, lacerations, abrasions, or skin tears noted. Recommended x-ray of right arm and right hip secondary to patient's cancer with metastasis to bone and high risk for fractures and patient declined at this time stating, "I am not hurt, I don't need any x-rays." We will hold off on discharge at this time to monitor patient overnight. Order placed for orthostatic vital signs. Fall precautions in place.
[2020-09-17] MEDS ORDERED: SODIUM CHLORIDE 0.9% 1,000 ML IV ONE (16:06)
[2020-09-17 22:48] VITALS: RESP 16
[2020-09-18] MEDS: ACETAMINOPHEN TAB 325 MG TAB PO SCH ×2 (00:28→08:03)
[2020-09-18 04:12] VITALS: TEMP 98.2
[2020-09-18 07:12] LABS: Anisocytosis Slight; HCT 24.9 % (39.0-53.0); HGB 8.2 gm/dL (13.0-17.5); Hypochromasia Slight; MCH 29.7 pg (25.0-35.0); Mean Platelet Volume 9.4; Platelet Count 150 k/uL (150-450); RBC 2.77 m/uL (4.30-5.90); RDW 16.5 % (11.5-15.5); WBC 6.1 k/uL (3.8-10.6)
[2020-09-18 07:22] LABS: African American GFR (CKD) >90 (>60 ml/min/1.73 sqM); Anion Gap 6 mmol/L; Blood Urea Nitrogen 22 mg/dL (9-20); Calcium 7.8 mg/dL (8.4-10.2); Carbon Dioxide 28 mmol/L (22-30); Chloride 100 mmol/L (98-107); Glucose 118 mg/dL (74-99); Non-African American GFR(CKD) >90 (>60 ml/min/1.73 sqM); Sodium 134 mmol/L (137-145)
[2020-09-18 07:28] LABS: Potassium 4.4 mmol/L (3.5-5.1)
[2020-09-18] MEDS: MEGESTROL 400 MG/10 ML CUP PO SCH (08:02)
[2020-09-18] MEDS: dexAMETHasone 2 MG TAB PO SCH (08:03)
[2020-09-18] MEDS: GABAPENTIN 400 MG CAP PO SCH (08:03)
[2020-09-18] MEDS: CYANOCOBALAMIN 500 MCG TAB PO SCH (08:03)
[2020-09-18] MEDS: methocarbamoL 500 MG TAB PO SCH (08:04)
[2020-09-18] MEDS: SENNOSIDES-DOCUSATE SODIUM 1 EACH TAB PO SCH (08:04)
[2020-09-18] MEDS: polyethylene glycoL 3350 17 GM POWD.PACK PO SCH (08:04)
[2020-09-18] MEDS: DULoxetine HCL 60 MG CAPSULE.DR PO SCH (08:04)
[2020-09-18] MEDS: lisinopriL 10 MG TAB PO SCH (08:06)
[2020-09-18] MEDS: IBUPROFEN 600 MG TAB PO SCH (08:06)
[2020-09-18] MEDS: ENOXAPARIN 40 MG/0.4 ML SYRINGE SQ SCH (08:07)
[2020-09-18] MEDS: PANTOPRAZOLE 40 MG TABLET PO SCH (08:09)
[2020-09-18 08:23] LABS: Band Neutrophils % 5 %; Basophils # (M) 0.06 k/uL (0-0.2); Eosinophils # (M) 0.06 k/uL (0-0.7); Lymphocytes # (M) 0.55 k/uL (1.0-4.8); Metamyelocytes # (M) 0.06 k/uL (0); Metamyelocytes % 1 %; Monocytes # (M) 0.37 k/uL (0-1.0); Myelocytes # (M) 0.12 k/uL (0); Myelocytes % 2 %; Neutrophils % (M) 77 %; Nucleated Red Blood Cells 0 /100 WBC (0-0); Total Cells Counted 200
[2020-09-18 09:27] VITALS: BP 142/83
[2020-09-18] MEDS ORDERED: SODIUM CHLORIDE 0.9% 1,000 ML IV ONE (09:50)
--- NOTE | 2020-09-18 10:03 | P.DS ---
<Ancelmo Alexandra - Last Filed: 09/18/20 09:56> Providers Expected date of discharge: 09/18/20 Hospital Course: Discharge Diagnosis: Intractable cancer pain secondary to prostate cancer with metastatic bone disease, controlled at this time Fall, unwitnessed Orthostatic Hypotension likely adverse reaction of pain medications Hypertension Hypokalemia, resolved Hospital Course: Patient is a 65-year-old male with a past medical history of hypertension and prostate cancer with metastasis to bone. He presented to the emergency room with uncontrolled cancer pain and was admitted under our services secondary to this intractable metastatic cancer pain. Patient was under care of our hospitalist team along with oncology, pain management, and information management specialist. Multiple changes were made to medication management prior to obtaining adequate pain control for patient. Patient had a reported unwitnessed fall in which he reports landing onto his right arm/elbow and right hip but denied hitting his head, having any loss of consciousness, or sustaining any injuries or pain. Patient had no noted evidence of redness, bruising, obvious injury, or pain upon palpation. Patient was found to have positive orthostatic hypotension likely secondary to adverse effects of pain medications. Patient medicated with fluids to assist with orthostatic hypotension. Discussed with Oncologist, Dr. Rod, he stated that no changes need to be made to patient's medication as pain will then no longer be controlled. Had long discussion with patient on importance of rising slowly to prevent any unwanted falls or inj uries. Pt also instructed to increase oral fluid intake. Patient being discharged home on Dilaudid 8 mg every 3 hours as needed for pain, Fentanyl 100 g per hour patch, duloxetine, dexamethasone, Megace, gabapentin, and methocarbamol. Patient scheduled to follow-up with oncologist this week. Physical exam: Patient was seen and fully evaluated at the bedside this morning. He reports that his pain remains controlled. He continues to deny having any new pains or injuries from reported fall that occurred yesterday. Pt requesting to be discharged, stating "I feel fine and I am ready to go." Pt denies any further complaints or concerns including headache, changes in vision or hearing, chest pain or palpitations, shortness of breath, or experiencing any weakness/tingling/numbness/swelling in extremities. Pt stable to be discharged home for palliative care with family and homecare. General: non toxic, Appears at stated age. Thin build. Appears uncomfortable. Derm: warm, dry Head: atraumatic, normocephalic, symmetric Eyes: EOMI, no lid lag, anicteric sclera Mouth: no lip lesion, mucus membranes moist Cardiovascular: S1S2 reg, no murmur, positive posterior tibial pulses bilaterally, cap refill less than 2 seconds. Lungs: Respirations even, regular, and unlabored on room air. Lungs CTA bilaterally. Abdominal: Soft, nontender to palpation, no guarding, no appreciable organomegaly Ext: Full range of motion to upper and lower extremities. No gross muscle atrophy, no edema, no contractures Neuro: GCS 15. Speech clear. No focal neuro deficits noted. Psych: Alert, oriented, appropriate affect A total of 45 minutes of time were spent preparing this complex discharge summary. Patient Condition at Discharge: Stable Plan - Discharge Summary Discharge Rx Participant: No New Discharge Prescriptions: New fentaNYL 100MCG/HR PATCH [Duragesic 100MCG/HR] 100 mcg TRANSDERM Q72H 3 Days #5 patch HYDROmorphone HCL [Dilaudid] 8 mg PO Q3HR PRN 10 Days #80 tab PRN Reason: Moderate To Severe Pain DULoxetine HCL [Cymbalta] 60 mg PO DAILY 30 Days #30 capsule.dr dexAMETHasone [Hexadrol] 2 mg PO BID 30 Days #60 tab Megestrol [Megace] 800 mg PO DAILY 30 Days #30 ml Gabapentin [Neurontin] 400 mg PO TID 30 Days #90 cap methocarbamoL [Robaxin] 500 mg PO QID 30 Days #120 tab Continue Enalapril Maleate [Vasotec] 10 mg PO DAILY polyethylene glycoL 3350 [Miralax] 17 gm PO BID #60 powd.pack Acetaminophen Tab [Tylenol] 650 mg PO Q6HR PRN tab PRN Reason: Mild Pain Or Fever > 100.5 LORazepam [Ativan] 1 mg PO Q6H PRN PRN Reason: Anxiety Sennosides-Docusate Sodium [Senokot-S] 2 tab PO BID Ibuprofen [Motrin] 600 mg PO TID #90 tab Pantoprazole [Protonix] 40 mg PO AC-BRKFST 30 Days #30 tablet.dr Discontinued Cefuroxime Axetil [Ceftin] 500 mg PO BID 1 Days #20 tab fentaNYL 50MCG/HR PATCH [Duragesic 50MCG/HR] 1 patch TRANSDERM Q72H 30 Days patch lisinopriL [Zestril] 10 mg PO DAILY tab oxyCODONE HCL [oxyCODONE HCL (IR)] 30 mg PO Q4H PRN #120 tab PRN Reason: Pain Discharge Medication List Enalapril Maleate [Vasotec] 10 mg PO DAILY 07/09/20 [History] Acetaminophen Tab [Tylenol] 650 mg PO Q6HR PRN tab 09/07/20 [Rx] polyethylene glycoL 3350 [Miralax] 17 gm PO BID #60 powd.pack 09/07/20 [Rx] LORazepam [Ativan] 1 mg PO Q6H PRN 09/10/20 [History] Sennosides-Docusate Sodium [Senokot-S] 2 tab PO BID 09/10/20 [History] HYDROmorphone HCL [Dilaudid] 8 mg PO Q3HR PRN 10 Days #80 tab 09/16/20 [Rx] fentaNYL 100MCG/HR PATCH [Duragesic 100MCG/HR] 100 mcg TRANSDERM Q72H 3 Days #5 patch 09/16/20 [Rx] DULoxetine HCL [Cymbalta] 60 mg PO DAILY 30 Days #30 capsule. 09/17/20 [Rx] Gabapentin [Neurontin] 400 mg PO TID 30 Days #90 cap 09/17/20 [Rx] Ibuprofen [Motrin] 600 mg PO TID #90 tab 09/17/20 [Rx] Megestrol [Megace] 800 mg PO DAILY 30 Days #30 ml 09/17/20 [Rx] Pantoprazole [Protonix] 40 mg PO AC-BRKFST 30 Days #30 tablet. 09/17/20 [Rx] dexAMETHasone [Hexadrol] 2 mg PO BID 30 Days #60 tab 09/17/20 [Rx] methocarbamoL [Robaxin] 500 mg PO QID 30 Days #120 tab 09/17/20 [Rx] Follow up Appointment(s)/Referral(s): [facility], [NON-STAFF] - 1 Week Arpan Bowers MD [STAFF PHYSICIAN] - 09/20/20 (Dr Bowers will call you on phone # [phone] between 3:30 and 5pm Sunday, September 20, 2020 for follow up appt) Shavonne Yancey MD [STAFF PHYSICIAN] - 09/20/20 1:15 pm Patient Instructions/Handouts: Methocarbamol (By mouth), Fentanyl (Absorbed through the skin), Hydromorphone (By mouth), Gabapentin (By mouth), Megestrol Acetate (By mouth), Dexamethasone (By mouth), Pantoprazole (By mouth), Duloxetine (By mouth), Chronic Pain (DC) Activity/Diet/Wound Care/Special Instructions: Activity: As tolerated Diet: Regular diet Add ensure 3x daily Drink plenty of fluids. Special Instructions: You have been positive for orthostatic vital signs meaning that your blood pressure lowers when you stand up. This is likely secondary to the strong pain medications that you are currently taking to treat your pain. It is very impor tant that you rise slowly from a lying to sitting position and wait a moment prior to standing and again upon standing you will need to rise slowly and wait a moment prior to walking. If you experience any dizziness or lightheadedness, it is important to sit back down to prevent any unwanted falls or injuries. Drink fluids, this will also help prevent orthostatic hypotension. Please take medication as directed, do not take more than directed. If pain worsens and is no longer being adequately controlled, please follow up with your oncologist. Thank you for allowing us to participate in your care. Discharge Disposition: HOME WITH HOME HEALTH SERVICES <Pinky Santillan - Last Filed: 09/18/20 13:31> Providers Date of admission: 09/10/20 19:53 Attending physician: Lily Swenson MD Consults: 09/10/20 23:32 Consult Physician Routine Consulting Provider: Ernesto Rod Consult Reason/Comments: intractable pain Do you want consulting provider notified?: Yes 09/11/20 09:15 Consult Physician Routine Consulting Provider: Arpan Bowers Consult Reason/Comments: Neoplasm related pain Do you want consulting provider notified?: Yes 09/13/20 10:50 Consult Physician Routine Consulting Provider: Olvin Carmen Consult Reason/Comments: Assess for interventions to improve QOL and decr Pain - Cervical spine Do you want consulting provider notified?: Yes Primary care physician: Stated None Hospital Course: Patient seen and examined independently. Patient was also seen by Ancelmo Nasrin, FRIT [employer]ER and case was discussed. I am in agreement with discharge diagnosis, hospital course, and physical exam as written above and amended below. Patient seen and examined. He denies any pain. We discussed the importance of rising slowly from a seated due to his blood pressure becoming low. We also discussed how we discontinue his lisinopril, I also recommended use of HERLINDA hose. General: non toxic, no distress, appears at stated age Derm: warm, dry Head: atraumatic, normocephalic, symmetric Eyes: EOMI, no lid lag, anicteric sclera Mouth: no lip lesion, mucus membranes moist Cardiovascular: S1S2 reg, no murmur, positive posterior tibial pulse bilateral, Lungs: CTA bilateral, no rhonchi, no rales , no accessory muscle use Neuro: CN II-XI grossly intact, no focal neuro deficits Psych: Alert, oriented, appropriate affect
[2020-09-18 10:48] VITALS: PULSE 94
[2020-09-18] MEDS: HYDROmorphone 2 MG TAB PO PRN (11:37)
--- NOTE | 2020-09-18 12:07 | P.PN ---
Subjective Progress Note Date: 09/18/20 Principal diagnosis: Intractable pain from malignancy In f/u today pt is reporting fair pain control. He is looking forward to going home and eating Objective - Vital Signs Vital signs: Vital Signs Temp 98.2 F 09/18/20 04:11 Pulse 101 H 09/18/20 09:26 Resp 16 09/18/20 08:00 BP 142/83 09/18/20 09:26 Pulse Ox 94 L 09/18/20 04:11 Intake & Output 09/17/20 09/18/20 09/18/20 18:59 06:59 18:59 Intake Total 440 Output Total 500 Balance -60 Intake: Oral 440 Output: Urine 500 Other: Voiding Method Toilet Urinal # Bowel Movements 1 - Constitutional General appearance: Present: cooperative, no acute distress, thin - EENT Eyes: Present: anicteric sclerae, EOMI ENT: Present: hearing grossly normal, normal oropharynx - Respiratory Respiratory: bilateral: CTA - Cardiovascular Rhythm: regular Heart sounds: normal: S1, S2 Abnormal Heart Sounds: Absent: systolic murmur, diastolic murmur, rub, S3 Gallop, S4 Gallop, click, other - Gastrointestinal General gastrointestinal: Present: normal bowel sounds, soft - Integumentary Integumentary: Present: pale - Neurologic Neurologic: Present: CNII-XII intact - Musculoskeletal Musculoskeletal: Present: generalized weakness, strength equal bilaterally - Psychiatric Psychiatric: Present: A&O x's 3, appropriate affect, intact judgment & insight - Labs CBC & Chem 7: 09/18/20 05:54 09/18/20 05:54 Labs: Abnormal Lab Results - Last 24 Hours (Table) 09/18/20 09/18/20 Range/Units 05:54 05:54 RBC 2.77 L (4.30-5.90) m/uL Hgb 8.2 L (13.0-17.5) gm/dL Hct 24.9 L (39.0-53.0) % RDW 16.5 H (11.5-15.5) % Lymphocytes # (Manual) 0.55 L (1.0-4.8) k/uL Metamyelocytes # (Man) 0.06 H (0) k/uL Myelocytes # (Manual) 0.12 H (0) k/uL Sodium 134 L (137-145) mmol/L BUN 22 H (9-20) mg/dL Creatinine 0.44 L (0.66-1.25) mg/dL Glucose 118 H (74-99) mg/dL Calcium 7.8 L (8.4-10.2) mg/dL Assessment and Plan (1) Chronic pain due to neoplasm Status: Acute Priority: High Code(s): G89.3 - NEOPLASM RELATED PAIN (ACUTE) (CHRONIC) SNOMED Code(s): 90359527259375 (2) Intractable pain Status: Acute Priority: High Code(s): R52 - PAIN, UNSPECIFIED SNOMED Code(s): 62885090 (3) Prostate cancer metastatic to bone Status: Chronic Priority: Medium Code(s): C61 - MALIGNANT NEOPLASM OF PROSTATE; C79.51 - SECONDARY MALIGNANT NEOPLASM OF BONE SNOMED Code(s): 418120706 Plan: Pain meds adjusted. Pt reporting control on current regimen. Rx were sent for fentanyl and dilaudid. Reviewed with pt severe orthostatic hypotension-he is on multiple meds that are contributing to the problem. He was advised liberal fluids at all times, change positions slowly and that he is very high fall risk. Also, advised pt not to be messing around with his meds-take the ones prescribed ATC every day and PRN when needed Reviewed prevention of narcotic induced constipation-senna 1-2 tabs BID, Milk of mag or miralax daily Pt has f/u with Dr. Yancey in 2 days. He is having conversation with Rad Onc that day as well-treat painful bone mets. Ok for discharge from Hem/Onc standpoint once cleared by Attending and other Consults. Did discuss case with Attending
== END 2020-09-18 11:56 | disposition home health service (06) | DRG 948 ==
LOC: EC 16:51 → 5NMEDONC 19:53
PROVIDERS: ADMIT Internal Medicine; ATTEND Internal Medicine
PROC: 30233N1 Transfusion of Nonautologous Red Blood Cells into Peripheral Vein, Percutaneous Approach (ICD-10-PCS; principal; 2020-09-12)
PROC: DP091ZZ Beam Radiation of Femur using Photons 1 - 10 MeV (ICD-10-PCS; 2020-09-12)
PROC: DP0C1ZZ Beam Radiation of Other Bone using Photons 1 - 10 MeV (ICD-10-PCS; 2020-09-12)
DX: G89.3 Neoplasm related pain (acute) (chronic) (principal); E87.2 Acidosis; C79.51 Secondary malignant neoplasm of bone; C79.31 Secondary malignant neoplasm of brain; D69.6 Thrombocytopenia, unspecified; C61 Malignant neoplasm of prostate; Z20.822 Contact with and (suspected) exposure to COVID-19; Z66 Do not resuscitate; Z51.5 Encounter for palliative care; R00.0 Tachycardia, unspecified; I10 Essential (primary) hypertension; D63.0 Anemia in neoplastic disease; F41.9 Anxiety disorder, unspecified; I95.1 Orthostatic hypotension; E87.6 Hypokalemia; Z71.3 Dietary counseling and surveillance; R26.81 Unsteadiness on feet; W01.0XXA Fall on same level from slipping, tripping and stumbling without subsequent striking against object, initial encounter; Z79.899 Other long term (current) drug therapy; Z87.01 Personal history of pneumonia (recurrent); Z92.21 Personal history of antineoplastic chemotherapy; Z96.641 Presence of right artificial hip joint; Z98.890 Other specified postprocedural states; Z87.81 Personal history of (healed) traumatic fracture; Z87.891 Personal history of nicotine dependence; Z88.5 Allergy status to narcotic agent
CPT/HCPCS: 36415; 70551; 71045; 72156; 77280; 77307; 77334; 77412; 77417; 77427; 80048; 80053; 81001; 82607; 83605; 83735; 84443; 85025; 85027; 86850; 86900; 86901; 86920; 87040; 87635; 93005; 96361; 96374; 96375; 99285

== ENCOUNTER → 2021-01-10 | Outpatient (CLI) | payer MEDICARE, OTHER ==
--- NOTE | 2021-01-11 16:12 | XR ---
EXAMINATION TYPE: XR tibia fibula LT DATE OF EXAM: 01/10/2021 CLINICAL HISTORY: Severe bilateral foot and leg pain for 2 months. TECHNIQUE: Two views of the left leg are obtained. COMPARISON: None FINDINGS: There is no evidence of acute fracture or dislocation of the left tibia or fibula. There ar e areas of mottled sclerosis at the distal femur, proximal tibia, and proximal fibula. A bone scan wo uld be helpful for further evaluation. Degenerative changes of the knee with joint space narrowing of the medial and lateral compartment. Mild cortical remodeling of the lateral malleolus. Impression: 1. Mottled area of the proximal tibia and fibula and distal femur with questionable sclerosis. A nucl ear medicine bone scan is recommended for further evaluation.
== END | disposition home or self-care (01) ==
LOC: RADXRMAIN 15:24
PROVIDERS: ATTEND Radiology Radiation Oncology
DX: M89.8X6 Other specified disorders of bone, lower leg (principal); M17.12 Unilateral primary osteoarthritis, left knee

== ENCOUNTER 2021-03-21 21:45 | Inpatient (IN) | payer MEDICARE, OTHER ==
[2021-03-21] MEDS ORDERED: SODIUM CHLORIDE 0.9% 1,000 ML IV ONE (22:46)
[2021-03-21] MEDS ORDERED: ONDANSETRON 4 MG/2 ML VIAL IVP STA (22:46)
[2021-03-21 22:53] LABS: INR 1.1 (<1.2); Partial Thromboplastin Time 26.4 sec (22.0-30.0); Prothrombin Time 11.4 sec (9.0-12.0)
--- NOTE | 2021-03-21 22:53 | ED ---
Male Urogenital HPI - General Chief complaint: Urogenital Stated complaint: Blood in Urine Time Seen by Provider: 03/21/21 22:11 Source: patient, EMS Mode of arrival: EMS Limitations: no limitations - History of Present Illness Initial comments: This patient is 66-year-old man who presents to be evaluated for hematuria. Patient does acknowledge history of stage IV metastatic prostate cancer. The patient has been receiving palliative radiation for bony metastases to his left hip. Patient noticed having some hematuria starting yesterday in the afternoon. When this continued through today, patient felt he should be evaluated. Patient does have some occasional lightheadedness however has had this in the past. He has not noted symptoms of infection. No fever or chills. No dysuria or frequency. There is no chest pain, cough, dyspnea. No palpitations. MD Complaint: other -: hour(s) Location: penis Radiation: none Severity scale (1-10): 0 Consistency: constant Improves with: none Worsens with: none new medication Reports: blood in urine - Related Data Home Medications Medication Instructions Recorded Confirmed Cyclobenzaprine [Flexeril] 10 mg PO TID PRN 03/21/21 03/21/21 Enalapril [Vasotec] 10 mg PO DAILY PRN 03/21/21 03/21/21 Gabapentin [Neurontin] 400 mg PO TID PRN 03/21/21 03/21/21 Hydromorphone 1mg/Ml 1 dose PO Q4H PRN 03/21/21 03/21/21 Ibuprofen [Motrin] 600 mg PO TID PRN 03/21/21 03/21/21 LORazepam [Ativan] 0.5 mg PO Q6H PRN 03/21/21 03/21/21 Steroid Unknown Dose 1 dose PO DAILY 03/21/21 03/21/21 oxyCODONE HCL [oxyCODONE HCL (IR)] 30 mg PO Q4H PRN 03/21/21 03/21/21 Allergies Allergy/AdvReac Type Severity Reaction Status Date / Time morphine AdvReac Unknown Verified 03/21/21 22:31 Review of Systems ROS Statement: Those systems with pertinent positive or pertinent negative responses have been documented in the HPI. ROS Other: All systems not noted in ROS Statement are negative. Constitutional: Denies: fever, chills Respiratory: Denies: cough, dyspnea Cardiovascular: Reports: edema (Chronic). Denies: chest pain, palpitations, orthopnea, syncope Gastrointestinal: Reports: constipation. Denies: abdominal pain, nausea, vomiting, diarrhea Genitourinary: Reports: hematuria. Denies: urgency, dysuria, frequency, testicular pain Musculoskeletal: Reports: arthralgia (Chronic). Denies: back pain Skin: Denies: rash Neurological: Denies: headache, weakness Past Medical History Past Medical History: Cancer, Hypertension, Pneumonia Additional Past Medical History / Comment(s): Pt recently admitted to [facility] on07/25/20 with fever/generalized weakness/SIRS/suspected covid 19 with negative rapid PCR/increased inflammatory markers, normocytic anemia/transfusion. 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 History of Any Multi-Drug Resistant Organisms: None Reported Past Surgical History: Joint Replacement, Orthopedic Surgery Additional Past Surgical History / Comment(s): Prostate biopsy, L hand nail gun injury with repair, R ankle fractures with surgery, R total hip arthroplasty, sinus surgery. Past Anesthesia/Blood Transfusion Reactions: No Reported Reaction Additional Past Anesthesia/Blood Transfusion Reaction / Comment(s): Pt has received blood in past without reaction. Past Psychological History: No Psychological Hx Reported Smoking Status: Former smoker - Past Family History Father Family Medical History: No Reported History Additional Family Medical History / Comment(s): Father is 90yrs old. Mother Additional Family Medical History / Comment(s): Mother had multiple medical problems, pt prefers not to discuss at this time. family Family Medical History: No Reported History General Exam Limitations: no limitations General appearance: alert, in no apparent distress Head exam: Present: atraumatic, normocephalic Eye exam: Present: normal appearance. Absent: scleral icterus, conjunctival injection Respiratory exam: Present: normal lung sounds bilaterally. Absent: respiratory distress, wheezes, rales, rhonchi, stridor Cardiovascular Exam: Present: regular rate, normal rhythm, normal heart sounds. Absent: systolic murmur, diastolic murmur, rubs, gallop GI/Abdominal exam: Present: soft. Absent: distended, tenderness, guarding, rebound, rigid, mass Extremities exam: Present: normal capillary refill, pedal edema. Absent: calf tenderness Neurological exam: Present: alert Skin exam: Present: warm, dry, intact, pallor. Absent: rash Course Vital Signs 03/21/21 03/22/21 03/22/21 21:46 02:00 02:15 Temperature 98.0 F 98.1 F 98.3 F Pulse Rate 100 87 89 Respiratory 16 24 24 Rate Blood Pressure 139/92 135/76 127/87 O2 Sat by Pulse 99 97 98 Oximetry Medical Decision Making - Lab Data Result diagrams: 03/21/21 22:37 Lab Results 03/21/21 03/21/21 03/22/21 Range/Units 22:37 22:37 00:09 WBC 3.5 L (3.8-10.6) k/uL RBC 2.78 L (4.30-5.90) m/uL Hgb 9.0 L (13.0-17.5) gm/dL Hct 27.0 L (39.0-53.0) % MCV 96.9 (80.0-100.0) fL MCH 32.4 (25.0-35.0) pg MCHC 33.5 (31.0-37.0) g/dL RDW 18.1 H (11.5-15.5) % Plt Count 102 L (150-450) k/uL MPV 8.7 Neutrophils % Not Reportable Neutrophils % (Manual) 65 % Band Neuts % (Manual) 2 % Lymphocytes % Not Reportable Lymphocytes % (Manual) 18 % Monocytes % Not Reportable Monocytes % (Manual) 14 % Eosinophils % Not Reportable Eosinophils % (Manual) 1 % Basophils % Not Reportable Neutrophils # Not Reportable Neutrophils # (Manual) 2.30 (1.3-7.7) k/uL Lymphocytes # Not Reportable Lymphocytes # (Manual) 0.63 L (1.0-4.8) k/uL Monocytes # Not Reportable Monocytes # (Manual) 0.49 (0-1.0) k/uL Eosinophils # Not Reportable Eosinophils # (Manual) 0.04 (0-0.7) k/uL Basophils # Not Reportable Nucleated RBCs 0 (0-0) /100 WBC Manual Slide Review Performed Polychromasia Present Poikilocytosis Slight Anisocytosis Slight Anisocytosis (manual) Present Macrocytosis Slight PT 11.4 (9.0-12.0) sec INR 1.1 (<1.2) APTT 26.4 (22.0-30.0) sec Urine Color Yellow Urine Appearance Clear (Clear) Urine pH 7.0 (5.0-8.0) Ur Specific [place] 1.018 (1.001-1.035) Urine Protein 1+ H (Negative) Urine Glucose (UA) Negative (Negative) Urine Ketones 2+ H (Negative) Urine Blood Small H (Negative) Urine Nitrite Negative (Negative) Urine Bilirubin Negative (Negative) Urine Urobilinogen <2.0 (<2.0) mg/dL Ur Leukocyte Esterase Negative (Negative) Urine RBC 21 H (0-5) /hpf Urine WBC 1 (0-5) /hpf Urine Mucus Occasional H (None) /hpf Disposition Clinical Impression: Intractable pain, Chronic pain due to neoplasm Disposition: ADMITTED IP TO THIS [facility] Condition: Good Referrals: None,Stated [Primary Care Provider] - 1-2 days
[2021-03-21 23:14] LABS: Anisocytosis Slight; MCH 32.4 pg (25.0-35.0); MCHC 33.5 g/dL (31.0-37.0); MCV 96.9 fL (80.0-100.0); Macrocytosis Slight; Mean Platelet Volume 8.7; Platelet Count 102 k/uL (150-450); Poikilocytosis Slight; RBC 2.78 m/uL (4.30-5.90); RDW 18.1 % (11.5-15.5); WBC 3.5 k/uL (3.8-10.6)
[2021-03-22 00:30] LABS: Appearance,Urine Clear (Clear); Bilirubin,Urine Negative (Negative); Blood,Urine Small (Negative); Color,Urine Yellow; Glucose,Urine (UA) Negative (Negative); Ketones,Urine 2+ (Negative); Leukocyte Esterase,Urine Negative (Negative); Mucus,Urine Occasional /hpf; Nitrite,Urine Negative (Negative); Protein,Urine 1+ (Negative); RBC,Urine 21 /hpf (0-5); Specific Gravity,Urine 1.018 (1.001-1.035); Urobilinogen,Urine <2.0 mg/dL (<2.0); WBC,Urine 1 /hpf (0-5)
[2021-03-22 00:40] LABS: Anisocytosis (M) Present; Band Neutrophils % 2 %; Eosinophils # (M) 0.04 k/uL (0-0.7); Lymphocytes # (M) 0.63 k/uL (1.0-4.8); Monocytes # (M) 0.49 k/uL (0-1.0); Neutrophils % (M) 65 %; Nucleated Red Blood Cells 0 /100 WBC (0-0); Polychromasia Present; Total Cells Counted 100
[2021-03-22] MEDS ORDERED: HYDROmorphone 1 MG/ML 1 ML SYRINGE IVP STA ×2 (00:41→02:05)
[2021-03-22] MEDS ORDERED: oxyCODONE ER 15 MG TAB.ER.12H PO STA (02:05)
[2021-03-22] MEDS ORDERED: PROCHLORPERAZINE SUPPOSITORY 25 MG SUPP RECTAL PRN (02:40)
[2021-03-22] MEDS ORDERED: NALOXONE 0.4 MG/ML 1 ML VIAL IV PRN (02:40)
[2021-03-22] MEDS ORDERED: ACETAMINOPHEN TAB 325 MG TAB PO PRN (02:40)
[2021-03-22] MEDS ORDERED: IBUPROFEN 400 MG TAB PO PRN (02:40)
[2021-03-22] MEDS ORDERED: MAGNESIUM HYDROXIDE 2,400 MG/10 ML CUP PO PRN (02:40)
[2021-03-22] MEDS ORDERED: DOCUSATE 100 MG CAP PO PRN (02:40)
[2021-03-22] MEDS ORDERED: HYDROmorphone 0.5 MG/0.5 ML SYRINGE IVP PRN (02:40)
[2021-03-22] MEDS ORDERED: ONDANSETRON 4 MG/2 ML VIAL IVP PRN (02:40)
[2021-03-22] MEDS ORDERED: lisinopriL 20 MG TAB PO PRN (02:45)
[2021-03-22] MEDS ORDERED: LORazepam 0.5 MG TAB PO PRN (02:45)
[2021-03-22 03:33] LABS: ALT 7 U/L (4-49); AST 39 U/L (17-59); African American GFR (CKD) >90 (>60 ml/min/1.73 sqM); Albumin 2.9 g/dL (3.5-5.0); Alkaline Phosphatase 561 U/L (38-126); Anion Gap 10 mmol/L; Blood Urea Nitrogen 19 mg/dL (9-20); Calcium 8.2 mg/dL (8.4-10.2); Carbon Dioxide 24 mmol/L (22-30); Chloride 102 mmol/L (98-107); Glucose 87 mg/dL (74-99); Non-African American GFR(CKD) >90 (>60 ml/min/1.73 sqM); Potassium 3.5 mmol/L (3.5-5.1); Sodium 136 mmol/L (137-145); Total Protein 5.2 g/dL (6.3-8.2)
[2021-03-22] MEDS: HYDROmorphone 1 MG/ML 1 ML SYRINGE IVP PRN ×4 (05:26→17:08)
[2021-03-22] MEDS ORDERED: FAMOTIDINE 20 MG TAB PO SCH (09:00)
[2021-03-22] MEDS: CYCLOBENZAPRINE 10 MG TAB PO PRN (09:18)
[2021-03-22] MEDS: HEPARIN SODIUM,PORCINE/PF 5,000 UNIT/0.5 ML SYRINGE SQ SCH ×2 (09:19→23:05)
[2021-03-22] MEDS ORDERED: SUMAtriptan succinate 50 MG TAB PO STA (09:56)
[2021-03-22 10:28] LABS: Anisocytosis Slight; Basophils % (A) 0 %; Eosinophils # (A) 0.1 k/uL (0-0.7); Eosinophils % (A) 2 %; HCT 29.2 % (39.0-53.0); HGB 9.6 gm/dL (13.0-17.5); Hypochromasia Slight; Lymphocytes # (A) 0.5 k/uL (1.0-4.8); Lymphocytes % (A) 13 %; MCH 32.5 pg (25.0-35.0); MCHC 32.9 g/dL (31.0-37.0); MCV 98.7 fL (80.0-100.0); Macrocytosis Slight; Mean Platelet Volume 8.7; Monocytes # (A) 0.3 k/uL (0-1.0); Monocytes % (A) 7 %; Neutrophils # (A) 2.8 k/uL (1.3-7.7); Neutrophils % (A) 76 %; Platelet Count 106 k/uL (150-450); Poikilocytosis Slight; RBC 2.96 m/uL (4.30-5.90); RDW 17.8 % (11.5-15.5); WBC 3.7 k/uL (3.8-10.6)
[2021-03-22] MEDS ORDERED: SUMAtriptan succinate 50 MG TAB PO PRN (11:00)
--- NOTE | 2021-03-22 11:25 | P.HPIM ---
History of Present Illness H&P Date: 03/22/21 Chief Complaint: Hematuria and symptomatic anemia The patient is a 66-year-old male with a history of metastatic adenocarcinoma the prostate diagnosed with bone metastasis in October 2015. He had radiotherapy to the cervical spine in October 2015, and went on to have treatment with Taxotere, Lupron and Xtandi, Cabazitaxel and most recently was undergoing clinical trial with T-cell treatment and immunotherapy at [facility]. H finished a clinical trial in June where he was getting T-cell treatments and immunotherapy. Unfortunately he developed significant anemia, and was removed from the study. He was seen in follow-up with Dr. Yancey, and repeat imaging was ordered on August 22. His bone scan was consistent with SuperScan, and his CT scan of the chest, abdomen and pelvis revealed progression of his known osseous disease without any clear evidence of visceral disease. Likely component of bone marrow involvement and the treatment in study contributed to his severe anemia. He unfortunately was found with recent disease progression, during last admissio n when he was admitted for uncontrolled pain. Since this time e has been under the care of palliative care. He has also underwent palliative radiation with Dr. Quiroz, ankles and hip. Yesterday he noticed hematuria with clots. He also complained of increased dizziness and headaches recently, which have only been relieved with triptan medications. With his increased dizziness and headaches further imaging of the brain will be performed. Review of Systems All systems: negative Constitutional: Reports as per HPI Past Medical History Past Medical History: Cancer, Hypertension, Pneumonia Additional Past Medical History / Comment(s): Pt recently admitted to [facility] on07/25/20 with fever/generalized weakness/SIRS/suspected covid 19 with negative rapid PCR/increased inflammatory markers, normocytic anemia/transfusion. 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 History of Any Multi-Drug Resistant Organisms: None Reported Past Surgical History: Joint Replacement, Orthopedic Surgery Additional Past Surgical History / Comment(s): Prostate biopsy, L hand nail gun injury with repair, R ankle fractures with surgery, R total hip arthroplasty, sinus surgery. Past Anesthesia/Blood Transfusion Reactions: No Reported Reaction Additional Past Anesthesia/Blood Transfusion Reaction / Comment(s): Pt has rece ived blood in past without reaction. Past Psychological History: No Psychological Hx Reported Smoking Status: Former smoker - Past Family History Father Family Medical History: No Reported History Additional Family Medical History / Comment(s): Father is 90yrs old. Mother Additional Family Medical History / Comment(s): Mother had multiple medical problems, pt prefers not to discuss at this time. family Family Medical History: No Reported History Medications and Allergies Home Medications Medication Instructions Recorded Confirmed Type Cyclobenzaprine [Flexeril] 10 mg PO TID PRN 03/21/21 03/21/21 History Enalapril [Vasotec] 10 mg PO DAILY PRN 03/21/21 03/21/21 History Gabapentin [Neurontin] 400 mg PO TID PRN 03/21/21 03/21/21 History Hydromorphone 1mg/Ml 1 mg PO Q4H PRN 03/21/21 03/22/21 History Ibuprofen [Motrin] 600 mg PO TID PRN 03/21/21 03/21/21 History LORazepam [Ativan] 0.5 mg PO Q6H PRN 03/21/21 03/21/21 History oxyCODONE HCL [oxyCODONE HCL (IR)] 30 mg PO Q4H PRN 03/21/21 03/21/21 History Dexamethasone [Decadron] 4 mg PO BID 03/22/21 03/22/21 History Allergies Allergy/AdvReac Type Severity Reaction Status Date / Time morphine AdvReac Unknown Verified 03/21/21 22:31 Physical Exam Vitals: Vital Signs Temp Pulse Resp BP Pulse Ox 03/22/21 06:00 98.5 F 82 20 119/76 97 03/22/21 02:15 98.3 F 89 24 127/87 98 03/22/21 02:00 98.1 F 87 24 135/76 97 03/21/21 21:46 98.0 F 100 16 139/92 99 Intake and Output 03/21/21 03/22/21 03/22/21 22:59 06:59 14:59 Other: Voiding Method Urinal Weight 77.111 kg - Constitutional General appearance: cooperative, no acute distress - EENT Eyes: EOMI, poor dentition ENT: NA/AT, normal oropharynx - Neck Neck: normal ROM - Respiratory Respiratory: bilateral: diminished - Cardiovascular Rhythm: regular - Gastrointestinal General gastrointestinal: normal bowel sounds, soft - Integumentary Integumentary: pale - Neurologic Neurologic: CNII-XII intact - Musculoskeletal Musculoskeletal: generalized weakness, left sided weakness - Psychiatric Psychiatric: A&O x's 3, appropriate affect, intact judgment & insight Results CBC & Chem 7: 03/22/21 09:30 03/22/21 03:04 Labs: Abnormal Lab Results - Last 24 Hours (Table) 03/21/21 03/22/21 03/22/21 Range/Units 22:37 00:09 03:04 WBC 3.5 L (3.8-10.6) k/uL RBC 2.78 L (4.30-5.90) m/uL Hgb 9.0 L (13.0-17.5) gm/dL Hct 27.0 L (39.0-53.0) % RDW 18.1 H (11.5-15.5) % Plt Count 102 L (150-450) k/uL Lymphocytes # (1.0-4.8) k/uL Lymphocytes # (Manual) 0.63 L (1.0-4.8) k/uL Sodium 136 L (137-145) mmol/L Creatinine 0.62 L (0.66-1.25) mg/dL Calcium 8.2 L (8.4-10.2) mg/dL Alkaline Phosphatase 561 H (38-126) U/L Total Protein 5.2 L (6.3-8.2) g/dL Albumin 2.9 L (3.5-5.0) g/dL Urine Protein 1+ H (Negative) Urine Ketones 2+ H (Negative) Urine Blood Small H (Negative) Urine RBC 21 H (0-5) /hpf Urine Mucus Occasional H (None) /hpf 03/22/21 Range/Units 09:30 WBC 3.7 L (3.8-10.6) k/uL RBC 2.96 L (4.30-5.90) m/uL Hgb 9.6 L (13.0-17.5) gm/dL Hct 29.2 L (39.0-53.0) % RDW 17.8 H (11.5-15.5) % Plt Count 106 L (150-450) k/uL Lymphocytes # 0.5 L (1.0-4.8) k/uL Lymphocytes # (Manual) (1.0-4.8) k/uL Sodium (137-145) mmol/L Creatinine (0.66-1.25) mg/dL Calcium (8.4-10.2) mg/dL Alkaline Phosphatase (38-126) U/L Total Protein (6.3-8.2) g/dL Albumin (3.5-5.0) g/dL Urine Protein (Negative) Urine Ketones (Negative) Urine Blood (Negative) Urine RBC (0-5) /hpf Urine Mucus (None) /hpf MRI - head: report reviewed Thrombosis Risk Factor Assmnt - DVT/VTE Prophylaxis DVT/VTE Prophylaxis: Pharmacologic Prophylaxis ordered Assessment and Plan Plan: Assessment and Plan Plan: Chronic pain due to neoplasm Current Visit: Yes Status: Acute Code(s): G89.3 - NEOPLASM RELATED PAIN (ACUTE) (CHRONIC) SNOMED Code(s): 59279798474486 (2) Intractable pain Current Visit: Yes Status: Acute Code(s): R52 - PAIN, UNSPECIFIED SNOMED Code(s): 90773001 (3) Metastatic malignant neoplasm to prostate Current Visit: Yes Status: Acute Code(s): C79.82 - SECONDARY MALIGNANT NEOPLASM OF GENITAL ORGANS SNOMED Code(s): 74270230 Plan: Continue on Comfort Measures and goals of care Quality of Life. Recent discussion regarding compassionate use immune therapy versus new trial medication, although should evaluate for brain mets prior as this may further define goals - Hospice care if progression. Incorporate PT/OT Add sumatryptan Add Antivert Transfuse less than 7.5 if symptomatic Add bowel regimen Add Oxycontin ER COntinue Oxycodone IR Addendum: MRI of the Brain reveals new area concerning for metastatic disease in temporal lobe, the area measure 1.5cmx0.9cm. There is also mention of possibility of Leptomeningeal involvement. I have placed a consult for Dr. Quiroz regarding second opinion on imaging and if felt to be metastatic disease if gamma knife is an option. The patient and would like to continue overall goal as palliative and quality of life, however if he has an option for trial drug or immune therapy they would like to try to help maintain disease as long as it does not increase overall side effects. Physician Attest: I have completed the full history and physical and completed the above impression and plan, agree with dictation, dictated as a ascribe.
[2021-03-22] MEDS ORDERED: MECLIZINE 12.5 MG TAB PO PRN (11:35)
[2021-03-22] MEDS ORDERED: LORazepam 2 MG/ML INJ IV PRN (11:39)
[2021-03-22] MEDS: GABAPENTIN 400 MG CAP PO PRN (12:38)
[2021-03-22] MEDS: oxyCODONE ER 20 MG TAB.ER.12H PO SCH ×2 (14:00→23:06)
--- NOTE | 2021-03-22 15:22 | MR ---
EXAMINATION TYPE: MR brain wo/w con DATE OF EXAM: 03/22/2021 COMPARISON: Prior contrast-enhanced MRI brain August 14, 2020 HISTORY: Intractable headache and pain, evaluate for metastatic prostate cancer. TECHNIQUE: Multiplanar, multisequence images of the brain and brainstem is performed without and with IV contras t, utilizing 8 mL intravenous Gadavist . FINDINGS: Diffusion weighted images demonstrate no evidence of a recent infarct or other diffusion ab normality. Stable mild ventricular and sulcal prominence. Scattered foci of T2 hyperintensity are ag ain seen throughout the white matter. Roughly 15 scattered lesions again seen. Midline structures redemonstrate normal morphology. The craniocervical junction appears within pérez l limits. Postcontrast images show more prominent diffuse curvilinear dural enhancement bilaterally from top of skull to the inferior temporal regions. In the medial right temporal lobe there is new heterogeneous enhancing 1.5 x 0.9 cm extra-axial mass seen best coronal image 47. There is additional new Smaller peripheral 9 mm left temporal lesion noted axial image 37 on current study. New thickened dural enhan cement left frontal region likely curvilinear enhancement up to 8 mm noted axial image 19 series 501. There is continued increasing more prominent fluid signal bilateral mastoid air cells The dural venou s sinuses remain patent. Tiny mucous retention cyst or polyp in the inferior left maxillary sinus red emonstrated laterally. Mild mucosal thickening bilateral ethmoid sinuses redemonstrated. Globes are i ntact bilaterally. Artifact at level of the maxilla. IMPRESSION: Worsening diffuse dural enhancement with new peripheral nodularity could reflect leptomen ingeal spread of malignancy. Increasing fluid signal bilateral mastoid air cells could reflect worsen ing mastoiditis.
[2021-03-22] MEDS: SENNOSIDES-DOCUSATE SODIUM 1 EACH TAB PO SCH (23:06)
[2021-03-22] MEDS: DEXAMETHASONE SOD PHOSPHATE 4 MG/ML 1 ML VIAL IV SCH (23:07)
[2021-03-22] MEDS: PANTOPRAZOLE 40 MG TABLET PO SCH (23:17)
[2021-03-23 01:44] LABS: % Iron Saturation 23.27 (15.00-50.00)
[2021-03-23] MEDS: HEPARIN SODIUM,PORCINE/PF 5,000 UNIT/0.5 ML SYRINGE SQ SCH ×3 (01:52→20:01)
[2021-03-23 03:09] LABS: Folate, Serum 20.3 ng/mL
[2021-03-23] MEDS: DEXAMETHASONE SOD PHOSPHATE 4 MG/ML 1 ML VIAL IV SCH ×3 (04:49→20:02)
[2021-03-23] MEDS: SENNOSIDES-DOCUSATE SODIUM 1 EACH TAB PO SCH ×2 (10:15→20:02)
[2021-03-23] MEDS: oxyCODONE ER 20 MG TAB.ER.12H PO SCH ×2 (10:15→20:01)
[2021-03-23] MEDS: PANTOPRAZOLE 40 MG TABLET PO SCH ×2 (10:15→17:07)
[2021-03-23] MEDS: GABAPENTIN 400 MG CAP PO PRN (10:16)
[2021-03-23] MEDS: CYCLOBENZAPRINE 10 MG TAB PO PRN (10:16)
[2021-03-23] MEDS: BUTALB/APAP/CAFF 50-325-40MG TAB PO PRN ×2 (10:53→20:07)
--- NOTE | 2021-03-23 10:56 | CDI ---
Documentation Clarification Form Date: 03/23/2021 10:45:12 AM From: Antonia Tabor CCS, CCDS Admit Date: 03/22/2021 02:40:00 AM Patient Name: Carlos Downs Visit Number: [id number] Discharge Date: ATTENTION: The Clinical Documentation Specialists (CDI) and [facility] Coding Staff appreciate your assistance in clarifying documentation. Please respond to the clarification below the line at the bottom and electronically sign. The CDI & [facility] Coding staff will review the response and follow-up if needed. Please note: Queries are made part of the Legal Health Record. If you have any questions, please contact the author of this message via ITS. Dr. Ernesto Rod: Symptomatic anemia is documented in the Oncology History & Physical without further specificity. Additional specificity regarding the Type of Anemia is requested. History/Risk Factors per the 03/22 Oncology History & Physical: Prostate Cancer with metastatic disease to the bone and brain, treated with Radiotherapy and oral Chemotherapy; Hypertension, Pneumonia, Suspected COVID in , former smoker. Clinical indicators: Presented to the ED on 03/21 via EMS with Hematuria & Stage IV Metastatic Prostate Cancer receiving palliative radiation for bony metastases of the left hip. ED Clinical Impression: Intractable pain, Chronic pain due to neoplasm. 03/21 LAB: WBC 3.5, RBC 2.78, Hgb 9.0, Hct 27.0, Pl Ct 102, Lymphocytes 0.63 03/22: WBC 3.7, RBC 2.96, Hgb 9.6, Hct 29.2, Pl Ct 106, Lymphocytes 0.5, Iron 47, TIBC 202, % Sat 23.27 Treatment 03/21: IV Zofran, IV fl bolus 999 mls/hr q1H, Iron Profile ordered. 03/22: IV Dilaudid 1 mg x2, po OxyContin, po Tylenol, IV Dilaudid 0.5 mg q3H, IV Dilaudid 1 mg q3H, po Motrin Please clarify the type and acuity of anemia: [ ] Acute blood loss anemia [ ] Acute on chronic blood loss anemia [ ] Chronic blood loss anemia, please specify cause if known: [ ] Iron deficiency anemia [ ] Hemolytic anemia [ ] Drug induced anemia [ ] Anemia due to malignancy [ ] Anemia of other Chronic Disease, please specify: [ ] Pancytopenia, please specify cause: [ ] Unable to determine [ ] Other, please specify (Template Last Revised: August 2020) 03/26 Query response documented in 03/23 Attending Progress Note, Dr. Rod: Pancytopenia, including anemia, appears to be due to malignancy. (CDI/MA) MTDD
[2021-03-23] MEDS: HYDROmorphone 1 MG/ML 1 ML SYRINGE IVP PRN (12:36)
[2021-03-23 13:04] VITALS: BMI 23.7
--- NOTE | 2021-03-23 15:24 | FL ---
PROCEDURE: Lumbar puncture. DATE: 03/23/2021 CLINICAL HISTORY: 66 year-old male history of prostate cancer, meningeal enhancement on MRI, concerni ng for leptomeningeal spread. COMPLICATIONS: None Fluoroscopy time: 7 seconds Total images: 1 SEDATION: Via radiology nursing. The patient and the patient's vital signs were monitored by qualified independ ent radiology personnel. TECHNIQUE: The procedure and potential risks were explained to patient and an informed consent was obtained with teach back. Site and side was verified. A time out was performed. The patient was placed prone on the fluoroscopy table and the L4-L5 level was localized and the skin was marked and was prepped and draped in the usual sterile fashion. Lidocaine was used for local anesthesia. Utilizing fluoroscopic guidance a 22-gauge spinal needle was placed through the skin and into the subarachnoid space. Approximately 6 mL of clear, colorless cerebral spinal fluid was obtained. The patient tolerated the procedure well and was sent back to inpatient room in satisfactory conditio n. The fluid was sent to the lab for the requested laboratory analysis. The estimated blood loss was minimal. The patient's condition was unchanged following the procedure. IMPRESSION: Successful accumulation of 6 mL of clear CSF. Laboratory analysis pending.
[2021-03-23 17:58] LABS: Glucose,CSF 77 mg/dL (40-70)
[2021-03-23 18:05] LABS: Total Protein,CSF 455 mg/dL (12-60)
--- NOTE | 2021-03-23 19:18 | P.PN ---
Subjective Progress Note Date: 03/23/21 The patient had lumbar puncture today. At the time of my exam is resting comfortably. He was asleep but able to be aroused easily. He stated that his headache as well as other pain complaints were well controlled with his current regimen. Objective - Vital Signs Vital signs: Vital Signs Temp 97.9 F 03/23/21 12:49 Pulse 89 03/23/21 16:42 Resp 18 03/23/21 13:35 BP 137/76 03/23/21 16:42 Pulse Ox 98 03/23/21 16:42 Intake & Output 03/23/21 03/23/21 03/24/21 06:59 18:59 06:59 Weight 77.111 kg Other: Voiding Method Urinal Urinal # Voids 4 # Bowel Movements 0 - Constitutional General appearance: Present: no acute distress - EENT Eyes: Present: EOMI ENT: Present: hearing grossly normal, normal oropharynx - Respiratory Respiratory: bilateral: CTA - Cardiovascular Rhythm: regular Heart sounds: normal: S1, S2 - Gastrointestinal General gastrointestinal: Present: normal bowel sounds, soft - Integumentary Integumentary: Present: normal - Neurologic Neurologic: Present: CNII-XII intact - Musculoskeletal Musculoskeletal: Present: generalized weakness - Psychiatric Psychiatric: Present: A&O x's 3 - Labs CBC & Chem 7: 03/22/21 09:30 03/22/21 03:04 Labs: Abnormal Lab Results - Last 24 Hours (Table) 03/22/21 03/22/21 03/23/21 Range/Units 09:30 09:30 13:30 Iron 47 L (65-175) ug/dL TIBC 202 L (228-460) ug/dL Vitamin D 25-Hydroxy 16.6 L (30.0-100.0) ng/mL Cortisol 26.6 H (3.10-22.40) ug/dL CSF Glucose 77 H (40-70) mg/dL CSF Total Protein 455 H (12-60) mg/dL Microbiology - Last 24 Hours (Table) 03/22/21 16:48 Urine Culture - Final Urine,Voided Assessment and Plan (1) 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 His MRI shows very significant, and extensive dural enhancement which is significant change from his prior MRI. 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 They will also be assessing the patient. The LP was performed for pathologic confirmation. - This was extensively discussed with the patient, and his daughter who was at the bedside. They were informed that if the CSF is positive, it would indicate definite leptomeningeal involvement. In that case there would be essentially no treatment options with any significant chance of clinical benefit. In that case the patient would be strongly recommended to opt for comfort care approach with reverting back to hospice - If the patient has dural involvement only, he can potentially have some clinical benefit especially to his headaches, with whole brain radiation. However that procedure may have its own side effects that could potentially outweigh the benefits. He will discuss the same with radiation oncology. Also in that situation if the patient is able to have benefit from radiation, and tolerate it, he can discuss options for additional systemic therapy with Dr. Yancey. Case was discussed with Dr. Yancey, who confirmed that even in this situation there would be very limited options for any effective systemic treatment. The same was also discussed with the patient. Current Visit: Yes Status: Acute Code(s): C61 - MALIGNANT NEOPLASM OF PROSTA TE; C79.40 - SECONDARY MALIGNANT NEOPLASM OF UNSP PART OF NERVOUS SYSTEM SNOMED Code(s): 15679568 (2) Chronic pain due to neoplasm Narrative/Plan: The patient is much more comfortable on his current regimen which is oxycodone ER, oxycodone IR for breakthrough, steroids and Imitrex . continue same. Depending on patient's progress consider change in steroids to by mouth and the next one to 2 days Current Visit: Yes Status: Acute Priority: High Code(s): G89.3 - NEOPLASM RELATED PAIN (ACUTE) (CHRONIC) SNOMED Code(s): 32797487962891 (3) Pancytopenia Narrative/Plan: Pancytopenia, including anemia, appears to be due to malignancy. All counts are in the safe range. Continue to monitor with supportive transfusions if required Current Visit: Yes Status: Acute Code(s): D61.818 - OTHER PANCYTOPENIA SNOMED Code(s): 951405001
[2021-03-24] MEDS: HYDROmorphone 1 MG/ML 1 ML SYRINGE IVP PRN (01:56)
[2021-03-24] MEDS: DEXAMETHASONE SOD PHOSPHATE 4 MG/ML 1 ML VIAL IV SCH (04:54)
--- NOTE | 2021-03-24 07:14 | P.CONS ---
History of Present Illness - Reason for Consult Consult date: 03/23/21 headache, dural lesions Requesting physician: Ernesto Rod - Chief Complaint headache, hematuria - History of Present Illness The patient is a 66 year old male with a history of metastatic adenocarcinoma of the prostate initially diagnosed in 2015. He has undergone several lines of therapy including ADT, Taxotere, Cabazitaxel and most recently clinical trial at [facility]. He presented to the hospital with significant bone pain and elected to undergo single fraction palliative radiotherapy to both shoulders and hips finishing on 09/14/2020. He subsequently presented due to increased pain in his lower legs bilaterally just above the ankle joints. This was addressed with a single fraction therapy finishing on 01/30/2021. On March 16, the patient again underwent a single fraction palliative radiotherapy to the left hip due to progressive pain. The patient is currently under hospice care, and presented to the hospital complaining of headache and hematuria. The patient reports he had one episode of hematuria prior to admission, and this seems to have resolved. He is not having any pain or discomfort with urination at this time. His bigger complaint however is he has had severe headaches over the past several days and has had some dizziness. He also was reporting some occasional nausea without vomiting. The patient has had difficulty with chronic headache over the past several years which typically response Imitrex. He denies blurred vision or slurred speech. He underwent an MRI of the brain on March 22, 2021 and shortly after admission. This revealed prominent dural enhancement as well as several dural based lesions which were new compared to his MRI in August. The patient was started on 4 mg Decadron every 8 hours and resumed Imitrex. At the time of my consultation, the patient reports he is not having any headache, nausea or vomiting. He states his pain within the rest of the body is reasonably well-controlled. He has not been ambulating however, and states this usually increases his ankle pain. He did have lumbar puncture earlier today, which showed significantly elevated protein and glucose (cytology pending). Review of Systems Constitutional: Denies chills, Denies fever Eyes: denies blurred vision, denies diplopia Ears, nose, mouth and throat: Reports headache, Denies dysphagia Cardiovascular: Denies chest pain Respiratory: Denies congestion, Denies cough Gastrointestinal: Reports nausea, Denies abdominal pain, Denies vomiting Genitourinary: Denies flank pain Musculoskeletal: Denies frequent falls, Denies leg numbness/tingling Integumentary: Denies rash Neurological: Denies aphasia, Denies change in speech, Denies confusion, Denies convulsions, Denies hearing difficulties, Denies numbness, Denies paralysis, Denies paresthesias, Denies seizures, Denies syncope Psychiatric: Denies confusion Past Medical History Past Medical History: Cancer, Hypertension, Pneumonia Additional Past Medical History / Comment(s): Pt recently admitted to [facility] on07/25/20 with fever/generalized weakness/SIRS/suspected covid 19 with negative rapid PCR/increased inflammatory markers, normocytic anemia/transfusion. 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 History of Any Multi-Drug Resistant Organisms: None Reported Past Surgical History: Joint Replacement, Orthopedic Surgery Additional Past Surgical History / Comment(s): Prostate biopsy, L hand nail gun injury with repair, R ankle fractures with surgery, R total hip arthroplasty, sinus surgery. Past Anesthesia/Blood Transfusion Reactions: No Reported Reaction Additional Past Anesthesia/Blood Transfusion Reaction / Comm: Pt has received blood in past without reaction. Past Psychological History: No Psychological Hx Reported Smoking Status: Former smoker - Past Family History Father Family Medical History: No Reported History Additional Family Medical History / Comment(s): Father is 90yrs old. Mother Family Medical History: Congestive Heart Failure (CHF) Additional Family Medical History / Comment(s): Mother had multiple medical problems, pt prefers not to discuss at this time. family Family Medical History: No Reported History Medications and Allergies Home Medications Medication Instructions Recorded Confirmed Type Cyclobenzaprine [Flexeril] 10 mg PO TID PRN 03/21/21 03/21/21 History Enalapril [Vasotec] 10 mg PO DAILY PRN 03/21/21 03/21/21 History Gabapentin [Neurontin] 400 mg PO TID PRN 03/21/21 03/21/21 History Hydromorphone 1mg/Ml 1 mg PO Q4H PRN 03/21/21 03/22/21 History Ibuprofen [Motrin] 600 mg PO TID PRN 03/21/21 03/21/21 History LORazepam [Ativan] 0.5 mg PO Q6H PRN 03/21/21 03/21/21 History oxyCODONE HCL [oxyCODONE HCL (IR)] 30 mg PO Q4H PRN 03/21/21 03/21/21 History Dexamethasone [Decadron] 4 mg PO BID 03/22/21 03/22/21 History Allergies Allergy/AdvReac Type Severity Reaction Status Date / Time morphine AdvReac Unknown Verified 03/21/21 22:31 Physical Exam Vitals: Vital Signs Temp Pulse Resp BP Pulse Ox 03/24/21 05:53 97.9 F 78 18 127/73 97 03/23/21 20:25 98.4 F 103 H 20 121/73 95 03/23/21 16:42 89 137/76 98 03/23/21 15:45 97 133/86 03/23/21 15:15 98 129/79 03/23/21 14:45 97 128/76 03/23/21 14:30 98 128/66 03/23/21 14:15 96 130/76 03/23/21 14:00 96 128/76 03/23/21 13:35 99 18 124/66 97 03/23/21 13:25 100 18 128/65 97 03/23/21 13:15 101 H 18 137/78 96 03/23/21 12:49 97.9 F 107 H 18 117/79 96 Intake and Output 03/23/21 03/23/21 03/24/21 14:59 22:59 06:59 Intake Total 400 Balance 400 Intake: Oral 400 Other: Voiding Method Urinal Urinal # Voids 4 2 # Bowel Movements 0 2 Weight 77.111 kg - Constitutional General appearance: no acute distress, thin - EENT Eyes: EOMI, PERRLA ENT: hearing grossly normal Ears: bilateral: normal - Neck Neck: no lymphadenopathy - Respiratory Respiratory: bilateral: CTA - Cardiovascular Rhythm: regular - Gastrointestinal General gastrointestinal: no distended, no tenderness - Integumentary Integumentary: pale - Neurologic Neurologic: CNII-XII intact - Musculoskeletal Musculoskeletal: generalized weakness, strength equal bilaterally - Psychiatric Psychiatric: A&O x's 3, appropriate affect, intact judgment & insight Results CBC & Chem 7: 03/22/21 09:30 03/22/21 03:04 Labs: Abnormal Lab Results - Last 24 Hours (Table) 03/23/21 Range/Units 13:30 CSF Glucose 77 H (40-70) mg/dL CSF Total Protein 455 H (12-60) mg/dL Microbiology - Last 24 Hours (Table) 03/22/21 16:48 Urine Culture - Final Urine,Voided MRI - head: report reviewed, image reviewed Assessment and Plan Assessment: The patient is a 66 year old male with a history of metastatic adenocarcinoma of the prostate initially diagnosed in 2015. He has undergone several lines of therapy including ADT, Taxotere, Cabazitaxel and most recently clinical trial at [facility]. He presented to the hospital with significant bone pain and elected to undergo single fraction palliative radiotherapy to both shoulders and hips finishing on 09/14/2020. He subsequently presented due to increased pain in his lower legs bilaterally just above the ankle joints. This was addressed with a single fraction therapy finishing on 01/30/2021. On March 16, the patient again underwent a single fraction palliative radiotherapy to the left hip due to progressive pain. The patient is currently under hospice care, and presented to the hospital complaining of headache and hematuria. His MRI of the brain revealed metastatic disease involving the dura with several focal dural lesions and no parenchymal brain metastasis. There is concern for leptomeningeal disease and an LP was performed. Plan: 1. Headache: Currently improved but the patient has been started on steroids and resumed on his headache medication Imitrex. 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 CSF cytology is pending. If the patient is found to have leptomeningeal disease, would likely recommend just continuation of hospice ca re. Patient understands this carries a dismal prognosis. Even if cytology is negative, I explained to the patient that it is possible to have dural metastasis from prostate cancer without leptomeningeal disease. I discussed that typically whole brain radiotherapy is required for palliation of this condition considering the patient's diffuse presentation within the dura. We again discussed that even in that circumstance, considering the patient's limited life expectancy it would be reasonable to continue with palliative care and forego radiotherapy considering potential toxicity associated. We will continue to monitor the patient. He does not appear to have any cranial neuropathy or other signs of leptomeningeal disease outside of his headache. There is no need for urgent radiotherapy at this time considering the patient has had improvement with dexamethasone. Time with Patient: Greater than 30
[2021-03-24] MEDS: PANTOPRAZOLE 40 MG TABLET PO SCH (08:39)
[2021-03-24] MEDS: HEPARIN SODIUM,PORCINE/PF 5,000 UNIT/0.5 ML SYRINGE SQ SCH (08:39)
[2021-03-24] MEDS: oxyCODONE ER 20 MG TAB.ER.12H PO SCH (08:39)
[2021-03-24] MEDS: SENNOSIDES-DOCUSATE SODIUM 1 EACH TAB PO SCH (08:47)
[2021-03-24 11:50] VITALS: BP 137/83; PULSE 80; RESP 20; TEMP 98.3
--- NOTE | 2021-03-25 01:07 | P.DS ---
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 He had multiple other areas of muscle skeletal pain which apparently were fairly stable during hospitalization the patient was started on steroids and was started back on Imitrex. With that he noted marked improvement in his headache and dizziness. H is muscle skeletal pain from metastatic disease was reasonably controlled with resumption of his home medication regimen to The patient had an MRI of the brain done, which showed significant areas of dural enhancement highly suggestive of metastatic disease. He had a lumbar puncture done, showing high levels of protein, with cytology pending Radiation oncology were consulted and case discussed with them. It was felt that if lumbar puncture was positive, confirming true leptomeningeal involvement, then patient would have really no treatment options, and continuation of hospice care would be most appropriate If CSF are negative, indicating metastasis confined to the dura, the patient could potentially be a candidate for whole brain radiation. It was discussed with him by radiation oncology, and myself, that radiation would have potential for palliating his symptoms, but would be unlikely to affect the course of his disease overall. Side effects of radiation were also discussed. At the time of discharge the patient was not sure if he would definitely go for radiation, given possible side effects, even if this were an option for him, assuming his symptoms could be controlled otherwise The patient was very keen on being discharged home today. It was decided that he would contact our office, and radiation oncology to schedule follow-up once CSF cytology was available. Based on the results, as noted above, further management to be decided. In the meantime it was felt reasonable that the patient could sign back on to hospice, especially as any definite treatment options were very limited, even if the CSF was negative.. He had come off hospice transiently in order to have the lumbar puncture. He stated that he was quite happy with their care, and would definitely be willing to sign back on in order to continue his symptom management. Hospice will contacted and informed us that they would be able to visit him on 03/25/21 and sign him back on. The patient also confirmed that he had enough of his pain medications, as well as Imitrex and steroids at home to last him to be sign back on hospice. He was advised to increase his dexamethasone to 3 times a day from twice a day which he was taking prior to admission. Pain medication regimen that he was taking at home was otherwise continued. Patient was subsequently discharged home. Assessment: improved compared to admission Pertinent Studies: MRI of the brain Procedures: lumbar puncture Patient Condition at Discharge: Stable Plan - Discharge Summary Discharge Rx Participant: Yes New Discharge Prescriptions: No Action Hydromorphone 1mg/Ml 1 mg PO Q4H PRN PRN Reason: Pain oxyCODONE HCL [oxyCODONE HCL (IR)] 30 mg PO Q4H PRN PRN Reason: Pain Cyclobenzaprine [Flexeril] 10 mg PO TID PRN PRN Reason: Muscle Spasm Enalapril [Vasotec] 10 mg PO DAILY PRN PRN Reason: Blood Pressure - High Gabapentin [Neurontin] 400 mg PO TID PRN PRN Reason: Pain LORazepam [Ativan] 0.5 mg PO Q6H PRN PRN Reason: Anxiety Ibuprofen [Motrin] 600 mg PO TID PRN PRN Reason: Pain Dexamethasone [Decadron] 4 mg PO TID Discharge Medication List Cyclobenzaprine [Flexeril] 10 mg PO TID PRN 03/21/21 [History] Enalapril [Vasotec] 10 mg PO DAILY PRN 03/21/21 [History] Gabapentin [Neurontin] 400 mg PO TID PRN 03/21/21 [History] Hydromorphone 1mg/Ml 1 mg PO Q4H PRN 03/21/21 [History] Ibuprofen [Motrin] 600 mg PO TID PRN 03/21/21 [History] LORazepam [Ativan] 0.5 mg PO Q6H PRN 03/21/21 [History] oxyCODONE HCL [oxyCODONE HCL (IR)] 30 mg PO Q4H PRN 03/21/21 [History] Dexamethasone [Decadron] 4 mg PO TID 03/22/21 [History] Follow up Appointment(s)/Referral(s): Arpan Boewrs MD [STAFF PHYSICIAN] - As Needed (call office to schedule) None,Stated [Primary Care Provider] - As Needed Shavonne Yancey MD [STAFF PHYSICIAN] - As Needed (Call office to schedule ) Discharge Disposition: HOME WITH HOSPICE
[2021-03-27 07:10] LABS: Methylmalonic Acid 0.19 umol/L (<0.40)
== END 2021-03-24 13:37 | disposition hospice, home (50) | DRG 948 ==
LOC: EC 21:45 → 5NMEDONC 03-22 02:40
PROVIDERS: ADMIT Internal Medicine Hematology & Oncology; ATTEND Internal Medicine Hematology & Oncology
PROC: 009U3ZX Drainage of Spinal Canal, Percutaneous Approach, Diagnostic (ICD-10-PCS; principal; 2021-03-23)
PROC: B01B1ZZ Fluoroscopy of Spinal Cord using Low Osmolar Contrast (ICD-10-PCS; 2021-03-23)
DX: G89.3 Neoplasm related pain (acute) (chronic) (principal); C79.40 Secondary malignant neoplasm of unspecified part of nervous system; C79.51 Secondary malignant neoplasm of bone; D61.818 Other pancytopenia; C79.31 Secondary malignant neoplasm of brain; D64.9 Anemia, unspecified; C61 Malignant neoplasm of prostate; Z51.5 Encounter for palliative care; Z20.822 Contact with and (suspected) exposure to COVID-19; Z86.19 Personal history of other infectious and parasitic diseases; I10 Essential (primary) hypertension; R31.9 Hematuria, unspecified; R51.9 Headache, unspecified; Z88.5 Allergy status to narcotic agent; Z79.899 Other long term (current) drug therapy; Z87.891 Personal history of nicotine dependence; Z92.3 Personal history of irradiation; Z96.641 Presence of right artificial hip joint; Z79.891 Long term (current) use of opiate analgesic; Z79.52 Long term (current) use of systemic steroids; Z87.01 Personal history of pneumonia (recurrent); Z92.21 Personal history of antineoplastic chemotherapy
CPT/HCPCS: 36415; 62328; 70553; 80053; 81001; 82306; 82533; 82607; 82728; 82746; 82945; 83540; 83550; 83921; 84153; 84157; 84425; 84443; 85025; 85610; 85730; 87086; 87635; 96361; 96374; 96375; 96376; 99285